=== PATIENT | female | born 1950 | race Caucasian/White ===

== ENCOUNTER 2016-10-04 09:48 | Emergency (ER) | payer MEDICARE, MEDICAID ==
[~2016-10-04] VITALS: Ht 165.1 cm; Wt 86.2 kg
[~2016-10-04 09:48] MED LIST: ALBU18; ASPI-231 PO; CHOL20007 OR; DILT120T3; FLUT250M9; HYDR12.56 PO; LEV500T PO; OLME40TA27; PANT40TA2 PO; SERT-160; SIMV-13
[2016-10-04 10:35] VITALS: BP 121/73
[2016-10-04] MEDS ORDERED: IPRATROPIUM BROM 0.5 MG/2.5ML INH SOL NEB ONE (11:30)
[2016-10-04] MEDS ORDERED: ALBUTEROL SULF 2.5 MG/0.5ML(0.5%) NEB SOLN NEB ONE (11:30)
[2016-10-04 11:51] LABS: Urine RBC None Seen /hpf (0 - 4)
[2016-10-04 11:57] LABS: Urine Bilirubin Negative (Negative); Urine Blood Negative /uL (Negative); Urine Color Yellow (Yellow); Urine Glucose Normal (Normal); Urine Ketone Negative (Negative); Urine Nitrite Negative (Negative); Urine Squamous Epithelial Cell FEW /hpf (<5); Urine Urobilinogen Normal (Negative)
[2016-10-04 12:32] LABS: Basophils # (auto) 0 uL; Basophils % (auto) 0.4 % (0.0-2.0); Eosinophils # (auto) 0.1 uL; Eosinophils % (auto) 0.8 % (0.0-7.0); Hematocrit 43.1 % (36.0-46.0); Hemoglobin 14.1 g/dL (12.2-16.2); Lymphocytes # (auto) 1.4 uL; Lymphocytes % (auto) 19.4 % (10.0-50.0); Mean Corpuscular Hemoglobin 29.5 pg (28.0-32.0); Mean Corpuscular Hgb Conc. 32.8 g/dL (32.0-36.0); Mean Corpuscular Volume 89.9 fL (80.0-100.0); Mean Platelet Volume 8.8 fL (7.4-10.4); Monocytes # (auto) 0.5 uL; Monocytes % (auto) 6.9 % (0.0-12.0); Neutrophils # (auto) 5.4 uL; Neutrophils % (auto) 72.5 % (37.0-80.0); Platelet Count (auto) 260 10^3/uL (140-450); Red Cell Distribution Width 14.9 % (11.6-16.0); White Blood Cell 7.4 10^3/uL (4.4-10.8)
[2016-10-04 13:08] LABS: BUN/Creatinine Ratio 24.5; Magnesium 2.1 mg/dL (1.6-2.6); Potassium 4.1 mmol/L (3.5-5.1)
== END 2016-10-04 14:41 | disposition home or self-care (01) ==
LOC: ER 09:48
DX: J44.1 Chronic obstructive pulmonary disease with (acute) exacerbation (principal); E11.65 Type 2 diabetes mellitus with hyperglycemia; J45.909 Unspecified asthma, uncomplicated; E78.5 Hyperlipidemia, unspecified; I10 Essential (primary) hypertension; K21.9 Gastro-esophageal reflux disease without esophagitis; Z87.891 Personal history of nicotine dependence; Z90.49 Acquired absence of other specified parts of digestive tract; Z90.710 Acquired absence of both cervix and uterus
CPT/HCPCS: 36415; 71020; 80048; 81001; 83735; 85025; 93005; 94640

== ENCOUNTER 2016-12-24 11:23 | Emergency (ER) | payer MEDICARE, MEDICAID ==
[~2016-12-24] VITALS: Ht 162.6 cm; Wt 85.3 kg
[2016-12-24 11:45] VITALS: BP 129/82
== END 2016-12-24 14:30 | disposition left against medical advice (07) ==
LOC: ER 11:27
DX: L02.415 Cutaneous abscess of right lower limb (principal); Z53.21 Procedure and treatment not carried out due to patient leaving prior to being seen by health care provider

== ENCOUNTER 2017-01-15 05:54 | Inpatient (IN) | payer MEDICARE, MEDICAID ==
[~2017-01-15] VITALS: Ht 162.6 cm; Wt 86.9 kg
[~2017-01-15 05:54] MED LIST changes: -SERT-160; +SERT-160 PO; -SIMV-13; +SIMV-13 PO
[2017-01-15 07:35] LABS: Basophils # (auto) 0 uL; Basophils % (auto) 0.4 % (0.0-2.0); Eosinophils # (auto) 0 uL; Eosinophils % (auto) 0.6 % (0.0-7.0); Hematocrit 42.5 % (36.0-46.0); Hemoglobin 13.9 g/dL (12.2-16.2); Lymphocytes % (auto) 12.6 % (10.0-50.0); Mean Corpuscular Hemoglobin 29.4 pg (28.0-32.0); Mean Corpuscular Hgb Conc. 32.8 g/dL (32.0-36.0); Mean Corpuscular Volume 89.4 fL (80.0-100.0); Mean Platelet Volume 9.5 fL (7.4-10.4); Monocytes # (auto) 0.9 uL; Monocytes % (auto) 11.7 % (0.0-12.0); Neutrophils % (auto) 74.7 % (37.0-80.0); Platelet Count (auto) 233 10^3/uL (140-450)
[2017-01-15 07:46] LABS: Alkaline Phosphatase 89 U/L (45-117); Anion Gap 11 (5-15); Aspartate Aminotransferase 28 U/L (15-37); BUN/Creatinine Ratio 18.8; Bilirubin, Total 0.3 mg/dL (0.2-1.0); Blood Urea Nitrogen 19 mg/dL (7-18); Calcium 9.6 mg/dL (8.5-10.1); Carbon Dioxide 27 mmol/L (21-32); Chloride 104 mmol/L (98-107); GFR African American 71 mL/min; GFR Non-African American 59 mL/min; Glucose 143 mg/dL (74-106); Magnesium 2.2 mg/dL (1.6-2.6); Potassium 4.3 mmol/L (3.5-5.1); Sodium 142 mmol/L (136-145)
[2017-01-15 07:48] LABS: INR 0.93 (0.9-1.15); Partial Thromboplastin Time 24.2 sec (22.64-33.71)
[2017-01-15] MEDS ORDERED: ALBUTEROL SULF 2.5 MG/0.5ML(0.5%) NEB SOLN HHN STA (08:03)
[2017-01-15] MEDS ORDERED: SODIUM CHLORIDE 0.9% 500 ML IV ONE (08:15)
[2017-01-15] MEDS ORDERED: methylPREDNISolone SOD SUCC 125 MG/2 ML VL IV ONE (08:15)
[2017-01-15] MEDS ORDERED: IPRATROPIUM BROM 0.5 MG/2.5ML INH SOL NEB ONE (08:15)
[2017-01-15] MEDS ORDERED: cefTRIAXone 1GM/50ML D5W 50 ML IV ONE (12:15)
[2017-01-15] MEDS ORDERED: NITROGLYCERIN 0.4 MG SL TAB SL PRN (12:15)
[2017-01-15] MEDS ORDERED: MORPHINE SULF INJ 2 MG/ML SYRINGE 1ML IV PRN ×2 (12:15)
[2017-01-15] MEDS ORDERED: DOCUSATE SOD 100 MG CAP PO PRN (12:15)
[2017-01-15] MEDS ORDERED: ONDANSETRON HCL 4 MG/2 ML VIAL IV PRN (12:15)
[2017-01-15] MEDS ORDERED: DEXTROSE (50%) 50ML SYRG IV PRN (12:30)
[2017-01-15] MEDS ORDERED: ASPirin-EC 81 mg tab PO SCH (13:00)
[2017-01-15] MEDS ORDERED: ASPirin-EC 81 mg tab PO ONE (13:00)
[2017-01-15] MEDS ORDERED: AZITHROMYCIN 500MG/D5W 250ML 250 ML IV ONE (13:15)
[2017-01-15] MEDS: SODIUM CHLOR 0.9% PF (SALINE LOCK) 10ML VIAL IV SCH ×2 (14:00→21:48)
[2017-01-15] MEDS: GABAPENTIN 100 MG CAP PO SCH ×2 (15:27→21:51)
[2017-01-15] MEDS: ACETAMINOPHEN 325 MG TAB PO PRN ×2 (15:30→20:43)
[2017-01-15 17:00] VITALS: BP 108/75
[2017-01-15] MEDS: ACCU-CHEK COMFORT CURVE STRIP VI SCH ×2 (17:42→21:51)
[2017-01-15] MEDS: InsuLIN REG 1unit/0.01ml Soln (100units/ml) SC SCH ×2 (17:42→21:51)
[2017-01-15] MEDS: BUDESONIDE (INHALATION) 0.5 MG/2 ML NEB NEB SCH ×2 (18:02→21:41)
[2017-01-15] MEDS: IPRATROPIUM BROM 0.5 MG/2.5ML INH SOL NEB SCH ×2 (18:02→21:41)
[2017-01-15] MEDS: ALBUTEROL SULF 2.5 MG/0.5ML(0.5%) NEB SOLN NEB SCH ×2 (18:02→21:41)
[2017-01-15 20:00] VITALS: BP 116/84
[2017-01-15 20:08] VITALS: BP 113/72
[2017-01-15 20:31] LABS: Urine Bilirubin Negative (Negative); Urine Blood Negative /uL (Negative); Urine Color Yellow (Yellow); Urine Glucose Normal (Normal); Urine Ketone Negative (Negative); Urine Nitrite Negative (Negative); Urine RBC <1 /hpf (0 - 4); Urine Squamous Epithelial Cell FEW /hpf (<5); Urine Urobilinogen Normal (Negative); Urine pH 5.5 (5.0-8.0)
[2017-01-15] MEDS: TEMAZEPAM 15 MG CAP PO PRN (21:48)
[2017-01-15] MEDS: FAMOTIDINE 20 MG TAB PO SCH (21:48)
[2017-01-15] MEDS: ATORVASTATIN 20 MG TAB PO SCH (21:49)
[2017-01-15 21:57] VITALS: BP 116/84
[2017-01-15] MEDS ORDERED: PATIENTS OWN MEDICATION IN SCH ×2 (22:00)
[2017-01-16] MEDS: ALBUTEROL SULF 2.5 MG/0.5ML(0.5%) NEB SOLN NEB SCH ×6 (02:00→23:29)
[2017-01-16] MEDS: IPRATROPIUM BROM 0.5 MG/2.5ML INH SOL NEB SCH ×6 (02:00→23:29)
[2017-01-16 05:00] VITALS: BP 145/93
[2017-01-16 05:07] LABS: Basophils # (auto) 0 uL; Basophils % (auto) 0.3 % (0.0-2.0); Eosinophils # (auto) 0 uL; Hematocrit 39.5 % (36.0-46.0); Hemoglobin 13.1 g/dL (12.2-16.2); Lymphocytes # (auto) 0.8 uL; Lymphocytes % (auto) 9.9 % (10.0-50.0); Mean Corpuscular Hemoglobin 29.6 pg (28.0-32.0); Mean Corpuscular Volume 89.6 fL (80.0-100.0); Monocytes # (auto) 0.5 uL; Monocytes % (auto) 5.8 % (0.0-12.0); Neutrophils # (auto) 6.8 uL; Platelet Count (auto) 222 10^3/uL (140-450); Red Cell Distribution Width 15.9 % (11.6-16.0)
[2017-01-16 05:27] LABS: Albumin 3.4 g/dL (3.4-5.0); BUN/Creatinine Ratio 29.6; Calcium 8.8 mg/dL (8.5-10.1); Potassium 4.5 mmol/L (3.5-5.1)
[2017-01-16 05:36] LABS: Bilirubin, Total 0.2 mg/dL (0.2-1.0); Total Protein 6.5 g/dL (6.4-8.2)
[2017-01-16] MEDS: GABAPENTIN 100 MG CAP PO SCH ×3 (05:45→21:09)
[2017-01-16] MEDS: SODIUM CHLOR 0.9% PF (SALINE LOCK) 10ML VIAL IV SCH ×3 (05:45→20:04)
[2017-01-16] MEDS: InsuLIN REG 1unit/0.01ml Soln (100units/ml) SC SCH ×4 (06:07→22:00)
[2017-01-16] MEDS: ACCU-CHEK COMFORT CURVE STRIP VI SCH ×4 (06:07→21:09)
[2017-01-16 08:43] VITALS: BP 130/78
[2017-01-16] MEDS: ACETAMINOPHEN 325 MG TAB PO PRN (09:41)
[2017-01-16] MEDS: cefTRIAXone 1GM/50ML D5W 50 ML IV SCH (09:42)
[2017-01-16] MEDS: DILTIAZEM HCL 120MG ER CAP PO SCH (10:00)
[2017-01-16] MEDS: AZITHROMYCIN 500MG/D5W 250ML 250 ML IV SCH (10:00)
[2017-01-16] MEDS: SERTRALINE HCL 50 MG TAB PO SCH (10:00)
[2017-01-16] MEDS: BUDESONIDE (INHALATION) 0.5 MG/2 ML NEB NEB SCH ×2 (11:19→23:30)
[2017-01-16] MEDS: CHOLECALCIFEROL (VITD3) 1,000 UNIT TAB PO SCH (11:47)
[2017-01-16] MEDS: ASPirin-EC 81 mg tab PO SCH (11:48)
[2017-01-16] MEDS: MULTIPLE VITAMIN TAB PO SCH (11:49)
[2017-01-16] MEDS: HCTZ 25 MG TAB PO SCH (11:49)
[2017-01-16] MEDS: FAMOTIDINE 20 MG TAB PO SCH ×2 (11:49→21:09)
[2017-01-16] MEDS: LOSARTAN POTASSIUM 50 MG TAB PO SCH (11:50)
[2017-01-16 12:49] VITALS: BP 149/95
[2017-01-16 16:56] VITALS: BP 125/81
[2017-01-16] MEDS: ATORVASTATIN 20 MG TAB PO SCH (21:09)
[2017-01-16 22:00] VITALS: BP 115/68
[2017-01-17] MEDS: IPRATROPIUM BROM 0.5 MG/2.5ML INH SOL NEB SCH ×6 (00:30→20:06)
[2017-01-17] MEDS: BUDESONIDE (INHALATION) 0.5 MG/2 ML NEB NEB SCH ×2 (00:30→10:14)
[2017-01-17] MEDS: ALBUTEROL SULF 2.5 MG/0.5ML(0.5%) NEB SOLN NEB SCH ×6 (02:46→22:30)
[2017-01-17 05:00] VITALS: BP 122/74
[2017-01-17 05:44] LABS: Basophils # (auto) 0 uL; Basophils % (auto) 0.3 % (0.0-2.0); Eosinophils # (auto) 0 uL; Eosinophils % (auto) 0.3 % (0.0-7.0); Hematocrit 38.3 % (36.0-46.0); Hemoglobin 12.6 g/dL (12.2-16.2); Lymphocytes # (auto) 1.7 uL; Lymphocytes % (auto) 22.8 % (10.0-50.0); Mean Corpuscular Hemoglobin 29.3 pg (28.0-32.0); Mean Corpuscular Hgb Conc. 32.8 g/dL (32.0-36.0); Mean Corpuscular Volume 89.1 fL (80.0-100.0); Mean Platelet Volume 9.1 fL (7.4-10.4); Monocytes # (auto) 0.5 uL; Neutrophils # (auto) 5.3 uL; Neutrophils % (auto) 69.6 % (37.0-80.0); Platelet Count (auto) 223 10^3/uL (140-450); Red Cell Distribution Width 15.4 % (11.6-16.0); White Blood Cell 7.6 10^3/uL (4.4-10.8)
[2017-01-17] MEDS: ACCU-CHEK COMFORT CURVE STRIP VI SCH ×4 (06:01→22:12)
[2017-01-17] MEDS: GABAPENTIN 100 MG CAP PO SCH ×3 (06:01→22:12)
[2017-01-17] MEDS: InsuLIN REG 1unit/0.01ml Soln (100units/ml) SC SCH ×4 (06:01→22:22)
[2017-01-17] MEDS: SODIUM CHLOR 0.9% PF (SALINE LOCK) 10ML VIAL IV SCH ×3 (06:01→22:12)
[2017-01-17 06:08] LABS: Albumin 3.3 g/dL (3.4-5.0); Potassium 4.3 mmol/L (3.5-5.1)
[2017-01-17 06:10] LABS: BUN/Creatinine Ratio 26.7
[2017-01-17 06:13] LABS: Bilirubin, Total 0.3 mg/dL (0.2-1.0); Total Protein 6.2 g/dL (6.4-8.2)
[2017-01-17 08:53] VITALS: BP 123/89
[2017-01-17] MEDS: cefTRIAXone 1GM/50ML D5W 50 ML IV SCH (09:00)
[2017-01-17] MEDS: HYDROcodone-ACET 5/325MG TAB PO PRN ×2 (09:14→14:05)
[2017-01-17] MEDS: AZITHROMYCIN 500MG/D5W 250ML 250 ML IV SCH (10:38)
[2017-01-17] MEDS: MULTIPLE VITAMIN TAB PO SCH (10:39)
[2017-01-17] MEDS: ASPirin-EC 81 mg tab PO SCH (10:40)
[2017-01-17] MEDS: LOSARTAN POTASSIUM 50 MG TAB PO SCH (10:41)
[2017-01-17] MEDS: CHOLECALCIFEROL (VITD3) 1,000 UNIT TAB PO SCH (10:43)
[2017-01-17] MEDS: HCTZ 25 MG TAB PO SCH (10:43)
[2017-01-17] MEDS: SERTRALINE HCL 50 MG TAB PO SCH (10:44)
[2017-01-17] MEDS: DILTIAZEM HCL 120MG ER CAP PO SCH (10:53)
[2017-01-17] MEDS: FAMOTIDINE 20 MG TAB PO SCH ×2 (10:54→22:12)
[2017-01-17 12:47] VITALS: BP 113/82
[2017-01-17 16:40] VITALS: BP 118/84
[2017-01-17 20:00] VITALS: BP 112/78
[2017-01-17] MEDS: ACETAMINOPHEN 325 MG TAB PO PRN (20:52)
[2017-01-17 22:00] VITALS: BP 112/78
[2017-01-17] MEDS: methylPREDNISolone SOD SUCC 40 MG/ML VL IV SCH (22:11)
[2017-01-17] MEDS: ATORVASTATIN 20 MG TAB PO SCH (22:12)
[2017-01-17] MEDS: TEMAZEPAM 15 MG CAP PO PRN (22:12)
[2017-01-18 04:55] VITALS: BP 112/66
[2017-01-18] MEDS: ALBUTEROL SULF 2.5 MG/0.5ML(0.5%) NEB SOLN NEB SCH ×2 (05:47→09:48)
[2017-01-18] MEDS: IPRATROPIUM BROM 0.5 MG/2.5ML INH SOL NEB SCH ×2 (05:47→09:48)
[2017-01-18] MEDS: BUDESONIDE (INHALATION) 0.5 MG/2 ML NEB NEB SCH (05:47)
[2017-01-18] MEDS: GABAPENTIN 100 MG CAP PO SCH (06:12)
[2017-01-18] MEDS: SODIUM CHLOR 0.9% PF (SALINE LOCK) 10ML VIAL IV SCH (06:12)
[2017-01-18] MEDS: ACCU-CHEK COMFORT CURVE STRIP VI SCH (06:35)
[2017-01-18] MEDS: InsuLIN REG 1unit/0.01ml Soln (100units/ml) SC SCH (06:35)
[2017-01-18 07:06] VITALS: BP 103/81
[2017-01-18] MEDS ORDERED: AZI250T PO (08:57)
[2017-01-18] MEDS ORDERED: guaiFENesin-DEXTROMETHORPHAN 5ML SYR PO PRN (09:00)
[2017-01-18] MEDS ORDERED: guaiFENesin-DEXTROMETHORPHAN 5ML SYR PO ONE (09:00)
[2017-01-18] MEDS: methylPREDNISolone SOD SUCC 40 MG/ML VL IV SCH (09:18)
[2017-01-18] MEDS: CHOLECALCIFEROL (VITD3) 1,000 UNIT TAB PO SCH (09:20)
[2017-01-18] MEDS: ASPirin-EC 81 mg tab PO SCH (09:20)
[2017-01-18] MEDS: LOSARTAN POTASSIUM 50 MG TAB PO SCH (09:22)
[2017-01-18] MEDS: FAMOTIDINE 20 MG TAB PO SCH (09:24)
[2017-01-18] MEDS: DILTIAZEM HCL 120MG ER CAP PO SCH (09:24)
[2017-01-18] MEDS: HCTZ 25 MG TAB PO SCH (09:24)
[2017-01-18] MEDS: SERTRALINE HCL 50 MG TAB PO SCH (09:29)
[2017-01-18] MEDS: MULTIPLE VITAMIN TAB PO SCH (09:33)
[2017-01-18] MEDS ORDERED: AZITHROMYCIN 250 MG TAB PO SCH (10:00)
[2017-01-18 10:18] VITALS: BP 126/84
== END 2017-01-18 12:30 | disposition home or self-care (01) | DRG 191 ==
LOC: ER 06:00 → TELE 06:01 → TELE-E-ADS 14:45 → TELE-CENTR 16:25 → CENTRAL 01-17 14:08
PROVIDERS: ADMIT Internal Medicine; ATTEND Internal Medicine
DX: J44.0 Chronic obstructive pulmonary disease with (acute) lower respiratory infection (principal); J45.901 Unspecified asthma with (acute) exacerbation; E87.1 Hypo-osmolality and hyponatremia; J44.1 Chronic obstructive pulmonary disease with (acute) exacerbation; J20.9 Acute bronchitis, unspecified; I12.9 Hypertensive chronic kidney disease with stage 1 through stage 4 chronic kidney disease, or unspecified chronic kidney disease; N18.3 Chronic kidney disease, stage 3 (moderate); E11.21 Type 2 diabetes mellitus with diabetic nephropathy; E78.5 Hyperlipidemia, unspecified; I25.10 Atherosclerotic heart disease of native coronary artery without angina pectoris; F32.9 Major depressive disorder, single episode, unspecified; Z90.710 Acquired absence of both cervix and uterus; Z90.49 Acquired absence of other specified parts of digestive tract; Z88.8 Allergy status to other drugs, medicaments and biological substances; I25.2 Old myocardial infarction
CPT/HCPCS: 36415; 71010; 80053; 81001; 82962; 83036; 83605; 83735; 84443; 84484; 85025; 85610; 85730; 87040; 87086; 93005; 94640; 94761; 96361; 96374; J0696; J1815

== ENCOUNTER 2017-07-03 09:04 | Emergency (ER) | payer MEDICARE, MEDICAID ==
[~2017-07-03] VITALS: Ht 162.6 cm; Wt 86.2 kg
[~2017-07-03 09:04] MED LIST changes: +AZI250T PO; -LEV500T PO; +LOR05T PO; -PANT40TA2 PO; +RIS1T PO; -SERT-160 PO
[2017-07-03 09:23] VITALS: BP 113/86
[2017-07-03 09:54] LABS: Basophils # (auto) 0.1 uL; Basophils % (auto) 0.8 % (0.0-2.0); Eosinophils # (auto) 0.1 uL; Eosinophils % (auto) 1.8 % (0.0-7.0); Hemoglobin 13.9 g/dL (12.2-16.2); Lymphocytes # (auto) 1.3 uL; Lymphocytes % (auto) 20.4 % (10.0-50.0); Mean Corpuscular Volume 88.3 fL (80.0-100.0); Mean Platelet Volume 8.2 fL (6.9-10.8); Monocytes # (auto) 0.6 uL; Monocytes % (auto) 9.7 % (0.0-12.0); Neutrophils # (auto) 4.3 uL; Neutrophils % (auto) 67.3 % (37.0-80.0); Platelet Count (auto) 232 10^3/uL (140-450); Red Cell Distribution Width 15.3 % (11.8-14.3); White Blood Cell 6.4 10^3/uL (4.4-10.8)
[2017-07-03 10:10] LABS: BUN/Creatinine Ratio 14.3; Calcium 9.6 mg/dL (8.5-10.1); Potassium 4.1 mmol/L (3.5-5.1)
[2017-07-03 10:14] LABS: Bilirubin, Total 0.5 mg/dL (0.2-1.0); Total Protein 6.5 g/dL (6.4-8.2)
[2017-07-03] MEDS ORDERED: MECLIZINE HCL 25 MG TAB PO ONE (10:30)
[2017-07-03] MEDS ORDERED: HYDROcodone-ACET 5/325MG TAB PO ONE (11:15)
== END 2017-07-03 12:28 | disposition home or self-care (01) ==
LOC: ER 09:04
DX: S09.90XA Unspecified injury of head, initial encounter (principal); R42 Dizziness and giddiness; I25.10 Atherosclerotic heart disease of native coronary artery without angina pectoris; J44.9 Chronic obstructive pulmonary disease, unspecified; E11.9 Type 2 diabetes mellitus without complications; E78.5 Hyperlipidemia, unspecified; I10 Essential (primary) hypertension; Z90.710 Acquired absence of both cervix and uterus; Z90.49 Acquired absence of other specified parts of digestive tract; W19.XXXA Unspecified fall, initial encounter; Y93.89 Activity, other specified; Y99.8 Other external cause status; Y92.89 Other specified places as the place of occurrence of the external cause
CPT/HCPCS: 36415; 70450; 73502; 80053; 85025; 93005; 99285; J8597

== ENCOUNTER 2017-12-02 07:51 | Inpatient (IN) | payer MEDICARE, MEDICAID ==
[~2017-12-02] VITALS: Ht 162.6 cm; Wt 81.5 kg
[~2017-12-02 07:51] MED LIST changes: -AZI250T PO; -CHOL20007 OR; -DILT120T3; +DILT180C88 PO; +LAM100T OR; -LOR05T PO; +LURA40TA PO; -OLME40TA27; +OLME40TA27 PO; -RIS1T PO
[2017-12-02 08:46] LABS: Basophils # (auto) 0 uL; Basophils % (auto) 0.7 % (0.0-2.0); Eosinophils # (auto) 0 uL; Eosinophils % (auto) 0.2 % (0.0-7.0); Hematocrit 38.6 % (36.0-46.0); Hemoglobin 12.7 g/dL (12.2-16.2); Lymphocytes % (auto) 13.9 % (10.0-50.0); Mean Corpuscular Hemoglobin 29.8 pg (28.0-32.0); Mean Corpuscular Volume 90.2 fL (80.0-100.0); Monocytes # (auto) 0.5 uL; Monocytes % (auto) 7.6 % (0.0-12.0); Neutrophils # (auto) 5.3 uL; Neutrophils % (auto) 77.6 % (37.0-80.0); Platelet Count (auto) 208 10^3/uL (140-450); Red Blood Cells 4.28 10^6/uL (4.0-5.20); Red Cell Distribution Width 15.8 % (11.8-14.3); White Blood Cell 6.8 10^3/uL (4.4-10.8)
[2017-12-02 09:01] LABS: Albumin 3.6 g/dL (3.4-5.0); BUN/Creatinine Ratio 16.5; Calcium 9.1 mg/dL (8.5-10.1); Potassium 3.9 mmol/L (3.5-5.1)
[2017-12-02 09:04] LABS: Bilirubin, Total 0.3 mg/dL (0.2-1.0); Total Protein 6.5 g/dL (6.4-8.2)
[2017-12-02] MEDS ORDERED: IPRATROPIUM BROM 0.5 MG/2.5ML INH SOL HHN ONE (13:45)
[2017-12-02] MEDS ORDERED: cefTRIAXone 1GM/10ml IVPUSH 10 ML IV ONE (13:45)
[2017-12-02] MEDS ORDERED: ALBUTEROL SULF 2.5 MG/0.5ML(0.5%) NEB SOLN HHN ONE (13:45)
[2017-12-02 14:25] LABS: INR 0.9 (0.9-1.15); Partial Thromboplastin Time 28.2 sec (22.64-33.71); Prothrombin Time 9.8 sec (9.37-12.3)
[2017-12-02] MEDS ORDERED: methylPREDNISolone SOD SUCC 125 MG/2 ML VL ONE (14:33)
[2017-12-02] MEDS ORDERED: ONDANSETRON HCL 4 MG/2 ML VIAL ONE (14:33)
[2017-12-02] MEDS ORDERED: methylPREDNISolone SOD SUCC 125 MG/2 ML VL IV ONE (14:45)
[2017-12-02] MEDS ORDERED: ONDANSETRON HCL 4 MG/2 ML VIAL IV ONE (14:45)
[2017-12-02 14:53] LABS: Urine Bacteria FEW /hpf (None Seen); Urine Blood Negative /uL (Negative); Urine Specific Gravity 1.013 (1.001-1.035); Urine WBC 3 /hpf (0 - 5)
[2017-12-02] MEDS ORDERED: PROMETHAZINE HCL 25 MG/ML 1ML IV PRN (15:30)
[2017-12-02] MEDS ORDERED: DEXTROSE (50%) 50ML SYRG IV PRN (15:30)
[2017-12-02] MEDS ORDERED: TEMAZEPAM 15 MG CAP PO PRN (15:30)
[2017-12-02] MEDS ORDERED: MORPHINE SULFATE 4 MG/ML SYR/VIAL IV PRN ×2 (15:30)
[2017-12-02] MEDS ORDERED: OSELTAMIVIR 30 MG CAP PO ONE (15:30)
[2017-12-02] MEDS ORDERED: LORazepam 0.5 MG TAB PO PRN (15:30)
[2017-12-02] MEDS ORDERED: ACETAMINOPHEN 500 MG TAB PO PRN (15:30)
[2017-12-02] MEDS ORDERED: ALBUTEROL SULF 2.5 MG/0.5ML(0.5%) NEB SOLN NEB PRN (15:30)
[2017-12-02] MEDS ORDERED: OSELTAMIVIR 75 MG CAP PO ONE (15:30)
[2017-12-02] MEDS ORDERED: NITROGLYCERIN 0.4 MG SL TAB SL PRN (15:30)
[2017-12-02 15:44] VITALS: BP 148/98
[2017-12-02] MEDS: SODIUM CHLORIDE 0.9% 1,000 ML IV SCH (15:58)
[2017-12-02] MEDS: DOXYCYCLINE HYC 100MG/250ML 250 ML IV SCH (15:58)
[2017-12-02 16:02] LABS: CRP High Sensitivity 1.53 mg/dL (< 0.3)
[2017-12-02] MEDS: ACCU-CHEK COMFORT CURVE STRIP VI SCH ×2 (17:04→21:53)
[2017-12-02] MEDS: InsuLIN REG 1unit/0.01ml Soln (100units/ml) SC SCH ×2 (17:08→21:52)
[2017-12-02] MEDS: LURASIDONE HYDROCHLORIDE 60 MG PO SCH (17:49)
[2017-12-02 17:52] VITALS: BP 160/98
[2017-12-02] MEDS: methylPREDNISolone SOD SUCC 40 MG/ML VL IV SCH (17:58)
[2017-12-02] MEDS: LACTULOSE 20Gm/30ML SOLN PO PRN (18:05)
[2017-12-02] MEDS ORDERED: ARIP2TAB PO (18:38)
[2017-12-02] MEDS ORDERED: ALPR0.254 PO (18:38)
[2017-12-02] MEDS ORDERED: LAMO25TA2 PO (18:38)
[2017-12-02] MEDS ORDERED: GABA100C9 PO ×2 (18:38)
[2017-12-02] MEDS ORDERED: FLUO-125 PO (18:38)
[2017-12-02] MEDS ORDERED: DILT60TA27 PO (18:38)
[2017-12-02] MEDS: BUDESONIDE (INHALATION) 0.5 MG/2 ML NEB NEB SCH (19:09)
[2017-12-02] MEDS: ALBUTEROL SULF 2.5 MG/0.5ML(0.5%) NEB SOLN NEB SCH (19:09)
[2017-12-02] MEDS: IPRATROPIUM BROM 0.5 MG/2.5ML INH SOL NEB SCH (19:09)
[2017-12-02 20:00] VITALS: BP 132/90
[2017-12-02 21:30] VITALS: BP 132/90
[2017-12-02] MEDS: ATORVASTATIN 20 MG TAB PO SCH (21:53)
[2017-12-02] MEDS ORDERED: OSELTAMIVIR 75 MG CAP PO SCH (22:00)
[2017-12-02] MEDS: OSELTAMIVIR 30 MG CAP PO SCH (22:00)
[2017-12-02] MEDS ORDERED: PATIENTS OWN MEDICATION (Simvastatin 1 TAB) PO SCH (22:00)
[2017-12-03] MEDS: methylPREDNISolone SOD SUCC 40 MG/ML VL IV SCH ×5 (00:07→23:52)
[2017-12-03] MEDS: IPRATROPIUM BROM 0.5 MG/2.5ML INH SOL NEB SCH ×4 (00:58→20:10)
[2017-12-03] MEDS: ALBUTEROL SULF 2.5 MG/0.5ML(0.5%) NEB SOLN NEB SCH ×4 (00:58→20:10)
[2017-12-03] MEDS: DOXYCYCLINE HYC 100MG/250ML 250 ML IV SCH ×2 (04:09→15:28)
[2017-12-03] MEDS: HYDROcodone-ACET 5/325MG TAB PO PRN ×3 (04:20→23:58)
[2017-12-03] MEDS: SODIUM CHLORIDE 0.9% 1,000 ML IV SCH (04:21)
[2017-12-03 04:50] VITALS: BP 171/101
[2017-12-03] MEDS ORDERED: cloNIDine HCL 0.1 MG TAB PO PRN (05:15)
[2017-12-03] MEDS: BUDESONIDE (INHALATION) 0.5 MG/2 ML NEB NEB SCH ×2 (06:10→20:10)
[2017-12-03] MEDS: ACCU-CHEK COMFORT CURVE STRIP VI SCH ×4 (06:34→22:03)
[2017-12-03] MEDS: InsuLIN REG 1unit/0.01ml Soln (100units/ml) SC SCH ×4 (06:34→22:15)
[2017-12-03 09:00] VITALS: BP 163/94
[2017-12-03] MEDS ORDERED: ASPirin 81 mg TAB PO SCH (10:00)
[2017-12-03] MEDS: OSELTAMIVIR 30 MG CAP PO SCH (10:00)
[2017-12-03] MEDS ORDERED: PATIENTS OWN MEDICATION (Olmesartan Medoxomil (Benicar) 1 TAB) PO SCH (10:00)
[2017-12-03] MEDS ORDERED: DILTIAZEM HCL PO SCH (10:00)
[2017-12-03] MEDS ORDERED: PATIENTS OWN MEDICATION IN SCH (10:00)
[2017-12-03] MEDS: lamoTRIgine 25 MG TAB PO SCH (10:00)
[2017-12-03] MEDS: ENOXAPARIN SOD 40 MG/0.4 ML SYRINGE SC SCH (10:36)
[2017-12-03] MEDS: LACTULOSE 20Gm/30ML SOLN PO PRN (10:36)
[2017-12-03] MEDS: ASPirin-EC 81 mg tab PO SCH (10:37)
[2017-12-03] MEDS: LOSARTAN POTASSIUM 50 MG TAB PO SCH (10:37)
[2017-12-03] MEDS: DILTIAZEM HCL 120MG ER CAP PO SCH (10:38)
[2017-12-03 12:34] VITALS: BP 142/99
[2017-12-03] MEDS ORDERED: hydrALAZINE HCL 20 MG/ML VL IV PRN (15:15)
[2017-12-03] MEDS ORDERED: PANTOPRAZOLE 40 MG TAB PO ONE (15:45)
[2017-12-03 16:53] VITALS: BP 143/89
[2017-12-03] MEDS: LURASIDONE HYDROCHLORIDE 60 MG PO SCH (18:00)
[2017-12-03 20:00] VITALS: BP 140/95
[2017-12-03] MEDS: DOXYCYCLINE 100 MG TAB/CAP PO SCH (22:05)
[2017-12-03] MEDS: ATORVASTATIN 20 MG TAB PO SCH (22:05)
[2017-12-03 22:12] VITALS: BP 140/95
[2017-12-04] MEDS: IPRATROPIUM BROM 0.5 MG/2.5ML INH SOL NEB SCH ×4 (01:05→18:42)
[2017-12-04] MEDS: ALBUTEROL SULF 2.5 MG/0.5ML(0.5%) NEB SOLN NEB SCH ×4 (01:05→18:42)
[2017-12-04 05:02] VITALS: BP 143/84
[2017-12-04] MEDS: methylPREDNISolone SOD SUCC 40 MG/ML VL IV SCH ×2 (05:28→11:48)
[2017-12-04] MEDS: ACCU-CHEK COMFORT CURVE STRIP VI SCH ×4 (05:33→21:38)
[2017-12-04] MEDS: InsuLIN REG 1unit/0.01ml Soln (100units/ml) SC SCH ×4 (06:38→21:59)
[2017-12-04] MEDS: BUDESONIDE (INHALATION) 0.5 MG/2 ML NEB NEB SCH ×2 (07:08→18:42)
[2017-12-04 08:57] VITALS: BP 144/85
[2017-12-04] MEDS: LACTULOSE 20Gm/30ML SOLN PO PRN (09:33)
[2017-12-04] MEDS: ENOXAPARIN SOD 40 MG/0.4 ML SYRINGE SC SCH (09:33)
[2017-12-04] MEDS: ASPirin-EC 81 mg tab PO SCH (09:33)
[2017-12-04] MEDS: PANTOPRAZOLE 40 MG TAB PO SCH (09:33)
[2017-12-04] MEDS: DOXYCYCLINE 100 MG TAB/CAP PO SCH ×2 (09:34→21:38)
[2017-12-04] MEDS: DILTIAZEM HCL 120MG ER CAP PO SCH (09:34)
[2017-12-04] MEDS: LOSARTAN POTASSIUM 50 MG TAB PO SCH (09:34)
[2017-12-04] MEDS: lamoTRIgine 25 MG TAB PO SCH (09:39)
[2017-12-04 13:00] VITALS: BP 163/90
[2017-12-04] MEDS ORDERED: predniSONE 20 MG TAB PO ONE (14:30)
[2017-12-04 16:26] VITALS: BP 136/82
[2017-12-04] MEDS: LURASIDONE HYDROCHLORIDE 60 MG PO SCH (18:00)
[2017-12-04 20:00] VITALS: BP 133/85
[2017-12-04] MEDS: ATORVASTATIN 20 MG TAB PO SCH (21:38)
[2017-12-04 22:00] VITALS: BP 133/85
[2017-12-05] MEDS: IPRATROPIUM BROM 0.5 MG/2.5ML INH SOL NEB SCH ×3 (00:31→12:49)
[2017-12-05] MEDS: ALBUTEROL SULF 2.5 MG/0.5ML(0.5%) NEB SOLN NEB SCH ×3 (00:32→12:49)
[2017-12-05 05:05] VITALS: BP 154/90
[2017-12-05] MEDS: ACCU-CHEK COMFORT CURVE STRIP VI SCH ×2 (06:03→11:29)
[2017-12-05] MEDS: InsuLIN REG 1unit/0.01ml Soln (100units/ml) SC SCH ×2 (06:10→11:28)
[2017-12-05] MEDS: BUDESONIDE (INHALATION) 0.5 MG/2 ML NEB NEB SCH (06:27)
[2017-12-05 09:10] VITALS: BP 157/93
[2017-12-05] MEDS ORDERED: predniSONE 20 MG TAB PO SCH (10:00)
[2017-12-05] MEDS: lamoTRIgine 25 MG TAB PO SCH (10:03)
[2017-12-05] MEDS: PANTOPRAZOLE 40 MG TAB PO SCH (10:03)
[2017-12-05] MEDS: LOSARTAN POTASSIUM 50 MG TAB PO SCH (10:04)
[2017-12-05] MEDS: ENOXAPARIN SOD 40 MG/0.4 ML SYRINGE SC SCH (10:04)
[2017-12-05] MEDS: DOXYCYCLINE 100 MG TAB/CAP PO SCH (10:04)
[2017-12-05] MEDS: ASPirin-EC 81 mg tab PO SCH (10:04)
[2017-12-05] MEDS: DILTIAZEM HCL 120MG ER CAP PO SCH (10:04)
[2017-12-05] MEDS ORDERED: DOX100T PO (10:16)
[2017-12-05 10:35] VITALS: BP 157/93
[2017-12-05 10:56] VITALS: BP 157/93
== END 2017-12-05 13:05 | disposition home or self-care (01) | DRG 291 ==
LOC: ER 07:51 → TELE 07:52 → TELE-WESTW 17:30 → WEST WING 12-04 14:31
PROVIDERS: ADMIT Internal Medicine; ATTEND Internal Medicine
DX: I11.0 Hypertensive heart disease with heart failure (principal); J96.00 Acute respiratory failure, unspecified whether with hypoxia or hypercapnia; J44.1 Chronic obstructive pulmonary disease with (acute) exacerbation; I50.41 Acute combined systolic (congestive) and diastolic (congestive) heart failure; E78.5 Hyperlipidemia, unspecified; F41.9 Anxiety disorder, unspecified; I25.10 Atherosclerotic heart disease of native coronary artery without angina pectoris; Z96.643 Presence of artificial hip joint, bilateral; E11.9 Type 2 diabetes mellitus without complications; T38.0X5A Adverse effect of glucocorticoids and synthetic analogues, initial encounter; R07.89 Other chest pain; E66.3 Overweight; I25.2 Old myocardial infarction; Y92.89 Other specified places as the place of occurrence of the external cause; Z82.49 Family history of ischemic heart disease and other diseases of the circulatory system; Z82.5 Family history of asthma and other chronic lower respiratory diseases; Z83.3 Family history of diabetes mellitus; Z90.710 Acquired absence of both cervix and uterus; Z88.8 Allergy status to other drugs, medicaments and biological substances; Z68.30 Body mass index [BMI] 30.0-30.9, adult
CPT/HCPCS: 36415; 71046; 80053; 81001; 82550; 82962; 83036; 83605; 83735; 83880; 84484; 85025; 85379; 85610; 85652; 85730; 86141; 87040; 87804; 93005; 94640; 94761; 96361; 96374; 96375; G9035; J1815; J2405; J3490

== ENCOUNTER → 2018-06-12 | Outpatient (CLI) | payer MEDICARE, MEDICAID ==
[~2018-06-12] MED LIST changes: +ALPR0.254 PO; +ARIP2TAB PO; -DILT180C88 PO; +DILT60TA27 PO; +DOX100T PO; +FLUO-125 PO; +GABA100C9 PO; -LAM100T OR; +LAMO25TA2 PO; -LURA40TA PO; +OLME40TA19 PO; -OLME40TA27 PO
== END | disposition home or self-care (01) ==
LOC: XYW 08:55
PROVIDERS: ATTEND Orthopaedic Surgery Adult Reconstructive Orthopaedic Surgery
DX: Z01.818 Encounter for other preprocedural examination (principal); I10 Essential (primary) hypertension; E11.9 Type 2 diabetes mellitus without complications; J44.9 Chronic obstructive pulmonary disease, unspecified
CPT/HCPCS: 93306

== ENCOUNTER → 2018-06-27 | Outpatient (CLI) | payer MEDICARE, MEDICAID ==
[~2018-06-27] MED LIST changes: +FLUT100I IN
[2018-06-27 08:47] LABS: Basophils # (auto) 0 uL; Basophils % (auto) 0.8 % (0.0-2.0); Eosinophils # (auto) 0.1 uL; Eosinophils % (auto) 1.5 % (0.0-7.0); Hematocrit 42.2 % (36.0-46.0); Hemoglobin 14.2 g/dL (12.2-16.2); Lymphocytes # (auto) 1.1 uL; Lymphocytes % (auto) 21.3 % (10.0-50.0); Mean Corpuscular Hgb Conc. 33.6 g/dL (32.0-36.0); Mean Corpuscular Volume 89.2 fL (80.0-100.0); Monocytes # (auto) 0.5 uL; Monocytes % (auto) 8.9 % (0.0-12.0); Neutrophils # (auto) 3.5 uL; Neutrophils % (auto) 67.5 % (37.0-80.0); Platelet Count (auto) 239 10^3/uL (140-450); Red Blood Cells 4.73 10^6/uL (4.0-5.20); Red Cell Distribution Width 16.3 % (11.8-14.3); White Blood Cell 5.1 10^3/uL (4.4-10.8)
[2018-06-27 09:05] LABS: Urine Bacteria FEW /hpf (None Seen); Urine Blood Negative /uL (Negative); Urine Specific Gravity 1.015 (1.001-1.035); Urine WBC 5 /hpf (0 - 5)
[2018-06-27 09:33] LABS: Free T4 (Free Thyroxine) 0.84 ng/dL (0.89-1.76); T3 Total 0.95 ng/mL (0.60-1.81)
[2018-06-27 09:34] LABS: Free T3 2.65 pg/mL (2.3-4.2)
[2018-06-27 09:43] LABS: Albumin 3.9 g/dL (3.4-5.0); Bilirubin, Total 0.4 mg/dL (0.2-1.0); CRP High Sensitivity 0.11 mg/dL (< 0.3); Calcium 9.6 mg/dL (8.5-10.1); Potassium 4.6 mmol/L (3.5-5.1); Total Protein 7.1 g/dL (6.4-8.2)
== END | disposition home or self-care (01) ==
LOC: LAB 08:08
PROVIDERS: ATTEND Internal Medicine
DX: I10 Essential (primary) hypertension (principal); E11.69 Type 2 diabetes mellitus with other specified complication; E78.2 Mixed hyperlipidemia; J44.1 Chronic obstructive pulmonary disease with (acute) exacerbation; Z79.899 Other long term (current) drug therapy
CPT/HCPCS: 36415; 80053; 80061; 81001; 82306; 82607; 83036; 84439; 84443; 84480; 84481; 85025; 86141

== ENCOUNTER → 2018-07-03 | Outpatient (CLI) | payer MEDICARE, MEDICAID ==
[~2018-07-03] VITALS: Ht 162.6 cm; Wt 83.9 kg
[~2018-07-03] MED LIST changes: +ADENOSINE 70 MG in GIVE UN-DILUTED 0 ML IV STA; -FLUT100I IN
[2018-07-03 09:39] VITALS: BP 128/78
== END | disposition home or self-care (01) ==
LOC: XY 08:38
PROVIDERS: ATTEND Internal Medicine
DX: I10 Essential (primary) hypertension (principal); J44.9 Chronic obstructive pulmonary disease, unspecified; E11.9 Type 2 diabetes mellitus without complications
CPT/HCPCS: 78452; 93017; A9500; J0153

== ENCOUNTER 2018-08-19 11:01 | Inpatient (IN) | payer MEDICARE, MEDICAID ==
[2018-08-16 13:07] LABS: Basophils # (auto) 0 uL; Basophils % (auto) 0.7 % (0.0-2.0); Eosinophils # (auto) 0.1 uL; Eosinophils % (auto) 1.1 % (0.0-7.0); Hematocrit 40.9 % (36.0-46.0); Hemoglobin 14.1 g/dL (12.2-16.2); Lymphocytes # (auto) 1.3 uL; Lymphocytes % (auto) 22.5 % (10.0-50.0); Mean Corpuscular Hgb Conc. 34.6 g/dL (32.0-36.0); Mean Corpuscular Volume 89.5 fL (80.0-100.0); Monocytes # (auto) 0.6 uL; Monocytes % (auto) 10.1 % (0.0-12.0); Neutrophils # (auto) 3.9 uL; Neutrophils % (auto) 65.6 % (37.0-80.0); Nucleated Red Blood Cells % 0.2 %; Platelet Count (auto) 268 10^3/uL (140-450); Red Blood Cells 4.57 10^6/uL (4.0-5.20); Red Cell Distribution Width 15.5 % (11.8-14.3)
[2018-08-16 13:16] LABS: INR 0.93 (0.9-1.15); Partial Thromboplastin Time 29.2 sec (23.78-33.04)
[2018-08-16 13:28] LABS: Albumin 4.2 g/dL (3.4-5.0); Calcium 9.3 mg/dL (8.5-10.1); Potassium 3.8 mmol/L (3.5-5.1)
[2018-08-16 13:33] LABS: Bilirubin, Total 0.6 mg/dL (0.2-1.0); Total Protein 7.1 g/dL (6.4-8.2)
[2018-08-16 13:35] LABS: Urine Bacteria NONE SEEN /hpf (None Seen); Urine Blood Negative /uL (Negative); Urine Specific Gravity 1.005 (1.001-1.035); Urine WBC 3 /hpf (0 - 5)
[2018-08-16 13:54] LABS: BUN/Creatinine Ratio 15.2
[~2018-08-19] VITALS: Ht 162.6 cm; Wt 93.2 kg
[~2018-08-19 11:01] MED LIST changes: -ADENOSINE 70 MG in GIVE UN-DILUTED 0 ML IV STA; -ALPR0.254 PO; -ARIP2TAB PO; -DOX100T PO; -FLUO-125 PO; +FLUT100I IN; -FLUT250M9; -GABA100C9 PO; -LAMO25TA2 PO; -SIMV-13 PO
[2018-08-19] MEDS ORDERED: BUPIVACAINE W/ EPINEPH 0.25% INJ 50ML MDV ONE (11:37)
[2018-08-19] MEDS ORDERED: TRANEXAMIC ACID 10 ML ONE (11:37)
[2018-08-19] MEDS ORDERED: VANCOMYCIN HCL 1000 MG VL ONE (11:39)
[2018-08-19] MEDS ORDERED: KETOROLAC TROMETH 30 MG/ML 1ML VIAL ONE (11:39)
[2018-08-19] MEDS ORDERED: MORPHINE SULF(PF) 0.5MG/ML 10ML VIAL ONE (11:57)
[2018-08-19 12:34] LABS: BUN/Creatinine Ratio 18.1; Calcium 9.4 mg/dL (8.5-10.1); Potassium 4.2 mmol/L (3.5-5.1)
[2018-08-19] MEDS ORDERED: ceFAZolin 1GM/50ML 50 ML IV ONE (12:48)
[2018-08-19] MEDS ORDERED: MIDAZOLAM HCL 1MG/1ML-2 ML VIAL ONE (12:49)
[2018-08-19] MEDS ORDERED: fentaNYL CITRATE 5 ML ONE (12:49)
[2018-08-19] MEDS ORDERED: HYDROmorphone HCL 2 MG/ML VL ONE (12:49)
[2018-08-19] MEDS ORDERED: fentaNYL CITRATE 100 MCG/2 ML VL ONE (12:49)
[2018-08-19] MEDS ORDERED: DEXAMETHASONE SOD PHOS 10MG/1ML VIAL INJ IV ONE (12:55)
[2018-08-19] MEDS ORDERED: SUCCINYLCHOLINE CHLORIDE 20 MG/ML 10ML VIAL IV ONE (12:55)
[2018-08-19] MEDS ORDERED: PROPOFOL 10 MG/ML 20 ML IV ONE (12:55)
[2018-08-19] MEDS ORDERED: ONDANSETRON HCL 4 MG/2 ML VIAL IV ONE (13:30)
[2018-08-19] MEDS ORDERED: ePHEDrine SULFATE 50 MG/ML AMP IV PRN (13:30)
[2018-08-19] MEDS ORDERED: MORPHINE SULFATE 4 MG/ML SYR/VIAL IV PRN ×3 (13:30→16:45)
[2018-08-19] MEDS ORDERED: MIDAZOLAM HCL 1MG/1ML-2 ML VIAL IV PRN (13:30)
[2018-08-19] MEDS ORDERED: LABETALOL HCL 5 MG/ML 4ML SYRINGE IV PRN (13:30)
[2018-08-19] MEDS ORDERED: KETOROLAC TROMETH 30 MG/ML 1ML VIAL IV ONE (13:30)
[2018-08-19] MEDS ORDERED: ACCU-CHEK COMFORT CURVE STRIP VI ONE (13:30)
[2018-08-19] MEDS ORDERED: MORPHINE SULFATE 4 MG/ML SYR/VIAL IV ONE (14:00)
[2018-08-19] MEDS ORDERED: NITROGLYCERIN 0.4 MG SL TAB SL PRN (16:45)
[2018-08-19] MEDS ORDERED: ACETAMINOPHEN 325 MG TAB PO PRN (16:45)
[2018-08-19] MEDS: HYDROmorphone HCL 2 MG/ML VL IV PRN ×2 (17:28→17:46)
[2018-08-19] MEDS ORDERED: DEXTROSE (50%) 50ML SYRG IV PRN (20:00)
[2018-08-19] MEDS: ALBUTEROL SULF 2.5 MG/0.5ML(0.5%) NEB SOLN NEB SCH (20:00)
[2018-08-19] MEDS: HYDROcodone-ACET 5/325MG TAB PO PRN (20:35)
[2018-08-19 21:17] VITALS: BP 135/69
[2018-08-19 21:52] VITALS: BP 113/73
[2018-08-19] MEDS: SODIUM CHLOR 0.9% PF (SALINE LOCK) 10ML VIAL/SYR IV SCH (22:00)
[2018-08-19] MEDS: BUDESONIDE (INHALATION) 0.5 MG/2 ML NEB NEB SCH (22:34)
[2018-08-19] MEDS: ceFAZolin 1GM/50ML 50 ML IV SCH (22:37)
[2018-08-19] MEDS: InsuLIN REG 1unit/0.01ml Soln (100units/ml) SC SCH (22:48)
[2018-08-19] MEDS: ACCU-CHEK COMFORT CURVE STRIP VI SCH (22:48)
[2018-08-20] MEDS: ALBUTEROL SULF 2.5 MG/0.5ML(0.5%) NEB SOLN NEB SCH ×4 (00:39→19:45)
[2018-08-20] MEDS: HYDROcodone-ACET 5/325MG TAB PO PRN ×3 (01:45→15:51)
[2018-08-20 05:00] VITALS: BP 99/71
[2018-08-20 05:30] LABS: Basophils # (auto) 0 uL; Basophils % (auto) 0.1 % (0.0-2.0); Eosinophils # (auto) 0 uL; Hematocrit 35.8 % (36.0-46.0); Hemoglobin 12.1 g/dL (12.2-16.2); Lymphocytes # (auto) 0.5 uL; Lymphocytes % (auto) 4.1 % (10.0-50.0); Mean Corpuscular Hemoglobin 30.8 pg (28.0-32.0); Mean Corpuscular Hgb Conc. 33.9 g/dL (32.0-36.0); Mean Corpuscular Volume 90.7 fL (80.0-100.0); Monocytes # (auto) 0.7 uL; Monocytes % (auto) 5.4 % (0.0-12.0); Neutrophils # (auto) 11.2 uL; Neutrophils % (auto) 90.4 % (37.0-80.0); Platelet Count (auto) 227 10^3/uL (140-450); Red Blood Cells 3.95 10^6/uL (4.0-5.20); Red Cell Distribution Width 15.3 % (11.8-14.3); White Blood Cell 12.4 10^3/uL (4.4-10.8)
[2018-08-20 05:47] LABS: Albumin 3.4 g/dL (3.4-5.0); Calcium 8.7 mg/dL (8.5-10.1); Potassium 4.8 mmol/L (3.5-5.1)
[2018-08-20 05:52] LABS: BUN/Creatinine Ratio 22.9; Bilirubin, Total 0.4 mg/dL (0.2-1.0); Total Protein 5.9 g/dL (6.4-8.2)
[2018-08-20] MEDS: SODIUM CHLOR 0.9% PF (SALINE LOCK) 10ML VIAL/SYR IV SCH ×3 (06:13→21:15)
[2018-08-20] MEDS: InsuLIN REG 1unit/0.01ml Soln (100units/ml) SC SCH ×4 (06:13→21:15)
[2018-08-20] MEDS: ceFAZolin 1GM/50ML 50 ML IV SCH ×2 (06:13→14:30)
[2018-08-20] MEDS: ACCU-CHEK COMFORT CURVE STRIP VI SCH ×4 (06:13→21:16)
[2018-08-20] MEDS: BUDESONIDE (INHALATION) 0.5 MG/2 ML NEB NEB SCH ×2 (06:14→19:45)
[2018-08-20] MEDS ORDERED: ONDANSETRON HCL 4 MG/2 ML VIAL IV PRN (06:15)
[2018-08-20 08:56] VITALS: BP 112/75
[2018-08-20] MEDS: LOSARTAN POTASSIUM 50 MG TAB PO SCH (09:30)
[2018-08-20] MEDS: DILTIAZEM HCL 120MG ER CAP PO SCH (09:31)
[2018-08-20] MEDS: HCTZ 25 MG TAB PO SCH (09:31)
[2018-08-20 12:32] VITALS: BP 109/76
[2018-08-20 16:50] VITALS: BP 116/76
[2018-08-20 22:00] VITALS: BP 85/55
[2018-08-21] MEDS: ALBUTEROL SULF 2.5 MG/0.5ML(0.5%) NEB SOLN NEB SCH ×3 (00:43→12:16)
[2018-08-21] MEDS: HYDROcodone-ACET 5/325MG TAB PO PRN (03:56)
[2018-08-21 05:00] VITALS: BP 127/77
[2018-08-21] MEDS: SODIUM CHLOR 0.9% PF (SALINE LOCK) 10ML VIAL/SYR IV SCH (06:00)
[2018-08-21] MEDS: InsuLIN REG 1unit/0.01ml Soln (100units/ml) SC SCH ×2 (06:36→11:30)
[2018-08-21] MEDS: ACCU-CHEK COMFORT CURVE STRIP VI SCH ×2 (06:36→12:15)
[2018-08-21] MEDS: BUDESONIDE (INHALATION) 0.5 MG/2 ML NEB NEB SCH (07:10)
[2018-08-21] MEDS ORDERED: OXYCODONE W/ ACETAMINOPHEN 5/325MG TABLET PO PRN (07:30)
[2018-08-21] MEDS ORDERED: traMADol HCL 50 MG TAB PO PRN (07:30)
[2018-08-21 09:00] VITALS: BP 115/70
[2018-08-21] MEDS: DILTIAZEM HCL 120MG ER CAP PO SCH (09:34)
[2018-08-21] MEDS: LOSARTAN POTASSIUM 50 MG TAB PO SCH (09:35)
[2018-08-21] MEDS: HCTZ 25 MG TAB PO SCH (09:36)
[2018-08-21 10:42] VITALS: BP 115/70
[2018-08-21 13:00] VITALS: BP 120/70
== END 2018-08-21 14:35 | disposition home health service (06) | DRG 483 ==
LOC: SUR 11:01 → WEST WING 18:14
PROVIDERS: ADMIT Orthopaedic Surgery Adult Reconstructive Orthopaedic Surgery; ATTEND Orthopaedic Surgery Adult Reconstructive Orthopaedic Surgery
PROC: 0RRK00Z Replacement of Left Shoulder Joint with Reverse Ball and Socket Synthetic Substitute, Open Approach (ICD-10-PCS; principal; 2018-08-20)
DX: M12.812 Other specific arthropathies, not elsewhere classified, left shoulder (principal); E87.1 Hypo-osmolality and hyponatremia; N18.2 Chronic kidney disease, stage 2 (mild); J44.9 Chronic obstructive pulmonary disease, unspecified; E11.21 Type 2 diabetes mellitus with diabetic nephropathy; E11.22 Type 2 diabetes mellitus with diabetic chronic kidney disease; I12.9 Hypertensive chronic kidney disease with stage 1 through stage 4 chronic kidney disease, or unspecified chronic kidney disease; Z96.612 Presence of left artificial shoulder joint; Z90.710 Acquired absence of both cervix and uterus
CPT/HCPCS: 36415; 73020; 73030; 80048; 80053; 81001; 82962; 83036; 85025; 85610; 85730; 86850; 86870; 86900; 86901; 94640; A4565; G0378; J0330; J0690; J1100; J1815; J1885; J2250; J2405; J2704

== ENCOUNTER → 2018-10-08 | Outpatient (CLI) | payer MEDICARE, MEDICAID ==
[~2018-10-08] MED LIST changes: -ASPI-231 PO
[2018-10-08 09:13] LABS: Basophils # (auto) 0 uL; Basophils % (auto) 0.8 % (0.0-2.0); Eosinophils # (auto) 0.1 uL; Eosinophils % (auto) 1.9 % (0.0-7.0); Hematocrit 42.1 % (36.0-46.0); Lymphocytes # (auto) 1.2 uL; Lymphocytes % (auto) 22.5 % (10.0-50.0); Mean Corpuscular Hemoglobin 29.6 pg (28.0-32.0); Mean Corpuscular Hgb Conc. 33.3 g/dL (32.0-36.0); Mean Corpuscular Volume 89.1 fL (80.0-100.0); Monocytes # (auto) 0.5 uL; Monocytes % (auto) 9.1 % (0.0-12.0); Neutrophils # (auto) 3.6 uL; Neutrophils % (auto) 65.7 % (37.0-80.0); Platelet Count (auto) 321 10^3/uL (140-450); Red Blood Cells 4.72 10^6/uL (4.0-5.20); Red Cell Distribution Width 15.1 % (11.8-14.3); White Blood Cell 5.5 10^3/uL (4.4-10.8)
[2018-10-08 09:27] LABS: Potassium 4.3 mmol/L (3.5-5.1)
[2018-10-08 09:39] LABS: Albumin 3.8 g/dL (3.4-5.0); BUN/Creatinine Ratio 23.5; Bilirubin, Total 0.3 mg/dL (0.2-1.0); Calcium 9.3 mg/dL (8.5-10.1); Total Protein 6.7 g/dL (6.4-8.2)
[2018-10-08 10:45] LABS: Urine Bacteria FEW /hpf (None Seen); Urine Blood Negative /uL (Negative); Urine Specific Gravity 1.008 (1.001-1.035); Urine WBC 1 /hpf (0 - 5)
== END | disposition home or self-care (01) ==
LOC: LAB 08:44
PROVIDERS: ATTEND Nurse Practitioner
DX: E11.9 Type 2 diabetes mellitus without complications (principal); E78.5 Hyperlipidemia, unspecified
CPT/HCPCS: 36415; 80053; 80061; 81001; 82043; 83036; 84443; 85025

== ENCOUNTER → 2019-01-03 | Outpatient (CLI) | payer MEDICARE, MEDICAID ==
[2019-01-03 09:25] LABS: Basophils # (auto) 0 uL; Basophils % (auto) 0.6 % (0.0-2.0); Eosinophils # (auto) 0 uL; Eosinophils % (auto) 0.8 % (0.0-7.0); Hematocrit 44.8 % (36.0-46.0); Lymphocytes # (auto) 1.2 uL; Lymphocytes % (auto) 20.7 % (10.0-50.0); Mean Corpuscular Hemoglobin 28.9 pg (28.0-32.0); Mean Corpuscular Hgb Conc. 33.5 g/dL (32.0-36.0); Mean Corpuscular Volume 86.2 fL (80.0-100.0); Monocytes # (auto) 0.6 uL; Monocytes % (auto) 9.5 % (0.0-12.0); Neutrophils # (auto) 4.1 uL; Neutrophils % (auto) 68.4 % (37.0-80.0); Nucleated Red Blood Cells % 0.1 %; Platelet Count (auto) 257 10^3/uL (140-450); Red Cell Distribution Width 16.7 % (11.8-14.3)
[2019-01-03 09:36] LABS: Urine Bacteria NONE SEEN /hpf (None Seen); Urine Blood Negative /uL (Negative); Urine Specific Gravity 1.009 (1.001-1.035); Urine WBC <1 /hpf (0 - 5)
[2019-01-03 09:54] LABS: Potassium 4.2 mmol/L (3.5-5.1)
[2019-01-03 10:03] LABS: Albumin 4.3 g/dL (3.4-5.0); BUN/Creatinine Ratio 18.9; Bilirubin, Total 0.4 mg/dL (0.2-1.0); Total Protein 7.3 g/dL (6.4-8.2)
== END | disposition home or self-care (01) ==
LOC: LAB 08:52
PROVIDERS: ATTEND Nurse Practitioner
DX: E11.9 Type 2 diabetes mellitus without complications (principal); E78.5 Hyperlipidemia, unspecified
CPT/HCPCS: 36415; 80053; 80061; 81001; 83036; 84443; 85025

== ENCOUNTER → 2019-02-03 | Day surgery (SDC) | payer MEDICARE, MEDICAID ==
[2019-01-31 11:39] LABS: Basophils # (auto) 0.1 uL; Basophils % (auto) 0.9 % (0.0-2.0); Eosinophils # (auto) 0.1 uL; Eosinophils % (auto) 0.8 % (0.0-7.0); Hemoglobin 13.7 g/dL (12.2-16.2); Lymphocytes # (auto) 1.8 uL; Lymphocytes % (auto) 26.8 % (10.0-50.0); Mean Corpuscular Hgb Conc. 33.3 g/dL (32.0-36.0); Mean Corpuscular Volume 86.9 fL (80.0-100.0); Monocytes # (auto) 0.5 uL; Monocytes % (auto) 8.3 % (0.0-12.0); Neutrophils # (auto) 4.1 uL; Neutrophils % (auto) 63.2 % (37.0-80.0); Platelet Count (auto) 272 10^3/uL (140-450); Red Blood Cells 4.72 10^6/uL (4.0-5.20); Red Cell Distribution Width 17.6 % (11.8-14.3); White Blood Cell 6.6 10^3/uL (4.4-10.8)
[2019-01-31 11:53] LABS: INR 0.9 (0.9-1.15); Partial Thromboplastin Time 28.1 sec (23.78-33.04); Prothrombin Time 9.7 sec (9.27-12.13)
[2019-01-31 12:02] LABS: BUN/Creatinine Ratio 19.8; Calcium 9.6 mg/dL (8.5-10.1); Potassium 4.4 mmol/L (3.5-5.1)
[2019-01-31 12:04] LABS: Bilirubin, Total 0.5 mg/dL (0.2-1.0); Total Protein 6.8 g/dL (6.4-8.2)
[~2019-02-03] VITALS: Ht 162.6 cm; Wt 89.8 kg
[~2019-02-03] MED LIST changes: +ACCU-CHEK COMFORT CURVE STRIP VI ONE; -ALBU18; +ALBUAER3 IN; +BUPIVACAINE 0.25% INJ 50ML VIAL ONE; +BUPIVACAINE W/ EPINEPH 0.25% INJ 50ML MDV ONE; +CHOL20007 OR; -FLUT100I IN; +FLUT1INH6 IN; +METOCLOPRAMIDE HCL 5MG/ml INJ 2ml VIAL IV ONE; +MIDAZOLAM HCL 1MG/1ML-2 ML VIAL ONE; +ONDANSETRON HCL 4 MG/2 ML VIAL ONE; +PROPOFOL 10 MG/ML 20 ML IV ONE; +SIMV-13 PO; +SODIUM CHLORIDE LOCK 10 ML ONE; +SUCCINYLCHOLINE CHLORIDE 20 MG/ML 10ML VIAL IV ONE; +ceFAZolin 1GM/50ML 50 ML IV ONE; +fentaNYL CITRATE 100 MCG/2 ML VL IV ONE; +fentaNYL CITRATE 100 MCG/2 ML VL ONE
[2019-02-03 09:09] VITALS: BP 126/76
== END | disposition home or self-care (01) ==
LOC: SUR 05:41
PROVIDERS: ATTEND Orthopaedic Surgery Adult Reconstructive Orthopaedic Surgery
DX: G56.01 Carpal tunnel syndrome, right upper limb (principal); M17.0 Bilateral primary osteoarthritis of knee; E11.21 Type 2 diabetes mellitus with diabetic nephropathy; E78.00 Pure hypercholesterolemia, unspecified; E78.2 Mixed hyperlipidemia; F32.9 Major depressive disorder, single episode, unspecified; E66.9 Obesity, unspecified; J44.9 Chronic obstructive pulmonary disease, unspecified; I25.10 Atherosclerotic heart disease of native coronary artery without angina pectoris; M79.89 Other specified soft tissue disorders; I25.2 Old myocardial infarction; I12.9 Hypertensive chronic kidney disease with stage 1 through stage 4 chronic kidney disease, or unspecified chronic kidney disease; E11.22 Type 2 diabetes mellitus with diabetic chronic kidney disease; F41.9 Anxiety disorder, unspecified; N18.9 Chronic kidney disease, unspecified; Z68.33 Body mass index [BMI] 33.0-33.9, adult; Z79.82 Long term (current) use of aspirin; Z79.899 Other long term (current) drug therapy; Z96.612 Presence of left artificial shoulder joint; Z87.59 Personal history of other complications of pregnancy, childbirth and the puerperium; Z90.49 Acquired absence of other specified parts of digestive tract; Z96.643 Presence of artificial hip joint, bilateral; Z87.891 Personal history of nicotine dependence; Z68.34 Body mass index [BMI] 34.0-34.9, adult; Z90.710 Acquired absence of both cervix and uterus; Z90.721 Acquired absence of ovaries, unilateral; Z98.890 Other specified postprocedural states; Z90.89 Acquired absence of other organs
CPT/HCPCS: 29848; 36415; 80053; 82962; 85025; 85610; 85730; 86850; 86870; 86900; 86901; J0330; J0690; J2250; J2405; J2704; J3010; J3490

== ENCOUNTER → 2019-07-02 | Outpatient (CLI) | payer MEDICARE, MEDICAID ==
[~2019-07-02] MED LIST changes: -ACCU-CHEK COMFORT CURVE STRIP VI ONE; -BUPIVACAINE 0.25% INJ 50ML VIAL ONE; -BUPIVACAINE W/ EPINEPH 0.25% INJ 50ML MDV ONE; -METOCLOPRAMIDE HCL 5MG/ml INJ 2ml VIAL IV ONE; -MIDAZOLAM HCL 1MG/1ML-2 ML VIAL ONE; -ONDANSETRON HCL 4 MG/2 ML VIAL ONE; -PROPOFOL 10 MG/ML 20 ML IV ONE; -SODIUM CHLORIDE LOCK 10 ML ONE; -SUCCINYLCHOLINE CHLORIDE 20 MG/ML 10ML VIAL IV ONE; -ceFAZolin 1GM/50ML 50 ML IV ONE; -fentaNYL CITRATE 100 MCG/2 ML VL IV ONE; -fentaNYL CITRATE 100 MCG/2 ML VL ONE
[2019-07-02 11:03] LABS: Basophils # (auto) 0.1 uL; Basophils % (auto) 0.8 % (0.0-2.0); Eosinophils # (auto) 0.1 uL; Hematocrit 41.5 % (36.0-46.0); Hemoglobin 14.3 g/dL (12.2-16.2); Lymphocytes # (auto) 1.4 uL; Lymphocytes % (auto) 21.7 % (10.0-50.0); Mean Corpuscular Hemoglobin 30.1 pg (28.0-32.0); Mean Corpuscular Hgb Conc. 34.3 g/dL (32.0-36.0); Mean Corpuscular Volume 87.8 fL (80.0-100.0); Monocytes # (auto) 0.5 uL; Monocytes % (auto) 7.9 % (0.0-12.0); Neutrophils # (auto) 4.3 uL; Neutrophils % (auto) 68.6 % (37.0-80.0); Platelet Count (auto) 289 10^3/uL (140-450); Red Blood Cells 4.73 10^6/uL (4.0-5.20); Red Cell Distribution Width 15.6 % (11.8-14.3); Urine Bacteria NONE SEEN /hpf (None Seen); Urine Blood Negative /uL (Negative); Urine Specific Gravity 1.013 (1.001-1.035); Urine WBC 1 /hpf (0 - 5); White Blood Cell 6.3 10^3/uL (4.4-10.8)
[2019-07-02 11:13] LABS: INR < 0.93 (0.9-1.15); Partial Thromboplastin Time 28.2 sec (23.64-32.05)
[2019-07-02 12:06] LABS: Potassium 4.5 mmol/L (3.5-5.1)
[2019-07-02 12:15] LABS: Albumin 4.1 g/dL (3.4-5.0); BUN/Creatinine Ratio 16.7; Bilirubin, Total 0.6 mg/dL (0.2-1.0); Calcium 9.5 mg/dL (8.5-10.1); Total Protein 7.1 g/dL (6.4-8.2)
== END | disposition home or self-care (01) ==
LOC: LAB 09:53
PROVIDERS: ATTEND Nurse Practitioner
DX: Z01.818 Encounter for other preprocedural examination (principal); E78.5 Hyperlipidemia, unspecified; E11.9 Type 2 diabetes mellitus without complications; J44.9 Chronic obstructive pulmonary disease, unspecified; I10 Essential (primary) hypertension; I25.10 Atherosclerotic heart disease of native coronary artery without angina pectoris
CPT/HCPCS: 36415; 80053; 81001; 85025; 85610; 85730

== ENCOUNTER 2019-07-21 06:19 | Inpatient (IN) | payer MEDICARE, MEDICAID ==
[2019-07-17 11:39] LABS: Basophils # (auto) 0 uL; Basophils % (auto) 0.6 % (0.0-2.0); Eosinophils # (auto) 0.1 uL; Hematocrit 43.2 % (36.0-46.0); Hemoglobin 14.2 g/dL (12.2-16.2); Lymphocytes # (auto) 1.4 uL; Lymphocytes % (auto) 22.3 % (10.0-50.0); Mean Corpuscular Hemoglobin 29.6 pg (28.0-32.0); Mean Corpuscular Volume 89.8 fL (80.0-100.0); Monocytes # (auto) 0.6 uL; Monocytes % (auto) 9.1 % (0.0-12.0); Neutrophils # (auto) 4.3 uL; Nucleated Red Blood Cells % 0.1 %; Platelet Count (auto) 280 10^3/uL (140-450); Red Cell Distribution Width 16.4 % (11.8-14.3); White Blood Cell 6.4 10^3/uL (4.4-10.8)
[2019-07-17 11:44] LABS: Urine Bacteria NONE SEEN /hpf (None Seen); Urine Blood Negative /uL (Negative); Urine Specific Gravity 1.021 (1.001-1.035); Urine WBC 2 /hpf (0 - 5)
[2019-07-17 11:53] LABS: INR 0.93 (0.9-1.15); Partial Thromboplastin Time 27.3 sec (23.64-32.05)
[2019-07-17 12:07] LABS: Potassium 4.1 mmol/L (3.5-5.1)
[2019-07-17 12:26] LABS: Albumin 4.1 g/dL (3.4-5.0); BUN/Creatinine Ratio 21.6; Bilirubin, Total 0.5 mg/dL (0.2-1.0); Calcium 9.9 mg/dL (8.5-10.1); Total Protein 6.9 g/dL (6.4-8.2)
[2019-07-21] VITALS (15 sets, daily range): BP systolic 91–105; BP diastolic 52–69
[~2019-07-21] VITALS: Ht 162.6 cm; Wt 97.8 kg
[~2019-07-21 06:19] MED LIST changes: +ASPI81CH43 PO; +FLUO20CA19 PO
[2019-07-21] MEDS ORDERED: PROPOFOL 10 MG/ML 20 ML IV ONE (07:01)
[2019-07-21] MEDS ORDERED: SODIUM CHLORIDE LOCK 20 ML ONE (07:01)
[2019-07-21] MEDS ORDERED: BUPIVACAINE/DEXTROSE MPF 0.75% 2 ML AMP IT ONE (07:01)
[2019-07-21] MEDS ORDERED: EPINEPHrine HCL 1 MG/1 ML AMP ONE (07:01)
[2019-07-21] MEDS ORDERED: MORPHINE SULF(PF) 0.5MG/ML 10ML VIAL ONE ×2 (07:01→07:36)
[2019-07-21] MEDS ORDERED: fentaNYL CITRATE 100 MCG/2 ML VL ONE (07:01)
[2019-07-21] MEDS ORDERED: ONDANSETRON HCL 4 MG/2 ML VIAL ONE (07:01)
[2019-07-21] MEDS ORDERED: MIDAZOLAM HCL 1MG/1ML-2 ML VIAL ONE (07:01)
[2019-07-21] MEDS ORDERED: ceFAZolin 1GM/50ML 100 ML IV ONE (07:11)
[2019-07-21] MEDS ORDERED: TRANEXAMIC ACID 20 ML ONE (07:31)
[2019-07-21] MEDS ORDERED: BUPIVACAINE W/ EPINEPH 0.25% INJ 50ML MDV ONE (07:31)
[2019-07-21] MEDS ORDERED: KETOROLAC TROMETH 30 MG/ML 1ML VIAL ONE (07:33)
[2019-07-21] MEDS ORDERED: VANCOMYCIN HCL 1000 MG VL ONE (07:34)
[2019-07-21] MEDS ORDERED: HYDROmorphone HCL 2 MG/ML VL IV PRN (08:30)
[2019-07-21] MEDS ORDERED: ACCU-CHEK COMFORT CURVE STRIP VI ONE (08:30)
[2019-07-21] MEDS ORDERED: fentaNYL CITRATE 100 MCG/2 ML VL IV PRN (08:30)
[2019-07-21] MEDS ORDERED: METOCLOPRAMIDE HCL 5MG/ml INJ 2ml VIAL IV PRN (08:30)
[2019-07-21] MEDS ORDERED: MORPHINE SULFATE 4 MG/ML SYR/VIAL IV PRN (08:30)
[2019-07-21] MEDS ORDERED: diphenhdrAMINE HCL 50 MG/1 ML VL IV PRN (08:30)
[2019-07-21] MEDS ORDERED: NALOXONE HCL 0.4 MG/ML VIAL IV PRN (08:30)
[2019-07-21] MEDS ORDERED: MORPHINE SULF INJ 2 MG/ML SYRINGE 1ML IV PRN (10:00)
[2019-07-21] MEDS ORDERED: NITROGLYCERIN 0.4 MG SL TAB SL PRN (10:00)
[2019-07-21] MEDS: ZOCOR PO SCH (10:00)
[2019-07-21] MEDS ORDERED: HCTZ 25 MG TAB PO SCH (10:00)
[2019-07-21] MEDS ORDERED: ceFAZolin 1GM/50ML 50 ML IV SCH (10:00)
[2019-07-21] MEDS ORDERED: ACETAMINOPHEN 325 MG TAB PO PRN (10:00)
[2019-07-21] MEDS ORDERED: ENOXAPARIN SOD 40 MG/0.4 ML SYRINGE SC SCH (10:00)
[2019-07-21] MEDS ORDERED: ALBUTEROL SULFATE 90 MCG IN PRN (10:00)
[2019-07-21] MEDS ORDERED: OLMESARTAN MEDOXOMIL 40 MG PO SCH (10:00)
[2019-07-21] MEDS ORDERED: BISACODYL 5 MG EC TAB PO PRN (10:00)
[2019-07-21] MEDS: DILTIAZEM HCL 60 MG TAB PO SCH (10:00)
[2019-07-21] MEDS ORDERED: KETOROLAC TROMETH 30 MG/ML 1ML VIAL IV PRN (10:30)
[2019-07-21] MEDS: LACTATED RINGER'S 1,000 ML IV SCH ×2 (11:30→19:50)
--- NOTE | 2019-07-21 11:35 | NUR ---
Telemetry admit from PACU [facility] admitted to Telemetry unit after SBAR received from Criselda gonzalez. Patient oriented to Sherri Love, primary RN, unit, room, bed, and unit policies regarding patient care and visiting hours. Patient's current admit order if for MS. Hospitalist Dr. Root at bedside and new orders received for tele. Tele order sent to quality assurance monitor final and awaiting monitor at this time. Patient placed on bedside oxygen at 2l N/C. Patient weighed by bedscale and encouraged to call if they need something. Patient's dressing to left knee s/p Arthoplasty noted c/d/i and CMP on as ordered and patient tolerating well at this time. IS provided and pt instructed on use she verbalized understanding and returned demonstration. Patient's IVF administered as ordered. All questions and concerns addressed, patient verbalized understanding. Call light within reach and fall precs in place per protocol. No distress noted at this time, charger aware of patient's Duramorph and after care in place per protocol. Will cont to monitor.
[2019-07-21] MEDS: DOCUSATE SOD 100 MG CAP PO SCH ×2 (12:17→21:29)
[2019-07-21] MEDS: FLUoxetine HCL 20 MG CAP PO SCH (12:17)
[2019-07-21] MEDS: ACCU-CHEK COMFORT CURVE STRIP VI SCH ×3 (12:18→21:29)
[2019-07-21] MEDS: ceFAZolin 1GM/50ML 50 ML IV SCH ×2 (14:40→20:00)
[2019-07-21] MEDS ORDERED: FLUO20CA19 PO (15:56)
--- NOTE | 2019-07-21 17:30 | NUR ---
Urine output patient noted to have about 100ml output in lynch catheter. Patient IVF intake is 500ml at this time and she states she drank about "2 pitchers of water". Patency of Lynch catheter confirmed by flush with 20 ml saline and 20ml output noted in Lynch. No bladder distention noted. No pain or discomfort noted at this time. Hospitalist Adelina paged to notify.
--- NOTE | 2019-07-21 18:06 | NUR ---
Spoke to Hospitalist Spoke to Atilio Sahu and notified of patient's output s/p Duramorph spinal. New orders for Bolus NS 1000ml. Will start bolus as ordered will cont care.
[2019-07-21] MEDS ORDERED: SODIUM CHLORIDE 0.9% 1,000 ML IV ONE (18:15)
--- NOTE | 2019-07-21 19:11 | NUR ---
Patient care endorsed endorsed care to Kylah gonzalez. Patient sitting up in bed comfortably. Fluid bolus as ordered running at this time, about 300 ml in from NS bag and 75ml output noted draining in lynch catheter, patently, clear yellow. RN informed and will cont to monitor. Bladder soft to touch. Patient denies any pain or numbness. Call light within reach. Patient states she's "burping", no bowel movement noted at this time. Patient's bowel sounds present in all quadrants. No acute distress or sob noted
--- NOTE | 2019-07-21 19:30 | NUR ---
OPENING SHIFT NOTE RECEIVED REPORT FROM DAYSHIFT RN. PATIENT LYING IN BED WITH EYES CLOSED. PATIENT A/O X4, BEDREST, S/P LEFT KNEE ARTHROPLASTY. NO S/S OF DISTRESS OR SOB, NO PAIN NOTED OR REPORTED AT THIS TIME. CPM MACHINE PRESENT ON LEFT KNEE, PATIENT TOLERATING WELL. UPDATED PATIENT ON POC, VERBALIZED UNDERSTANDING. BED LOCKED IN LOW POSITION, CALL LIGHT WITHIN REACH. WILL CONTINUE TO MONITOR PATIENT Q1HR AND PRN.
[2019-07-22] VITALS (14 sets, daily range): BP systolic 94–136; BP diastolic 57–83
[2019-07-22] MEDS: ceFAZolin 1GM/50ML 50 ML IV SCH (02:13)
--- NOTE | 2019-07-22 04:15 | NUR ---
URINE OUTPUT URINE OUTPUT FOR 9 HOURS IS 375. BLADDER SCAN SHOWS NO URINE PRESENT. NO DISTENSION NOTED. PATIENT STATES "I DO NOT FEEL LIKE I NEED TO PEE." WILL CONTINUE TO MONITOR OUTPUT.
[2019-07-22] MEDS: HYDROcodone-ACET 5/325MG TAB PO PRN ×2 (04:37→17:27)
[2019-07-22] MEDS ORDERED: SODIUM CHLORIDE 0.9% 1,000 ML IV ONE (05:45)
--- NOTE | 2019-07-22 05:45 | NUR ---
SPOKE WITH HOSPITALIST UPDATED CLOTH PRINTING BACK TENDER GONZALEZ ON PATIENT STATUS AND URINE OUTPUT, 1L NS BOLUS ORDERED. WILL CARRY OUT ORDER.
[2019-07-22] MEDS: LACTATED RINGER'S 1,000 ML IV SCH (05:50)
[2019-07-22] MEDS: ACCU-CHEK COMFORT CURVE STRIP VI SCH ×4 (06:10→21:44)
[2019-07-22 06:48] LABS: Basophils # (auto) 0 uL; Basophils % (auto) 0.4 % (0.0-2.0); Eosinophils # (auto) 0.1 uL; Hematocrit 34.3 % (36.0-46.0); Hemoglobin 11.6 g/dL (12.2-16.2); Lymphocytes # (auto) 0.5 uL; Lymphocytes % (auto) 7.5 % (10.0-50.0); Mean Corpuscular Hemoglobin 30.5 pg (28.0-32.0); Mean Corpuscular Hgb Conc. 33.9 g/dL (32.0-36.0); Monocytes # (auto) 0.7 uL; Monocytes % (auto) 9.2 % (0.0-12.0); Neutrophils # (auto) 5.9 uL; Neutrophils % (auto) 81.9 % (37.0-80.0); Platelet Count (auto) 197 10^3/uL (140-450); Red Blood Cells 3.81 10^6/uL (4.0-5.20); Red Cell Distribution Width 16.4 % (11.8-14.3); White Blood Cell 7.2 10^3/uL (4.4-10.8)
[2019-07-22 06:58] LABS: Potassium 4.6 mmol/L (3.5-5.1)
[2019-07-22 07:11] LABS: Albumin 3.1 g/dL (3.4-5.0); BUN/Creatinine Ratio 21.6; Bilirubin, Total 0.4 mg/dL (0.2-1.0); Calcium 8.3 mg/dL (8.5-10.1); Total Protein 5.5 g/dL (6.4-8.2)
[2019-07-22] MEDS ORDERED: KETOROLAC TROMETH 30 MG/ML 1ML VIAL IV ONE (07:30)
--- NOTE | 2019-07-22 07:30 | NUR ---
Opening Shift Note Assumed care of patient, awake and alert. No S/S of distress/SOB. Patient complains of pain 8/10 in her left knee, Gave morphine as ordered. Patient instructed on POC and to call for assist PRN, will continue to monitor for changes Q1hr and PRN. Fall precautions in place per protocol.
[2019-07-22] MEDS: ONDANSETRON HCL 4 MG/2 ML VIAL IV PRN ×2 (07:49→15:04)
[2019-07-22] MEDS: MORPHINE SULFATE 4 MG/ML SYR/VIAL IV PRN ×3 (07:49→20:34)
[2019-07-22] MEDS: DOCUSATE SOD 100 MG CAP PO SCH ×2 (09:25→21:44)
[2019-07-22] MEDS: ENOXAPARIN SOD 40 MG/0.4 ML SYRINGE SC SCH (09:25)
[2019-07-22] MEDS: DILTIAZEM HCL 60 MG TAB PO SCH (09:26)
[2019-07-22] MEDS: FLUoxetine HCL 20 MG CAP PO SCH (09:27)
[2019-07-22] MEDS: ZOCOR PO SCH (10:00)
--- NOTE | 2019-07-22 10:44 | NUR ---
Hospitalist at bedside MD Root aware of patient's status including patient received total 2L NS bolus as of now and output noted still decreased in the lynch. New orders received for xray, pern cont to monitor at this time. Bladder soft to touch, no s/s of distention noted. Lynch noted patent. Cont care
--- NOTE | 2019-07-22 11:30 | NUR ---
Tele Patient downgraded from telemetry to Med Surg. Tele box sent back to tele room. Suzy Notified.
[2019-07-22] MEDS: SODIUM CHLORIDE 0.9% 1,000 ML IV SCH (11:49)
--- NOTE | 2019-07-22 12:01 | NUR ---
Patient transferred to room 248B from [facility] via bed with all personal belongings. Per House sup request. Cont care
--- NOTE | 2019-07-22 14:54 | NUR ---
Discharge planning per SS consult. Patient has orders for SNF placement on discharge. Patient was presented with a choice letter; she had no preference. [facility]erral was sent to [facility]. Received a call from admissions [facility] advising that they will accept this patient upon dc. She w ill give bed and accepting doctor on Sun as the patient is not discharging until .
--- NOTE | 2019-07-22 16:31 | NUR ---
assessment Patient is a 68 year old female who is alert and oriented. Patients cognitive abilities are intact. Prior to admission patient lived home with family and functioned independently. Per patient she will return home to her prior living arrangements post discharge and family will transport her home. Patient informed me she has been admitted for left knee replacement. Patients PCP is Jesse. Patient informed me she is on service with [facility]. Patient informed me she prefers to return home on discharge. Patient has a fww for home use. Patient will need a CPM and home health for PT on discharge. I informed patient she has a right to speak to a secondary social studies teacher regarding all care. I informed patient she has a right to participate in any and all discharge planning. Patient does not have a POA and advanced directive. I have offered patient information on POA and advanced directives. I informed the patient the advantages and benefits of having an Advanced Directive. Patient verbalized understanding and agreed to discharge plan. Addendum: 07/23/19 at 1634 by Tiff BOURGEOIS Amended: Links added.
--- NOTE | 2019-07-22 17:20 | NUR ---
Patient assisted back to bed tolerated well but c/o pain at this time and requesting pain meds. Will medicate as ordered. No acute distress or sob noted. Patient placed on CPM at this time by Physical therapist. Cont to monitor
--- NOTE | 2019-07-22 19:00 | NUR ---
Patient care endorsed endorsed care to Kylah gonzalez. Patient laying down comfortably in bed. Call light within reach. No acute distress or sob noted
--- NOTE | 2019-07-22 19:40 | NUR ---
OPENING SHIFT NOTE RECEIVED REPORT FROM DAYSHIFT RN. PATIENT LYING IN BED WATCHING TELEVISION. PATIENT A/O X4, BEDREST, S/P LEFT KNEE ARTHROPLASTY ON 07/21. NO S/S OF DISTRESS OR SOB, NO PAIN NOTED OR REPORTED AT THIS TIME. UPDATED PATIENT ON POC, VERBALIZED UNDERSTANDING. BED LOCKED IN LOW POSITION, CALL LIGHT WITHIN REACH. WILL CONTINUE TO MONITOR PATIENT Q1HR AND PRN.
[2019-07-23] MEDS: MORPHINE SULFATE 4 MG/ML SYR/VIAL IV PRN ×4 (00:51→22:09)
[2019-07-23] MEDS: SODIUM CHLORIDE 0.9% 1,000 ML IV SCH (02:31)
[2019-07-23 05:00] VITALS: BP 137/86
[2019-07-23] MEDS: HYDROcodone-ACET 5/325MG TAB PO PRN (06:20)
[2019-07-23] MEDS: ACCU-CHEK COMFORT CURVE STRIP VI SCH ×4 (06:32→21:23)
[2019-07-23 06:50] LABS: Basophils # (auto) 0 uL; Basophils % (auto) 0.3 % (0.0-2.0); Eosinophils # (auto) 0.1 uL; Eosinophils % (auto) 1.2 % (0.0-7.0); Hematocrit 34.8 % (36.0-46.0); Hemoglobin 11.7 g/dL (12.2-16.2); Lymphocytes # (auto) 0.5 uL; Lymphocytes % (auto) 6.5 % (10.0-50.0); Mean Corpuscular Hemoglobin 30.1 pg (28.0-32.0); Mean Corpuscular Hgb Conc. 33.5 g/dL (32.0-36.0); Mean Corpuscular Volume 89.9 fL (80.0-100.0); Monocytes # (auto) 0.9 uL; Monocytes % (auto) 11.2 % (0.0-12.0); Neutrophils # (auto) 6.2 uL; Neutrophils % (auto) 80.8 % (37.0-80.0); Nucleated Red Blood Cells % 0.1 %; Platelet Count (auto) 183 10^3/uL (140-450); Red Blood Cells 3.87 10^6/uL (4.0-5.20); Red Cell Distribution Width 15.9 % (11.8-14.3); White Blood Cell 7.7 10^3/uL (4.4-10.8)
[2019-07-23 07:07] LABS: BUN/Creatinine Ratio 15.7; Calcium 8.3 mg/dL (8.5-10.1); Potassium 4.5 mmol/L (3.5-5.1)
[2019-07-23] MEDS: ONDANSETRON HCL 4 MG/2 ML VIAL IV PRN ×3 (08:19→22:08)
[2019-07-23 08:48] VITALS: BP 144/83
[2019-07-23] MEDS: ZOCOR PO SCH (10:00)
[2019-07-23] MEDS: ENOXAPARIN SOD 40 MG/0.4 ML SYRINGE SC SCH (10:12)
[2019-07-23] MEDS: FLUoxetine HCL 20 MG CAP PO SCH (10:13)
[2019-07-23] MEDS: DILTIAZEM HCL 60 MG TAB PO SCH (10:14)
[2019-07-23] MEDS: DOCUSATE SOD 100 MG CAP PO SCH ×2 (10:14→22:09)
--- NOTE | 2019-07-23 10:44 | NUR ---
testing and regulating technician at bedside Hudson rn orthopaedic at bedside, per Dr Little Treviño ordered don't change dressing at this time. Cont care
--- NOTE | 2019-07-23 11:30 | NUR ---
Nutrition Assessment Notes please see attached link for complete assessment Estimated need based on ABW (78 kg): [id number] kcal (20-23 kcal/kg BW), 78-85 gms protein (1.0-1.1 g/kg ABW). Will continue to monitor pertinent labs and reassess nutrient need prn Addendum: 07/23/19 at [address] Amended: Links added.
[2019-07-23 13:00] VITALS: BP 145/81
--- NOTE | 2019-07-23 13:50 | NUR ---
Lynch catheter dc'd Order to discontinue lynch catheter. Lynch dc'd with clean technique following deflation of balloon. Patient tolerated well with no complaints of pain. Removed 1000 ml of clear yellow urine. Continue care.
--- NOTE | 2019-07-23 15:30 | NUR ---
Patient refusing SNF Patient states she changed her mind and does not want to go to SNF upon dc she states she wants to go home. Patient requesting to speak to social service manager regarding wishes to go home instead of SNF upon dc. I spoke to Tiff Loya and she states to place consult for HH P.T. and CPM machine to be arranged for Home. Per patient, CPM machine rep contacted her and will deliver CPM at home. Cont care
[2019-07-23 17:00] VITALS: BP 138/72
--- NOTE | 2019-07-23 19:00 | NUR ---
Patient care endorsed endorsed care to Pablito gonzalez. patient laying in bed in no acute distress or sob. CPM on as ordered patient tolerating well. Call light within reach
--- NOTE | 2019-07-23 19:35 | NUR ---
Opening Shift Note Assumed care of patient, awake and alert oriented x4. Bed is in lowest locked position with bed rails up x2 and call light is within reach of the patient. No S/S of distress/SOB or pain noted. Instructed on POC and to call for assist PRN.
[2019-07-23 21:52] VITALS: BP 139/61
[2019-07-23 21:55] VITALS: BP 128/80
[2019-07-24] MEDS: ONDANSETRON HCL 4 MG/2 ML VIAL IV PRN (04:14)
[2019-07-24] MEDS: MORPHINE SULFATE 4 MG/ML SYR/VIAL IV PRN ×2 (04:15→09:14)
[2019-07-24 04:48] VITALS: BP 140/68
[2019-07-24 05:55] LABS: Hematocrit 31.9 % (36.0-46.0)
[2019-07-24] MEDS: ACCU-CHEK COMFORT CURVE STRIP VI SCH ×2 (06:11→11:58)
[2019-07-24 08:00] VITALS: BP 143/97
--- NOTE | 2019-07-24 08:21 | NUR ---
Left a message to Abigail (CHRISTELLE) regarding discharge order. Awaiting to call back.
[2019-07-24] MEDS: DILTIAZEM HCL 60 MG TAB PO SCH (09:13)
[2019-07-24] MEDS: DOCUSATE SOD 100 MG CAP PO SCH (09:13)
[2019-07-24] MEDS: FLUoxetine HCL 20 MG CAP PO SCH (09:13)
[2019-07-24] MEDS: ZOCOR PO SCH (09:19)
[2019-07-24] MEDS: ENOXAPARIN SOD 40 MG/0.4 ML SYRINGE SC SCH (09:20)
--- NOTE | 2019-07-24 11:03 | NUR ---
Discharge planning per consult,patient has orders for home health for PT and nursing. Patient was originally going to SNF for rehab, and the nurse advised she wanted to go home. I advised Tiff Loya so she could reassess. Tiff advised that patient does want to go home because her daughter didn't like the reviews for [facility] and she chose [facility] for her discharge home health. Referral was sent to [facility], placed a follow up call, spoke with Sanjuana and was advised that they will accept this patient onto services. I advised patient was discharging today and she advised they would contact patient to start care. Nurse Phelps was advised. Addendum: 07/24/19 at 1109 by ROSIBEL SCHNEIDER Amended: Links added. Addendum: 07/24/19 at 1205 by ROSIBEL SCHNEIDER SS Receive a call from Sanjuana at [facility] and advised that patient was on with [facility] Justin in November and requesting the same nurses as the last time. She advised she would refer back to [facility]. Referral sent to [facility], received a follow up call from James and was advised that they will accept the patient and start care tomorrow. Referral for the CPM was sent to [facility]. Nurse Phelps was advised.
--- NOTE | 2019-07-24 11:10 | NUR ---
RECEIVED A CALL FROM ROSIBEL (CHRISTELLE) STATED PATIENT WILL GO HOME WITH [facility] AND CAN TAKE CPM AT BEDSIDE WITH HER. PATIENT NOTIFIED.
[2019-07-24] MEDS ORDERED: POLYETHYLENE GLYCOL 17 GM PWDR PO ONE (11:15)
[2019-07-24] MEDS: HYDROcodone-ACET 5/325MG TAB PO PRN (13:25)
[2019-07-24 13:40] VITALS: BP 129/77
[2019-07-24 14:00] VITALS: BP 129/77
--- NOTE | 2019-07-24 14:00 | NUR ---
Abigail called patient will go home with [facility]. Patient notified.
--- NOTE | 2019-07-24 16:13 | NUR ---
Discharge instructions given as ordered. Encourage to follow up with PMD (Please follow up with Dr. Fitch August 07 at 9:15 am #[phone] [id number] [id number]) as instructed. All questions and concerns addressed. Patient verbalized understanding. Medication reconciliation form completed and copy given to patient. IV removed with catheter intact, pressure dressing applied. Patient taken to vehicle via wheelchair with all personal belongings, accompanied by staff and family member. No distress noted at time of departure.
== END 2019-07-24 16:13 | disposition home health service (06) | DRG 470 ==
LOC: SUR 06:19 → TELE-EAST 11:38 → EAST 07-22 10:46
PROVIDERS: ADMIT Internal Medicine; ATTEND Internal Medicine
PROC: 8E0YXBZ Computer Assisted Procedure of Lower Extremity (ICD-10-PCS; 2019-07-21)
PROC: 0SRD0J9 Replacement of Left Knee Joint with Synthetic Substitute, Cemented, Open Approach (ICD-10-PCS; principal; 2019-07-21 07:36)
DX: M17.12 Unilateral primary osteoarthritis, left knee (principal); E87.1 Hypo-osmolality and hyponatremia; J44.9 Chronic obstructive pulmonary disease, unspecified; E78.5 Hyperlipidemia, unspecified; I10 Essential (primary) hypertension; E66.01 Morbid (severe) obesity due to excess calories; F41.9 Anxiety disorder, unspecified; F32.9 Major depressive disorder, single episode, unspecified; E11.9 Type 2 diabetes mellitus without complications; Z68.37 Body mass index [BMI] 37.0-37.9, adult
CPT/HCPCS: 36415; 71045; 73560; 80048; 80053; 81001; 82962; 83036; 85014; 85018; 85025; 85610; 85730; 86850; 86870; 86900; 86901; 97110; 97116; 97530; C1713; G0378; J0171; J0690; J1885; J2250; J2405; J2704

== ENCOUNTER 2019-10-04 11:23 | Emergency (ER) | payer MEDICARE, MEDICAID ==
[~2019-10-04] VITALS: Ht 162.6 cm; Wt 86.2 kg
[~2019-10-04 11:23] MED LIST changes: -ASPI81CH43 PO; -OLME40TA19 PO; +OLME40TA26 PO
[2019-10-04 13:02] LABS: Basophils # (auto) 0 uL; Basophils % (auto) 0.5 % (0.0-2.0); Eosinophils # (auto) 0.1 uL; Eosinophils % (auto) 0.8 % (0.0-7.0); Hematocrit 38.2 % (36.0-46.0); Hemoglobin 12.6 g/dL (12.2-16.2); Lymphocytes # (auto) 1.5 uL; Lymphocytes % (auto) 20.7 % (10.0-50.0); Mean Corpuscular Hemoglobin 28.4 pg (28.0-32.0); Mean Corpuscular Volume 85.9 fL (80.0-100.0); Monocytes # (auto) 0.6 uL; Monocytes % (auto) 8.3 % (0.0-12.0); Neutrophils # (auto) 5.2 uL; Neutrophils % (auto) 69.7 % (37.0-80.0); Platelet Count (auto) 381 10^3/uL (140-450); Red Blood Cells 4.45 10^6/uL (4.0-5.20); White Blood Cell 7.5 10^3/uL (4.4-10.8)
[2019-10-04 13:25] LABS: Partial Thromboplastin Time 27.6 sec (23.64-32.05)
[2019-10-04 14:01] LABS: Albumin 3.5 g/dL (3.4-5.0); Anion Gap 7 (5-15); Blood Urea Nitrogen 16 mg/dL (7-18); Calcium 9.6 mg/dL (8.5-10.1); Carbon Dioxide 24 mmol/L (21-32); Chloride 107 mmol/L (98-107); Glucose 95 mg/dL (74-106); Potassium 3.9 mmol/L (3.5-5.1); Sodium 138 mmol/L (136-145)
[2019-10-04 14:07] LABS: Alanine Aminotransferase 23 U/L (13-56); Alkaline Phosphatase 139 U/L (45-117); Aspartate Aminotransferase 18 U/L (15-37); Bilirubin, Total 0.3 mg/dL (0.2-1.0); GFR African American 92 mL/min; GFR Non-African American 76 mL/min; Total Protein 6.9 g/dL (6.4-8.2)
[2019-10-04] MEDS ORDERED: IPRATROPIUM BROM 0.5 MG/2.5ML INH SOL NEB ONE (17:00)
[2019-10-04] MEDS ORDERED: ALBUTEROL SULF 2.5 MG/0.5ML(0.5%) NEB SOLN NEB ONE (17:00)
[2019-10-04] MEDS ORDERED: predniSONE 20 MG TAB PO ONE (17:00)
[2019-10-04 17:57] VITALS: BP 129/87
== END 2019-10-04 17:55 | disposition home or self-care (01) ==
LOC: ER 11:37
DX: J44.1 Chronic obstructive pulmonary disease with (acute) exacerbation (principal); F41.9 Anxiety disorder, unspecified; I25.10 Atherosclerotic heart disease of native coronary artery without angina pectoris; I10 Essential (primary) hypertension; E78.5 Hyperlipidemia, unspecified; I25.2 Old myocardial infarction
CPT/HCPCS: 36415; 71046; 80053; 83880; 84484; 85025; 85610; 85730; 93005; 94640; 99284; J7512; J7611; J7644

== ENCOUNTER 2020-03-09 11:30 | Inpatient (IN) | payer MEDICARE, MEDICAID ==
[~2020-03-09] VITALS: Ht 160 cm; Wt 97.7 kg
[~2020-03-09 11:30] MED LIST changes: -CHOL20007 OR; +CHOL20007 PO
[2020-03-09] MEDS ORDERED: ACETAMINOPHEN/CODEINE#3 (300/30mg) TAB PO ONE (12:30)
[2020-03-09 13:52] LABS: Basophils # (auto) 0.1 10 ^3/uL (0-0.2); Eosinophils # (auto) 0.2 10 ^3/uL (0-0.8); Eosinophils % (auto) 3.4 % (0.0-7.0); Hematocrit 39.4 % (36.0-46.0); Hemoglobin 13.3 g/dL (12.2-16.2); Lymphocytes # (auto) 1.5 10 ^3/uL (0.4-5.4); Lymphocytes % (auto) 23.8 % (10.0-50.0); Mean Corpuscular Hgb Conc. 33.8 g/dL (32.0-36.0); Mean Corpuscular Volume 88.6 fL (80.0-100.0); Monocytes # (auto) 0.6 10 ^3/uL (0-1.3); Monocytes % (auto) 9.3 % (0.0-12.0); Neutrophils # (auto) 3.9 10 ^3/uL (1.6-8.6); Neutrophils % (auto) 62.5 % (37.0-80.0); Nucleated Red Blood Cells % 0.1 %; Platelet Count (auto) 256 10^3/uL (140-450); Red Blood Cells 4.45 10^6/uL (4.0-5.20); Red Cell Distribution Width 16.2 % (11.8-14.3); White Blood Cell 6.2 10^3/uL (4.4-10.8)
[2020-03-09 14:08] LABS: Partial Thromboplastin Time 27.8 sec (23.64-32.05)
[2020-03-09 14:11] LABS: Albumin 3.8 g/dL (3.4-5.0); Calcium 9.7 mg/dL (8.5-10.1); Potassium 3.9 mmol/L (3.5-5.1)
[2020-03-09 14:15] LABS: BUN/Creatinine Ratio 22.1; Bilirubin, Total 0.5 mg/dL (0.2-1.0); Total Protein 6.7 g/dL (6.4-8.2)
[2020-03-09] MEDS ORDERED: NITROGLYCERIN 0.4 MG SL TAB SL PRN (15:15)
[2020-03-09] MEDS ORDERED: ALBUTEROL SULF HFA 90MCG INH 200DOSE IN PRN (15:15)
[2020-03-09] MEDS ORDERED: ONDANSETRON HCL 4 MG/2 ML VIAL IV PRN (15:15)
[2020-03-09] MEDS ORDERED: ACETAMINOPHEN 500 MG TAB PO PRN (15:15)
[2020-03-09] MEDS ORDERED: DEXTROSE (50%) 50ML SYRG IV PRN (15:15)
[2020-03-09] MEDS ORDERED: MORPHINE SULF INJ 2 MG/ML SYRINGE 1ML IV PRN (15:15)
[2020-03-09 15:30] VITALS: BP 143/93
[2020-03-09] MEDS ORDERED: ALBUTEROL SULF 2.5 MG/0.5ML(0.5%) NEB SOLN NEB PRN (15:30)
[2020-03-09] MEDS: ACCU-CHEK COMFORT CURVE STRIP VI SCH ×2 (17:00→21:57)
[2020-03-09] MEDS: InsuLIN REG 1unit/0.01ml Soln (100units/ml) SC SCH ×2 (17:00→21:57)
[2020-03-09] MEDS: MORPHINE SULF INJ 2 MG/ML SYRINGE 1ML IV PRN ×2 (17:56→21:57)
--- NOTE | 2020-03-09 18:36 | NUR ---
PATIENT BROUGHT TO ROOM 248 BED A. PATIENT VS 98.1, 66HR, 121/75, RR 18, 95% RA. PAIN 10. NORCO GIVEN PER NOV. PATIENT IS ALERT AND ORIENTED- SHE WAS ORIENTED TO ROOM, VISITING POLICY AND CALL LIGHT USE. PATIENT STATES SHE IS FAMILIAR WITH HOSPITAL SETTING, SHE VERBALIZED UNDERSTANDING ABOUT THE EDUCATION GIVEN AND HAS NOT FURTHER QUESTIONS. BED LOW, CALL LIGHT IN REACH.
[2020-03-09] MEDS: HYDROcodone-ACET 5/325MG TAB PO PRN (18:50)
[2020-03-09 19:00] VITALS: BP 121/75
--- NOTE | 2020-03-09 19:16 | NUR ---
Opening Shift Note Assumed care of patient, awake and alert. No S/S of distress/SOB or pain. Instructed on POC and to call for or assist PRN, will continue to monitor for changes Q1hr and PRN. Side rails up x2. Bed locked in lowest position. Call light within reach.
--- NOTE | 2020-03-09 19:26 | NUR ---
ENDORSED REPORT TO DINORA RAMOS RN. PATIENT IN SITTING UP IN BED, HAS JUST FINISHED DINNER AND THERE NO S/S OF DISTRESS.
--- NOTE | 2020-03-09 19:30 | NUR ---
Knee brace placed on patient as prescribed.
[2020-03-09] MEDS: ATORVASTATIN 20 MG TAB PO SCH (21:57)
[2020-03-09 22:00] VITALS: BP 113/76
--- NOTE | 2020-03-09 22:22 | NUR ---
Respiratory note: PT SEEN AND ASSESSED FOR PRN MED NEB TX AT 2222. TX IS NOT INDICATED AT THIS TIME. PT DENIES ANY RESPIRATORY DISTRESS. BREATH SOUNDS WERE CLEAR AND DIMINISHED BILATERALLY. HR 66 RR 16 SP02 96% ROOM AIR. PT AWARE TO CALL FOR RT IF ANY DISTRESS OCCURS.
[2020-03-10] MEDS: HYDROcodone-ACET 5/325MG TAB PO PRN ×2 (00:53→21:11)
[2020-03-10 05:00] VITALS: BP 121/76
[2020-03-10] MEDS: ACCU-CHEK COMFORT CURVE STRIP VI SCH ×3 (06:38→17:27)
[2020-03-10] MEDS: InsuLIN REG 1unit/0.01ml Soln (100units/ml) SC SCH ×4 (06:38→22:00)
--- NOTE | 2020-03-10 07:26 | NUR ---
Endorsed care to day shift RN.
--- NOTE | 2020-03-10 07:53 | NUR ---
pt seen by Dr. Fitch pt made aware of the plan for surgery on Sunday, pt verbalized understanding.
[2020-03-10 08:00] VITALS: BP 114/73
[2020-03-10] MEDS: MORPHINE SULF INJ 2 MG/ML SYRINGE 1ML IV PRN ×2 (08:01→15:30)
--- NOTE | 2020-03-10 08:10 | NUR ---
Respiratory note: PT IS AWAKE, AND ALERT. SPO2 96% ON RA, HR 53, RR 18, BS CLEAR BILATERALLY. PRN MEDNEB TX NOT INDICATED. PT INFORMED TO PUSH CALL BUTTON IF INCREASED WOB, SOB, OR WHEEZING OCCURS.
[2020-03-10] MEDS: FAMOTIDINE 20 MG TAB PO SCH (09:40)
[2020-03-10] MEDS: HCTZ 25 MG TAB PO SCH (09:40)
[2020-03-10 12:00] VITALS: BP 114/69
[2020-03-10] MEDS ORDERED: DILT120T3 PO (13:43)
[2020-03-10] MEDS ORDERED: ASPI-231 PO (13:43)
[2020-03-10] MEDS ORDERED: OLME40TA26 PO (13:43)
[2020-03-10] MEDS ORDERED: ALBU0.084 NEB (13:45)
[2020-03-10 16:35] LABS: Urine Bacteria NONE SEEN /hpf (None Seen); Urine Blood Negative /uL (Negative); Urine Specific Gravity 1.006 (1.001-1.035); Urine WBC 2 /hpf (0 - 5)
[2020-03-10 17:00] VITALS: BP 119/77
--- NOTE | 2020-03-10 18:36 | NUR ---
PT ASSESSED FOR PRN MED NEB TX. SPO2 95% ON RA, HR 72. PT DENIES ANY RESPIRATORY DISTRESS. NO TX INDICATED AT THIS TIME. PT IS AWARE TO HAVE RT PAGED IF TX NEEDED.
--- NOTE | 2020-03-10 19:30 | NUR ---
Opening Shift Note Assumed care of patient, awake and alert x4. Patient denies pain or shortness of breath at this time. No sign/symptoms of distress noted or verbalized at this time. Ice pack provided to patient for left knee as requested by patient. Instructed on plan of care and encouraged patient to call for assistance as needed, patient verbalized understanding. Bed is locked in lowest position, side rails x 2 are up, call light is within reach.
[2020-03-10] MEDS: ATORVASTATIN 20 MG TAB PO SCH (21:11)
[2020-03-10 22:00] VITALS: BP 106/68
[2020-03-11] MEDS: ACCU-CHEK COMFORT CURVE STRIP VI SCH ×4 (00:12→18:06)
[2020-03-11 05:42] VITALS: BP 115/72
[2020-03-11] MEDS: InsuLIN REG 1unit/0.01ml Soln (100units/ml) SC SCH ×4 (06:30→22:00)
[2020-03-11 06:40] LABS: Basophils # (auto) 0 10 ^3/uL (0-0.2); Basophils % (auto) 0.9 % (0.0-2.0); Eosinophils # (auto) 0.2 10 ^3/uL (0-0.8); Hematocrit 38.3 % (36.0-46.0); Hemoglobin 12.8 g/dL (12.2-16.2); Lymphocytes # (auto) 1.3 10 ^3/uL (0.4-5.4); Lymphocytes % (auto) 25.7 % (10.0-50.0); Mean Corpuscular Hemoglobin 29.6 pg (28.0-32.0); Mean Corpuscular Hgb Conc. 33.3 g/dL (32.0-36.0); Mean Corpuscular Volume 88.8 fL (80.0-100.0); Monocytes # (auto) 0.6 10 ^3/uL (0-1.3); Monocytes % (auto) 11.4 % (0.0-12.0); Neutrophils # (auto) 2.9 10 ^3/uL (1.6-8.6); Nucleated Red Blood Cells % 0.1 %; Platelet Count (auto) 240 10^3/uL (140-450); Red Blood Cells 4.31 10^6/uL (4.0-5.20); Red Cell Distribution Width 16.3 % (11.8-14.3)
[2020-03-11 06:59] LABS: BUN/Creatinine Ratio 21.1; Calcium 8.5 mg/dL (8.5-10.1); Potassium 4.1 mmol/L (3.5-5.1)
--- NOTE | 2020-03-11 07:23 | NUR ---
RT NOTE: PRN BREATING TX. NOT INDICATED AT THIS TIME, NO SIGNS OF RESPIRATORY DISTRESS NOTED. PT. HR 58, RR 16, POX 96% R/A. PT. ADVISED TO NOTIFY RN IF BREATHING TX. IS NEEDED.
[2020-03-11 08:00] VITALS: BP 126/64
--- NOTE | 2020-03-11 08:30 | NUR ---
Verified with Mirian in OR that patient is scheduled for surgery on Sunday, 03/12.
[2020-03-11] MEDS: FAMOTIDINE 20 MG TAB PO SCH (10:00)
[2020-03-11] MEDS: dilTIAZem HCL 60 MG TAB PO SCH (10:13)
[2020-03-11] MEDS: HCTZ 25 MG TAB PO SCH (10:14)
[2020-03-11] MEDS: HYDROcodone-ACET 5/325MG TAB PO PRN ×2 (11:15→22:15)
[2020-03-11 12:00] VITALS: BP 132/84
--- NOTE | 2020-03-11 14:41 | NUR ---
assessment Patient is a 69 year old female who is alert and oriented. Patients cognitive abilities are intact. Prior to admission patient lived home with family and functioned independently. Patient informed me she is able to care for her own ADLs. Per patient she will return home to her prior living arrangements post discharge and family will transport her home. Patient was admitted for knee pain. Patient informed me she had a total knee replacement last year and the hardware is bad and she will need a revision. Patient is requesting [facility] on discharge. Patients PCP is Jesse ROONEY. Patient has a fww and a bedside commode at home. I informed patient she has a right to speak to a secondary social studies teacher regarding all care. I informed patient she has a right to participate in any and all discharge planning. Patient does not have a POA and advanced directive. I have offered patient information on POA and advanced directives. I informed the patient the advantages and benefits of having an Advanced Directive. Patient verbalized understanding and agreed to discharge plan. Addendum: 03/11/20 at 1443 by Tiff BOURGEOIS Amended: Links added.
[2020-03-11 17:00] VITALS: BP 109/73
--- NOTE | 2020-03-11 19:30 | NUR ---
Opening Shift Note Assumed care of patient, awake and alert x4. Patient denies pain or shortness of breath at this time. No sign/symptoms of distress noted or verbalized at this time. Instructed on plan of care and encouraged patient to call for assistance as needed, patient verbalized understanding. Bed is locked in lowest position, side rails x 2 are up, call light is within reach.
[2020-03-11 22:00] VITALS: BP 127/83
[2020-03-11] MEDS: ATORVASTATIN 20 MG TAB PO SCH (22:14)
[2020-03-12] VITALS (20 sets, daily range): BP systolic 95–139; BP diastolic 59–92
[2020-03-12] MEDS: ACCU-CHEK COMFORT CURVE STRIP VI SCH ×5 (00:21→22:35)
[2020-03-12] MEDS: MORPHINE SULF INJ 2 MG/ML SYRINGE 1ML IV PRN (01:18)
--- NOTE | 2020-03-12 06:00 | NUR ---
CHG Bath CHG bath completed.
--- NOTE | 2020-03-12 06:55 | NUR ---
Patient taken to Pre-op Patient taken to pre-op via stretcher. No sign/symptoms of distress noted upon departure. Report given to pre-op nurse and patient care endorsed to pre-op nurse.
[2020-03-12] MEDS: InsuLIN REG 1unit/0.01ml Soln (100units/ml) SC SCH ×4 (07:00→22:00)
[2020-03-12] MEDS ORDERED: SUCCINYLCHOLINE CHLORIDE 20 MG/ML 10ML VIAL IV ONE (07:01)
[2020-03-12] MEDS ORDERED: LIDOCAINE 1% HCL (LOCAL ANESTH.) INJ 20ML MDV ONE (07:01)
[2020-03-12] MEDS ORDERED: SODIUM CHLORIDE LOCK 10 ML ONE (07:09)
[2020-03-12] MEDS ORDERED: PROPOFOL 10 MG/ML 20 ML IV ONE (07:09)
[2020-03-12] MEDS ORDERED: fentaNYL CITRATE 100 MCG/2 ML VL ONE (07:09)
[2020-03-12] MEDS ORDERED: BUPIVACAINE/DEXTROSE MPF 0.75% 2 ML AMP IT ONE (07:09)
[2020-03-12] MEDS ORDERED: MIDAZOLAM HCL 1MG/1ML-2 ML VIAL ONE (07:09)
[2020-03-12] MEDS ORDERED: ONDANSETRON HCL 4 MG/2 ML VIAL ONE (07:09)
[2020-03-12] MEDS ORDERED: MORPHINE SULF(PF) 0.5MG/ML 10ML VIAL ONE ×2 (07:09→08:15)
[2020-03-12] MEDS ORDERED: EPINEPHrine HCL 1 MG/1 ML AMP ONE (07:09)
[2020-03-12] MEDS ORDERED: TETRACAINE 1% INJ 2 ML VIAL IJ ONE (07:15)
[2020-03-12] MEDS ORDERED: ceFAZolin 1GM/50ML 50 ML IV ONE (07:25)
--- NOTE | 2020-03-12 07:30 | NUR ---
Opening Shift Note Assumed care of patient, patient currently in pre-op, per NOC report.
--- NOTE | 2020-03-12 07:51 | NUR ---
PT ASSESSED FOR PRN HHN TX. PT IS ON ROOM AIR, SPO2 93%, HR 69, RR 20. NO S.S OF RESPIRATORY DISTRESS. PRN TX NOT INDICATED AT AT THIS TIME. WILL CONTINUE TO MONITOR.
[2020-03-12] MEDS ORDERED: BUPIVACAINE W/ EPINEPH 0.25% INJ 50ML MDV ONE (08:09)
[2020-03-12] MEDS ORDERED: BUPIVACAINE 0.25% INJ 50ML VIAL ONE (08:09)
[2020-03-12] MEDS ORDERED: KETOROLAC TROMETH 30 MG/ML 1ML VIAL ONE (08:10)
[2020-03-12] MEDS ORDERED: VANCOMYCIN HCL 1000 MG VL ONE (08:10)
[2020-03-12] MEDS ORDERED: ONDANSETRON HCL 4 MG/2 ML VIAL IV PRN (08:30)
[2020-03-12] MEDS ORDERED: fentaNYL CITRATE 100 MCG/2 ML VL IV PRN (08:30)
[2020-03-12] MEDS ORDERED: MORPHINE SULF INJ 2 MG/ML SYRINGE 1ML IV PRN (08:30)
[2020-03-12] MEDS ORDERED: ACCU-CHEK COMFORT CURVE STRIP VI ONE (08:30)
[2020-03-12] MEDS ORDERED: diphenhdrAMINE HCL 50 MG/1 ML VL IV PRN (08:30)
[2020-03-12] MEDS ORDERED: KETOROLAC TROMETH 30 MG/ML 1ML VIAL IV PRN (09:15)
[2020-03-12] MEDS ORDERED: ceFAZolin 1GM/50ML 50 ML IV SCH (09:15)
[2020-03-12] MEDS ORDERED: HYDROmorphone HCL 2 MG/ML VL ONE (09:27)
[2020-03-12] MEDS: HYDROmorphone HCL 2 MG/ML VL IV PRN ×2 (09:30→09:40)
--- NOTE | 2020-03-12 10:13 | NUR ---
Patient returned to floor from PACU Breaths are even and unlabored, no signs of distress. Patient is currently on 3L/min NC. Spinal anesthesia precautions in place with continuous pulse ox. Noted left knee incision covered with dressing, C/D/I. Bed is set in lowest locked position with side rails up x 2 for safety and call light is within reach.
[2020-03-12] MEDS: ENOXAPARIN SOD 40 MG/0.4 ML SYRINGE SC SCH (10:15)
[2020-03-12] MEDS: HCTZ 25 MG TAB PO SCH (10:15)
[2020-03-12] MEDS: dilTIAZem HCL 60 MG TAB PO SCH (10:15)
[2020-03-12] MEDS: FAMOTIDINE 20 MG TAB PO SCH (12:27)
[2020-03-12] MEDS: HYDROcodone-ACET 5/325MG TAB PO PRN (15:23)
--- NOTE | 2020-03-12 15:49 | NUR ---
Nutrition Assessment Note please see attached link for complete assessment [employer] needs ABW 71 [id number] kcals (20-23 kcal/kgBW, Est Protein needs: 71-78 gms/day (1.0-1.1 gm/kgBW). Will continue to monitor and reassess prn. Addendum: 03/12/20 at [address] Amended: Links added.
--- NOTE | 2020-03-12 17:48 | NUR ---
Pagejarrell Fitch To make MD aware of minimal blood drainage from incisional site. No distress noted, patient is in bed with even and unlabored respirations and no complaints of pain. Awaiting call back from MD. Partial bedding change completed at this time, patient tolerated well.
--- NOTE | 2020-03-12 17:57 | NUR ---
Spoke to MD Fitch Per MD, he will see patient tomorrow. New orders received to reinforce dressing with Medipore tape, and place immobilizer to site, Will proceed to carry out and continue to monitor patient.
--- NOTE | 2020-03-12 19:05 | NUR ---
Care endorsed to NOC RN.
--- NOTE | 2020-03-12 19:20 | NUR ---
Opening Shift Note Assumed care of patient, awake and alert x4. Patient denies pain or shortness of breath at this time. No sign/symptoms of distress noted or verbalized at this time. Patient noted to have dressing to left knee with immobilizer in place. Old drainage to left knee was noted from previous shift, drainage circled. Encouraged patient to use incentive spirometer at least 10 times every hour while awake, patient verbalized understanding. Instructed on plan of care and encouraged patient to call for assistance as needed, patient verbalized understanding. Bed is locked in lowest position, side rails x 2 are up, call light is within reach.
[2020-03-12] MEDS: ACETAMINOPHEN 325 MG TAB PO PRN ×2 (20:05→22:40)
--- NOTE | 2020-03-12 20:05 | NUR ---
Elevated Temperature Patient's temperature is 101.0. Cooling measures initiated and in place. Patient medicated for elevated temperature (see eMAR).
--- NOTE | 2020-03-12 21:00 | NUR ---
Temperature Reassessment Patient's temperature is 100.3. Cooling measures continue to be in place, patient provided with more ice packs. Patient denies chills at this time.
[2020-03-12] MEDS: ATORVASTATIN 20 MG TAB PO SCH (21:14)
[2020-03-12] MEDS: ceFAZolin 1GM/50ML 50 ML IV SCH (21:16)
--- NOTE | 2020-03-12 22:00 | NUR ---
Temperature Reassessment Patient's temperature is 99.2. Cooling measures continue to be in place. Instructed patient to continue to leave the blankets off and to leave the ice packs, patient verbalized understanding. Patient denies chills at this time.
[2020-03-13] VITALS (16 sets, daily range): BP systolic 93–118; BP diastolic 40–76
[2020-03-13] MEDS: ceFAZolin 1GM/50ML 50 ML IV SCH ×2 (03:28→09:28)
--- NOTE | 2020-03-13 05:39 | NUR ---
Hospitalist Paged Re: No Urine Output Hospitalist paged regarding no urine output throughout the night. Bladder scan was performed which revealed 28ml of urine in the bladder. No bladder distention noted. Patient denies pain or an urgency to urinate. Awaiting call back.
--- NOTE | 2020-03-13 05:48 | NUR ---
Spoke with hospitalist re: no urine output throughout the night Hospitalist returned call. Notified Dr. Bryan that patient did not urinate throughout the night. Dr. Bryan also made aware that this RN performed a bladder scan on patient which revealed 28ml of urine in the bladder. Orders for a lynch catheter received. Order read back and verified. Will carry out order as received.
--- NOTE | 2020-03-13 06:00 | NUR ---
Dressing Reinforced After patient attempted to get out of bed to use bedside commode this RN noticed drainage on the dressing to the left knee. Dressing to left knee reinforced with Medipore.
--- NOTE | 2020-03-13 06:20 | NUR ---
Lynch catheter insertion Patient assessed and determined to be in need of lynch catheter. Order obtained from Dr. Bryan. Patient educated on catheter and reason for insertion. All questions answered. Lynch catheter 16 guage Indonesian inserted with clean sterile technique. Patient tolerated well. 350ml of clear urine drained into the lynch catheter after insertion. Patient is laying in bed with even and unlabored respirations. No sign/symptoms of distress noted at this time.
[2020-03-13] MEDS: HYDROcodone-ACET 5/325MG TAB PO PRN (06:47)
[2020-03-13] MEDS: ACCU-CHEK COMFORT CURVE STRIP VI SCH ×4 (06:47→21:56)
--- NOTE | 2020-03-13 06:47 | NUR ---
Respiratory note: PT ASSESSED FOR PRN HHN TX. PT IS ON 1 LPM NC, SPO2 96%, HR 71, RR 20. NO S.S OF RESPIRATORY DISTRESS. PRN TX NOT INDICATED AT THIS TIME. WILL CONTINUE TO MONITOR
[2020-03-13] MEDS: InsuLIN REG 1unit/0.01ml Soln (100units/ml) SC SCH ×4 (06:48→21:56)
--- NOTE | 2020-03-13 07:22 | NUR ---
Opening Shift Note Assumed care of patient, awake and alert. No S/S of distress/SOB or pain. Instructed on POC and to call for assist PRN, will continue to monitor for changes Q1hr and PRN. Spinal anesthesia precautions in place with continuous pulse ox. Noted left knee incision covered with dressing and immobilizer. Bed is set in lowest locked position with side rails up x 2 for safety and call light is within reach.
[2020-03-13] MEDS: FAMOTIDINE 20 MG TAB PO SCH (09:28)
--- NOTE | 2020-03-13 09:55 | NUR ---
MD Fitch at bedside for rounds MD performed dressing change at this time, MD aware of patient overnight drainage of blood from wound. Per MD, hold off on physical therapy today and resume tomorrow 03/14/20. New orders received and read back for verification, will proceed to carry out.
[2020-03-13] MEDS: HCTZ 25 MG TAB PO SCH (10:00)
[2020-03-13] MEDS: dilTIAZem HCL 60 MG TAB PO SCH (10:00)
[2020-03-13] MEDS ORDERED: traMADol HCL 50 MG TAB PO PRN (10:15)
--- NOTE | 2020-03-13 10:30 | NUR ---
HOLD P.T. TODAY PER MD BECAUSE OF INCREASED BLEEDING
[2020-03-13] MEDS: SODIUM CHLORIDE 0.9% 1,000 ML IV SCH (10:38)
[2020-03-13] MEDS: HYDROcodone-ACET 10/325MG TAB PO PRN ×3 (11:16→21:55)
[2020-03-13] MEDS: ENOXAPARIN SOD 40 MG/0.4 ML SYRINGE SC SCH (11:17)
--- NOTE | 2020-03-13 11:26 | NUR ---
MD Coles at bedside for rounds Updated pt on POC.
--- NOTE | 2020-03-13 13:39 | NUR ---
Hudson from ortho at bedside for fitting of left patella stabilizing brace
--- NOTE | 2020-03-13 18:23 | NUR ---
RT NOTE: PT ON 1LPN MC SPO2 99% HR 74, RR 18, BS CLEAR WITH NO DISTRESS. PT EATING DINNER SITTING UPRIGHT AND DENIES SOB AT THIS TIME. PT NOTIFIED TO HAVE RT PAGED IF SOB OCCURS. NO TX INDICATED AT THIS TIME.
--- NOTE | 2020-03-13 19:19 | NUR ---
Care endorsed to ZARA RODAS.
[2020-03-13] MEDS: ATORVASTATIN 20 MG TAB PO SCH (21:55)
[2020-03-13] MEDS: DOCUSATE SOD 100 MG CAP PO PRN (21:55)
--- NOTE | 2020-03-13 23:55 | NUR ---
Oxygen Pt weaned to 0.5L O2, satting 95%. On RA trial pt desatted to 91%, was awake at the time.
[2020-03-14] MEDS: SODIUM CHLORIDE 0.9% 1,000 ML IV SCH ×2 (00:27→13:21)
[2020-03-14 05:00] VITALS: BP 103/60
[2020-03-14 05:29] LABS: Basophils # (auto) 0 10 ^3/uL (0-0.2); Basophils % (auto) 0.2 % (0.0-2.0); Eosinophils # (auto) 0.4 10 ^3/uL (0-0.8); Eosinophils % (auto) 6.4 % (0.0-7.0); Hematocrit 33.6 % (36.0-46.0); Hemoglobin 11.2 g/dL (12.2-16.2); Lymphocytes # (auto) 0.7 10 ^3/uL (0.4-5.4); Mean Corpuscular Hemoglobin 29.7 pg (28.0-32.0); Mean Corpuscular Hgb Conc. 33.3 g/dL (32.0-36.0); Mean Corpuscular Volume 89.2 fL (80.0-100.0); Monocytes # (auto) 0.7 10 ^3/uL (0-1.3); Monocytes % (auto) 10.7 % (0.0-12.0); Neutrophils # (auto) 4.8 10 ^3/uL (1.6-8.6); Neutrophils % (auto) 71.7 % (37.0-80.0); Platelet Count (auto) 196 10^3/uL (140-450); Red Blood Cells 3.76 10^6/uL (4.0-5.20); Red Cell Distribution Width 15.4 % (11.8-14.3); White Blood Cell 6.7 10^3/uL (4.4-10.8)
[2020-03-14 05:46] LABS: Calcium 8.2 mg/dL (8.5-10.1); Potassium 4.2 mmol/L (3.5-5.1)
[2020-03-14] MEDS: InsuLIN REG 1unit/0.01ml Soln (100units/ml) SC SCH ×4 (07:00→22:00)
[2020-03-14] MEDS: HYDROcodone-ACET 10/325MG TAB PO PRN ×2 (07:02→20:22)
[2020-03-14] MEDS: ACCU-CHEK COMFORT CURVE STRIP VI SCH ×4 (07:05→22:29)
--- NOTE | 2020-03-14 07:15 | NUR ---
Opening Shift Note Assumed care of patient, awake and alert. No S/S of distress/SOB or pain. Instructed on POC and to call for assist PRN, will continue to monitor for changes Q1hr and PRN. Noted left knee incision covered with dressing and patella stabilizer. Bed is set in lowest locked position with side rails up x 2 for safety and call light is within reach.
[2020-03-14 09:00] VITALS: BP 104/56
[2020-03-14] MEDS: PANTOPRAZOLE 40 MG TAB PO SCH (09:42)
[2020-03-14] MEDS: ENOXAPARIN SOD 40 MG/0.4 ML SYRINGE SC SCH (09:43)
[2020-03-14] MEDS: dilTIAZem HCL 60 MG TAB PO SCH (10:00)
--- NOTE | 2020-03-14 10:40 | NUR ---
Patient ambulating with physical therapy With use of FWW and gait belt, patient is taking slow steady steps to doorway and back to bed. Breaths are even and unlabored, no distress noted at this time.
--- NOTE | 2020-03-14 10:55 | NUR ---
Respiratory note: PRN MED NEB ASSESSMENT. SPO2 98 % ON 1 LPM. PT IN NO DISTRESS AT THIS TIME. NO TX INDICATED AT THIS TIME. INFORMED PT TO HAVE RT PAGED IF BECOMES SOB.
--- NOTE | 2020-03-14 12:00 | NUR ---
Dressing change performed Per MD Fitch orders. Patient tolerated well, incision is well approximated with clement intact, no sign of active bleeding noted. Will continue to monitor patient.
[2020-03-14 13:00] VITALS: BP 142/82
[2020-03-14] MEDS: HCTZ 25 MG TAB PO SCH (13:21)
--- NOTE | 2020-03-14 14:04 | NUR ---
MD oCles at bedside for rounds
[2020-03-14 17:00] VITALS: BP 123/68
[2020-03-14] MEDS: ACETAMINOPHEN 325 MG TAB PO PRN (17:00)
--- NOTE | 2020-03-14 17:00 | NUR ---
Elevated Temperature Patient's temperature is 102.4. Cooling measures initiated and in place. Patient medicated for elevated temperature (see eMAR).
--- NOTE | 2020-03-14 18:00 | NUR ---
Temperature Reassessment Patient's temperature is 99.8. Cooling measures continued. Will continue to monitor patient.
--- NOTE | 2020-03-14 18:15 | NUR ---
RT NOTE: PT CURRENTLY ON 1 LPM NC SPO2 99% HR 78, RR 20, BS CLEAR WITH NO DISTRESS. PT EATING DINNER SITTING UPRIGHT AND DENIES SOB AT THIS TIME. PT NOTIFIED TO HAVE RT PAGED IF SOB OCCURS. NO TX INDICATED AT THIS TIME.
--- NOTE | 2020-03-14 19:10 | NUR ---
Care endorsed to NOC RN.
[2020-03-14 22:00] VITALS: BP 124/70
[2020-03-14] MEDS: DOCUSATE SOD 100 MG CAP PO PRN (22:28)
[2020-03-14] MEDS: ATORVASTATIN 20 MG TAB PO SCH (22:28)
[2020-03-15] MEDS: SODIUM CHLORIDE 0.9% 1,000 ML IV SCH ×2 (02:49→15:50)
[2020-03-15] MEDS: HYDROcodone-ACET 10/325MG TAB PO PRN (03:46)
[2020-03-15 05:00] VITALS: BP 113/75
--- NOTE | 2020-03-15 06:00 | NUR ---
RESPIRATORY: HR 64, RR 15, SPO2 98% ON RA, BS CLEAR. PRN MED NEB TX NOT INDICATED AT THIS TIME. PT INFORMED TO HIT CALL LIGHT IF FEELING SOB OR WHEEZING. Respiratory note:
[2020-03-15 06:12] LABS: Basophils # (auto) 0 10 ^3/uL (0-0.2); Basophils % (auto) 0.3 % (0.0-2.0); Eosinophils # (auto) 0.4 10 ^3/uL (0-0.8); Eosinophils % (auto) 6.2 % (0.0-7.0); Hematocrit 31.5 % (36.0-46.0); Hemoglobin 10.5 g/dL (12.2-16.2); Lymphocytes # (auto) 0.5 10 ^3/uL (0.4-5.4); Lymphocytes % (auto) 7.2 % (10.0-50.0); Mean Corpuscular Hemoglobin 29.6 pg (28.0-32.0); Mean Corpuscular Hgb Conc. 33.5 g/dL (32.0-36.0); Mean Corpuscular Volume 88.4 fL (80.0-100.0); Monocytes # (auto) 0.8 10 ^3/uL (0-1.3); Monocytes % (auto) 11.7 % (0.0-12.0); Neutrophils # (auto) 5.1 10 ^3/uL (1.6-8.6); Neutrophils % (auto) 74.6 % (37.0-80.0); Platelet Count (auto) 203 10^3/uL (140-450); Red Blood Cells 3.56 10^6/uL (4.0-5.20); Red Cell Distribution Width 15.2 % (11.8-14.3); White Blood Cell 6.9 10^3/uL (4.4-10.8)
[2020-03-15] MEDS: ACCU-CHEK COMFORT CURVE STRIP VI SCH ×3 (06:20→17:00)
[2020-03-15] MEDS: InsuLIN REG 1unit/0.01ml Soln (100units/ml) SC SCH ×3 (06:21→17:00)
[2020-03-15 06:44] LABS: BUN/Creatinine Ratio 22.8; Calcium 8.3 mg/dL (8.5-10.1)
[2020-03-15] MEDS ORDERED: KETOROLAC TROMETH 30 MG/ML 1ML VIAL IV PRN (08:00)
[2020-03-15 08:50] VITALS: BP 113/75
[2020-03-15 09:00] VITALS: BP 115/77
[2020-03-15] MEDS: HCTZ 25 MG TAB PO SCH (09:07)
[2020-03-15] MEDS: PANTOPRAZOLE 40 MG TAB PO SCH (09:07)
[2020-03-15] MEDS: dilTIAZem HCL 60 MG TAB PO SCH (09:08)
[2020-03-15] MEDS: ENOXAPARIN SOD 40 MG/0.4 ML SYRINGE SC SCH (09:08)
--- NOTE | 2020-03-15 10:30 | NUR ---
DR SILVA BEDSIDE
--- NOTE | 2020-03-15 12:25 | NUR ---
DR SAENZ AT BEDSIDE NEW ORDER FOR PODIATRY CONSULT.
[2020-03-15 13:00] VITALS: BP 99/59
--- NOTE | 2020-03-15 13:46 | NUR ---
Lynch catheter dc'd Order to discontinue lynch catheter. Lynch dc'd with clean technique following deflation of balloon. Patient tolerated well with no complaints of pain. Continue care.
--- NOTE | 2020-03-15 15:09 | NUR ---
re-assessment Per consult may need transportation and resume [facility] for PT. Per patient her sister will transport her home and she wants to resume with [facility] home health. order has been sent to [facility]. Per [facility] service will start for PT on 03/17/2020. Patient has been notified. Addendum: 03/15/20 at 1511 by Tiff BOURGEOIS Amended: Links added.
--- NOTE | 2020-03-15 17:45 | NUR ---
DRESSING CHANGE COMPLETED, PHOTO TAKEN; PATIENT TOLERATED WELL.
--- NOTE | 2020-03-15 18:58 | NUR ---
Discharge instructions given as ordered. Encourage to follow up with PMD as instructed. All questions and concerns addressed. Patient verbalized understanding. IV removed with catheter intact, pressure dressing applied, lynch catheter removed. Dressing changed, patient tolerated well.Patient taken to vehicle via wheelchair with all personal belongings, accompanied by staff and family member. No distress noted at time of departure.
== END 2020-03-15 18:42 | disposition home health service (06) | DRG 463 ==
LOC: ER 11:30 → OVERFLOW 11:31 → EAST 18:36
PROVIDERS: ADMIT Nurse Practitioner Acute Care; ATTEND Internal Medicine
PROC: 0SRD0N9 Replacement of Left Knee Joint with Patellofemoral Synthetic Substitute, Cemented, Open Approach (ICD-10-PCS; 2020-03-12)
PROC: 0SPD0NZ Removal of Patellofemoral Synthetic Substitute from Left Knee Joint, Open Approach (ICD-10-PCS; principal; 2020-03-12 07:26)
DX: T84.013A Broken internal left knee prosthesis, initial encounter (principal); N17.0 Acute kidney failure with tubular necrosis; E87.1 Hypo-osmolality and hyponatremia; Z96.652 Presence of left artificial knee joint; J44.9 Chronic obstructive pulmonary disease, unspecified; M19.90 Unspecified osteoarthritis, unspecified site; E78.5 Hyperlipidemia, unspecified; N18.2 Chronic kidney disease, stage 2 (mild); F41.9 Anxiety disorder, unspecified; E86.0 Dehydration; E11.22 Type 2 diabetes mellitus with diabetic chronic kidney disease; I12.9 Hypertensive chronic kidney disease with stage 1 through stage 4 chronic kidney disease, or unspecified chronic kidney disease; I25.10 Atherosclerotic heart disease of native coronary artery without angina pectoris; Z90.49 Acquired absence of other specified parts of digestive tract; Z90.89 Acquired absence of other organs; Z90.710 Acquired absence of both cervix and uterus; Z82.5 Family history of asthma and other chronic lower respiratory diseases; Y92.89 Other specified places as the place of occurrence of the external cause; Z79.899 Other long term (current) drug therapy; W19.XXXA Unspecified fall, initial encounter
CPT/HCPCS: 36415; 71045; 73562; 73700; 80048; 80053; 81001; 82962; 83036; 84443; 85025; 85610; 85730; 86850; 86870; 86900; 86901; 94640; G0378; J0171; J0330; J0690; J1815; J1885; J2001; J2250; J2405; J2704; J3490

== ENCOUNTER 2020-05-12 10:25 | Emergency (ER) | payer MEDICARE, MEDICAID ==
[~2020-05-12] VITALS: Ht 162.6 cm; Wt 86.2 kg
[~2020-05-12 10:25] MED LIST changes: +ALBU0.084 NEB; +ASPI-231 PO; +DILT120T3 PO; -DILT60TA27 PO; -FLUT1INH6 IN
[2020-05-12 11:25] LABS: Basophils # (auto) 0 10 ^3/uL (0-0.2); Basophils % (auto) 0.8 % (0.0-2.0); Eosinophils # (auto) 0.2 10 ^3/uL (0-0.8); Eosinophils % (auto) 2.8 % (0.0-7.0); Hematocrit 43.6 % (36.0-46.0); Hemoglobin 14.2 g/dL (12.2-16.2); Lymphocytes # (auto) 1.5 10 ^3/uL (0.4-5.4); Lymphocytes % (auto) 25.6 % (10.0-50.0); Mean Corpuscular Hemoglobin 28.8 pg (28.0-32.0); Mean Corpuscular Hgb Conc. 32.7 g/dL (32.0-36.0); Mean Corpuscular Volume 88.2 fL (80.0-100.0); Monocytes # (auto) 0.4 10 ^3/uL (0-1.3); Neutrophils # (auto) 3.7 10 ^3/uL (1.6-8.6); Neutrophils % (auto) 63.8 % (37.0-80.0); Platelet Count (auto) 253 10^3/uL (140-450); Red Blood Cells 4.94 10^6/uL (4.0-5.20); Red Cell Distribution Width 15.9 % (11.8-14.3); White Blood Cell 5.9 10^3/uL (4.4-10.8)
[2020-05-12 11:42] LABS: Calcium 9.7 mg/dL (8.5-10.1); Potassium 3.7 mmol/L (3.5-5.1)
[2020-05-12 11:46] LABS: BUN/Creatinine Ratio 19.1; Bilirubin, Total 0.6 mg/dL (0.2-1.0); Total Protein 6.9 g/dL (6.4-8.2)
[2020-05-12 11:53] VITALS: BP 114/63
== END 2020-05-12 13:23 | disposition home or self-care (01) ==
LOC: ER 10:25
DX: R07.89 Other chest pain (principal); J44.1 Chronic obstructive pulmonary disease with (acute) exacerbation; I10 Essential (primary) hypertension; E11.9 Type 2 diabetes mellitus without complications; E78.5 Hyperlipidemia, unspecified; I25.10 Atherosclerotic heart disease of native coronary artery without angina pectoris; F41.9 Anxiety disorder, unspecified; Z90.49 Acquired absence of other specified parts of digestive tract; Z20.828 Contact with and (suspected) exposure to other viral communicable diseases
CPT/HCPCS: 36415; 71045; 80053; 83605; 84484; 85025; 87426; 93005; 99285; U0003

== ENCOUNTER 2020-06-01 13:12 | Emergency (ER) | payer MEDICARE, MEDICAID ==
[~2020-06-01] VITALS: Ht 162.6 cm; Wt 86.2 kg
[2020-06-01] MEDS ORDERED: methylPREDNISolone SOD SUCC 125 MG/2 ML VL IM ONE (16:45)
[2020-06-01 16:52] VITALS: BP 92/46
== END 2020-06-01 17:08 | disposition home or self-care (01) ==
LOC: ER 13:12
DX: M17.11 Unilateral primary osteoarthritis, right knee (principal); M25.461 Effusion, right knee; E11.9 Type 2 diabetes mellitus without complications; I10 Essential (primary) hypertension; I25.10 Atherosclerotic heart disease of native coronary artery without angina pectoris; J44.9 Chronic obstructive pulmonary disease, unspecified; E78.5 Hyperlipidemia, unspecified; Z90.49 Acquired absence of other specified parts of digestive tract; Z90.710 Acquired absence of both cervix and uterus; Z79.82 Long term (current) use of aspirin; Z79.899 Other long term (current) drug therapy
CPT/HCPCS: 73562; 96372; 99283; J2930

== ENCOUNTER 2020-07-05 07:46 | Inpatient (IN) | payer MEDICARE, MEDICAID ==
[2020-06-30 14:11] LABS: Basophils # (auto) 0.1 10 ^3/uL (0-0.2); Basophils % (auto) 1.1 % (0.0-2.0); Eosinophils # (auto) 0.1 10 ^3/uL (0-0.8); Eosinophils % (auto) 1.8 % (0.0-7.0); Hematocrit 43.4 % (36.0-46.0); Hemoglobin 14.3 g/dL (12.2-16.2); Lymphocytes # (auto) 1.8 10 ^3/uL (0.4-5.4); Lymphocytes % (auto) 26.2 % (10.0-50.0); Mean Corpuscular Hemoglobin 29.2 pg (28.0-32.0); Mean Corpuscular Hgb Conc. 32.9 g/dL (32.0-36.0); Mean Corpuscular Volume 88.7 fL (80.0-100.0); Monocytes # (auto) 0.6 10 ^3/uL (0-1.3); Monocytes % (auto) 8.9 % (0.0-12.0); Neutrophils # (auto) 4.2 10 ^3/uL (1.6-8.6); Nucleated Red Blood Cells % 0.1 %; Platelet Count (auto) 261 10^3/uL (140-450); Red Blood Cells 4.89 10^6/uL (4.0-5.20); Red Cell Distribution Width 16.7 % (11.8-14.3); White Blood Cell 6.8 10^3/uL (4.4-10.8)
[2020-06-30 14:18] LABS: Urine Bacteria NONE SEEN /hpf (None Seen); Urine Blood Negative /uL (Negative); Urine Specific Gravity 1.019 (1.001-1.035); Urine WBC <1 /hpf (0 - 5)
[2020-06-30 14:28] LABS: INR 0.97 (0.9-1.15); Partial Thromboplastin Time 27.6 sec (23.0-31.2)
[2020-06-30 14:33] LABS: Albumin 4.2 g/dL (3.4-5.0); Calcium 9.4 mg/dL (8.5-10.1); Potassium 3.9 mmol/L (3.5-5.1)
[2020-06-30 14:37] LABS: Bilirubin, Total 0.4 mg/dL (0.2-1.0); Total Protein 6.9 g/dL (6.4-8.2)
[~2020-07-05] VITALS: Ht 162.6 cm; Wt 98.3 kg
[~2020-07-05 07:46] MED LIST changes: -ALBUAER3 IN; -CHOL20007 PO
[2020-07-05] MEDS ORDERED: BUPIVACAINE W/ EPINEPH 0.25% INJ 50ML MDV ONE (09:21)
[2020-07-05] MEDS ORDERED: TRANEXAMIC ACID 20 ML ONE (09:21)
[2020-07-05] MEDS ORDERED: KETOROLAC TROMETH 30 MG/ML 1ML VIAL ONE (09:23)
[2020-07-05] MEDS ORDERED: MORPHINE SULF(PF) 0.5MG/ML 10ML VIAL ONE (09:23)
[2020-07-05] MEDS ORDERED: VANCOMYCIN HCL 1000 MG VL ONE (09:24)
[2020-07-05] MEDS ORDERED: ceFAZolin 1GM/50ML 50 ML IV ONE ×2 (09:41→10:15)
[2020-07-05] MEDS ORDERED: PREGABALIN CAPSULE 75 MG CAP ONE (09:41)
[2020-07-05] MEDS ORDERED: CELECOXIB 100 MG CAP ONE (09:41)
[2020-07-05] MEDS ORDERED: ACETAMINOPHEN IV 100 ML IV ONE (09:42)
[2020-07-05] MEDS ORDERED: CELECOXIB 100 MG CAP PO ONE (09:45)
[2020-07-05] MEDS ORDERED: ceFAZolin 1GM 2 GM in D5W 5% 100 ML IV ONE (09:45)
[2020-07-05] MEDS ORDERED: ACETAMINOPHEN IV 1000 MG/100ML (10MG/ML) IV ONE (09:45)
[2020-07-05] MEDS ORDERED: PREGABALIN CAPSULE 75 MG CAP PO ONE (10:00)
[2020-07-05] MEDS ORDERED: TETRACAINE 1% INJ 2 ML VIAL IJ ONE (10:13)
[2020-07-05] MEDS ORDERED: MIDAZOLAM HCL 1MG/1ML-2 ML VIAL ONE ×3 (10:17→10:50)
[2020-07-05] MEDS ORDERED: METOCLOPRAMIDE HCL 5MG/ml INJ 2ml VIAL ONE (10:18)
[2020-07-05] MEDS ORDERED: ePHEDrine SULFATE 50 MG/ML AMP ONE (10:38)
[2020-07-05] MEDS ORDERED: SODIUM CHLORIDE LOCK 10 ML ONE (10:38)
[2020-07-05] MEDS ORDERED: fentaNYL CITRATE 100 MCG/2 ML VL ONE (10:42)
[2020-07-05] MEDS ORDERED: LIDOCAINE 1% (LOCAL ANESTH.) PF 5ml SDV ONE (10:42)
[2020-07-05] MEDS ORDERED: PROPOFOL 10 MG/ML 20 ML IV ONE (10:43)
[2020-07-05] MEDS ORDERED: diphenhdrAMINE HCL 50 MG/1 ML VL ONE (10:46)
[2020-07-05] MEDS ORDERED: ONDANSETRON HCL 4 MG/2 ML VIAL IV PRN (11:00)
[2020-07-05] MEDS ORDERED: NALOXONE HCL 0.4 MG/ML VIAL IV PRN (11:00)
[2020-07-05] MEDS ORDERED: ACCU-CHEK COMFORT CURVE STRIP VI ONE (11:00)
[2020-07-05] MEDS ORDERED: HYDROmorphone HCL 2 MG/ML VL IV PRN (11:00)
[2020-07-05] MEDS ORDERED: NITROGLYCERIN 0.4 MG SL TAB SL PRN (12:30)
[2020-07-05] MEDS ORDERED: traMADol HCL 50 MG TAB PO PRN (12:30)
[2020-07-05] MEDS ORDERED: MORPHINE SULF INJ 2 MG/ML SYRINGE 1ML IV PRN (12:30)
[2020-07-05] MEDS ORDERED: ceFAZolin 1GM/50ML 50 ML IV SCH (12:30)
[2020-07-05] MEDS: SODIUM CHLOR 0.9% PF (SALINE LOCK) 10ML VIAL/SYR IV SCH ×2 (14:00→21:53)
[2020-07-05] MEDS: LACTATED RINGER'S 1,000 ML IV SCH (15:47)
[2020-07-05] MEDS: HYDROmorphone HCL 2 MG/ML VL IV PRN ×2 (15:47→20:35)
[2020-07-05] MEDS: KETOROLAC TROMETH 30 MG/ML 1ML VIAL IV SCH (17:59)
[2020-07-05] MEDS ORDERED: ALBUTEROL SULF 2.5 MG/0.5ML(0.5%) NEB SOLN NEB PRN (18:00)
[2020-07-05] MEDS: ceFAZolin 1GM/50ML 50 ML IV SCH (21:53)
[2020-07-05] MEDS: ATORVASTATIN 20 MG TAB PO SCH (21:54)
[2020-07-05] MEDS: FLUoxetine HCL 20 MG CAP PO SCH (21:54)
[2020-07-05] MEDS: DOCUSATE SOD 100 MG CAP PO SCH (21:54)
[2020-07-05] MEDS: OXYCODONE W/ ACETAMINOPHEN 5/325MG TABLET PO PRN (21:59)
[2020-07-05 22:00] VITALS: BP 91/66
[2020-07-06] VITALS (8 sets, daily range): BP systolic 88–135; BP diastolic 50–77
[2020-07-06] MEDS: KETOROLAC TROMETH 30 MG/ML 1ML VIAL IV SCH ×5 (00:01→23:28)
[2020-07-06] MEDS: LACTATED RINGER'S 1,000 ML IV SCH (00:01)
[2020-07-06] MEDS: ceFAZolin 1GM/50ML 50 ML IV SCH (03:31)
[2020-07-06] MEDS: HYDROmorphone HCL 2 MG/ML VL IV PRN (03:54)
[2020-07-06] MEDS: SODIUM CHLOR 0.9% PF (SALINE LOCK) 10ML VIAL/SYR IV SCH ×3 (05:32→22:00)
[2020-07-06 07:26] LABS: Hematocrit 35.8 % (36.0-46.0)
[2020-07-06 07:49] LABS: Albumin 3.5 g/dL (3.4-5.0); Calcium 8.5 mg/dL (8.5-10.1); Potassium 3.7 mmol/L (3.5-5.1)
[2020-07-06 07:53] LABS: BUN/Creatinine Ratio 14.1; Bilirubin, Total 0.5 mg/dL (0.2-1.0)
[2020-07-06] MEDS: SODIUM CHLORIDE 0.9% 1,000 ML IV SCH ×2 (09:41→22:35)
[2020-07-06] MEDS: DOCUSATE SOD 100 MG CAP PO SCH ×2 (09:42→21:24)
[2020-07-06] MEDS: ENOXAPARIN SOD 40 MG/0.4 ML SYRINGE SC SCH (09:42)
[2020-07-06] MEDS: FLUoxetine HCL 20 MG CAP PO SCH ×2 (09:42→21:25)
[2020-07-06] MEDS ORDERED: SODIUM CHLORIDE 0.9% 500 ML IV ONE (09:45)
[2020-07-06] MEDS ORDERED: HCTZ 25 MG TAB PO SCH (10:00)
[2020-07-06] MEDS: LOSARTAN POTASSIUM 50 MG TAB PO SCH (10:00)
[2020-07-06] MEDS: dilTIAZem 120MG ER CAP PO SCH (10:00)
[2020-07-06] MEDS ORDERED: LOSARTAN POTASSIUM 50 MG TAB PO SCH (10:00)
[2020-07-06] MEDS ORDERED: dilTIAZem 120MG ER CAP PO SCH (10:00)
[2020-07-06] MEDS: OXYCODONE W/ ACETAMINOPHEN 5/325MG TABLET PO PRN ×2 (14:28→19:41)
[2020-07-06] MEDS: ATORVASTATIN 20 MG TAB PO SCH (21:26)
[2020-07-07] MEDS: OXYCODONE W/ ACETAMINOPHEN 5/325MG TABLET PO PRN ×4 (03:39→22:08)
[2020-07-07 04:57] VITALS: BP 118/81
[2020-07-07] MEDS: SODIUM CHLOR 0.9% PF (SALINE LOCK) 10ML VIAL/SYR IV SCH ×3 (05:46→21:52)
[2020-07-07 06:20] LABS: BUN/Creatinine Ratio 22.9
[2020-07-07 06:25] LABS: Hematocrit 31.1 % (36.0-46.0); Hemoglobin 10.5 g/dL (12.2-16.2)
[2020-07-07 08:00] VITALS: BP 115/70
[2020-07-07 09:00] VITALS: BP 115/70
[2020-07-07] MEDS: ENOXAPARIN SOD 40 MG/0.4 ML SYRINGE SC SCH (09:23)
[2020-07-07] MEDS: FLUoxetine HCL 20 MG CAP PO SCH ×2 (09:23→21:51)
[2020-07-07] MEDS: DOCUSATE SOD 100 MG CAP PO SCH ×2 (09:23→21:51)
[2020-07-07] MEDS: dilTIAZem 120MG ER CAP PO SCH (09:27)
[2020-07-07] MEDS: LOSARTAN POTASSIUM 50 MG TAB PO SCH (09:28)
[2020-07-07] MEDS: ONDANSETRON HCL 4 MG/2 ML VIAL IV PRN (09:54)
[2020-07-07] MEDS: SODIUM CHLORIDE 0.9% 1,000 ML IV SCH (11:55)
[2020-07-07 13:00] VITALS: BP 137/88
[2020-07-07 17:00] VITALS: BP 146/78
[2020-07-07] MEDS: ATORVASTATIN 20 MG TAB PO SCH (21:51)
[2020-07-07 22:00] VITALS: BP 146/76
[2020-07-08] MEDS: SODIUM CHLORIDE 0.9% 1,000 ML IV SCH (01:49)
[2020-07-08] MEDS: OXYCODONE W/ ACETAMINOPHEN 5/325MG TABLET PO PRN ×4 (03:29→20:03)
[2020-07-08 05:49] LABS: Hematocrit 31.4 % (36.0-46.0); Hemoglobin 10.5 g/dL (12.2-16.2)
[2020-07-08 06:00] VITALS: BP 137/78
[2020-07-08] MEDS: SODIUM CHLOR 0.9% PF (SALINE LOCK) 10ML VIAL/SYR IV SCH ×3 (06:31→21:16)
[2020-07-08] MEDS: DOCUSATE SOD 100 MG CAP PO SCH ×2 (10:07→21:16)
[2020-07-08] MEDS: dilTIAZem 120MG ER CAP PO SCH (10:09)
[2020-07-08] MEDS: ENOXAPARIN SOD 40 MG/0.4 ML SYRINGE SC SCH (10:10)
[2020-07-08] MEDS: FLUoxetine HCL 20 MG CAP PO SCH ×2 (10:10→21:17)
[2020-07-08] MEDS: LOSARTAN POTASSIUM 50 MG TAB PO SCH (12:14)
[2020-07-08] MEDS ORDERED: DEXTROSE (50%) 50ML SYRG IV PRN (14:00)
[2020-07-08] MEDS: InsuLIN REG 1unit/0.01ml Soln (100units/ml) SC SCH ×2 (17:00→21:17)
[2020-07-08] MEDS: ACCU-CHEK COMFORT CURVE STRIP VI SCH ×2 (17:47→21:17)
[2020-07-08] MEDS: ONDANSETRON HCL 4 MG/2 ML VIAL IV PRN (19:53)
[2020-07-08] MEDS: ATORVASTATIN 20 MG TAB PO SCH (21:16)
[2020-07-08] MEDS ORDERED: HYDROcodone-ACET 10/325MG TAB PO PRN (22:00)
[2020-07-08 22:32] VITALS: BP 108/88
[2020-07-09 05:20] VITALS: BP 117/65
[2020-07-09] MEDS: ACCU-CHEK COMFORT CURVE STRIP VI SCH ×2 (06:14→11:47)
[2020-07-09] MEDS: InsuLIN REG 1unit/0.01ml Soln (100units/ml) SC SCH ×2 (06:14→11:30)
[2020-07-09] MEDS: SODIUM CHLOR 0.9% PF (SALINE LOCK) 10ML VIAL/SYR IV SCH (06:14)
[2020-07-09 09:00] VITALS: BP 132/81
[2020-07-09] MEDS: ENOXAPARIN SOD 40 MG/0.4 ML SYRINGE SC SCH (09:05)
[2020-07-09] MEDS: LOSARTAN POTASSIUM 50 MG TAB PO SCH (09:06)
[2020-07-09] MEDS: DOCUSATE SOD 100 MG CAP PO SCH (09:06)
[2020-07-09] MEDS: FLUoxetine HCL 20 MG CAP PO SCH (09:06)
[2020-07-09] MEDS: dilTIAZem 120MG ER CAP PO SCH (09:07)
[2020-07-09 09:12] VITALS: BP 132/81
[2020-07-09 10:26] VITALS: BP 132/81
== END 2020-07-09 13:40 | disposition home health service (06) | DRG 469 ==
LOC: OVERFLOW 07:46 → EDSTATUS 09:30 → TELE-WESTW 15:08
PROVIDERS: ADMIT Orthopaedic Surgery Adult Reconstructive Orthopaedic Surgery; ATTEND Internal Medicine
PROC: 8E0YXBZ Computer Assisted Procedure of Lower Extremity (ICD-10-PCS; 2020-07-05)
PROC: 0SRC069 Replacement of Right Knee Joint with Oxidized Zirconium on Polyethylene Synthetic Substitute, Cemented, Open Approach (ICD-10-PCS; principal; 2020-07-05 10:14)
DX: M17.11 Unilateral primary osteoarthritis, right knee (principal); N17.0 Acute kidney failure with tubular necrosis; I95.9 Hypotension, unspecified; Z20.828 Contact with and (suspected) exposure to other viral communicable diseases; E66.9 Obesity, unspecified; Z68.37 Body mass index [BMI] 37.0-37.9, adult
CPT/HCPCS: 36415; 73562; 80048; 80053; 81001; 82962; 85014; 85018; 85025; 85610; 85730; 86850; 86870; 86900; 86901; 97110; 97116; 97530; C1713; G0378; J0131; J0690; J1885; J2250; J2405; J2704; J7060

== ENCOUNTER 2020-08-18 10:31 | Inpatient (IN) | payer MEDICARE, MEDICAID ==
[~2020-08-18] VITALS: Ht 162.6 cm; Wt 60.4 kg
[2020-08-18 11:27] LABS: Basophils # (auto) 0.1 10 ^3/uL (0-0.2); Eosinophils # (auto) 0.2 10 ^3/uL (0-0.8); Eosinophils % (auto) 3.3 % (0.0-7.0); Hematocrit 38.4 % (36.0-46.0); Hemoglobin 12.9 g/dL (12.2-16.2); Lymphocytes # (auto) 1.4 10 ^3/uL (0.4-5.4); Mean Corpuscular Hemoglobin 28.9 pg (28.0-32.0); Mean Corpuscular Hgb Conc. 33.6 g/dL (32.0-36.0); Mean Corpuscular Volume 86.1 fL (80.0-100.0); Monocytes # (auto) 0.5 10 ^3/uL (0-1.3); Monocytes % (auto) 7.9 % (0.0-12.0); Neutrophils # (auto) 4.2 10 ^3/uL (1.6-8.6); Neutrophils % (auto) 65.8 % (37.0-80.0); Nucleated Red Blood Cells % 0.1 %; Platelet Count (auto) 331 10^3/uL (140-450); Red Blood Cells 4.46 10^6/uL (4.0-5.20); Red Cell Distribution Width 16.1 % (11.8-14.3); White Blood Cell 6.4 10^3/uL (4.4-10.8)
[2020-08-18 11:49] LABS: Albumin 3.7 g/dL (3.4-5.0); Anion Gap 6 (5-15); Blood Urea Nitrogen 13 mg/dL (7-18); Calcium 9.4 mg/dL (8.5-10.1); Carbon Dioxide 26 mmol/L (21-32); Chloride 104 mmol/L (98-107); Glucose 106 mg/dL (74-106); Potassium 3.8 mmol/L (3.5-5.1); Sodium 136 mmol/L (136-145)
[2020-08-18 11:50] LABS: Partial Thromboplastin Time 28.5 sec (23.0-31.2)
[2020-08-18 11:56] LABS: Alanine Aminotransferase 15 U/L (13-56); Alkaline Phosphatase 97 U/L (45-117); Aspartate Aminotransferase 13 U/L (15-37); BUN/Creatinine Ratio 15.1; Bilirubin, Total 0.6 mg/dL (0.2-1.0); GFR African American 85 mL/min; GFR Non-African American 70 mL/min; Total Protein 7.2 g/dL (6.4-8.2)
[2020-08-18] MEDS ORDERED: methylPREDNISolone SOD SUCC 125 MG/2 ML VL IV ONE (12:00)
[2020-08-18] MEDS ORDERED: SODIUM CHLORIDE 0.9% 1,000 ML IV ONE (13:00)
[2020-08-18] MEDS ORDERED: ONDANSETRON HCL 4 MG/2 ML VIAL IV PRN (13:00)
[2020-08-18] MEDS ORDERED: DEXTROSE (50%) 50ML SYRG IV PRN (13:00)
[2020-08-18] MEDS ORDERED: MORPHINE SULF INJ 2 MG/ML SYRINGE 1ML IV PRN (13:00)
[2020-08-18] MEDS ORDERED: NITROGLYCERIN 0.4 MG SL TAB SL PRN (13:00)
[2020-08-18] MEDS ORDERED: ACETAMINOPHEN 500 MG TAB PO PRN (13:00)
[2020-08-18] MEDS ORDERED: hydrALAZINE HCL 20 MG/ML VL IV PRN (13:00)
[2020-08-18] MEDS ORDERED: IOHEXOL 350 MG/ML 100ML IJ ONE (13:58)
[2020-08-18] MEDS ORDERED: HYDR-531 PO (13:59)
[2020-08-18] MEDS ORDERED: LOS25T PO (13:59)
[2020-08-18] MEDS: ACCU-CHEK COMFORT CURVE STRIP VI SCH ×2 (17:13→22:28)
[2020-08-18] MEDS: InsuLIN REG 1unit/0.01ml Soln (100units/ml) SC SCH ×2 (17:27→22:29)
[2020-08-18] MEDS: HYDROcodone-ACET 10/325MG TAB PO PRN (17:41)
[2020-08-18] MEDS ORDERED: IPRATROPIUM BROM 0.5 MG/2.5ML INH SOL NEB SCH (18:00)
[2020-08-18] MEDS: IPRATROPIUM BROM 0.5 MG/2.5ML INH SOL NEB SCH (18:00)
[2020-08-18 18:01] VITALS: BP 142/87
[2020-08-18] MEDS: ATORVASTATIN 20 MG TAB PO SCH (22:29)
[2020-08-18] MEDS: ZOCOR PO SCH (22:30)
[2020-08-19] MEDS: HYDROcodone-ACET 10/325MG TAB PO PRN ×2 (01:10→09:44)
[2020-08-19] MEDS: IPRATROPIUM BROM 0.5 MG/2.5ML INH SOL NEB SCH ×3 (07:10→19:43)
[2020-08-19] MEDS: ACCU-CHEK COMFORT CURVE STRIP VI SCH ×4 (07:42→20:28)
[2020-08-19] MEDS: InsuLIN REG 1unit/0.01ml Soln (100units/ml) SC SCH ×4 (07:48→20:43)
--- NOTE | 2020-08-19 08:05 | NUR ---
Telemetry admit from ER [facility] admitted to Telemetry unit after SBAR received. Patient oriented to MILA TELLEZ, RN primary RN, unit, room, bed, and unit policies regarding patient care and visiting hours. Patient now on continuous telemetry monitoring, tele box # and telemetry reading on arrival to unit is SINUS RHYTHM. Patient placed on bedside oxygen, weighed by bedscale and encouraged to call if they need something. All questions and concerns addressed, patient verbalized understanding. Note:
--- NOTE | 2020-08-19 08:05 | NUR ---
PATIENT NOTED TO HAVE SCAR TO R KNEE FROM PRIOR SURGERY. Addendum: 08/19/20 at 1950 by MILA TELLEZ RN RN WOUND PHOTO TAKEN.
[2020-08-19 09:00] VITALS: BP 151/97
[2020-08-19 09:07] VITALS: BP 151/97
[2020-08-19] MEDS: ENOXAPARIN SOD 40 MG/0.4 ML SYRINGE SC SCH (09:43)
[2020-08-19] MEDS: ASPirin-EC 81 mg tab PO SCH (09:44)
[2020-08-19 13:00] VITALS: BP 136/83
[2020-08-19 17:00] VITALS: BP 142/78
[2020-08-19] MEDS: MORPHINE SULF INJ 2 MG/ML SYRINGE 1ML IV PRN ×2 (17:40→22:21)
--- NOTE | 2020-08-19 19:38 | NUR ---
REPORT GIVEN TO ZARA KNIGHT. AWARE OF PATIENTS POSSIBLE STRESS TEST TOMORROW.
[2020-08-19 20:00] VITALS: BP 151/97
[2020-08-19] MEDS: ZOCOR PO SCH (20:27)
[2020-08-19] MEDS: ATORVASTATIN 20 MG TAB PO SCH (20:43)
[2020-08-19 22:00] VITALS: BP_SYST 111; BP_SYST 139; BP_DIAS 71; BP_DIAS 77
[2020-08-20 05:00] VITALS: BP 141/89
[2020-08-20] MEDS: InsuLIN REG 1unit/0.01ml Soln (100units/ml) SC SCH ×2 (05:36→11:30)
[2020-08-20] MEDS: ACCU-CHEK COMFORT CURVE STRIP VI SCH ×2 (05:37→11:54)
[2020-08-20] MEDS: IPRATROPIUM BROM 0.5 MG/2.5ML INH SOL NEB SCH ×2 (06:46→12:28)
--- NOTE | 2020-08-20 08:43 | NUR ---
Nurse practitioner Flor Larsen called regarding clarification of stress test order. Flor verbalized that the patient's health and safety representative at this time is Dr. Allen. Will call Dr. Allen to clarify orders for stress test.
[2020-08-20 09:00] VITALS: BP 137/90
[2020-08-20] MEDS: ENOXAPARIN SOD 40 MG/0.4 ML SYRINGE SC SCH (10:00)
[2020-08-20] MEDS: ASPirin-EC 81 mg tab PO SCH (10:49)
[2020-08-20] MEDS: HYDROcodone-ACET 10/325MG TAB PO PRN (10:49)
--- NOTE | 2020-08-20 11:22 | NUR ---
MD ROUNDS DR GAVIN AT BEDSIDE. VERBALIZED THAT HE WOULD PUT IN DISCHARGE ORDERS FOR THIS PATIENT. CONTINUE CARE.
[2020-08-20 13:00] VITALS: BP 147/101
--- NOTE | 2020-08-20 13:05 | NUR ---
Received report from day nurse Will continue to monitor.
--- NOTE | 2020-08-20 13:05 | NUR ---
TRANSFERRED CARE OF PATIENT OVER TO [facility]
[2020-08-20 13:16] VITALS: BP 137/90
--- NOTE | 2020-08-20 15:20 | NUR ---
Discharge instructions given as ordered. Encourage to follow up with PMD as instructed. All questions and concerns addressed. Patient verbalized understanding. Medication reconciliation form completed and copy given to patient. IV removed with catheter intact, pressure dressing applied. Telemetry unit returned to quality assurance monitor chassis station. Patient taken to vehicle via wheelchair with all personal belongings, accompanied by staff and family member. No distress noted at time of departure.
== END 2020-08-20 15:20 | disposition home or self-care (01) | DRG 313 ==
LOC: ER 10:31 → TELE 10:32 → TELE-WESTW 08-19 07:53
PROVIDERS: ADMIT Nurse Practitioner Acute Care; ATTEND Family Medicine
DX: R07.89 Other chest pain (principal); J44.1 Chronic obstructive pulmonary disease with (acute) exacerbation; I10 Essential (primary) hypertension; E11.9 Type 2 diabetes mellitus without complications; E66.9 Obesity, unspecified; M19.90 Unspecified osteoarthritis, unspecified site; E78.5 Hyperlipidemia, unspecified; E78.00 Pure hypercholesterolemia, unspecified; Z96.651 Presence of right artificial knee joint; F32.9 Major depressive disorder, single episode, unspecified; I25.10 Atherosclerotic heart disease of native coronary artery without angina pectoris; F41.9 Anxiety disorder, unspecified; Z20.828 Contact with and (suspected) exposure to other viral communicable diseases; Z79.82 Long term (current) use of aspirin; Z79.84 Long term (current) use of oral hypoglycemic drugs; Z79.899 Other long term (current) drug therapy; Z82.5 Family history of asthma and other chronic lower respiratory diseases; Z83.3 Family history of diabetes mellitus; Z90.710 Acquired absence of both cervix and uterus; Z90.49 Acquired absence of other specified parts of digestive tract; Z68.33 Body mass index [BMI] 33.0-33.9, adult
CPT/HCPCS: 36415; 71045; 71275; 80053; 82962; 83036; 83735; 83880; 84484; 85025; 85610; 85730; 87426; 93005; 93306; 94640; 96361; 96374; G0378; J1815

== ENCOUNTER 2020-09-28 10:48 | Inpatient (IN) | payer MEDICARE, MEDICAID ==
[~2020-09-28] VITALS: Ht 162.6 cm; Wt 86.2 kg
[~2020-09-28 10:48] MED LIST changes: +HYDR-531 PO; +LOS25T PO; -OLME40TA26 PO
[2020-09-28] MEDS ORDERED: methylPREDNISolone SOD SUCC 125 MG/2 ML VL IV ONE (11:15)
[2020-09-28 11:47] LABS: Basophils # (auto) 0 10 ^3/uL (0-0.2); Basophils % (auto) 0.6 % (0.0-2.0); Eosinophils # (auto) 0 10 ^3/uL (0-0.8); Eosinophils % (auto) 0.1 % (0.0-7.0); Hematocrit 40.8 % (36.0-46.0); Hemoglobin 13.5 g/dL (12.2-16.2); Lymphocytes # (auto) 0.9 10 ^3/uL (0.4-5.4); Lymphocytes % (auto) 11.3 % (10.0-50.0); Mean Corpuscular Hemoglobin 28.4 pg (28.0-32.0); Mean Corpuscular Hgb Conc. 33.2 g/dL (32.0-36.0); Mean Corpuscular Volume 85.6 fL (80.0-100.0); Monocytes # (auto) 0.2 10 ^3/uL (0-1.3); Monocytes % (auto) 3.1 % (0.0-12.0); Neutrophils # (auto) 6.6 10 ^3/uL (1.6-8.6); Neutrophils % (auto) 84.9 % (37.0-80.0); Platelet Count (auto) 286 10^3/uL (140-450); Red Blood Cells 4.77 10^6/uL (4.0-5.20); White Blood Cell 7.7 10^3/uL (4.4-10.8)
[2020-09-28 12:25] LABS: Chloride 100 mmol/L (98-107); Potassium 4.5 mmol/L (3.5-5.1); Sodium 134 mmol/L (136-145)
[2020-09-28 12:42] LABS: Alanine Aminotransferase 37 U/L (13-56); Alkaline Phosphatase 114 U/L (45-117); Anion Gap 7 (5-15); Aspartate Aminotransferase 26 U/L (15-37); BUN/Creatinine Ratio 20.4; Bilirubin, Total 0.4 mg/dL (0.2-1.0); Blood Urea Nitrogen 20 mg/dL (7-18); CRP High Sensitivity 0.07 mg/dL (< 0.3); Calcium 9.5 mg/dL (8.5-10.1); Carbon Dioxide 27 mmol/L (21-32); GFR African American 73 mL/min; GFR Non-African American 60 mL/min; Glucose 146 mg/dL (74-106); Total Protein 7.3 g/dL (6.4-8.2)
[2020-09-28] MEDS ORDERED: MORPHINE SULF INJ 2 MG/ML SYRINGE 1ML IV PRN ×3 (14:15→16:15)
[2020-09-28] MEDS ORDERED: NITROGLYCERIN 0.4 MG SL TAB SL PRN ×2 (14:15→16:15)
[2020-09-28] MEDS ORDERED: ACETAMINOPHEN 500 MG TAB PO PRN (16:15)
[2020-09-28] MEDS ORDERED: AZITHROMYCIN 500MG/ 250ML 250 ML IV ONE (16:15)
[2020-09-28] MEDS ORDERED: LORazepam 0.5 MG TAB PO PRN (16:15)
[2020-09-28] MEDS ORDERED: REMDESIVIR PER PHARMACY 0 ML IV SCH (16:15)
[2020-09-28] MEDS ORDERED: MAGNESIUM SULFATE 1GM/100ML 100 ML IV ONE (16:15)
[2020-09-28] MEDS ORDERED: ALBUTEROL SULF HFA 90MCG INH 200DOSE IN PRN (16:15)
[2020-09-28] MEDS ORDERED: CEFTRIAXONE SODIUM 2 GM in D5W 5% 50 ML IV ONE (16:15)
[2020-09-28] MEDS ORDERED: DOCUSATE SOD 100 MG CAP PO PRN (16:15)
[2020-09-28] MEDS ORDERED: ALBUAER3 IN (16:46)
[2020-09-28] MEDS ORDERED: OLME40TA26 PO (16:46)
[2020-09-28] MEDS ORDERED: BENZ100C97 PO (16:46)
[2020-09-28] MEDS ORDERED: ASCO500T11 PO (16:47)
[2020-09-28] MEDS ORDERED: MULT-1018 PO (16:47)
[2020-09-28 17:24] LABS: Basophils # (auto) 0 10 ^3/uL (0-0.2); Basophils % (auto) 0.2 % (0.0-2.0); Eosinophils # (auto) 0 10 ^3/uL (0-0.8); Hematocrit 42.3 % (36.0-46.0); Hemoglobin 14.4 g/dL (12.2-16.2); Lymphocytes # (auto) 0.6 10 ^3/uL (0.4-5.4); Lymphocytes % (auto) 6.1 % (10.0-50.0); Mean Corpuscular Volume 85.1 fL (80.0-100.0); Monocytes # (auto) 0.1 10 ^3/uL (0-1.3); Neutrophils # (auto) 8.4 10 ^3/uL (1.6-8.6); Neutrophils % (auto) 92.7 % (37.0-80.0); Platelet Count (auto) 302 10^3/uL (140-450); Red Blood Cells 4.97 10^6/uL (4.0-5.20); Red Cell Distribution Width 18.1 % (11.8-14.3); White Blood Cell 9.1 10^3/uL (4.4-10.8)
[2020-09-28 17:42] LABS: Calcium 9.5 mg/dL (8.5-10.1); Magnesium 2.2 mg/dL (1.6-2.6); Potassium 4.1 mmol/L (3.5-5.1)
[2020-09-28 17:46] LABS: BUN/Creatinine Ratio 17.4; Bilirubin, Total 0.5 mg/dL (0.2-1.0); CRP High Sensitivity 0.07 mg/dL (< 0.3); Total Protein 7.6 g/dL (6.4-8.2)
[2020-09-28 17:46] LABS: Lactic Acid w/Reflex 2.5 mmol/L (0.4-2.0)
[2020-09-28 17:53] LABS: Cholesterol 223 mg/dL (< 200); HDL Cholesterol 117 mg/dL (40-59); LDL Cholesterol 79 mg/dL (< 100); Triglycerides 68 mg/dL (< 150)
[2020-09-28] MEDS: SODIUM CHLORIDE 0.9% 1,000 ML IV SCH (19:55)
[2020-09-28] MEDS ORDERED: BUDESONIDE (INHALATION) 180 MCG IH IN SCH (22:00)
[2020-09-28] MEDS ORDERED: methylPREDNISolone SOD SUCC 40 MG/ML VL IV SCH (22:00)
[2020-09-28] MEDS: ASCORBIC ACID 1,000 MG TAB PO SCH (22:52)
[2020-09-28] MEDS: DexAMETHasone SOD PHOS 10MG/1ML VIAL INJ IV SCH (22:53)
[2020-09-28] MEDS: CHOLECALCIFEROL (VITD3) 2,000 UNIT CAP PO SCH (22:53)
[2020-09-28] MEDS: ZINC SULFATE 220mg CAP or TAB PO SCH (22:54)
[2020-09-28] MEDS: FUROSEMIDE 20 MG/2 ML VIAL IV SCH (22:55)
[2020-09-28] MEDS: FAMOTIDINE (10MG/ML) 2ML VL IV SCH (22:55)
[2020-09-28] MEDS: ENOXAPARIN SOD 40 MG/0.4 ML SYRINGE SC SCH (22:57)
[2020-09-28] MEDS: HYDROcodone-ACET 5/325MG TAB PO PRN (23:01)
[2020-09-28 23:42] LABS: Urine Bacteria NONE SEEN /hpf (None Seen); Urine Blood Negative /uL (Negative); Urine Specific Gravity 1.049 (1.001-1.035); Urine WBC <1 /hpf (0 - 5)
[2020-09-28 23:58] LABS: Alcohol, Urine < 3.0 mg/dL (0-10); Amphetamine Screen, Urine NEGATIVE (NEGATIVE); Barbiturate Scree,Urine NEGATIVE (NEGATIVE); Benzodiazephine Screen, Urine NEGATIVE (NEGATIVE); Cannabinoid Screen, Urine NEGATIVE (NEGATIVE); Cocaine Screen, Urine NEGATIVE (NEGATIVE); Opiate Scree,Urine NEGATIVE (NEGATIVE); Phencyclidine Screen, Urine NEGATIVE (NEGATIVE)
[2020-09-29] MEDS ORDERED: LOSARTAN POTASSIUM 25 MG TAB PO ONE (04:15)
[2020-09-29] MEDS ORDERED: hydrALAZINE HCL 20 MG/ML VL IV PRN (04:15)
[2020-09-29] MEDS ORDERED: cefTRIAXone 1GM/50ML D5W 50 ML IV ONE (04:50)
[2020-09-29 05:58] LABS: Basophils # (auto) 0 10 ^3/uL (0-0.2); Basophils % (auto) 0.1 % (0.0-2.0); Eosinophils # (auto) 0 10 ^3/uL (0-0.8); Hemoglobin 13.3 g/dL (12.2-16.2); Lymphocytes # (auto) 0.7 10 ^3/uL (0.4-5.4); Lymphocytes % (auto) 5.8 % (10.0-50.0); Mean Corpuscular Hemoglobin 28.1 pg (28.0-32.0); Mean Corpuscular Hgb Conc. 33.3 g/dL (32.0-36.0); Mean Corpuscular Volume 84.4 fL (80.0-100.0); Monocytes # (auto) 0.4 10 ^3/uL (0-1.3); Monocytes % (auto) 2.9 % (0.0-12.0); Neutrophils # (auto) 11.1 10 ^3/uL (1.6-8.6); Neutrophils % (auto) 91.2 % (37.0-80.0); Platelet Count (auto) 292 10^3/uL (140-450); Red Blood Cells 4.74 10^6/uL (4.0-5.20); Red Cell Distribution Width 17.8 % (11.8-14.3); White Blood Cell 12.2 10^3/uL (4.4-10.8)
[2020-09-29 06:57] LABS: Albumin 3.4 g/dL (3.4-5.0); Potassium 3.8 mmol/L (3.5-5.1)
[2020-09-29 06:59] LABS: BUN/Creatinine Ratio 20.7
[2020-09-29 07:12] LABS: Bilirubin, Total 0.3 mg/dL (0.2-1.0); Total Protein 6.4 g/dL (6.4-8.2)
[2020-09-29] MEDS: FUROSEMIDE 20 MG/2 ML VIAL IV SCH ×2 (07:53→18:12)
[2020-09-29] MEDS: SODIUM CHLORIDE 0.9% 1,000 ML IV SCH (09:22)
[2020-09-29] MEDS: ASCORBIC ACID 1,000 MG TAB PO SCH (09:23)
[2020-09-29] MEDS: ZINC SULFATE 220mg CAP or TAB PO SCH (09:23)
[2020-09-29] MEDS: DexAMETHasone SOD PHOS 10MG/1ML VIAL INJ IV SCH (09:23)
[2020-09-29] MEDS: CHOLECALCIFEROL (VITD3) 2,000 UNIT CAP PO SCH (09:23)
[2020-09-29] MEDS: HYDROcodone-ACET 5/325MG TAB PO PRN ×2 (09:24→18:39)
[2020-09-29] MEDS: CEFTRIAXONE SODIUM 2 GM in D5W 5% 50 ML IV SCH (10:00)
[2020-09-29] MEDS: FAMOTIDINE (10MG/ML) 2ML VL IV SCH ×2 (10:00→21:23)
[2020-09-29] MEDS: dilTIAZem 120MG ER CAP PO SCH (10:00)
[2020-09-29] MEDS: ENOXAPARIN SOD 40 MG/0.4 ML SYRINGE SC SCH ×2 (10:13→21:23)
[2020-09-29] MEDS: ASPirin 81 mg TAB PO SCH (10:13)
[2020-09-29] MEDS: AZITHROMYCIN 500MG/ 250ML 250 ML IV SCH (10:13)
[2020-09-29 20:00] VITALS: BP 144/102
[2020-09-29] MEDS ORDERED: ATORVASTATIN 20 MG TAB PO SCH (22:00)
[2020-09-30] VITALS: BP 119/73
[2020-09-30 04:00] VITALS: BP 127/77
[2020-09-30] MEDS: SODIUM CHLORIDE 0.9% 1,000 ML IV SCH (06:04)
[2020-09-30] MEDS: FUROSEMIDE 20 MG/2 ML VIAL IV SCH (06:20)
[2020-09-30 06:23] VITALS: BP 142/89
[2020-09-30] MEDS: HYDROcodone-ACET 5/325MG TAB PO PRN (07:11)
[2020-09-30] MEDS: ASPirin 81 mg TAB PO SCH (10:00)
[2020-09-30] MEDS: ASCORBIC ACID 1,000 MG TAB PO SCH (10:00)
[2020-09-30] MEDS: AZITHROMYCIN 500MG/ 250ML 250 ML IV SCH (10:00)
[2020-09-30] MEDS: ZINC SULFATE 220mg CAP or TAB PO SCH (10:00)
[2020-09-30] MEDS ORDERED: LOSARTAN POTASSIUM 25 MG TAB PO SCH (10:00)
[2020-09-30] MEDS: CHOLECALCIFEROL (VITD3) 2,000 UNIT CAP PO SCH (10:00)
[2020-09-30] MEDS: ENOXAPARIN SOD 40 MG/0.4 ML SYRINGE SC SCH (10:00)
[2020-09-30] MEDS ORDERED: SODIUM CHLORIDE 0.9% 250 ML IV ONE (12:00)
[2020-09-30] MEDS: FAMOTIDINE (10MG/ML) 2ML VL IV SCH (12:11)
[2020-09-30] MEDS: DexAMETHasone SOD PHOS 10MG/1ML VIAL INJ IV SCH (12:11)
[2020-09-30] MEDS: CEFTRIAXONE SODIUM 2 GM in D5W 5% 50 ML IV SCH (12:12)
[2020-09-30] MEDS ORDERED: ONDANSETRON HCL 4 MG/2 ML VIAL ONE (12:40)
[2020-09-30] MEDS ORDERED: ONDANSETRON HCL 4 MG/2 ML VIAL IV ONE (12:45)
[2020-09-30 14:30] VITALS: BP 134/81
== END 2020-09-30 14:57 | disposition home or self-care (01) | DRG 190 ==
LOC: ER 10:48 → OVERFLOW 10:49
PROVIDERS: ADMIT Hospitalist; ATTEND Internal Medicine
DX: J44.1 Chronic obstructive pulmonary disease with (acute) exacerbation (principal); J15.9 Unspecified bacterial pneumonia; N17.9 Acute kidney failure, unspecified; J44.0 Chronic obstructive pulmonary disease with (acute) lower respiratory infection; N18.9 Chronic kidney disease, unspecified; Z20.828 Contact with and (suspected) exposure to other viral communicable diseases; F41.9 Anxiety disorder, unspecified; M19.90 Unspecified osteoarthritis, unspecified site; F32.9 Major depressive disorder, single episode, unspecified; E11.22 Type 2 diabetes mellitus with diabetic chronic kidney disease; E78.5 Hyperlipidemia, unspecified; I12.9 Hypertensive chronic kidney disease with stage 1 through stage 4 chronic kidney disease, or unspecified chronic kidney disease; I25.10 Atherosclerotic heart disease of native coronary artery without angina pectoris; Z82.5 Family history of asthma and other chronic lower respiratory diseases; Z83.3 Family history of diabetes mellitus; Z90.710 Acquired absence of both cervix and uterus; Z90.49 Acquired absence of other specified parts of digestive tract
CPT/HCPCS: 36415; 71045; 71275; 80053; 80061; 80307; 81001; 82728; 83036; 83605; 83615; 83735; 83880; 84443; 84484; 85025; 85379; 86141; 87086; 87426; 93005; G0378; J0696; J1100; J2405; J3490; J7042; J7060

== ENCOUNTER 2021-02-26 09:49 | Emergency (ER) | payer MEDICARE, MEDICAID ==
[~2021-02-26] VITALS: Ht 162.6 cm; Wt 86.2 kg
[~2021-02-26 09:49] MED LIST changes: +ALBUAER3 IN; +ASCO500T11 PO; -ASPI-231 PO; +ASPI1TAB20 PO; +BENZ100C97 PO; -HYDR-531 PO; +MULT-1018 PO; +OLME40TA26 PO
[2021-02-26] MEDS ORDERED: PROMETHAZINE HCL 25 MG/ML 1ML IM ONE (11:00)
[2021-02-26] MEDS ORDERED: MEPERIDINE HCL (50 MG/ML) 1 ML VIAL IM ONE (11:00)
[2021-02-26 12:08] VITALS: BP 122/76
[2021-07-14] MEDS ORDERED: PRED20TA2 PO (10:52)
[2021-07-14] MEDS ORDERED: AZIT500T PO (10:52)
== END 2021-02-26 12:36 | disposition home or self-care (01) ==
LOC: ER 09:49
DX: M51.36 Other intervertebral disc degeneration, lumbar region (principal); M48.061 Spinal stenosis, lumbar region without neurogenic claudication; M54.16 Radiculopathy, lumbar region; F41.9 Anxiety disorder, unspecified; I25.10 Atherosclerotic heart disease of native coronary artery without angina pectoris; J44.9 Chronic obstructive pulmonary disease, unspecified; F32.9 Major depressive disorder, single episode, unspecified; E11.9 Type 2 diabetes mellitus without complications; E78.5 Hyperlipidemia, unspecified; I10 Essential (primary) hypertension; I25.2 Old myocardial infarction; Z79.82 Long term (current) use of aspirin; Z79.899 Other long term (current) drug therapy; Z90.89 Acquired absence of other organs; Z90.49 Acquired absence of other specified parts of digestive tract; Z90.710 Acquired absence of both cervix and uterus; Z98.890 Other specified postprocedural states
CPT/HCPCS: 72131; 96372; 99284; J2175; J2550

== ENCOUNTER 2021-03-17 10:47 | Inpatient (IN) | payer MEDICARE, MEDICAID ==
[~2021-03-17] VITALS: Ht 162.6 cm; Wt 93.6 kg
[~2021-03-17 10:47] MED LIST changes: +ASPI-231 PO; -ASPI1TAB20 PO
[2021-03-17 11:33] LABS: Basophils # (auto) 0.1 10 ^3/uL (0-0.2); Basophils % (auto) 1.1 % (0.0-2.0); Eosinophils # (auto) 0.2 10 ^3/uL (0-0.8); Eosinophils % (auto) 4.1 % (0.0-7.0); Hematocrit 40.1 % (36.0-46.0); Hemoglobin 13.3 g/dL (12.2-16.2); Lymphocytes # (auto) 1.5 10 ^3/uL (0.4-5.4); Lymphocytes % (auto) 25.3 % (10.0-50.0); Mean Corpuscular Hemoglobin 28.4 pg (28.0-32.0); Mean Corpuscular Hgb Conc. 33.2 g/dL (32.0-36.0); Mean Corpuscular Volume 85.5 fL (80.0-100.0); Monocytes # (auto) 0.5 10 ^3/uL (0-1.3); Monocytes % (auto) 8.5 % (0.0-12.0); Neutrophils # (auto) 3.6 10 ^3/uL (1.6-8.6); Nucleated Red Blood Cells % 0.1 %; Platelet Count (auto) 282 10^3/uL (140-450); Red Blood Cells 4.69 10^6/uL (4.0-5.20); Red Cell Distribution Width 17.7 % (11.8-14.3); White Blood Cell 5.9 10^3/uL (4.4-10.8)
[2021-03-17 11:54] LABS: Calcium 9.1 mg/dL (8.5-10.1); Chloride 103 mmol/L (98-107); Sodium 135 mmol/L (136-145)
[2021-03-17 12:03] LABS: Alanine Aminotransferase 26 U/L (13-56); Albumin 3.7 g/dL (3.4-5.0); Alkaline Phosphatase 314 U/L (45-117); Anion Gap 8 (5-15); Aspartate Aminotransferase 23 U/L (15-37); BUN/Creatinine Ratio 24.4; Bilirubin, Total 0.4 mg/dL (0.2-1.0); Blood Urea Nitrogen 19 mg/dL (7-18); Carbon Dioxide 24 mmol/L (21-32); GFR African American 94 mL/min; GFR Non-African American 78 mL/min; Glucose 150 mg/dL (74-106); Total Protein 6.8 g/dL (6.4-8.2)
[2021-03-17 12:11] LABS: Urine Bacteria FEW /hpf (None Seen); Urine Blood Negative /uL (Negative); Urine Specific Gravity 1.018 (1.001-1.035); Urine WBC 2 /hpf (0 - 5)
[2021-03-17] MEDS ORDERED: IOHEXOL 350 MG/ML 100ML IJ ONE (12:31)
[2021-03-17] MEDS ORDERED: HYDROcodone-ACET 5/325MG TAB PO ONE (13:45)
[2021-03-17] MEDS ORDERED: NITROGLYCERIN 0.4 MG SL TAB SL PRN (14:00)
[2021-03-17] MEDS ORDERED: MORPHINE SULF INJ 2 MG/ML SYRINGE 1ML IV PRN (14:00)
[2021-03-17] MEDS ORDERED: PROMETHAZINE HCL 25 MG/ML 1ML IV PRN (14:15)
[2021-03-17] MEDS ORDERED: DEXTROSE (50%) 50ML SYRG IV PRN (14:15)
[2021-03-17] MEDS ORDERED: ALBUTEROL SULF 2.5 MG/0.5ML(0.5%) NEB SOLN NEB PRN (14:15)
[2021-03-17] MEDS ORDERED: LACTULOSE 20Gm/30ML SOLN PO PRN (14:15)
[2021-03-17] MEDS ORDERED: LORazepam 0.5 MG TAB PO PRN (14:15)
[2021-03-17] MEDS ORDERED: ACETAMINOPHEN 500 MG TAB PO PRN (14:15)
[2021-03-17 14:24] VITALS: BP 144/79
[2021-03-17] MEDS: SODIUM CHLORIDE 0.9% 1,000 ML IV SCH (14:50)
[2021-03-17] MEDS: InsuLIN REG 1unit/0.01ml Soln (100units/ml) SC SCH ×2 (17:00→22:13)
[2021-03-17] MEDS: ACCU-CHEK COMFORT CURVE STRIP VI SCH ×2 (17:14→22:12)
[2021-03-17] MEDS: IPRATROPIUM BROM 0.5 MG/2.5ML INH SOL NEB SCH (19:31)
[2021-03-17] MEDS: ALBUTEROL SULF 2.5 MG/0.5ML(0.5%) NEB SOLN NEB SCH (19:31)
[2021-03-17] MEDS: traMADol HCL 50 MG TAB PO PRN (20:31)
[2021-03-17] MEDS ORDERED: MORPHINE SULFATE 4 MG/ML SYR/VIAL ONE (21:56)
[2021-03-17 22:00] VITALS: BP 144/89
[2021-03-17] MEDS: ATORVASTATIN 20 MG TAB PO SCH (22:02)
[2021-03-17 23:32] VITALS: BP 144/89
[2021-03-18] VITALS (7 sets, daily range): BP systolic 152–164; BP diastolic 95–113
[2021-03-18] MEDS: ALBUTEROL SULF 2.5 MG/0.5ML(0.5%) NEB SOLN NEB SCH ×4 (00:49→18:24)
[2021-03-18] MEDS: IPRATROPIUM BROM 0.5 MG/2.5ML INH SOL NEB SCH ×4 (00:50→18:24)
[2021-03-18] MEDS: MORPHINE SULF INJ 2 MG/ML SYRINGE 1ML IV PRN ×4 (02:10→20:44)
[2021-03-18] MEDS: SODIUM CHLORIDE 0.9% 1,000 ML IV SCH (03:35)
[2021-03-18] MEDS: traMADol HCL 50 MG TAB PO PRN (04:54)
[2021-03-18] MEDS: InsuLIN REG 1unit/0.01ml Soln (100units/ml) SC SCH ×5 (05:38→21:28)
[2021-03-18] MEDS: ACCU-CHEK COMFORT CURVE STRIP VI SCH ×4 (07:00→21:24)
[2021-03-18] MEDS: cefTRIAXone 1GM/50ML D5W 50 ML IV SCH (09:39)
[2021-03-18] MEDS: dilTIAZem 120MG ER CAP PO SCH (09:40)
[2021-03-18] MEDS: FLUoxetine HCL 20 MG CAP PO SCH (09:41)
[2021-03-18] MEDS: ASPirin-EC 81 mg tab PO SCH (09:41)
[2021-03-18] MEDS ORDERED: LOSARTAN POTASSIUM 25 MG TAB PO SCH (10:00)
[2021-03-18] MEDS ORDERED: ASCORBIC ACID 500 MG TAB PO SCH (10:00)
[2021-03-18] MEDS ORDERED: OLMESARTAN 40 MG PO SCH (10:00)
[2021-03-18] MEDS ORDERED: ENOXAPARIN SOD 40 MG/0.4 ML SYRINGE SC SCH (10:00)
[2021-03-18] MEDS ORDERED: HCTZ 25 MG TAB PO ONE (14:15)
[2021-03-18] MEDS ORDERED: predniSONE 20 MG TAB PO ONE (14:15)
[2021-03-18] MEDS: HYDROcodone-ACET 5/325MG TAB PO PRN (17:48)
[2021-03-18] MEDS: ATORVASTATIN 20 MG TAB PO SCH (20:44)
[2021-03-19] MEDS: ALBUTEROL SULF 2.5 MG/0.5ML(0.5%) NEB SOLN NEB SCH ×3 (00:28→10:56)
[2021-03-19] MEDS: IPRATROPIUM BROM 0.5 MG/2.5ML INH SOL NEB SCH ×3 (00:28→10:56)
[2021-03-19 04:40] VITALS: BP 117/84
[2021-03-19] MEDS: HYDROcodone-ACET 5/325MG TAB PO PRN (05:51)
[2021-03-19] MEDS: ACCU-CHEK COMFORT CURVE STRIP VI SCH ×2 (07:25→12:23)
[2021-03-19 08:15] VITALS: BP 155/103
[2021-03-19 09:00] VITALS: BP 155/103
[2021-03-19] MEDS: cefTRIAXone 1GM/50ML D5W 50 ML IV SCH (09:12)
[2021-03-19] MEDS: dilTIAZem 120MG ER CAP PO SCH (09:47)
[2021-03-19] MEDS: ASPirin-EC 81 mg tab PO SCH (09:47)
[2021-03-19] MEDS: FLUoxetine HCL 20 MG CAP PO SCH (09:48)
[2021-03-19] MEDS ORDERED: HCTZ 25 MG TAB PO SCH (10:00)
[2021-03-19] MEDS ORDERED: predniSONE 20 MG TAB PO SCH (10:00)
[2021-03-19] MEDS ORDERED: LOSARTAN POTASSIUM 25 MG TAB PO SCH (10:00)
[2021-03-19 11:37] VITALS: BP 155/103
[2021-03-19] MEDS: InsuLIN REG 1unit/0.01ml Soln (100units/ml) SC SCH (12:23)
[2021-03-19] MEDS: MORPHINE SULF INJ 2 MG/ML SYRINGE 1ML IV PRN (12:32)
[2021-03-19 12:55] VITALS: BP 152/91
== END 2021-03-19 13:35 | disposition home or self-care (01) | DRG 192 ==
LOC: ER 10:47 → TELE 13:47 → TELE-CENTR 20:52
PROVIDERS: ADMIT Internal Medicine; ATTEND Internal Medicine
DX: J44.1 Chronic obstructive pulmonary disease with (acute) exacerbation (principal); I10 Essential (primary) hypertension; E78.5 Hyperlipidemia, unspecified; E11.9 Type 2 diabetes mellitus without complications; I25.2 Old myocardial infarction; E66.9 Obesity, unspecified; Z20.822 Contact with and (suspected) exposure to COVID-19; G89.29 Other chronic pain; M47.9 Spondylosis, unspecified; Z82.5 Family history of asthma and other chronic lower respiratory diseases; Z83.3 Family history of diabetes mellitus; Z87.81 Personal history of (healed) traumatic fracture; Z90.710 Acquired absence of both cervix and uterus; Z68.35 Body mass index [BMI] 35.0-35.9, adult; I25.10 Atherosclerotic heart disease of native coronary artery without angina pectoris; R79.89 Other specified abnormal findings of blood chemistry
CPT/HCPCS: 36415; 71045; 71275; 80053; 81001; 82550; 82962; 83036; 83735; 83880; 84484; 85025; 85379; 85652; 87426; 93005; 93971; 94640; 96372; G0378; J0696; J1815

== ENCOUNTER → 2021-04-15 | Outpatient (CLI) | payer MEDICARE ==
[2021-04-15 07:17] LABS: Basophils # (auto) 0 10 ^3/uL (0-0.2); Basophils % (auto) 0.1 % (0.0-2.0); Eosinophils # (auto) 0 10 ^3/uL (0-0.8); Hemoglobin 13.5 g/dL (12.2-16.2); Lymphocytes # (auto) 0.7 10 ^3/uL (0.4-5.4); Lymphocytes % (auto) 11.2 % (10.0-50.0); Mean Corpuscular Hemoglobin 28.5 pg (28.0-32.0); Mean Corpuscular Hgb Conc. 33.6 g/dL (32.0-36.0); Mean Corpuscular Volume 84.7 fL (80.0-100.0); Monocytes # (auto) 0.3 10 ^3/uL (0-1.3); Monocytes % (auto) 4.1 % (0.0-12.0); Neutrophils # (auto) 5.3 10 ^3/uL (1.6-8.6); Neutrophils % (auto) 84.6 % (37.0-80.0); Red Blood Cells 4.73 10^6/uL (4.0-5.20); Red Cell Distribution Width 17.2 % (11.8-14.3); White Blood Cell 6.3 10^3/uL (4.4-10.8)
[2021-04-15 07:19] LABS: Urine Bacteria NONE SEEN /hpf (None Seen); Urine Blood Negative /uL (Negative); Urine Specific Gravity 1.017 (1.001-1.035); Urine WBC <1 /hpf (0 - 5)
[2021-04-15 07:53] LABS: Albumin 3.9 g/dL (3.4-5.0); Calcium 9.6 mg/dL (8.5-10.1)
[2021-04-15 07:58] LABS: BUN/Creatinine Ratio 29.6; Bilirubin, Total 0.5 mg/dL (0.2-1.0); Total Protein 7.2 g/dL (6.4-8.2)
== END | disposition home or self-care (01) ==
LOC: LAB 06:52
PROVIDERS: ATTEND Nurse Practitioner
DX: E78.5 Hyperlipidemia, unspecified (principal); I10 Essential (primary) hypertension
CPT/HCPCS: 36415; 80053; 80061; 81001; 85025

== ENCOUNTER 2021-05-15 10:44 | Emergency (ER) | payer MEDICARE, MEDICAID ==
[~2021-05-15] VITALS: Ht 162.6 cm; Wt 88.5 kg
[2021-05-15 10:45] VITALS: BP 129/76
[2021-05-15 11:06] LABS: Basophils # (auto) 0.1 10 ^3/uL (0-0.2); Basophils % (auto) 1.2 % (0.0-2.0); Eosinophils # (auto) 0.4 10 ^3/uL (0-0.8); Eosinophils % (auto) 5.4 % (0.0-7.0); Hematocrit 38.2 % (36.0-46.0); Lymphocytes # (auto) 1.3 10 ^3/uL (0.4-5.4); Lymphocytes % (auto) 19.8 % (10.0-50.0); Mean Corpuscular Hemoglobin 29.1 pg (28.0-32.0); Mean Corpuscular Volume 85.8 fL (80.0-100.0); Monocytes # (auto) 0.7 10 ^3/uL (0-1.3); Monocytes % (auto) 9.8 % (0.0-12.0); Neutrophils # (auto) 4.3 10 ^3/uL (1.6-8.6); Neutrophils % (auto) 63.8 % (37.0-80.0); Red Blood Cells 4.46 10^6/uL (4.0-5.20); Red Cell Distribution Width 17.5 % (11.8-14.3); White Blood Cell 6.8 10^3/uL (4.4-10.8)
[2021-05-15 11:21] LABS: Albumin 3.7 g/dL (3.4-5.0); Anion Gap 7 (5-15); Blood Urea Nitrogen 16 mg/dL (7-18); Calcium 9.4 mg/dL (8.5-10.1); Carbon Dioxide 25 mmol/L (21-32); Chloride 105 mmol/L (98-107); Glucose 104 mg/dL (74-106); Potassium 3.8 mmol/L (3.5-5.1); Sodium 137 mmol/L (136-145)
[2021-05-15 11:27] LABS: Alanine Aminotransferase 22 U/L (13-56); Alkaline Phosphatase 117 U/L (45-117); Aspartate Aminotransferase 22 U/L (15-37); BUN/Creatinine Ratio 20.3; Bilirubin, Total 0.6 mg/dL (0.2-1.0); GFR African American 93 mL/min; GFR Non-African American 77 mL/min; Total Protein 6.8 g/dL (6.4-8.2)
== END 2021-05-15 16:42 | disposition left against medical advice (07) ==
LOC: ER 10:44
DX: R07.89 Other chest pain (principal); R06.02 Shortness of breath; R10.9 Unspecified abdominal pain; Z20.822 Contact with and (suspected) exposure to COVID-19; Z53.21 Procedure and treatment not carried out due to patient leaving prior to being seen by health care provider
CPT/HCPCS: 36415; 71045; 80053; 84484; 85025; 87426; 93005

== ENCOUNTER 2021-07-09 08:06 | Inpatient (IN) | payer MEDICARE, MEDICAID ==
[~2021-07-09] VITALS: Ht 162.6 cm; Wt 96.0 kg
[~2021-07-09 08:06] MED LIST changes: -ASPI-231 PO; +ASPI1TAB20 PO
[2021-07-09] MEDS ORDERED: IPRATROPIUM BROM 0.5 MG/2.5ML INH SOL NEB ONE (08:45)
[2021-07-09] MEDS ORDERED: methylPREDNISolone SOD SUCC 125 MG/2 ML VL IV ONE (08:45)
[2021-07-09] MEDS ORDERED: SODIUM CHLORIDE 0.9% 1,000 ML IV ONE (08:45)
[2021-07-09] MEDS ORDERED: ALBUTEROL SULF 2.5 MG/0.5ML(0.5%) NEB SOLN NEB ONE (08:45)
[2021-07-09] MEDS ORDERED: SODIUM CHLORIDE 0.9% 1,000 ML IVB ONE (08:45)
[2021-07-09] MEDS ORDERED: ONDANSETRON HCL 4 MG/2 ML VIAL IV ONE (09:30)
[2021-07-09 09:52] LABS: Basophils # (auto) 0 10 ^3/uL (0-0.2); Basophils % (auto) 0.2 % (0.0-2.0); Eosinophils # (auto) 0 10 ^3/uL (0-0.8); Eosinophils % (auto) 0.1 % (0.0-7.0); Hematocrit 40.4 % (36.0-46.0); Hemoglobin 13.4 g/dL (12.2-16.2); Lymphocytes # (auto) 1.5 10 ^3/uL (0.4-5.4); Mean Corpuscular Hemoglobin 29.5 pg (28.0-32.0); Mean Corpuscular Hgb Conc. 33.1 g/dL (32.0-36.0); Mean Corpuscular Volume 89.1 fL (80.0-100.0); Monocytes # (auto) 0.8 10 ^3/uL (0-1.3); Monocytes % (auto) 9.6 % (0.0-12.0); Neutrophils # (auto) 5.7 10 ^3/uL (1.6-8.6); Neutrophils % (auto) 71.1 % (37.0-80.0); Nucleated Red Blood Cells % 0.1 %; Red Blood Cells 4.53 10^6/uL (4.0-5.20); Red Cell Distribution Width 17.7 % (11.8-14.3); White Blood Cell 8.1 10^3/uL (4.4-10.8)
[2021-07-09 09:58] LABS: Albumin 3.8 g/dL (3.4-5.0); Anion Gap 7 (5-15); Blood Urea Nitrogen 16 mg/dL (7-18); Calcium 9.3 mg/dL (8.5-10.1); Carbon Dioxide 24 mmol/L (21-32); Chloride 103 mmol/L (98-107); Glucose 107 mg/dL (74-106); Magnesium 2.2 mg/dL (1.6-2.6); Potassium 3.8 mmol/L (3.5-5.1); Sodium 134 mmol/L (136-145)
[2021-07-09 10:08] LABS: Alanine Aminotransferase 31 U/L (13-56); Alkaline Phosphatase 93 U/L (45-117); Aspartate Aminotransferase 20 U/L (15-37); BUN/Creatinine Ratio 19.8; Bilirubin, Total 0.5 mg/dL (0.2-1.0); GFR African American 90 mL/min; GFR Non-African American 75 mL/min; Total Protein 6.7 g/dL (6.4-8.2)
[2021-07-09] MEDS ORDERED: IOHEXOL 350 MG/ML 100ML IJ ONE (11:26)
[2021-07-09 13:11] LABS: Urine Bacteria NONE SEEN /hpf (None Seen); Urine Blood Negative /uL (Negative); Urine Specific Gravity 1.026 (1.001-1.035); Urine WBC <1 /hpf (0 - 5)
[2021-07-09] MEDS ORDERED: NITROGLYCERIN 0.4 MG SL TAB SL PRN (13:15)
[2021-07-09] MEDS ORDERED: MORPHINE SULFATE INJECTION 2 MG/ML SYRG IV PRN ×2 (13:15→14:00)
[2021-07-09] MEDS ORDERED: ACETAMINOPHEN 500 MG TAB PO PRN (14:00)
[2021-07-09] MEDS ORDERED: BENZONATATE PO PRN (14:00)
[2021-07-09] MEDS ORDERED: ALBUTEROL SULF 2.5 MG/0.5ML(0.5%) NEB SOLN NEB PRN (14:00)
[2021-07-09] MEDS ORDERED: DEXTROSE (50%) 50ML SYRG IV PRN (14:00)
[2021-07-09] MEDS ORDERED: ONDANSETRON HCL 4 MG/2 ML VIAL IV PRN (14:00)
[2021-07-09] MEDS: traMADol HCL 50 MG TAB PO PRN (15:15)
[2021-07-09] MEDS: SODIUM CHLORIDE 0.9% 1,000 ML IV SCH (15:18)
[2021-07-09] MEDS: DOXYCYCLINE 100MG/250ML 250 ML IV SCH (16:21)
[2021-07-09] MEDS: HCTZ 25 MG TAB PO SCH (16:22)
[2021-07-09] MEDS: InsuLIN REG 1unit/0.01ml Soln (100units/ml) SC SCH ×2 (17:00→22:56)
[2021-07-09] MEDS: methylPREDNISolone SOD SUCC 40 MG/ML VL IV SCH (17:15)
[2021-07-09] MEDS: IPRATROPIUM BROM 0.5 MG/2.5ML INH SOL NEB SCH (17:45)
[2021-07-09] MEDS: ALBUTEROL SULF 2.5 MG/0.5ML(0.5%) NEB SOLN NEB SCH (17:46)
[2021-07-09] MEDS: ACCU-CHEK COMFORT CURVE STRIP VI SCH ×2 (17:47→22:49)
[2021-07-09 17:50] LABS: CRP High Sensitivity 0.08 mg/dL (< 0.3)
[2021-07-09 20:42] VITALS: BP 131/83
[2021-07-09 21:15] VITALS: BP 120/75
[2021-07-09 22:00] VITALS: BP 131/83
[2021-07-09] MEDS ORDERED: ATORVASTATIN 20 MG TAB PO SCH (22:00)
[2021-07-09] MEDS: ATORVASTATIN 20 MG TAB PO SCH (22:49)
[2021-07-09] MEDS: LORazepam 2MG/ML-1ML VIAL IV PRN (22:57)
[2021-07-10] MEDS: traMADol HCL 50 MG TAB PO PRN ×3 (00:05→14:06)
[2021-07-10] MEDS: SODIUM CHLORIDE 0.9% 1,000 ML IV SCH ×2 (00:37→16:49)
[2021-07-10] MEDS: IPRATROPIUM BROM 0.5 MG/2.5ML INH SOL NEB SCH ×4 (02:15→18:36)
[2021-07-10] MEDS: ALBUTEROL SULF 2.5 MG/0.5ML(0.5%) NEB SOLN NEB SCH ×4 (02:15→18:35)
[2021-07-10] MEDS: DOXYCYCLINE 100MG/250ML 250 ML IV SCH ×2 (02:19→14:06)
[2021-07-10 05:00] VITALS: BP 162/101
[2021-07-10] MEDS: methylPREDNISolone SOD SUCC 40 MG/ML VL IV SCH ×2 (05:53→18:02)
[2021-07-10] MEDS: ACCU-CHEK COMFORT CURVE STRIP VI SCH ×4 (05:55→21:02)
[2021-07-10] MEDS: InsuLIN REG 1unit/0.01ml Soln (100units/ml) SC SCH ×4 (06:02→21:08)
[2021-07-10 09:00] VITALS: BP 157/97
[2021-07-10] MEDS ORDERED: PATIENTS OWN MEDICATION (Olmesartan Medoxomil (Benicar) 1 TAB) PO SCH (10:00)
[2021-07-10] MEDS ORDERED: ASPirin 81 mg TAB PO SCH (10:00)
[2021-07-10] MEDS: dilTIAZem 120MG ER CAP PO SCH (10:11)
[2021-07-10] MEDS: HCTZ 25 MG TAB PO SCH (10:12)
[2021-07-10] MEDS: FLUoxetine HCL 20 MG CAP PO SCH (10:13)
[2021-07-10 13:00] VITALS: BP 126/77
[2021-07-10] MEDS: ASPirin-EC 81 mg tab PO SCH (16:47)
[2021-07-10] MEDS: ASCORBIC ACID 500 MG TAB PO SCH (16:48)
[2021-07-10] MEDS: ENOXAPARIN SOD 40 MG/0.4 ML SYRINGE SC SCH ×2 (16:48→17:00)
[2021-07-10] MEDS: LOSARTAN POTASSIUM 25 MG TAB PO SCH (16:49)
[2021-07-10 17:00] VITALS: BP 138/82
[2021-07-10] MEDS: ATORVASTATIN 20 MG TAB PO SCH (21:02)
[2021-07-10] MEDS: LORazepam 2MG/ML-1ML VIAL IV PRN (21:09)
[2021-07-10 22:00] VITALS: BP 126/82
[2021-07-11] VITALS (8 sets, daily range): BP systolic 133–176; BP diastolic 85–109
[2021-07-11] MEDS: ALBUTEROL SULF 2.5 MG/0.5ML(0.5%) NEB SOLN NEB SCH ×4 (00:47→19:22)
[2021-07-11] MEDS: IPRATROPIUM BROM 0.5 MG/2.5ML INH SOL NEB SCH ×4 (00:47→20:15)
[2021-07-11] MEDS: DOXYCYCLINE 100MG/250ML 250 ML IV SCH ×2 (01:40→14:08)
[2021-07-11] MEDS: SODIUM CHLORIDE 0.9% 1,000 ML IV SCH (06:00)
[2021-07-11] MEDS: traMADol HCL 50 MG TAB PO PRN ×3 (06:05→20:55)
[2021-07-11] MEDS: methylPREDNISolone SOD SUCC 40 MG/ML VL IV SCH ×3 (06:05→20:56)
[2021-07-11] MEDS: ACCU-CHEK COMFORT CURVE STRIP VI SCH ×4 (06:06→21:43)
[2021-07-11] MEDS: InsuLIN REG 1unit/0.01ml Soln (100units/ml) SC SCH ×4 (06:07→21:48)
[2021-07-11] MEDS: LOSARTAN POTASSIUM 25 MG TAB PO SCH (10:00)
[2021-07-11] MEDS: ASCORBIC ACID 500 MG TAB PO SCH (10:00)
[2021-07-11] MEDS: HCTZ 25 MG TAB PO SCH (10:00)
[2021-07-11] MEDS: dilTIAZem 120MG ER CAP PO SCH (10:00)
[2021-07-11] MEDS: ASPirin-EC 81 mg tab PO SCH (10:00)
[2021-07-11] MEDS: FLUoxetine HCL 20 MG CAP PO SCH (10:00)
[2021-07-11] MEDS ORDERED: ADENOSINE 82 MG in GIVE UN-DILUTED 0 ML IV STA (10:05)
[2021-07-11] MEDS ORDERED: ALBUTEROL SULF 2.5 MG/0.5ML(0.5%) NEB SOLN ONE (11:29)
[2021-07-11] MEDS ORDERED: hydrALAZINE HCL 20 MG/ML VL IV PRN ×2 (14:30→18:30)
[2021-07-11] MEDS: ENOXAPARIN SOD 40 MG/0.4 ML SYRINGE SC SCH (17:40)
[2021-07-11] MEDS ORDERED: MONTELUKAST SODIUM 10 MG TAB PO ONE (18:30)
[2021-07-11] MEDS ORDERED: FUROSEMIDE 40 MG/4 ML VIAL IV ONE (18:30)
[2021-07-11] MEDS ORDERED: AZITHROMYCIN 500MG/ 250ML 250 ML IV ONE (18:30)
[2021-07-11] MEDS: ATORVASTATIN 20 MG TAB PO SCH (20:57)
[2021-07-11] MEDS: ISOSORBIDE MONONITRATE IR 20 MG TAB PO SCH (20:57)
[2021-07-11] MEDS: MONTELUKAST SODIUM 10 MG TAB PO SCH (20:57)
[2021-07-11] MEDS: LORazepam 2MG/ML-1ML VIAL IV PRN (21:48)
[2021-07-11] MEDS ORDERED: IPRATROPIUM BROM 0.5 MG/2.5ML INH SOL NEB SCH (22:00)
[2021-07-12] MEDS: ALBUTEROL SULF 2.5 MG/0.5ML(0.5%) NEB SOLN NEB SCH ×4 (01:08→19:22)
[2021-07-12] MEDS: IPRATROPIUM BROM 0.5 MG/2.5ML INH SOL NEB SCH ×4 (01:08→19:22)
[2021-07-12] MEDS: traMADol HCL 50 MG TAB PO PRN ×4 (01:33→21:00)
[2021-07-12 05:47] LABS: Basophils # (auto) 0 10 ^3/uL (0-0.2); Basophils % (auto) 0.1 % (0.0-2.0); Eosinophils # (auto) 0 10 ^3/uL (0-0.8); Hematocrit 39.6 % (36.0-46.0); Hemoglobin 13.3 g/dL (12.2-16.2); Lymphocytes # (auto) 0.5 10 ^3/uL (0.4-5.4); Lymphocytes % (auto) 6.6 % (10.0-50.0); Mean Corpuscular Hemoglobin 29.5 pg (28.0-32.0); Mean Corpuscular Hgb Conc. 33.6 g/dL (32.0-36.0); Mean Corpuscular Volume 87.9 fL (80.0-100.0); Monocytes # (auto) 0.4 10 ^3/uL (0-1.3); Monocytes % (auto) 4.5 % (0.0-12.0); Neutrophils # (auto) 7.1 10 ^3/uL (1.6-8.6); Neutrophils % (auto) 88.8 % (37.0-80.0); Nucleated Red Blood Cells % 0.1 %; Red Blood Cells 4.51 10^6/uL (4.0-5.20); Red Cell Distribution Width 16.9 % (11.8-14.3)
[2021-07-12 06:00] LABS: INR 1.03 (0.9-1.15); Partial Thromboplastin Time 24.7 sec (23.6-33.0)
[2021-07-12] MEDS: methylPREDNISolone SOD SUCC 40 MG/ML VL IV SCH ×2 (06:09→13:58)
[2021-07-12] MEDS: ACCU-CHEK COMFORT CURVE STRIP VI SCH ×4 (06:09→21:02)
[2021-07-12 06:14] LABS: Chloride 100 mmol/L (98-107); Potassium 3.7 mmol/L (3.5-5.1); Sodium 133 mmol/L (136-145)
[2021-07-12] MEDS: InsuLIN REG 1unit/0.01ml Soln (100units/ml) SC SCH ×4 (06:16→21:12)
[2021-07-12 06:25] VITALS: BP 145/100
[2021-07-12 06:38] LABS: Alanine Aminotransferase 32 U/L (13-56); Albumin 3.4 g/dL (3.4-5.0); Alkaline Phosphatase 74 U/L (45-117); Anion Gap 8 (5-15); Aspartate Aminotransferase 17 U/L (15-37); BUN/Creatinine Ratio 25.3; Bilirubin, Total 0.5 mg/dL (0.2-1.0); Blood Urea Nitrogen 21 mg/dL (7-18); Calcium 8.6 mg/dL (8.5-10.1); Carbon Dioxide 25 mmol/L (21-32); GFR African American 88 mL/min; GFR Non-African American 73 mL/min; Glucose 152 mg/dL (74-106); Magnesium 2.3 mg/dL (1.6-2.6); Phosphorus 2.8 mg/dL (2.5-4.90); Total Protein 5.9 g/dL (6.4-8.2); Uric Acid 4.6 mg/dL (2.6-6.0)
[2021-07-12 09:00] VITALS: BP 151/10
[2021-07-12] MEDS: dilTIAZem 120MG ER CAP PO SCH (11:33)
[2021-07-12] MEDS: ASPirin-EC 81 mg tab PO SCH (11:34)
[2021-07-12] MEDS: LOSARTAN POTASSIUM 25 MG TAB PO SCH (11:34)
[2021-07-12] MEDS: HCTZ 25 MG TAB PO SCH (11:35)
[2021-07-12] MEDS: ISOSORBIDE MONONITRATE IR 20 MG TAB PO SCH ×2 (11:36→22:00)
[2021-07-12] MEDS: FLUoxetine HCL 20 MG CAP PO SCH (11:41)
[2021-07-12] MEDS: ASCORBIC ACID 500 MG TAB PO SCH (11:42)
[2021-07-12] MEDS: AZITHROMYCIN 500MG/ 250ML 250 ML IV SCH (12:13)
[2021-07-12 13:00] VITALS: BP 135/95
[2021-07-12] MEDS: ENOXAPARIN SOD 40 MG/0.4 ML SYRINGE SC SCH (17:04)
[2021-07-12] MEDS: ATORVASTATIN 20 MG TAB PO SCH (21:00)
[2021-07-12] MEDS: MONTELUKAST SODIUM 10 MG TAB PO SCH (21:02)
[2021-07-12 22:00] VITALS: BP 119/88
[2021-07-12] MEDS: LORazepam 2MG/ML-1ML VIAL IV PRN (22:09)
[2021-07-13] MEDS: IPRATROPIUM BROM 0.5 MG/2.5ML INH SOL NEB SCH ×4 (00:32→19:39)
[2021-07-13] MEDS: ALBUTEROL SULF 2.5 MG/0.5ML(0.5%) NEB SOLN NEB SCH ×4 (00:32→19:39)
[2021-07-13 01:37] VITALS: BP 157/91
[2021-07-13] MEDS: methylPREDNISolone SOD SUCC 40 MG/ML VL IV SCH ×2 (03:01→14:12)
[2021-07-13] MEDS: traMADol HCL 50 MG TAB PO PRN ×3 (03:08→19:52)
[2021-07-13 05:30] VITALS: BP 156/98
[2021-07-13] MEDS: ACCU-CHEK COMFORT CURVE STRIP VI SCH ×4 (06:09→21:19)
[2021-07-13] MEDS: InsuLIN REG 1unit/0.01ml Soln (100units/ml) SC SCH ×4 (06:13→21:31)
[2021-07-13 09:00] VITALS: BP 150/90
[2021-07-13] MEDS: AZITHROMYCIN 500MG/ 250ML 250 ML IV SCH (09:36)
[2021-07-13] MEDS: ASPirin-EC 81 mg tab PO SCH (09:37)
[2021-07-13] MEDS: FLUoxetine HCL 20 MG CAP PO SCH (09:37)
[2021-07-13] MEDS: LOSARTAN POTASSIUM 25 MG TAB PO SCH (09:38)
[2021-07-13] MEDS: ISOSORBIDE MONONITRATE IR 20 MG TAB PO SCH ×2 (09:39→21:18)
[2021-07-13] MEDS: ASCORBIC ACID 500 MG TAB PO SCH (09:39)
[2021-07-13] MEDS: dilTIAZem 120MG ER CAP PO SCH (09:40)
[2021-07-13] MEDS: HCTZ 25 MG TAB PO SCH (09:40)
[2021-07-13 13:00] VITALS: BP 144/90
[2021-07-13 16:55] VITALS: BP 124/84
[2021-07-13] MEDS: ENOXAPARIN SOD 40 MG/0.4 ML SYRINGE SC SCH (17:45)
[2021-07-13] MEDS: LACTULOSE 20Gm/30ML SOLN PO PRN (19:51)
[2021-07-13] MEDS: ATORVASTATIN 20 MG TAB PO SCH (21:18)
[2021-07-13] MEDS: MONTELUKAST SODIUM 10 MG TAB PO SCH (21:18)
[2021-07-13] MEDS: LORazepam 2MG/ML-1ML VIAL IV PRN (21:19)
[2021-07-13 22:00] VITALS: BP 133/88
[2021-07-14] MEDS: IPRATROPIUM BROM 0.5 MG/2.5ML INH SOL NEB SCH ×3 (00:34→12:01)
[2021-07-14] MEDS: ALBUTEROL SULF 2.5 MG/0.5ML(0.5%) NEB SOLN NEB SCH ×3 (00:34→12:01)
[2021-07-14] MEDS: methylPREDNISolone SOD SUCC 40 MG/ML VL IV SCH (01:52)
[2021-07-14] MEDS: traMADol HCL 50 MG TAB PO PRN (01:52)
[2021-07-14 05:00] VITALS: BP 147/89
[2021-07-14] MEDS: InsuLIN REG 1unit/0.01ml Soln (100units/ml) SC SCH ×2 (06:23→11:35)
[2021-07-14] MEDS: ACCU-CHEK COMFORT CURVE STRIP VI SCH ×2 (06:23→11:34)
[2021-07-14 09:00] VITALS: BP 164/101
[2021-07-14] MEDS: AZITHROMYCIN 500MG/ 250ML 250 ML IV SCH (10:03)
[2021-07-14] MEDS: HCTZ 25 MG TAB PO SCH (10:06)
[2021-07-14] MEDS: ASCORBIC ACID 500 MG TAB PO SCH (10:06)
[2021-07-14] MEDS: FLUoxetine HCL 20 MG CAP PO SCH (10:06)
[2021-07-14] MEDS: LOSARTAN POTASSIUM 25 MG TAB PO SCH (10:06)
[2021-07-14] MEDS: ASPirin-EC 81 mg tab PO SCH (10:07)
[2021-07-14] MEDS: dilTIAZem 120MG ER CAP PO SCH (10:07)
[2021-07-14] MEDS: ISOSORBIDE MONONITRATE IR 20 MG TAB PO SCH (10:07)
[2021-07-14] MEDS ORDERED: AZIT500T PO (10:52)
[2021-07-14] MEDS ORDERED: PRED20TA2 PO (10:52)
[2021-07-14 11:56] VITALS: BP 124/91
[2021-07-14] MEDS: LACTULOSE 20Gm/30ML SOLN PO PRN (12:46)
[2021-07-14 13:00] VITALS: BP 123/75
== END 2021-07-14 14:10 | disposition home or self-care (01) | DRG 190 ==
LOC: ER 08:06 → TELE 14:10 → TELE-WESTW 20:42
PROVIDERS: ADMIT Internal Medicine; ATTEND Internal Medicine
DX: J44.1 Chronic obstructive pulmonary disease with (acute) exacerbation (principal); J96.01 Acute respiratory failure with hypoxia; I16.9 Hypertensive crisis, unspecified; E87.1 Hypo-osmolality and hyponatremia; J45.901 Unspecified asthma with (acute) exacerbation; J44.0 Chronic obstructive pulmonary disease with (acute) lower respiratory infection; J20.9 Acute bronchitis, unspecified; E66.01 Morbid (severe) obesity due to excess calories; E78.5 Hyperlipidemia, unspecified; Z20.822 Contact with and (suspected) exposure to COVID-19; I10 Essential (primary) hypertension; E11.65 Type 2 diabetes mellitus with hyperglycemia; I25.10 Atherosclerotic heart disease of native coronary artery without angina pectoris; F41.8 Other specified anxiety disorders; I25.2 Old myocardial infarction; Z82.5 Family history of asthma and other chronic lower respiratory diseases; Z83.3 Family history of diabetes mellitus; Z87.891 Personal history of nicotine dependence; Z90.710 Acquired absence of both cervix and uterus; Z90.49 Acquired absence of other specified parts of digestive tract; Z68.35 Body mass index [BMI] 35.0-35.9, adult
CPT/HCPCS: 36415; 36600; 71045; 71275; 78452; 80053; 81001; 82550; 82805; 82962; 83036; 83735; 83880; 84100; 84443; 84484; 84550; 85025; 85379; 85610; 85652; 85730; 86141; 87426; 93005; 93017; 94640; 96361; 96374; 96375; 96376; G0378; J0153; J1815; J2405; J3490

== ENCOUNTER → 2021-07-19 | Outpatient (CLI) | payer MEDICARE, MEDICAID ==
[~2021-07-19] MED LIST changes: +AZIT500T PO; +PRED20TA2 PO
== END | disposition home or self-care (01) ==
LOC: LAB 09:47
PROVIDERS: ATTEND Internal Medicine Pulmonary Disease
DX: Z01.812 Encounter for preprocedural laboratory examination (principal); Z20.822 Contact with and (suspected) exposure to COVID-19
CPT/HCPCS: 36415; 87426

== ENCOUNTER 2021-07-29 08:59 | Inpatient (IN) | payer MEDICARE, MEDICAID ==
[~2021-07-29] VITALS: Ht 162.6 cm; Wt 97.5 kg
[2021-07-29 09:48] LABS: Basophils # (auto) 0 10 ^3/uL (0-0.2); Basophils % (auto) 0.3 % (0.0-2.0); Eosinophils # (auto) 0 10 ^3/uL (0-0.8); Hematocrit 40.8 % (36.0-46.0); Hemoglobin 13.9 g/dL (12.2-16.2); Lymphocytes # (auto) 0.5 10 ^3/uL (0.4-5.4); Lymphocytes % (auto) 6.8 % (10.0-50.0); Mean Corpuscular Hemoglobin 30.6 pg (28.0-32.0); Mean Corpuscular Hgb Conc. 34.1 g/dL (32.0-36.0); Mean Corpuscular Volume 89.8 fL (80.0-100.0); Monocytes # (auto) 0.1 10 ^3/uL (0-1.3); Monocytes % (auto) 2.2 % (0.0-12.0); Neutrophils # (auto) 6.1 10 ^3/uL (1.6-8.6); Neutrophils % (auto) 90.7 % (37.0-80.0); Nucleated Red Blood Cells % 0.1 %; Red Blood Cells 4.54 10^6/uL (4.0-5.20); Red Cell Distribution Width 17.7 % (11.8-14.3); White Blood Cell 6.8 10^3/uL (4.4-10.8)
[2021-07-29 10:05] LABS: Albumin 3.7 g/dL (3.4-5.0); Calcium 9.2 mg/dL (8.5-10.1); Potassium 3.9 mmol/L (3.5-5.1)
[2021-07-29 10:20] LABS: Bilirubin, Total 0.5 mg/dL (0.2-1.0); Total Protein 6.7 g/dL (6.4-8.2)
[2021-07-29 10:44] LABS: Urine WBC None Seen /hpf (0 - 5)
[2021-07-29 11:05] LABS: Urine Bacteria NONE SEEN /hpf (None Seen); Urine Blood Negative /uL (Negative); Urine Specific Gravity 1.007 (1.001-1.035)
[2021-07-29] MEDS ORDERED: methylPREDNISolone SOD SUCC 125 MG/2 ML VL IV ONE (11:30)
[2021-07-29] MEDS ORDERED: ALBUTEROL SULF 2.5 MG/0.5ML(0.5%) NEB SOLN NEB ONE (11:30)
[2021-07-29] MEDS ORDERED: IPRATROPIUM BROM 0.5 MG/2.5ML INH SOL NEB ONE (11:30)
[2021-07-29] MEDS ORDERED: MORPHINE SULFATE INJECTION 2 MG/ML SYRG IV PRN ×3 (11:45→15:15)
[2021-07-29] MEDS ORDERED: NITROGLYCERIN 0.4 MG SL TAB SL PRN ×2 (11:45→15:15)
[2021-07-29] MEDS ORDERED: ONDANSETRON HCL 4 MG/2 ML VIAL IV PRN (15:15)
[2021-07-29] MEDS ORDERED: AZITHROMYCIN 500MG/ 250ML 250 ML IV ONE (15:15)
[2021-07-29] MEDS ORDERED: ATORVASTATIN 20 MG TAB PO ONE (15:15)
[2021-07-29] MEDS ORDERED: DOCUSATE SOD 100 MG CAP PO PRN (15:15)
[2021-07-29] MEDS ORDERED: ALUM & MAG HYDROX-SIMETH LIQ(MAALOX) 30 ML PO PRN (15:15)
[2021-07-29] MEDS ORDERED: ACETAMINOPHEN 325 MG TAB PO PRN (15:15)
[2021-07-29] MEDS: SODIUM CHLORIDE 0.9% 1,000 ML IV SCH (15:45)
[2021-07-29] MEDS ORDERED: IPRATROPIUM BROM 0.5 MG/2.5ML INH SOL NEB SCH (18:00)
[2021-07-29] MEDS: HYDROcodone-ACET 5/325MG TAB PO PRN ×2 (18:29→23:42)
[2021-07-29] MEDS: BUDESONIDE (INHALATION) 0.5 MG/2 ML NEB NEB SCH (19:24)
[2021-07-29] MEDS: IPRATROPIUM BROM 0.5 MG/2.5ML INH SOL NEB PRN ×2 (19:25→22:43)
[2021-07-29] MEDS: ALBUTEROL SULF 2.5 MG/0.5ML(0.5%) NEB SOLN NEB PRN ×2 (19:25→22:43)
[2021-07-29 21:13] VITALS: BP 114/80
[2021-07-29 21:14] VITALS: BP 126/94
[2021-07-29] MEDS: FAMOTIDINE (10MG/ML) 2ML VL IV SCH (21:38)
[2021-07-29] MEDS: methylPREDNISolone SOD SUCC 40 MG/ML VL IV SCH (21:38)
[2021-07-29] MEDS: LORazepam 0.5 MG TAB PO PRN (21:39)
[2021-07-29 22:00] VITALS: BP 126/94
[2021-07-30] MEDS: IPRATROPIUM BROM 0.5 MG/2.5ML INH SOL NEB PRN ×3 (02:19→20:46)
[2021-07-30] MEDS: ALBUTEROL SULF 2.5 MG/0.5ML(0.5%) NEB SOLN NEB PRN ×4 (02:20→20:46)
[2021-07-30 05:00] VITALS: BP 142/95
[2021-07-30] MEDS: methylPREDNISolone SOD SUCC 40 MG/ML VL IV SCH ×3 (05:55→22:22)
[2021-07-30] MEDS: BUDESONIDE (INHALATION) 0.5 MG/2 ML NEB NEB SCH ×2 (06:36→20:46)
[2021-07-30] MEDS: SODIUM CHLORIDE 0.9% 1,000 ML IV SCH ×2 (07:55→23:58)
[2021-07-30] MEDS: AZITHROMYCIN 500MG/ 250ML 250 ML IV SCH (09:12)
[2021-07-30] MEDS: ENOXAPARIN SOD 40 MG/0.4 ML SYRINGE SC SCH (09:12)
[2021-07-30] MEDS: ASPirin-EC 81 mg tab PO SCH (09:13)
[2021-07-30] MEDS: MULTIPLE VITAMIN TAB PO SCH (09:14)
[2021-07-30] MEDS: HYDROcodone-ACET 5/325MG TAB PO PRN ×3 (09:14→23:11)
[2021-07-30] MEDS: LOSARTAN POTASSIUM 25 MG TAB PO SCH (09:14)
[2021-07-30] MEDS: FAMOTIDINE (10MG/ML) 2ML VL IV SCH ×2 (09:15→22:22)
[2021-07-30] MEDS: ASCORBIC ACID 500 MG TAB PO SCH (09:15)
[2021-07-30 09:51] VITALS: BP 154/89
[2021-07-30] MEDS: hydrALAZINE HCL 20 MG/ML VL IV PRN (11:41)
[2021-07-30 13:30] VITALS: BP 131/80
[2021-07-30] MEDS ORDERED: DEXTROSE (50%) 50ML SYRG IV PRN (16:00)
[2021-07-30 16:30] VITALS: BP 144/90
[2021-07-30] MEDS: ACCU-CHEK COMFORT CURVE STRIP VI SCH ×2 (17:37→22:22)
[2021-07-30] MEDS: InsuLIN REG 1unit/0.01ml Soln (100units/ml) SC SCH ×2 (17:40→22:34)
[2021-07-30 22:00] VITALS: BP 144/92
[2021-07-30] MEDS ORDERED: ATORVASTATIN 20 MG TAB PO SCH (22:00)
[2021-07-31 05:00] VITALS: BP 155/97
[2021-07-31] MEDS: ACCU-CHEK COMFORT CURVE STRIP VI SCH ×2 (06:13→11:30)
[2021-07-31] MEDS: methylPREDNISolone SOD SUCC 40 MG/ML VL IV SCH ×2 (06:21→13:38)
[2021-07-31] MEDS: InsuLIN REG 1unit/0.01ml Soln (100units/ml) SC SCH ×2 (06:22→12:33)
[2021-07-31] MEDS: ALBUTEROL SULF 2.5 MG/0.5ML(0.5%) NEB SOLN NEB PRN (06:43)
[2021-07-31] MEDS: BUDESONIDE (INHALATION) 0.5 MG/2 ML NEB NEB SCH (06:43)
[2021-07-31] MEDS: IPRATROPIUM BROM 0.5 MG/2.5ML INH SOL NEB PRN (06:43)
[2021-07-31] MEDS: AZITHROMYCIN 500MG/ 250ML 250 ML IV SCH (08:41)
[2021-07-31] MEDS: HYDROcodone-ACET 5/325MG TAB PO PRN (08:41)
[2021-07-31 08:58] LABS: Albumin 3.6 g/dL (3.4-5.0); Calcium 8.8 mg/dL (8.5-10.1); INR 0.99 (0.9-1.15); Magnesium 2.3 mg/dL (1.6-2.6); Partial Thromboplastin Time 23.9 sec (23.6-33.0)
[2021-07-31 09:00] VITALS: BP_SYST 111; BP_SYST 172; BP_DIAS 62; BP_DIAS 94
[2021-07-31 09:05] LABS: BUN/Creatinine Ratio 21.9; Bilirubin, Total 0.5 mg/dL (0.2-1.0); Phosphorus 2.1 mg/dL (2.5-4.90); Total Protein 6.2 g/dL (6.4-8.2)
[2021-07-31 09:10] LABS: Basophils # (auto) 0 10 ^3/uL (0-0.2); Basophils % (auto) 0.1 % (0.0-2.0); Eosinophils # (auto) 0 10 ^3/uL (0-0.8); Hematocrit 39.6 % (36.0-46.0); Hemoglobin 13.7 g/dL (12.2-16.2); Lymphocytes # (auto) 0.5 10 ^3/uL (0.4-5.4); Mean Corpuscular Hemoglobin 30.8 pg (28.0-32.0); Mean Corpuscular Hgb Conc. 34.7 g/dL (32.0-36.0); Mean Corpuscular Volume 88.9 fL (80.0-100.0); Monocytes # (auto) 0.4 10 ^3/uL (0-1.3); Neutrophils # (auto) 9.4 10 ^3/uL (1.6-8.6); Neutrophils % (auto) 90.9 % (37.0-80.0); Nucleated Red Blood Cells % 0.1 %; Red Blood Cells 4.46 10^6/uL (4.0-5.20); Red Cell Distribution Width 17.4 % (11.8-14.3); White Blood Cell 10.3 10^3/uL (4.4-10.8)
[2021-07-31] MEDS: ASCORBIC ACID 500 MG TAB PO SCH (09:44)
[2021-07-31] MEDS: MULTIPLE VITAMIN TAB PO SCH (09:44)
[2021-07-31] MEDS: ASPirin-EC 81 mg tab PO SCH (09:44)
[2021-07-31] MEDS: ENOXAPARIN SOD 40 MG/0.4 ML SYRINGE SC SCH (09:44)
[2021-07-31] MEDS: FAMOTIDINE (10MG/ML) 2ML VL IV SCH (09:44)
[2021-07-31] MEDS: LOSARTAN POTASSIUM 25 MG TAB PO SCH (09:45)
[2021-07-31 11:30] VITALS: BP 157/99
[2021-07-31] MEDS: LORazepam 0.5 MG TAB PO PRN (12:32)
[2021-07-31] MEDS: hydrALAZINE HCL 20 MG/ML VL IV PRN (12:32)
[2021-07-31 13:45] VITALS: BP 157/99
[2021-07-31 16:05] VITALS: BP 147/91
== END 2021-07-31 16:45 | disposition home or self-care (01) | DRG 189 ==
LOC: ER 08:59 → TELE 11:43 → TELE-WESTW 20:15
PROVIDERS: ADMIT Hospitalist; ATTEND Hospitalist
DX: J96.20 Acute and chronic respiratory failure, unspecified whether with hypoxia or hypercapnia (principal); J44.1 Chronic obstructive pulmonary disease with (acute) exacerbation; J45.41 Moderate persistent asthma with (acute) exacerbation; M35.1 Other overlap syndromes; J44.0 Chronic obstructive pulmonary disease with (acute) lower respiratory infection; J20.9 Acute bronchitis, unspecified; I25.10 Atherosclerotic heart disease of native coronary artery without angina pectoris; I10 Essential (primary) hypertension; F41.9 Anxiety disorder, unspecified; E11.65 Type 2 diabetes mellitus with hyperglycemia; F32.9 Major depressive disorder, single episode, unspecified; E78.5 Hyperlipidemia, unspecified; E66.01 Morbid (severe) obesity due to excess calories; Z20.822 Contact with and (suspected) exposure to COVID-19; Z90.49 Acquired absence of other specified parts of digestive tract; Z90.710 Acquired absence of both cervix and uterus; Z82.5 Family history of asthma and other chronic lower respiratory diseases; Z83.3 Family history of diabetes mellitus; Z79.82 Long term (current) use of aspirin; Z79.899 Other long term (current) drug therapy; Z96.659 Presence of unspecified artificial knee joint; Z87.891 Personal history of nicotine dependence
CPT/HCPCS: 36415; 71045; 80053; 80061; 81001; 82962; 83735; 83880; 84100; 84443; 84484; 85025; 85610; 85730; 87081; 87426; 93005; 94640; 96365; 96366; 96375; G0378; J1815; J3490

== ENCOUNTER 2021-08-17 09:08 | Inpatient (IN) | payer MEDICARE, MEDICAID ==
[~2021-08-17] VITALS: Ht 162.6 cm; Wt 93.9 kg
[2021-08-17 10:22] LABS: Basophils # (auto) 0.1 10 ^3/uL (0-0.2); Basophils % (auto) 1.2 % (0.0-2.0); Eosinophils # (auto) 0.1 10 ^3/uL (0-0.8); Eosinophils % (auto) 1.4 % (0.0-7.0); Hemoglobin 14.2 g/dL (12.2-16.2); Lymphocytes # (auto) 1.2 10 ^3/uL (0.4-5.4); Mean Corpuscular Hemoglobin 29.3 pg (28.0-32.0); Mean Corpuscular Hgb Conc. 32.9 g/dL (32.0-36.0); Monocytes # (auto) 0.6 10 ^3/uL (0-1.3); Monocytes % (auto) 10.4 % (0.0-12.0); Neutrophils # (auto) 3.5 10 ^3/uL (1.6-8.6); Red Blood Cells 4.84 10^6/uL (4.0-5.20); Red Cell Distribution Width 16.7 % (11.8-14.3); White Blood Cell 5.3 10^3/uL (4.4-10.8)
[2021-08-17 10:38] LABS: Albumin 3.6 g/dL (3.4-5.0); Calcium 9.4 mg/dL (8.5-10.1); Potassium 3.8 mmol/L (3.5-5.1)
[2021-08-17 10:45] LABS: BUN/Creatinine Ratio 19.7; Bilirubin, Total 0.6 mg/dL (0.2-1.0); Total Protein 6.7 g/dL (6.4-8.2)
[2021-08-17] MEDS ORDERED: methylPREDNISolone SOD SUCC 125 MG/2 ML VL IV ONE (13:15)
[2021-08-17] MEDS ORDERED: ALBUTEROL SULF 2.5 MG/0.5ML(0.5%) NEB SOLN NEB ONE (13:15)
[2021-08-17] MEDS ORDERED: IPRATROPIUM BROM 0.5 MG/2.5ML INH SOL NEB ONE (13:15)
[2021-08-17] MEDS ORDERED: AZITHROMYCIN 500MG/ 250ML 250 ML IV ONE (13:15)
[2021-08-17] MEDS ORDERED: SODIUM CHLORIDE 0.9% 1,000 ML IV ONE (13:15)
[2021-08-17 13:58] LABS: Urine Bacteria NONE SEEN /hpf (None Seen); Urine Blood Negative /uL (Negative); Urine Specific Gravity 1.007 (1.001-1.035); Urine WBC <1 /hpf (0 - 5)
[2021-08-17] MEDS ORDERED: MORPHINE SULFATE INJECTION 2 MG/ML SYRG IV PRN ×3 (14:45→17:30)
[2021-08-17] MEDS ORDERED: NITROGLYCERIN 0.4 MG SL TAB SL PRN ×2 (14:45→17:30)
[2021-08-17] MEDS ORDERED: ENOXAPARIN SOD 100 MG/1 ML SYRINGE SC ONE (14:45)
[2021-08-17] MEDS ORDERED: HYDROcodone-ACET 5/325MG TAB PO ONE (15:15)
[2021-08-17] MEDS ORDERED: IOHEXOL 350 MG/ML 100ML IJ ONE (15:48)
[2021-08-17] MEDS ORDERED: DILT180C52 PO (16:07)
[2021-08-17] MEDS ORDERED: LOSA-69 PO (16:07)
[2021-08-17] MEDS ORDERED: IPRA0.00 NEB (16:08)
[2021-08-17] MEDS ORDERED: FLUT1AER17 IN (16:10)
[2021-08-17] MEDS ORDERED: B-COTAB59 PO (16:11)
[2021-08-17] MEDS ORDERED: [UNRECOGNIZED DRUG - CODE] PO (16:11)
[2021-08-17] MEDS ORDERED: TURM500C3 PO (16:11)
[2021-08-17] MEDS ORDERED: AMLO-489 PO (16:13)
[2021-08-17] MEDS ORDERED: DICL1GEL50 TOP (16:13)
[2021-08-17] MEDS ORDERED: GABA300C10 PO (16:13)
[2021-08-17 16:45] VITALS: BP 145/96
[2021-08-17] MEDS ORDERED: ONDANSETRON HCL 4 MG/2 ML VIAL IV PRN (17:30)
[2021-08-17] MEDS ORDERED: ALUM & MAG HYDROX-SIMETH LIQ(MAALOX) 30 ML PO PRN (17:30)
[2021-08-17] MEDS ORDERED: FAMOTIDINE (10MG/ML) 2ML VL IV ONE (17:30)
[2021-08-17] MEDS ORDERED: DOCUSATE SOD 100 MG CAP PO PRN (17:30)
[2021-08-17] MEDS ORDERED: GABAPENTIN 300 MG CAP PO PRN (17:30)
[2021-08-17] MEDS ORDERED: BUDESONIDE (INHALATION) 0.5 MG/2 ML NEB NEB ONE (17:30)
[2021-08-17] MEDS ORDERED: ACETAMINOPHEN 325 MG TAB PO PRN (17:30)
[2021-08-17] MEDS ORDERED: ENOXAPARIN SOD 40 MG/0.4 ML SYRINGE SC ONE (17:30)
[2021-08-17] MEDS ORDERED: hydrALAZINE HCL 20 MG/ML VL IV PRN (17:30)
[2021-08-17 17:59] VITALS: BP 124/84
[2021-08-17] MEDS ORDERED: INFLUENZA QUAD 2021-2022 0.5 ML SYRG IM ONE (18:00)
[2021-08-17] MEDS ORDERED: PNEUMOCOCCAL VACC POLYS 25 MCG/0.5 ML VIAL IM ONE (18:00)
[2021-08-17 18:08] LABS: Cholesterol 177 mg/dL (< 200)
[2021-08-17 18:11] LABS: HDL Cholesterol 87 mg/dL (40-59); LDL Cholesterol 71 mg/dL (< 100); Triglycerides 94 mg/dL (< 150)
[2021-08-17] MEDS: FUROSEMIDE 20 MG/2 ML VIAL IV SCH (18:13)
[2021-08-17] MEDS: IPRATROPIUM BROM 0.5 MG/2.5ML INH SOL NEB SCH ×2 (18:17→22:32)
[2021-08-17] MEDS: ALBUTEROL SULF 2.5 MG/0.5ML(0.5%) NEB SOLN NEB PRN ×2 (18:17→22:32)
[2021-08-17 18:44] LABS: Alcohol, Urine < 3.0 mg/dL (0-10); Amphetamine Screen, Urine NEGATIVE (NEGATIVE); Barbiturate Scree,Urine NEGATIVE (NEGATIVE); Benzodiazephine Screen, Urine NEGATIVE (NEGATIVE); Cannabinoid Screen, Urine NEGATIVE (NEGATIVE); Cocaine Screen, Urine NEGATIVE (NEGATIVE); Opiate Scree,Urine NEGATIVE (NEGATIVE); Phencyclidine Screen, Urine NEGATIVE (NEGATIVE)
[2021-08-17 20:20] VITALS: BP 120/79
[2021-08-17] MEDS: POTASSIUM CHL 20 Meq TABLET PO SCH (21:32)
[2021-08-17] MEDS: ATORVASTATIN 20 MG TAB PO SCH (21:32)
[2021-08-17] MEDS: GABAPENTIN 300 MG CAP PO SCH (21:32)
[2021-08-17] MEDS: LORazepam 0.5 MG TAB PO PRN (21:35)
[2021-08-17] MEDS: LOSARTAN POTASSIUM 50 MG TAB PO SCH (21:35)
[2021-08-18] MEDS: ALBUTEROL SULF 2.5 MG/0.5ML(0.5%) NEB SOLN NEB PRN ×6 (01:58→21:57)
[2021-08-18] MEDS: IPRATROPIUM BROM 0.5 MG/2.5ML INH SOL NEB SCH ×6 (01:58→21:57)
[2021-08-18 05:00] VITALS: BP 138/87
[2021-08-18] MEDS: FUROSEMIDE 20 MG/2 ML VIAL IV SCH ×2 (05:57→18:19)
[2021-08-18] MEDS: GABAPENTIN 300 MG CAP PO SCH ×3 (05:57→21:28)
[2021-08-18] MEDS: methylPREDNISolone SOD SUCC 40 MG/ML VL IV SCH ×3 (05:57→21:24)
[2021-08-18 06:33] LABS: Albumin 3.3 g/dL (3.4-5.0); Calcium 9.2 mg/dL (8.5-10.1); Magnesium 1.9 mg/dL (1.6-2.6)
[2021-08-18] MEDS: BUDESONIDE (INHALATION) 0.5 MG/2 ML NEB NEB SCH ×2 (06:33→18:07)
[2021-08-18 06:39] LABS: BUN/Creatinine Ratio 20.2; Bilirubin, Total 0.4 mg/dL (0.2-1.0); Phosphorus 3.2 mg/dL (2.5-4.90); Total Protein 6.6 g/dL (6.4-8.2)
[2021-08-18 06:42] LABS: Basophils # (auto) 0 10 ^3/uL (0-0.2); Basophils % (auto) 0.1 % (0.0-2.0); Eosinophils # (auto) 0 10 ^3/uL (0-0.8); Eosinophils % (auto) 0.1 % (0.0-7.0); Hematocrit 41.2 % (36.0-46.0); Hemoglobin 14.1 g/dL (12.2-16.2); Lymphocytes # (auto) 0.5 10 ^3/uL (0.4-5.4); Lymphocytes % (auto) 8.7 % (10.0-50.0); Mean Corpuscular Hemoglobin 30.6 pg (28.0-32.0); Mean Corpuscular Hgb Conc. 34.3 g/dL (32.0-36.0); Mean Corpuscular Volume 89.3 fL (80.0-100.0); Monocytes # (auto) 0.1 10 ^3/uL (0-1.3); Monocytes % (auto) 1.6 % (0.0-12.0); Neutrophils # (auto) 5.1 10 ^3/uL (1.6-8.6); Neutrophils % (auto) 89.5 % (37.0-80.0); Nucleated Red Blood Cells % 0.1 %; Red Blood Cells 4.62 10^6/uL (4.0-5.20); Red Cell Distribution Width 16.7 % (11.8-14.3); White Blood Cell 5.7 10^3/uL (4.4-10.8)
[2021-08-18 09:00] VITALS: BP 127/89
[2021-08-18] MEDS: dilTIAZem HCL 180MG ER CAP PO SCH (09:25)
[2021-08-18] MEDS: LOSARTAN POTASSIUM 50 MG TAB PO SCH ×2 (09:26→21:28)
[2021-08-18] MEDS: ASPirin-EC 81 mg tab PO SCH (09:26)
[2021-08-18] MEDS: POTASSIUM CHL 20 Meq TABLET PO SCH ×2 (09:27→21:28)
[2021-08-18] MEDS: MULTIPLE VITAMIN TAB PO SCH (09:27)
[2021-08-18] MEDS: amLODIPine BESYLATE 5 MG TAB PO SCH (09:28)
[2021-08-18] MEDS: FLUoxetine HCL 20 MG CAP PO SCH (09:29)
[2021-08-18] MEDS: ASCORBIC ACID 500 MG TAB PO SCH (09:29)
[2021-08-18] MEDS: ENOXAPARIN SOD 40 MG/0.4 ML SYRINGE SC SCH (09:30)
[2021-08-18] MEDS: HYDROcodone-ACET 5/325MG TAB PO PRN (09:31)
[2021-08-18] MEDS ORDERED: AZITHROMYCIN 500MG/ 250ML 250 ML IV SCH (10:00)
[2021-08-18] MEDS ORDERED: FAMOTIDINE (10MG/ML) 2ML VL IV SCH (10:00)
[2021-08-18] MEDS ORDERED: DEXTROSE (50%) 50ML SYRG IV PRN (12:00)
[2021-08-18] MEDS: ACCU-CHEK COMFORT CURVE STRIP VI SCH ×2 (12:04→18:07)
[2021-08-18] MEDS: LORazepam 0.5 MG TAB PO PRN (12:05)
[2021-08-18] MEDS: InsuLIN REG 1unit/0.01ml Soln (100units/ml) SC SCH ×2 (12:25→18:18)
[2021-08-18 13:13] VITALS: BP 104/70
[2021-08-18] MEDS ORDERED: LORazepam 0.5 MG TAB PO PRN (16:45)
[2021-08-18 17:33] VITALS: BP 102/70
[2021-08-18] MEDS: ATORVASTATIN 20 MG TAB PO SCH (21:28)
[2021-08-18 22:00] VITALS: BP 121/78
[2021-08-19] MEDS: InsuLIN REG 1unit/0.01ml Soln (100units/ml) SC SCH ×2 (01:10→05:36)
[2021-08-19] MEDS: IPRATROPIUM BROM 0.5 MG/2.5ML INH SOL NEB SCH ×2 (02:10→06:21)
[2021-08-19] MEDS: ALBUTEROL SULF 2.5 MG/0.5ML(0.5%) NEB SOLN NEB PRN ×2 (02:10→06:21)
[2021-08-19 05:00] VITALS: BP 117/72
[2021-08-19] MEDS: ACCU-CHEK COMFORT CURVE STRIP VI SCH ×2 (05:41)
[2021-08-19] MEDS: GABAPENTIN 300 MG CAP PO SCH (05:47)
[2021-08-19] MEDS: methylPREDNISolone SOD SUCC 40 MG/ML VL IV SCH (05:47)
[2021-08-19] MEDS: FUROSEMIDE 20 MG/2 ML VIAL IV SCH (05:47)
[2021-08-19] MEDS: POTASSIUM CHL 20 Meq TABLET PO SCH (09:15)
[2021-08-19] MEDS: FLUoxetine HCL 20 MG CAP PO SCH (09:15)
[2021-08-19] MEDS: ASCORBIC ACID 500 MG TAB PO SCH (09:15)
[2021-08-19] MEDS: amLODIPine BESYLATE 5 MG TAB PO SCH (09:16)
[2021-08-19] MEDS: MULTIPLE VITAMIN TAB PO SCH (09:16)
[2021-08-19] MEDS: ASPirin-EC 81 mg tab PO SCH (09:17)
[2021-08-19] MEDS: LOSARTAN POTASSIUM 50 MG TAB PO SCH (09:17)
[2021-08-19] MEDS: dilTIAZem HCL 180MG ER CAP PO SCH (09:17)
[2021-08-19] MEDS: ENOXAPARIN SOD 40 MG/0.4 ML SYRINGE SC SCH (09:18)
[2021-08-19 09:29] VITALS: BP 139/87
[2021-08-19] MEDS ORDERED: AZITHROMYCIN 250 MG TAB PO SCH (10:00)
[2021-08-19 11:04] VITALS: BP 139/87
[2021-08-19] MEDS: HYDROcodone-ACET 5/325MG TAB PO PRN (11:20)
== END 2021-08-19 12:00 | disposition home or self-care (01) | DRG 190 ==
LOC: ER 09:08 → TELE 14:43 → TELE-CENTR 16:52
PROVIDERS: ADMIT Hospitalist; ATTEND Family Medicine
DX: J44.1 Chronic obstructive pulmonary disease with (acute) exacerbation (principal); I50.43 Acute on chronic combined systolic (congestive) and diastolic (congestive) heart failure; J45.901 Unspecified asthma with (acute) exacerbation; I11.0 Hypertensive heart disease with heart failure; E11.9 Type 2 diabetes mellitus without complications; F32.9 Major depressive disorder, single episode, unspecified; F41.9 Anxiety disorder, unspecified; E66.01 Morbid (severe) obesity due to excess calories; E78.00 Pure hypercholesterolemia, unspecified; E78.5 Hyperlipidemia, unspecified; I25.10 Atherosclerotic heart disease of native coronary artery without angina pectoris; Z96.659 Presence of unspecified artificial knee joint; Z20.822 Contact with and (suspected) exposure to COVID-19; Z68.34 Body mass index [BMI] 34.0-34.9, adult; Z79.82 Long term (current) use of aspirin; Z79.899 Other long term (current) drug therapy; I25.2 Old myocardial infarction; Z82.5 Family history of asthma and other chronic lower respiratory diseases; Z83.3 Family history of diabetes mellitus; Z87.891 Personal history of nicotine dependence; Z90.710 Acquired absence of both cervix and uterus; Z90.49 Acquired absence of other specified parts of digestive tract
CPT/HCPCS: 36415; 71045; 71275; 80053; 80061; 80307; 81001; 82962; 83036; 83735; 83880; 84100; 84443; 84484; 85025; 85379; 87040; 87081; 87086; 87426; 93005; 93306; 93970; 94640; 96365; 96372; 96375; G0378; J1815; J3490

== ENCOUNTER 2021-09-06 11:45 | Inpatient (IN) | payer MEDICARE, MEDICAID ==
[~2021-09-06] VITALS: Ht 162.6 cm; Wt 105.0 kg
[~2021-09-06 11:45] MED LIST changes: -ALBU0.084 NEB; +AMLO-489 PO; -AZIT500T PO; +B-COTAB59 PO; -BENZ100C97 PO; +DICL1GEL50 TOP; -DILT120T3 PO; +DILT180C52 PO; +FLUT1AER17 IN; +GABA300C10 PO; +IPRA0.00 NEB; -LOS25T PO; +LOSA-69 PO; -OLME40TA26 PO; -PRED20TA2 PO; +TURM500C3 PO; +[UNRECOGNIZED DRUG - CODE] PO
[2021-09-06] MEDS ORDERED: methylPREDNISolone SOD SUCC 125 MG/2 ML VL IV ONE (12:15)
[2021-09-06 13:40] LABS: Basophils # (auto) 0.1 10 ^3/uL (0-0.2); Basophils % (auto) 1.3 % (0.0-2.0); Eosinophils # (auto) 0.1 10 ^3/uL (0-0.8); Eosinophils % (auto) 1.3 % (0.0-7.0); Hemoglobin 12.7 g/dL (12.2-16.2); Lymphocytes # (auto) 1.1 10 ^3/uL (0.4-5.4); Lymphocytes % (auto) 15.1 % (10.0-50.0); Mean Corpuscular Hemoglobin 29.6 pg (28.0-32.0); Mean Corpuscular Hgb Conc. 32.6 g/dL (32.0-36.0); Mean Corpuscular Volume 90.7 fL (80.0-100.0); Monocytes # (auto) 0.9 10 ^3/uL (0-1.3); Monocytes % (auto) 11.6 % (0.0-12.0); Neutrophils # (auto) 5.2 10 ^3/uL (1.6-8.6); Neutrophils % (auto) 70.7 % (37.0-80.0); Nucleated Red Blood Cells % 0.1 %; Red Cell Distribution Width 16.5 % (11.8-14.3); White Blood Cell 7.4 10^3/uL (4.4-10.8)
[2021-09-06 13:50] LABS: Albumin 3.4 g/dL (3.4-5.0); Calcium 8.5 mg/dL (8.5-10.1); Potassium 3.7 mmol/L (3.5-5.1)
[2021-09-06 13:55] LABS: BUN/Creatinine Ratio 22.9; Bilirubin, Total 0.4 mg/dL (0.2-1.0); Total Protein 6.2 g/dL (6.4-8.2)
[2021-09-06] MEDS ORDERED: IOHEXOL 350 MG/ML 100ML IJ ONE (15:30)
[2021-09-06] MEDS ORDERED: MORPHINE SULFATE INJECTION 2 MG/ML SYRG IV PRN ×3 (15:45→19:15)
[2021-09-06] MEDS ORDERED: NITROGLYCERIN 0.4 MG SL TAB SL PRN ×2 (15:45→19:15)
[2021-09-06] MEDS ORDERED: B-COTAB59 PO (15:58)
[2021-09-06] MEDS ORDERED: ASCO500T11 PO (15:58)
[2021-09-06] MEDS ORDERED: [UNRECOGNIZED DRUG - CODE] PO (15:58)
[2021-09-06] MEDS ORDERED: MULT-1018 PO (15:58)
[2021-09-06] MEDS ORDERED: ASPI1TAB20 PO (15:58)
[2021-09-06] MEDS ORDERED: TURM500C3 PO (15:58)
[2021-09-06] MEDS ORDERED: DICL1GEL50 TOP (15:58)
[2021-09-06] MEDS ORDERED: IPRA0.00 NEB (15:58)
[2021-09-06] MEDS ORDERED: GABA300C10 PO (15:58)
[2021-09-06] MEDS ORDERED: hydrALAZINE HCL 20 MG/ML VL IV PRN (19:15)
[2021-09-06] MEDS ORDERED: DOCUSATE SOD 100 MG CAP PO PRN (19:15)
[2021-09-06] MEDS ORDERED: ACETAMINOPHEN 325 MG TAB PO PRN (19:15)
[2021-09-06] MEDS ORDERED: AZITHROMYCIN 500MG/ 250ML 250 ML IV ONE (19:15)
[2021-09-06] MEDS ORDERED: FAMOTIDINE (10MG/ML) 2ML VL IV ONE (19:15)
[2021-09-06] MEDS ORDERED: IPRATROPIUM BROM 0.5 MG/2.5ML INH SOL NEB ONE (19:15)
[2021-09-06] MEDS ORDERED: DEXTROSE (50%) 50ML SYRG IV PRN (19:15)
[2021-09-06] MEDS ORDERED: GABAPENTIN 300 MG CAP PO PRN (19:15)
[2021-09-06] MEDS ORDERED: METOCLOPRAMIDE HCL 5MG/ml INJ 2ml VIAL IV PRN (19:15)
[2021-09-06] MEDS ORDERED: ALBUTEROL SULF 2.5 MG/0.5ML(0.5%) NEB SOLN NEB ONE (19:15)
[2021-09-06] MEDS ORDERED: BUDESONIDE (INHALATION) 0.5 MG/2 ML NEB NEB ONE (19:15)
[2021-09-06] MEDS ORDERED: IPRATROPIUM BROM 0.5 MG/2.5ML INH SOL NEB PRN (20:00)
[2021-09-06] MEDS ORDERED: ALBUTEROL SULF 2.5 MG/0.5ML(0.5%) NEB SOLN NEB PRN (20:00)
[2021-09-06] MEDS ORDERED: BUDESONIDE (INHALATION) 0.5 MG/2 ML NEB NEB SCH (22:00)
[2021-09-06] MEDS ORDERED: IPRATROPIUM BROM 0.5 MG/2.5ML INH SOL NEB SCH (22:00)
[2021-09-06] MEDS: InsuLIN REG 1unit/0.01ml Soln (100units/ml) SC SCH (22:00)
[2021-09-06] MEDS ORDERED: ALBUTEROL SULF 2.5 MG/0.5ML(0.5%) NEB SOLN NEB SCH (22:00)
[2021-09-06] MEDS: HYDROcodone-ACET 5/325MG TAB PO PRN (22:16)
[2021-09-06 23:30] VITALS: BP_SYST 134; BP_DIAS 85; BP_DIAS 95
[2021-09-07] VITALS (7 sets, daily range): BP systolic 126–148; BP diastolic 69–102
[2021-09-07] MEDS: FUROSEMIDE 20 MG/2 ML VIAL IV SCH ×2 (00:36→06:00)
[2021-09-07] MEDS: FAMOTIDINE (10MG/ML) 2ML VL IV SCH ×2 (00:37→09:08)
[2021-09-07] MEDS: ATORVASTATIN 20 MG TAB PO SCH ×2 (00:37→20:27)
[2021-09-07] MEDS: methylPREDNISolone SOD SUCC 40 MG/ML VL IV SCH ×4 (00:37→21:29)
[2021-09-07] MEDS: LOSARTAN POTASSIUM 50 MG TAB PO SCH ×3 (00:38→20:26)
[2021-09-07] MEDS: ENOXAPARIN SOD 40 MG/0.4 ML SYRINGE SC SCH ×3 (00:38→21:29)
[2021-09-07] MEDS: LORazepam 0.5 MG TAB PO PRN ×3 (00:38→20:26)
[2021-09-07] MEDS: ACCU-CHEK COMFORT CURVE STRIP VI SCH ×5 (00:38→21:35)
[2021-09-07] MEDS: GABAPENTIN 300 MG CAP PO SCH ×5 (00:38→23:23)
[2021-09-07] MEDS: InsuLIN REG 1unit/0.01ml Soln (100units/ml) SC SCH ×4 (06:01→21:36)
[2021-09-07 07:02] LABS: Basophils # (auto) 0 10 ^3/uL (0-0.2); Basophils % (auto) 0.4 % (0.0-2.0); Eosinophils # (auto) 0 10 ^3/uL (0-0.8); Eosinophils % (auto) 0.2 % (0.0-7.0); Hematocrit 41.6 % (36.0-46.0); Hemoglobin 13.7 g/dL (12.2-16.2); Lymphocytes # (auto) 0.6 10 ^3/uL (0.4-5.4); Lymphocytes % (auto) 8.2 % (10.0-50.0); Mean Corpuscular Hemoglobin 29.8 pg (28.0-32.0); Mean Corpuscular Hgb Conc. 32.9 g/dL (32.0-36.0); Mean Corpuscular Volume 90.6 fL (80.0-100.0); Monocytes # (auto) 0.1 10 ^3/uL (0-1.3); Monocytes % (auto) 1.4 % (0.0-12.0); Neutrophils # (auto) 6.3 10 ^3/uL (1.6-8.6); Neutrophils % (auto) 89.8 % (37.0-80.0); White Blood Cell 7.1 10^3/uL (4.4-10.8)
[2021-09-07 07:25] LABS: Potassium 4.1 mmol/L (3.5-5.1)
[2021-09-07 07:34] LABS: Albumin 3.5 g/dL (3.4-5.0); BUN/Creatinine Ratio 19.3; Bilirubin, Total 0.4 mg/dL (0.2-1.0); Calcium 8.7 mg/dL (8.5-10.1); Magnesium 2.8 mg/dL (1.6-2.6); Phosphorus 2.6 mg/dL (2.5-4.90); Total Protein 6.5 g/dL (6.4-8.2)
[2021-09-07 07:45] LABS: INR 0.95 (0.9-1.15); Partial Thromboplastin Time 27.7 sec (23.6-33.0)
[2021-09-07] MEDS: AZITHROMYCIN 500MG/ 250ML 250 ML IV SCH (09:09)
[2021-09-07] MEDS: dilTIAZem 120MG ER CAP PO SCH (09:09)
[2021-09-07] MEDS: ASPirin-EC 81 mg tab PO SCH (09:10)
[2021-09-07] MEDS: MULTIPLE VITAMIN TAB PO SCH (09:11)
[2021-09-07] MEDS: FLUoxetine HCL 20 MG CAP PO SCH (09:12)
[2021-09-07] MEDS: HYDROcodone-ACET 5/325MG TAB PO PRN ×3 (09:13→21:30)
[2021-09-07] MEDS ORDERED: ASCORBIC ACID 500 MG TAB PO SCH (10:00)
[2021-09-07] MEDS ORDERED: amLODIPine BESYLATE 5 MG TAB PO SCH (10:00)
[2021-09-07] MEDS ORDERED: cefTRIAXone 1GM/50ML D5W 50 ML IV ONE (14:15)
[2021-09-07] MEDS: ALBUTEROL SULF 2.5 MG/0.5ML(0.5%) NEB SOLN NEB SCH ×2 (14:43→18:57)
[2021-09-07] MEDS: IPRATROPIUM BROM 0.5 MG/2.5ML INH SOL NEB SCH ×2 (14:44→18:57)
[2021-09-07] MEDS: MONTELUKAST SODIUM 10 MG TAB PO SCH (20:26)
[2021-09-07 21:10] LABS: Urine Bacteria NONE SEEN /hpf (None Seen); Urine Blood Negative /uL (Negative); Urine Specific Gravity 1.017 (1.001-1.035); Urine WBC 1 /hpf (0 - 5)
[2021-09-07 21:19] LABS: Alcohol, Urine < 3.0 mg/dL (0-10); Amphetamine Screen, Urine NEGATIVE (NEGATIVE); Barbiturate Scree,Urine NEGATIVE (NEGATIVE); Benzodiazephine Screen, Urine NEGATIVE (NEGATIVE); Cannabinoid Screen, Urine NEGATIVE (NEGATIVE); Cocaine Screen, Urine NEGATIVE (NEGATIVE); Opiate Scree,Urine POSITIVE (NEGATIVE); Phencyclidine Screen, Urine NEGATIVE (NEGATIVE)
[2021-09-08] MEDS: IPRATROPIUM BROM 0.5 MG/2.5ML INH SOL NEB SCH ×4 (00:24→19:35)
[2021-09-08] MEDS: ALBUTEROL SULF 2.5 MG/0.5ML(0.5%) NEB SOLN NEB SCH ×4 (00:24→19:35)
[2021-09-08 04:54] VITALS: BP 132/82
[2021-09-08] MEDS: HYDROcodone-ACET 5/325MG TAB PO PRN ×2 (04:56→20:13)
[2021-09-08] MEDS: ACCU-CHEK COMFORT CURVE STRIP VI SCH ×4 (06:40→21:23)
[2021-09-08] MEDS: methylPREDNISolone SOD SUCC 40 MG/ML VL IV SCH ×3 (06:45→21:21)
[2021-09-08] MEDS: GABAPENTIN 300 MG CAP PO SCH ×3 (06:45→17:34)
[2021-09-08] MEDS: InsuLIN REG 1unit/0.01ml Soln (100units/ml) SC SCH ×4 (06:46→21:23)
[2021-09-08 07:16] LABS: Potassium 4.2 mmol/L (3.5-5.1)
[2021-09-08 07:21] LABS: BUN/Creatinine Ratio 23.7; Calcium 8.8 mg/dL (8.5-10.1)
[2021-09-08 09:08] VITALS: BP 140/90
[2021-09-08] MEDS: AZITHROMYCIN 500MG/ 250ML 250 ML IV SCH (09:31)
[2021-09-08] MEDS: cefTRIAXone 1GM/50ML D5W 50 ML IV SCH (09:31)
[2021-09-08] MEDS: dilTIAZem 120MG ER CAP PO SCH (09:32)
[2021-09-08] MEDS: LOSARTAN POTASSIUM 50 MG TAB PO SCH ×2 (09:32→21:22)
[2021-09-08] MEDS: ASPirin-EC 81 mg tab PO SCH (09:32)
[2021-09-08] MEDS: MULTIPLE VITAMIN TAB PO SCH (09:33)
[2021-09-08] MEDS: ENOXAPARIN SOD 40 MG/0.4 ML SYRINGE SC SCH (09:33)
[2021-09-08] MEDS: FLUoxetine HCL 20 MG CAP PO SCH (09:33)
[2021-09-08] MEDS ORDERED: METOCLOPRAMIDE HCL 5MG/ml INJ 2ml VIAL IV PRN (12:30)
[2021-09-08] MEDS ORDERED: FUROSEMIDE 20 MG/2 ML VIAL IV ONE (12:30)
[2021-09-08] MEDS ORDERED: POTASSIUM CHL 20 Meq TABLET PO ONE (12:30)
[2021-09-08 13:07] VITALS: BP 147/90
[2021-09-08 17:36] VITALS: BP 147/97
[2021-09-08] MEDS: ATORVASTATIN 20 MG TAB PO SCH (21:22)
[2021-09-08] MEDS: MONTELUKAST SODIUM 10 MG TAB PO SCH (21:22)
[2021-09-08] MEDS: LORazepam 0.5 MG TAB PO PRN (21:23)
[2021-09-08 22:00] VITALS: BP 143/93
[2021-09-09] MEDS: GABAPENTIN 300 MG CAP PO SCH ×4 (00:02→16:57)
[2021-09-09] MEDS: HYDROcodone-ACET 5/325MG TAB PO PRN ×2 (03:58→14:56)
[2021-09-09 04:56] VITALS: BP 149/94
[2021-09-09] MEDS: ALBUTEROL SULF 2.5 MG/0.5ML(0.5%) NEB SOLN NEB SCH ×3 (04:58→19:23)
[2021-09-09] MEDS: IPRATROPIUM BROM 0.5 MG/2.5ML INH SOL NEB SCH ×3 (04:58→19:23)
[2021-09-09] MEDS: methylPREDNISolone SOD SUCC 40 MG/ML VL IV SCH ×3 (05:50→22:14)
[2021-09-09] MEDS: InsuLIN REG 1unit/0.01ml Soln (100units/ml) SC SCH ×4 (06:18→22:26)
[2021-09-09] MEDS: ACCU-CHEK COMFORT CURVE STRIP VI SCH ×4 (06:18→22:13)
[2021-09-09 07:36] LABS: Potassium 4.4 mmol/L (3.5-5.1)
[2021-09-09 07:44] LABS: BUN/Creatinine Ratio 29.7; Calcium 8.9 mg/dL (8.5-10.1)
[2021-09-09 09:00] VITALS: BP 152/98
[2021-09-09] MEDS: AZITHROMYCIN 500MG/ 250ML 250 ML IV SCH (10:22)
[2021-09-09] MEDS: cefTRIAXone 1GM/50ML D5W 50 ML IV SCH (10:22)
[2021-09-09] MEDS: LOSARTAN POTASSIUM 50 MG TAB PO SCH ×2 (10:23→22:12)
[2021-09-09] MEDS: FLUoxetine HCL 20 MG CAP PO SCH (10:23)
[2021-09-09] MEDS: ASPirin-EC 81 mg tab PO SCH (10:23)
[2021-09-09] MEDS: MULTIPLE VITAMIN TAB PO SCH (10:23)
[2021-09-09] MEDS: dilTIAZem 120MG ER CAP PO SCH (10:23)
[2021-09-09] MEDS: ENOXAPARIN SOD 40 MG/0.4 ML SYRINGE SC SCH (10:24)
[2021-09-09] MEDS ORDERED: FUROSEMIDE 20 MG/2 ML VIAL IV ONE (12:45)
[2021-09-09] MEDS ORDERED: POTASSIUM CHL 20 Meq TABLET PO ONE (12:45)
[2021-09-09 13:00] VITALS: BP 163/95
[2021-09-09 17:00] VITALS: BP 143/67
[2021-09-09 22:00] VITALS: BP 137/86
[2021-09-09] MEDS: MONTELUKAST SODIUM 10 MG TAB PO SCH (22:13)
[2021-09-09] MEDS: ATORVASTATIN 20 MG TAB PO SCH (22:13)
[2021-09-09] MEDS: LORazepam 0.5 MG TAB PO PRN (22:24)
[2021-09-10] VITALS (7 sets, daily range): BP systolic 119–151; BP diastolic 77–99
[2021-09-10] MEDS: GABAPENTIN 300 MG CAP PO SCH ×5 (00:09→23:12)
[2021-09-10] MEDS: HYDROcodone-ACET 5/325MG TAB PO PRN ×4 (00:10→20:01)
[2021-09-10] MEDS: methylPREDNISolone SOD SUCC 40 MG/ML VL IV SCH ×3 (06:03→22:18)
[2021-09-10] MEDS: ACCU-CHEK COMFORT CURVE STRIP VI SCH ×4 (06:03→22:19)
[2021-09-10] MEDS: InsuLIN REG 1unit/0.01ml Soln (100units/ml) SC SCH ×4 (06:16→22:31)
[2021-09-10] MEDS: ALBUTEROL SULF 2.5 MG/0.5ML(0.5%) NEB SOLN NEB SCH ×3 (07:32→18:39)
[2021-09-10] MEDS: IPRATROPIUM BROM 0.5 MG/2.5ML INH SOL NEB SCH ×3 (07:32→18:39)
[2021-09-10] MEDS: cefTRIAXone 1GM/50ML D5W 50 ML IV SCH (09:38)
[2021-09-10] MEDS: dilTIAZem 120MG ER CAP PO SCH (09:39)
[2021-09-10] MEDS: LOSARTAN POTASSIUM 50 MG TAB PO SCH ×2 (09:40→22:19)
[2021-09-10] MEDS: MULTIPLE VITAMIN TAB PO SCH (09:40)
[2021-09-10] MEDS: ASPirin-EC 81 mg tab PO SCH (09:40)
[2021-09-10] MEDS: ENOXAPARIN SOD 40 MG/0.4 ML SYRINGE SC SCH (09:40)
[2021-09-10] MEDS: FLUoxetine HCL 20 MG CAP PO SCH (11:34)
[2021-09-10] MEDS: AZITHROMYCIN 500MG/ 250ML 250 ML IV SCH (11:56)
[2021-09-10] MEDS: ATORVASTATIN 20 MG TAB PO SCH (22:19)
[2021-09-10] MEDS: MONTELUKAST SODIUM 10 MG TAB PO SCH (22:19)
[2021-09-10] MEDS: LORazepam 0.5 MG TAB PO PRN (23:13)
[2021-09-11 05:00] VITALS: BP 160/105
[2021-09-11] MEDS: methylPREDNISolone SOD SUCC 40 MG/ML VL IV SCH ×3 (05:43→21:30)
[2021-09-11] MEDS: GABAPENTIN 300 MG CAP PO SCH ×3 (05:43→18:10)
[2021-09-11] MEDS: ACCU-CHEK COMFORT CURVE STRIP VI SCH ×4 (05:44→21:31)
[2021-09-11] MEDS: InsuLIN REG 1unit/0.01ml Soln (100units/ml) SC SCH ×4 (06:10→22:02)
[2021-09-11] MEDS: IPRATROPIUM BROM 0.5 MG/2.5ML INH SOL NEB SCH ×3 (06:35→20:31)
[2021-09-11] MEDS: ALBUTEROL SULF 2.5 MG/0.5ML(0.5%) NEB SOLN NEB SCH ×3 (06:35→20:31)
[2021-09-11] MEDS: BUDESONIDE (INHALATION) 0.5 MG/2 ML NEB NEB SCH ×2 (06:37→20:32)
[2021-09-11 08:00] VITALS: BP 144/97
[2021-09-11 09:00] VITALS: BP 144/97
[2021-09-11] MEDS: cefTRIAXone 1GM/50ML D5W 50 ML IV SCH (09:40)
[2021-09-11] MEDS: dilTIAZem 120MG ER CAP PO SCH (09:40)
[2021-09-11] MEDS: LOSARTAN POTASSIUM 50 MG TAB PO SCH ×2 (09:41→21:30)
[2021-09-11] MEDS: ASPirin-EC 81 mg tab PO SCH (09:41)
[2021-09-11] MEDS: MULTIPLE VITAMIN TAB PO SCH (09:41)
[2021-09-11] MEDS: FLUoxetine HCL 20 MG CAP PO SCH (09:41)
[2021-09-11] MEDS: ENOXAPARIN SOD 40 MG/0.4 ML SYRINGE SC SCH (09:42)
[2021-09-11] MEDS: AZITHROMYCIN 500MG/ 250ML 250 ML IV SCH (10:37)
[2021-09-11] MEDS: HYDROcodone-ACET 5/325MG TAB PO PRN ×2 (12:02→23:59)
[2021-09-11 13:00] VITALS: BP 152/98
[2021-09-11 17:00] VITALS: BP 137/89
[2021-09-11 21:24] VITALS: BP 134/84
[2021-09-11] MEDS: ATORVASTATIN 20 MG TAB PO SCH (21:31)
[2021-09-11] MEDS: MONTELUKAST SODIUM 10 MG TAB PO SCH (21:31)
[2021-09-11] MEDS: LORazepam 0.5 MG TAB PO PRN (21:32)
[2021-09-11] MEDS: ALUM & MAG HYDROX-SIMETH LIQ(MAALOX) 30 ML PO PRN (21:33)
[2021-09-12 04:58] VITALS: BP 159/98
[2021-09-12] MEDS: BUDESONIDE (INHALATION) 0.5 MG/2 ML NEB NEB SCH ×2 (06:08→19:43)
[2021-09-12] MEDS: IPRATROPIUM BROM 0.5 MG/2.5ML INH SOL NEB SCH ×3 (06:08→19:43)
[2021-09-12] MEDS: ALBUTEROL SULF 2.5 MG/0.5ML(0.5%) NEB SOLN NEB SCH ×3 (06:08→19:43)
[2021-09-12] MEDS: methylPREDNISolone SOD SUCC 40 MG/ML VL IV SCH ×2 (06:31→14:56)
[2021-09-12] MEDS: ACCU-CHEK COMFORT CURVE STRIP VI SCH ×4 (06:31→20:17)
[2021-09-12] MEDS: GABAPENTIN 300 MG CAP PO SCH ×4 (06:31→18:08)
[2021-09-12] MEDS: InsuLIN REG 1unit/0.01ml Soln (100units/ml) SC SCH ×4 (06:37→20:17)
[2021-09-12 08:00] VITALS: BP 139/95
[2021-09-12 09:00] VITALS: BP 139/95
[2021-09-12] MEDS: AZITHROMYCIN 500MG/ 250ML 250 ML IV SCH (10:00)
[2021-09-12] MEDS: ASPirin-EC 81 mg tab PO SCH (10:19)
[2021-09-12] MEDS: LOSARTAN POTASSIUM 50 MG TAB PO SCH ×2 (10:20→21:05)
[2021-09-12] MEDS: FLUoxetine HCL 20 MG CAP PO SCH (10:20)
[2021-09-12] MEDS: ENOXAPARIN SOD 40 MG/0.4 ML SYRINGE SC SCH (10:21)
[2021-09-12] MEDS: dilTIAZem 120MG ER CAP PO SCH (10:21)
[2021-09-12] MEDS: MULTIPLE VITAMIN TAB PO SCH (10:21)
[2021-09-12] MEDS: cefTRIAXone 1GM/50ML D5W 50 ML IV SCH (10:21)
[2021-09-12] MEDS: HYDROcodone-ACET 5/325MG TAB PO PRN ×2 (10:25→20:06)
[2021-09-12 13:00] VITALS: BP 133/82
[2021-09-12] MEDS: ALUM & MAG HYDROX-SIMETH LIQ(MAALOX) 30 ML PO PRN (14:59)
[2021-09-12 17:00] VITALS: BP 139/87
[2021-09-12] MEDS: ATORVASTATIN 20 MG TAB PO SCH (21:05)
[2021-09-12] MEDS: MONTELUKAST SODIUM 10 MG TAB PO SCH (21:06)
[2021-09-12 22:00] VITALS: BP 141/95
[2021-09-12] MEDS: LORazepam 0.5 MG TAB PO PRN (22:31)
[2021-09-13] MEDS: GABAPENTIN 300 MG CAP PO SCH ×3 (01:48→12:57)
[2021-09-13 05:30] VITALS: BP 166/97
[2021-09-13] MEDS: InsuLIN REG 1unit/0.01ml Soln (100units/ml) SC SCH ×2 (06:32→12:57)
[2021-09-13] MEDS: ACCU-CHEK COMFORT CURVE STRIP VI SCH ×2 (06:36→12:10)
[2021-09-13] MEDS: IPRATROPIUM BROM 0.5 MG/2.5ML INH SOL NEB SCH ×2 (08:25→13:06)
[2021-09-13] MEDS: ALBUTEROL SULF 2.5 MG/0.5ML(0.5%) NEB SOLN NEB SCH ×2 (08:25→13:06)
[2021-09-13 08:30] VITALS: BP 150/98
[2021-09-13] MEDS: cefTRIAXone 1GM/50ML D5W 50 ML IV SCH (08:44)
[2021-09-13] MEDS: HYDROcodone-ACET 5/325MG TAB PO PRN (08:47)
[2021-09-13] MEDS: FLUoxetine HCL 20 MG CAP PO SCH (09:04)
[2021-09-13] MEDS: LOSARTAN POTASSIUM 50 MG TAB PO SCH (09:05)
[2021-09-13] MEDS: MULTIPLE VITAMIN TAB PO SCH (09:05)
[2021-09-13] MEDS: ASPirin-EC 81 mg tab PO SCH (09:06)
[2021-09-13] MEDS: dilTIAZem 120MG ER CAP PO SCH (09:06)
[2021-09-13] MEDS ORDERED: predniSONE 20 MG TAB PO SCH (10:00)
[2021-09-13] MEDS ORDERED: AZITHROMYCIN 250 MG TAB PO SCH (10:00)
[2021-09-13 12:34] VITALS: BP 150/98
[2021-09-13] MEDS: BUDESONIDE (INHALATION) 0.5 MG/2 ML NEB NEB SCH (13:06)
== END 2021-09-13 13:25 | disposition home or self-care (01) | DRG 189 ==
LOC: ER 11:45 → TELE 15:40 → TELE-WESTW 23:15 → WEST WING 09-12 15:57
PROVIDERS: ADMIT Hospitalist; ATTEND Internal Medicine
DX: J96.00 Acute respiratory failure, unspecified whether with hypoxia or hypercapnia (principal); J44.1 Chronic obstructive pulmonary disease with (acute) exacerbation; E87.1 Hypo-osmolality and hyponatremia; J45.901 Unspecified asthma with (acute) exacerbation; I11.9 Hypertensive heart disease without heart failure; E11.9 Type 2 diabetes mellitus without complications; F32.9 Major depressive disorder, single episode, unspecified; F41.9 Anxiety disorder, unspecified; E78.5 Hyperlipidemia, unspecified; E66.01 Morbid (severe) obesity due to excess calories; I25.10 Atherosclerotic heart disease of native coronary artery without angina pectoris; Z96.659 Presence of unspecified artificial knee joint; M54.9 Dorsalgia, unspecified; R79.89 Other specified abnormal findings of blood chemistry; Z20.822 Contact with and (suspected) exposure to COVID-19; G89.29 Other chronic pain; Z79.82 Long term (current) use of aspirin; Z79.899 Other long term (current) drug therapy; Z82.5 Family history of asthma and other chronic lower respiratory diseases; Z83.3 Family history of diabetes mellitus; Z87.891 Personal history of nicotine dependence; Z90.710 Acquired absence of both cervix and uterus; Z90.49 Acquired absence of other specified parts of digestive tract; Z68.38 Body mass index [BMI] 38.0-38.9, adult
CPT/HCPCS: 36415; 36600; 71045; 71275; 80048; 80053; 80307; 81001; 82805; 82962; 83605; 83735; 83880; 84100; 84484; 85025; 85379; 85610; 85730; 87040; 87081; 87086; 87426; 93005; 93971; 94640; G0378; J0696; J1815; J3490

== ENCOUNTER 2021-10-22 10:08 | Emergency (ER) | payer MEDICAID, MEDICARE ==
[~2021-10-22] VITALS: Ht 162.6 cm; Wt 88.0 kg
[2021-10-22 11:29] LABS: Basophils # (auto) 0 10 ^3/uL (0-0.2); Basophils % (auto) 0.3 % (0.0-2.0); Eosinophils # (auto) 0 10 ^3/uL (0-0.8); Hematocrit 38.1 % (36.0-46.0); Hemoglobin 12.6 g/dL (12.2-16.2); Lymphocytes # (auto) 0.4 10 ^3/uL (0.4-5.4); Lymphocytes % (auto) 6.9 % (10.0-50.0); Mean Corpuscular Hemoglobin 29.2 pg (28.0-32.0); Mean Corpuscular Volume 88.6 fL (80.0-100.0); Monocytes # (auto) 0.1 10 ^3/uL (0-1.3); Monocytes % (auto) 1.9 % (0.0-12.0); Neutrophils # (auto) 5.9 10 ^3/uL (1.6-8.6); Neutrophils % (auto) 90.9 % (37.0-80.0); Red Blood Cells 4.31 10^6/uL (4.0-5.20); Red Cell Distribution Width 15.5 % (11.8-14.3); White Blood Cell 6.5 10^3/uL (4.4-10.8)
[2021-10-22] MEDS ORDERED: DexAMETHasone 4 MG TAB PO ONE (11:30)
[2021-10-22] MEDS ORDERED: MAGNESIUM SULFATE 1GM/100ML 100 ML IV ONE (11:30)
[2021-10-22] MEDS ORDERED: ALBUTEROL SULF 2.5 MG/0.5ML(0.5%) NEB SOLN NEB ONE (11:30)
[2021-10-22] MEDS ORDERED: IPRATROPIUM BROM 0.5 MG/2.5ML INH SOL NEB ONE (11:30)
[2021-10-22 11:48] LABS: Potassium 4.1 mmol/L (3.5-5.1)
[2021-10-22 11:50] LABS: Partial Thromboplastin Time 28.6 sec (23.6-33.0)
[2021-10-22 11:59] LABS: Albumin 3.7 g/dL (3.4-5.0); BUN/Creatinine Ratio 21.5; Bilirubin, Total 0.5 mg/dL (0.2-1.0); Calcium 9.1 mg/dL (8.5-10.1); Total Protein 6.8 g/dL (6.4-8.2)
[2021-10-22 14:15] VITALS: BP 134/85
== END 2021-10-22 14:18 | disposition home or self-care (01) ==
LOC: ER 10:08
DX: J44.1 Chronic obstructive pulmonary disease with (acute) exacerbation (principal); E11.9 Type 2 diabetes mellitus without complications; E78.5 Hyperlipidemia, unspecified; I10 Essential (primary) hypertension; Z90.49 Acquired absence of other specified parts of digestive tract; Z90.710 Acquired absence of both cervix and uterus
CPT/HCPCS: 36415; 71045; 80053; 84484; 85025; 85610; 85730; 93005; 99285; J8540

== ENCOUNTER 2021-12-23 09:58 | Inpatient (IN) | payer MEDICARE, MEDICAID ==
[2021-12-23] VITALS (7 sets, daily range): BP systolic 106–115; BP diastolic 64–85
[~2021-12-23] VITALS: Ht 162.6 cm; Wt 95.0 kg
[2021-12-23] MEDS ORDERED: IPRATROPIUM BROM 0.5 MG/2.5ML INH SOL NEB ONE (10:15)
[2021-12-23] MEDS ORDERED: ALBUTEROL SULF 2.5 MG/0.5ML(0.5%) NEB SOLN NEB ONE ×3 (10:15→11:30)
[2021-12-23] MEDS ORDERED: methylPREDNISolone SOD SUCC 125 MG/2 ML VL IV ONE (10:15)
[2021-12-23 10:45] LABS: Basophils # (auto) 0.1 10 ^3/uL (0-0.2); Basophils % (auto) 0.9 % (0.0-2.0); Eosinophils # (auto) 0.1 10 ^3/uL (0-0.8); Eosinophils % (auto) 1.8 % (0.0-7.0); Hematocrit 37.2 % (36.0-46.0); Hemoglobin 12.5 g/dL (12.2-16.2); Lymphocytes # (auto) 1.7 10 ^3/uL (0.4-5.4); Lymphocytes % (auto) 24.2 % (10.0-50.0); Mean Corpuscular Hemoglobin 28.5 pg (28.0-32.0); Mean Corpuscular Hgb Conc. 33.5 g/dL (32.0-36.0); Mean Corpuscular Volume 85.2 fL (80.0-100.0); Monocytes # (auto) 0.5 10 ^3/uL (0-1.3); Monocytes % (auto) 7.3 % (0.0-12.0); Neutrophils # (auto) 4.6 10 ^3/uL (1.6-8.6); Neutrophils % (auto) 65.8 % (37.0-80.0); Nucleated Red Blood Cells % 0.1 %; Red Blood Cells 4.37 10^6/uL (4.0-5.20); Red Cell Distribution Width 16.1 % (11.8-14.3)
[2021-12-23] MEDS ORDERED: ONDANSETRON HCL 4 MG/2 ML VIAL IV ONE (10:45)
[2021-12-23 10:59] LABS: INR 1.01 (0.9-1.15); Partial Thromboplastin Time 27.6 sec (23.6-33.0)
[2021-12-23 11:10] LABS: Albumin 3.6 g/dL (3.4-5.0); Calcium 9.3 mg/dL (8.5-10.1); Potassium 3.9 mmol/L (3.5-5.1)
[2021-12-23 11:11] LABS: BUN/Creatinine Ratio 18.9
[2021-12-23] MEDS ORDERED: FUROSEMIDE 40 MG/4 ML VIAL IV ONE (11:15)
[2021-12-23 11:16] LABS: Bilirubin, Total 0.5 mg/dL (0.2-1.0); Total Protein 6.1 g/dL (6.4-8.2)
[2021-12-23] MEDS ORDERED: IOHEXOL 350 MG/ML 100ML IJ ONE (12:06)
[2021-12-23] MEDS ORDERED: dilTIAZem 25 MG/5 ML VIAL IV ONE ×6 (12:15→17:30)
[2021-12-23 12:43] LABS: Urine Bacteria NONE SEEN /hpf (None Seen); Urine Blood Negative /uL (Negative); Urine Specific Gravity 1.009 (1.001-1.035); Urine WBC <1 /hpf (0 - 5)
[2021-12-23] MEDS ORDERED: dilTIAZem 125mg/125ml BAG KIT 125 ML IV ONE (13:45)
[2021-12-23] MEDS ORDERED: DIGOXIN (250MCG/ML) 2 ML AMPULE IV ONE (16:00)
[2021-12-23] MEDS ORDERED: SODIUM CHLORIDE 0.9% 1,000 ML IV SCH (16:00)
[2021-12-23] MEDS ORDERED: SODIUM CHLORIDE 0.9% 1,000 ML IV ONE (16:00)
[2021-12-23] MEDS ORDERED: HEPARIN SODIUM (PORCINE) 5000 UNITS/ML 1ML VIAL SC ONE (16:00)
[2021-12-23] MEDS ORDERED: IPRATROPIUM BROM 0.5 MG/2.5ML INH SOL NEB PRN (16:45)
[2021-12-23] MEDS ORDERED: cefTRIAXone 1GM/50ML D5W 50 ML IV ONE (16:45)
[2021-12-23] MEDS ORDERED: AZITHROMYCIN 500MG/ 250ML 250 ML IV ONE (16:45)
[2021-12-23] MEDS ORDERED: ALBUTEROL SULF 2.5 MG/0.5ML(0.5%) NEB SOLN NEB PRN (16:45)
[2021-12-23] MEDS ORDERED: DEXTROSE (50%) 50ML SYRG IV PRN (17:15)
[2021-12-23 17:27] LABS: Cholesterol 136 mg/dL (< 200)
[2021-12-23 17:31] LABS: HDL Cholesterol 66 mg/dL (40-59); LDL Cholesterol 59 mg/dL (< 100); Triglycerides 52 mg/dL (< 150)
[2021-12-23] MEDS: HEPARIN SODIUM (PORCINE) 5000 UNITS/ML 1ML VIAL SC SCH (17:33)
[2021-12-23 17:54] LABS: Alcohol, Urine < 3.0 mg/dL (0-10); Amphetamine Screen, Urine NEGATIVE (NEGATIVE); Barbiturate Scree,Urine NEGATIVE (NEGATIVE); Benzodiazephine Screen, Urine NEGATIVE (NEGATIVE); Cannabinoid Screen, Urine NEGATIVE (NEGATIVE); Cocaine Screen, Urine NEGATIVE (NEGATIVE); Opiate Scree,Urine NEGATIVE (NEGATIVE); Phencyclidine Screen, Urine NEGATIVE (NEGATIVE)
[2021-12-23] MEDS: ALBUTEROL SULF 2.5 MG/0.5ML(0.5%) NEB SOLN NEB SCH (19:04)
[2021-12-23] MEDS: IPRATROPIUM BROM 0.5 MG/2.5ML INH SOL NEB SCH (19:04)
[2021-12-23] MEDS: InsuLIN REG 1unit/0.01ml Soln (100units/ml) SC SCH (21:58)
[2021-12-23] MEDS: ACCU-CHEK COMFORT CURVE STRIP VI SCH (22:00)
[2021-12-23] MEDS: MORPHINE SULFATE INJECTION 2 MG/ML SYRG IV PRN (22:01)
[2021-12-24] VITALS (13 sets, daily range): BP systolic 121–150; BP diastolic 70–99
[2021-12-24] MEDS: HEPARIN SODIUM (PORCINE) 5000 UNITS/ML 1ML VIAL SC SCH ×2 (01:33→09:24)
[2021-12-24] MEDS: MORPHINE SULFATE INJECTION 2 MG/ML SYRG IV PRN (02:03)
[2021-12-24 04:25] LABS: Basophils # (auto) 0 10 ^3/uL (0-0.2); Basophils % (auto) 0.1 % (0.0-2.0); Eosinophils # (auto) 0 10 ^3/uL (0-0.8); Hematocrit 32.5 % (36.0-46.0); Hemoglobin 10.9 g/dL (12.2-16.2); Lymphocytes # (auto) 0.6 10 ^3/uL (0.4-5.4); Lymphocytes % (auto) 6.1 % (10.0-50.0); Mean Corpuscular Hemoglobin 28.7 pg (28.0-32.0); Mean Corpuscular Hgb Conc. 33.6 g/dL (32.0-36.0); Mean Corpuscular Volume 85.4 fL (80.0-100.0); Monocytes # (auto) 0.6 10 ^3/uL (0-1.3); Monocytes % (auto) 6.6 % (0.0-12.0); Neutrophils # (auto) 8.2 10 ^3/uL (1.6-8.6); Neutrophils % (auto) 87.2 % (37.0-80.0); Red Blood Cells 3.81 10^6/uL (4.0-5.20); White Blood Cell 9.4 10^3/uL (4.4-10.8)
[2021-12-24 04:45] LABS: Albumin 3.3 g/dL (3.4-5.0); BUN/Creatinine Ratio 20.7; Calcium 8.6 mg/dL (8.5-10.1); Potassium 3.8 mmol/L (3.5-5.1)
[2021-12-24 04:48] LABS: Bilirubin, Total 0.2 mg/dL (0.2-1.0); Total Protein 5.6 g/dL (6.4-8.2)
[2021-12-24] MEDS: IPRATROPIUM BROM 0.5 MG/2.5ML INH SOL NEB SCH ×3 (06:00→19:22)
[2021-12-24] MEDS: ALBUTEROL SULF 2.5 MG/0.5ML(0.5%) NEB SOLN NEB SCH ×3 (06:00→19:22)
[2021-12-24] MEDS: InsuLIN REG 1unit/0.01ml Soln (100units/ml) SC SCH ×4 (08:03→22:49)
[2021-12-24] MEDS: ACCU-CHEK COMFORT CURVE STRIP VI SCH ×4 (08:03→22:00)
[2021-12-24] MEDS: cefTRIAXone 1GM/50ML D5W 50 ML IV SCH (08:38)
[2021-12-24] MEDS: ONDANSETRON HCL 4 MG/2 ML VIAL IV PRN (08:54)
[2021-12-24] MEDS: AZITHROMYCIN 500MG/ 250ML 250 ML IV SCH ×4 (09:51→17:03)
[2021-12-24] MEDS ORDERED: methylPREDNISolone SOD SUCC 125 MG/2 ML VL IV SCH (10:00)
[2021-12-24] MEDS ORDERED: HYDROcodone-ACET 5/325MG TAB PO ONE (10:15)
[2021-12-24] MEDS: SODIUM CHLORIDE 0.9% 1,000 ML IV SCH (12:00)
[2021-12-24] MEDS ORDERED: HYDROcodone-ACET 5/325MG TAB PO PRN (16:30)
[2021-12-24] MEDS: RIVAROXABAN 15 MG TAB PO SCH (16:31)
[2021-12-24] MEDS: HYDROcodone-ACET 5/325MG TAB PO PRN ×2 (16:33→22:42)
[2021-12-24] MEDS: methylPREDNISolone SOD SUCC 40 MG/ML VL IV SCH (22:43)
[2021-12-25 05:32] VITALS: BP 162/77
[2021-12-25] MEDS: InsuLIN REG 1unit/0.01ml Soln (100units/ml) SC SCH ×4 (06:41→22:41)
[2021-12-25] MEDS: IPRATROPIUM BROM 0.5 MG/2.5ML INH SOL NEB SCH ×3 (06:43→19:12)
[2021-12-25] MEDS: ALBUTEROL SULF 2.5 MG/0.5ML(0.5%) NEB SOLN NEB SCH ×3 (06:43→19:12)
[2021-12-25] MEDS: ACCU-CHEK COMFORT CURVE STRIP VI SCH ×4 (07:00→22:00)
[2021-12-25] MEDS: SODIUM CHLORIDE 0.9% 1,000 ML IV SCH ×3 (07:23→14:01)
[2021-12-25 07:58] LABS: Basophils # (auto) 0 10 ^3/uL (0-0.2); Eosinophils # (auto) 0 10 ^3/uL (0-0.8); Hematocrit 36.1 % (36.0-46.0); Hemoglobin 12.4 g/dL (12.2-16.2); Lymphocytes # (auto) 0.9 10 ^3/uL (0.4-5.4); Mean Corpuscular Hemoglobin 29.3 pg (28.0-32.0); Mean Corpuscular Hgb Conc. 34.2 g/dL (32.0-36.0); Mean Corpuscular Volume 85.7 fL (80.0-100.0); Monocytes # (auto) 0.2 10 ^3/uL (0-1.3); Monocytes % (auto) 1.9 % (0.0-12.0); Neutrophils # (auto) 8.2 10 ^3/uL (1.6-8.6); Neutrophils % (auto) 88.1 % (37.0-80.0); Red Blood Cells 4.21 10^6/uL (4.0-5.20); Red Cell Distribution Width 16.3 % (11.8-14.3); White Blood Cell 9.3 10^3/uL (4.4-10.8)
[2021-12-25 08:11] LABS: Calcium 9.1 mg/dL (8.5-10.1); Magnesium 2.6 mg/dL (1.6-2.6); Potassium 4.1 mmol/L (3.5-5.1)
[2021-12-25 08:13] LABS: BUN/Creatinine Ratio 22.7
[2021-12-25] MEDS: HYDROcodone-ACET 5/325MG TAB PO PRN ×3 (08:15→22:32)
[2021-12-25 09:00] VITALS: BP 141/88
[2021-12-25] MEDS: cefTRIAXone 1GM/50ML D5W 50 ML IV SCH (09:00)
[2021-12-25] MEDS: methylPREDNISolone SOD SUCC 40 MG/ML VL IV SCH ×2 (09:31→22:29)
[2021-12-25] MEDS: dilTIAZem 120MG ER CAP PO SCH (09:31)
[2021-12-25] MEDS: ONDANSETRON HCL 4 MG/2 ML VIAL IV PRN (09:38)
[2021-12-25] MEDS ORDERED: ZOLPIDEM TARTRATE 5 MG TAB PO PRN (12:30)
[2021-12-25 13:00] VITALS: BP 144/82
[2021-12-25] MEDS: guaiFENesin-DM 100/10mg/5ml SYR PO PRN ×2 (14:42→22:32)
[2021-12-25 17:00] VITALS: BP 147/89
[2021-12-25] MEDS: RIVAROXABAN 15 MG TAB PO SCH (17:23)
[2021-12-25 22:02] VITALS: BP 146/89
[2021-12-26 04:41] LABS: Basophils # (auto) 0 10 ^3/uL (0-0.2); Basophils % (auto) 0.1 % (0.0-2.0); Eosinophils # (auto) 0 10 ^3/uL (0-0.8); Hematocrit 34.4 % (36.0-46.0); Hemoglobin 11.7 g/dL (12.2-16.2); Lymphocytes # (auto) 0.3 10 ^3/uL (0.4-5.4); Lymphocytes % (auto) 4.5 % (10.0-50.0); Mean Corpuscular Hemoglobin 29.1 pg (28.0-32.0); Mean Corpuscular Volume 85.5 fL (80.0-100.0); Monocytes # (auto) 0.2 10 ^3/uL (0-1.3); Monocytes % (auto) 2.3 % (0.0-12.0); Neutrophils # (auto) 7.1 10 ^3/uL (1.6-8.6); Neutrophils % (auto) 93.1 % (37.0-80.0); Red Blood Cells 4.02 10^6/uL (4.0-5.20); Red Cell Distribution Width 16.3 % (11.8-14.3); White Blood Cell 7.7 10^3/uL (4.4-10.8)
[2021-12-26 04:53] VITALS: BP 158/97
[2021-12-26 05:03] LABS: BUN/Creatinine Ratio 23.1; Calcium 8.9 mg/dL (8.5-10.1); Potassium 4.3 mmol/L (3.5-5.1)
[2021-12-26] MEDS: MORPHINE SULFATE INJECTION 2 MG/ML SYRG IV PRN (05:39)
[2021-12-26] MEDS: hydrALAZINE HCL 20 MG/ML VL IV PRN ×2 (05:40→18:48)
[2021-12-26] MEDS: ACCU-CHEK COMFORT CURVE STRIP VI SCH ×4 (06:28→21:45)
[2021-12-26] MEDS: IPRATROPIUM BROM 0.5 MG/2.5ML INH SOL NEB SCH ×3 (06:39→18:00)
[2021-12-26] MEDS: ALBUTEROL SULF 2.5 MG/0.5ML(0.5%) NEB SOLN NEB SCH ×3 (06:39→18:00)
[2021-12-26] MEDS: InsuLIN REG 1unit/0.01ml Soln (100units/ml) SC SCH ×4 (06:44→21:46)
[2021-12-26 09:00] VITALS: BP 148/81
[2021-12-26] MEDS: cefTRIAXone 1GM/50ML D5W 50 ML IV SCH (09:07)
[2021-12-26] MEDS: guaiFENesin-DM 100/10mg/5ml SYR PO PRN (09:08)
[2021-12-26] MEDS: AZITHROMYCIN 500MG/ 250ML 250 ML IV SCH (09:08)
[2021-12-26] MEDS: dilTIAZem 120MG ER CAP PO SCH (09:10)
[2021-12-26] MEDS: HYDROcodone-ACET 5/325MG TAB PO PRN ×2 (09:12→17:03)
[2021-12-26] MEDS: methylPREDNISolone SOD SUCC 40 MG/ML VL IV SCH ×2 (09:17→21:45)
[2021-12-26 17:00] VITALS: BP 166/82
[2021-12-26] MEDS: RIVAROXABAN 15 MG TAB PO SCH (17:03)
[2021-12-26 19:23] VITALS: BP 166/82
[2021-12-26] MEDS: LORazepam 0.5 MG TAB PO PRN (21:45)
[2021-12-26 22:00] VITALS: BP 125/67
[2021-12-26] MEDS: SODIUM CHLORIDE 0.9% 1,000 ML IV SCH (23:58)
[2021-12-27] MEDS: SODIUM CHLORIDE 0.9% 1,000 ML IV SCH (00:58)
[2021-12-27 05:56] LABS: Basophils # (auto) 0 10 ^3/uL (0-0.2); Basophils % (auto) 0.2 % (0.0-2.0); Eosinophils # (auto) 0 10 ^3/uL (0-0.8); Hematocrit 35.3 % (36.0-46.0); Hemoglobin 11.8 g/dL (12.2-16.2); Lymphocytes # (auto) 0.4 10 ^3/uL (0.4-5.4); Lymphocytes % (auto) 5.2 % (10.0-50.0); Mean Corpuscular Hemoglobin 28.5 pg (28.0-32.0); Mean Corpuscular Hgb Conc. 33.5 g/dL (32.0-36.0); Mean Corpuscular Volume 85.1 fL (80.0-100.0); Monocytes # (auto) 0.3 10 ^3/uL (0-1.3); Monocytes % (auto) 3.7 % (0.0-12.0); Neutrophils # (auto) 6.5 10 ^3/uL (1.6-8.6); Neutrophils % (auto) 90.9 % (37.0-80.0); Nucleated Red Blood Cells % 0.1 %; Red Blood Cells 4.15 10^6/uL (4.0-5.20); Red Cell Distribution Width 16.3 % (11.8-14.3); White Blood Cell 7.2 10^3/uL (4.4-10.8)
[2021-12-27] MEDS: IPRATROPIUM BROM 0.5 MG/2.5ML INH SOL NEB SCH ×4 (05:56→23:18)
[2021-12-27] MEDS: ALBUTEROL SULF 2.5 MG/0.5ML(0.5%) NEB SOLN NEB SCH ×4 (05:56→23:18)
[2021-12-27 06:01] VITALS: BP 163/95
[2021-12-27 06:12] LABS: BUN/Creatinine Ratio 21.2; Calcium 8.8 mg/dL (8.5-10.1)
[2021-12-27] MEDS: InsuLIN REG 1unit/0.01ml Soln (100units/ml) SC SCH ×4 (06:34→21:48)
[2021-12-27] MEDS: ACCU-CHEK COMFORT CURVE STRIP VI SCH ×4 (06:41→21:37)
[2021-12-27] MEDS: cefTRIAXone 1GM/50ML D5W 50 ML IV SCH (08:36)
[2021-12-27] MEDS: HYDROcodone-ACET 5/325MG TAB PO PRN ×2 (08:37→20:04)
[2021-12-27 09:00] VITALS: BP 148/83
[2021-12-27] MEDS: AZITHROMYCIN 500MG/ 250ML 250 ML IV SCH (09:48)
[2021-12-27] MEDS: methylPREDNISolone SOD SUCC 40 MG/ML VL IV SCH ×2 (09:48→21:37)
[2021-12-27] MEDS: dilTIAZem 120MG ER CAP PO SCH (09:49)
[2021-12-27 13:00] VITALS: BP 143/73
[2021-12-27 17:00] VITALS: BP 141/64
[2021-12-27] MEDS: RIVAROXABAN 15 MG TAB PO SCH (17:15)
[2021-12-27] MEDS: LORazepam 0.5 MG TAB PO PRN (21:37)
[2021-12-27 22:00] VITALS: BP 123/75
[2021-12-28 05:00] VITALS: BP 181/102
[2021-12-28] MEDS: hydrALAZINE HCL 20 MG/ML VL IV PRN (05:19)
[2021-12-28 06:10] LABS: Basophils # (auto) 0 10 ^3/uL (0-0.2); Basophils % (auto) 0.1 % (0.0-2.0); Eosinophils # (auto) 0 10 ^3/uL (0-0.8); Hematocrit 37.2 % (36.0-46.0); Hemoglobin 12.8 g/dL (12.2-16.2); Lymphocytes # (auto) 0.4 10 ^3/uL (0.4-5.4); Lymphocytes % (auto) 6.3 % (10.0-50.0); Mean Corpuscular Hemoglobin 29.1 pg (28.0-32.0); Mean Corpuscular Hgb Conc. 34.4 g/dL (32.0-36.0); Mean Corpuscular Volume 84.8 fL (80.0-100.0); Monocytes # (auto) 0.2 10 ^3/uL (0-1.3); Neutrophils # (auto) 6.2 10 ^3/uL (1.6-8.6); Neutrophils % (auto) 90.6 % (37.0-80.0); Nucleated Red Blood Cells % 0.2 %; Red Blood Cells 4.39 10^6/uL (4.0-5.20); Red Cell Distribution Width 16.2 % (11.8-14.3); White Blood Cell 6.9 10^3/uL (4.4-10.8)
[2021-12-28 06:35] LABS: BUN/Creatinine Ratio 22.9; Calcium 9.1 mg/dL (8.5-10.1); Potassium 4.2 mmol/L (3.5-5.1)
[2021-12-28] MEDS: ACCU-CHEK COMFORT CURVE STRIP VI SCH ×4 (06:37→21:23)
[2021-12-28 06:38] VITALS: BP 155/88
[2021-12-28] MEDS: InsuLIN REG 1unit/0.01ml Soln (100units/ml) SC SCH ×4 (06:38→21:41)
[2021-12-28 08:34] VITALS: BP 147/87
[2021-12-28] MEDS: methylPREDNISolone SOD SUCC 40 MG/ML VL IV SCH ×2 (09:19→21:40)
[2021-12-28] MEDS: dilTIAZem 120MG ER CAP PO SCH (09:20)
[2021-12-28] MEDS: HYDROcodone-ACET 5/325MG TAB PO PRN ×2 (09:21→19:57)
[2021-12-28] MEDS: levoFLOXacin 500 MG TAB PO SCH (09:21)
[2021-12-28] MEDS ORDERED: levoFLOXacin 750MG 150 ML IV SCH (10:00)
[2021-12-28] MEDS: ALBUTEROL SULF 2.5 MG/0.5ML(0.5%) NEB SOLN NEB SCH ×2 (12:39→18:33)
[2021-12-28] MEDS: IPRATROPIUM BROM 0.5 MG/2.5ML INH SOL NEB SCH ×2 (12:39→18:33)
[2021-12-28 13:00] VITALS: BP 146/94
[2021-12-28] MEDS: SODIUM CHLORIDE 0.9% 1,000 ML IV SCH (16:00)
[2021-12-28 17:00] VITALS: BP 153/85
[2021-12-28] MEDS: RIVAROXABAN 15 MG TAB PO SCH (18:00)
[2021-12-28] MEDS: LORazepam 0.5 MG TAB PO PRN (21:30)
[2021-12-28 22:00] VITALS: BP 142/78
[2021-12-29 05:00] VITALS: BP 154/103
[2021-12-29] MEDS: IPRATROPIUM BROM 0.5 MG/2.5ML INH SOL NEB SCH ×2 (06:19→11:47)
[2021-12-29] MEDS: ALBUTEROL SULF 2.5 MG/0.5ML(0.5%) NEB SOLN NEB SCH ×2 (06:19→11:47)
[2021-12-29 06:39] LABS: Basophils # (auto) 0 10 ^3/uL (0-0.2); Basophils % (auto) 0.2 % (0.0-2.0); Eosinophils # (auto) 0 10 ^3/uL (0-0.8); Hematocrit 39.3 % (36.0-46.0); Hemoglobin 13.1 g/dL (12.2-16.2); Lymphocytes # (auto) 0.5 10 ^3/uL (0.4-5.4); Lymphocytes % (auto) 6.3 % (10.0-50.0); Mean Corpuscular Hemoglobin 28.4 pg (28.0-32.0); Mean Corpuscular Hgb Conc. 33.3 g/dL (32.0-36.0); Mean Corpuscular Volume 85.4 fL (80.0-100.0); Monocytes # (auto) 0.5 10 ^3/uL (0-1.3); Monocytes % (auto) 5.9 % (0.0-12.0); Neutrophils # (auto) 7.6 10 ^3/uL (1.6-8.6); Neutrophils % (auto) 87.6 % (37.0-80.0); White Blood Cell 8.7 10^3/uL (4.4-10.8)
[2021-12-29] MEDS: ACCU-CHEK COMFORT CURVE STRIP VI SCH ×2 (06:54→12:36)
[2021-12-29] MEDS: InsuLIN REG 1unit/0.01ml Soln (100units/ml) SC SCH ×2 (06:54→12:35)
[2021-12-29 06:57] LABS: Calcium 9.3 mg/dL (8.5-10.1); Potassium 4.4 mmol/L (3.5-5.1)
[2021-12-29 06:59] LABS: BUN/Creatinine Ratio 25.4
[2021-12-29 09:00] VITALS: BP 147/89
[2021-12-29] MEDS: methylPREDNISolone SOD SUCC 40 MG/ML VL IV SCH (09:57)
[2021-12-29] MEDS: levoFLOXacin 500 MG TAB PO SCH (09:59)
[2021-12-29] MEDS: dilTIAZem 120MG ER CAP PO SCH (09:59)
[2021-12-29] MEDS: MORPHINE SULFATE INJECTION 2 MG/ML SYRG IV PRN (10:00)
[2021-12-29] MEDS ORDERED: PRED20TA2 PO (11:09)
[2021-12-29] MEDS ORDERED: DILT180C52 PO (11:09)
[2021-12-29] MEDS ORDERED: FLUT1AER17 IN (11:09)
[2021-12-29] MEDS ORDERED: ALBUAER3 IN (11:09)
[2021-12-29] MEDS: SODIUM CHLORIDE 0.9% 1,000 ML IV SCH (12:34)
[2021-12-29 13:00] VITALS: BP 147/94
[2021-12-29 14:40] VITALS: BP 135/82
[2021-12-30] MEDS ORDERED: RIVA20TA PO (12:39)
== END 2021-12-29 16:38 | disposition home or self-care (01) | DRG 208 ==
LOC: ER 09:58 → ICU WEST 16:41 → TELE-WESTW 12-24 12:01
PROVIDERS: ADMIT Registered Nurse; ATTEND Internal Medicine Pulmonary Disease
PROC: 5A1935Z Respiratory Ventilation, Less than 24 Consecutive Hours (ICD-10-PCS; principal; 2021-12-24)
DX: J96.21 Acute and chronic respiratory failure with hypoxia (principal); J44.1 Chronic obstructive pulmonary disease with (acute) exacerbation; I47.1 Supraventricular tachycardia; I48.91 Unspecified atrial fibrillation; E11.9 Type 2 diabetes mellitus without complications; E66.9 Obesity, unspecified; E78.5 Hyperlipidemia, unspecified; G89.29 Other chronic pain; Z20.822 Contact with and (suspected) exposure to COVID-19; I25.10 Atherosclerotic heart disease of native coronary artery without angina pectoris; Z82.5 Family history of asthma and other chronic lower respiratory diseases; Z68.36 Body mass index [BMI] 36.0-36.9, adult; Z99.81 Dependence on supplemental oxygen; Z90.710 Acquired absence of both cervix and uterus; Z83.3 Family history of diabetes mellitus; Z87.891 Personal history of nicotine dependence; Z90.49 Acquired absence of other specified parts of digestive tract; I25.2 Old myocardial infarction; I10 Essential (primary) hypertension
CPT/HCPCS: 36415; 36600; 71045; 71275; 80048; 80053; 80061; 80162; 80307; 81001; 82805; 82962; 83036; 83735; 83880; 84443; 84484; 85025; 85379; 85610; 85730; 87040; 87081; 93005; 93886; 94640; 94644; 96374; 96375; 97116; 97163; 97530; 99291; G0378; J0696; J1815; J2405

== ENCOUNTER 2022-01-05 10:53 | Emergency (ER) | payer MEDICARE, MEDICAID ==
[~2022-01-05] VITALS: Ht 162.6 cm; Wt 89.8 kg
[~2022-01-05 10:53] MED LIST changes: -AMLO-489 PO; +PRED20TA2 PO; +RIVA20TA PO
[2022-01-05 11:32] LABS: Basophils # (auto) 0.2 10 ^3/uL (0-0.2); Basophils % (auto) 1.5 % (0.0-2.0); Eosinophils # (auto) 0.1 10 ^3/uL (0-0.8); Eosinophils % (auto) 0.6 % (0.0-7.0); Hematocrit 41.6 % (36.0-46.0); Hemoglobin 13.7 g/dL (12.2-16.2); Lymphocytes # (auto) 2.4 10 ^3/uL (0.4-5.4); Lymphocytes % (auto) 21.1 % (10.0-50.0); Mean Corpuscular Hemoglobin 28.2 pg (28.0-32.0); Mean Corpuscular Hgb Conc. 32.9 g/dL (32.0-36.0); Monocytes # (auto) 1.1 10 ^3/uL (0-1.3); Monocytes % (auto) 9.6 % (0.0-12.0); Neutrophils # (auto) 7.7 10 ^3/uL (1.6-8.6); Neutrophils % (auto) 67.2 % (37.0-80.0); Nucleated Red Blood Cells % 0.1 %; Red Blood Cells 4.84 10^6/uL (4.0-5.20); Red Cell Distribution Width 17.3 % (11.8-14.3); White Blood Cell 11.5 10^3/uL (4.4-10.8)
[2022-01-05 11:44] LABS: Albumin 3.3 g/dL (3.4-5.0); Calcium 8.7 mg/dL (8.5-10.1)
[2022-01-05 11:47] LABS: Bilirubin, Total 0.5 mg/dL (0.2-1.0); Total Protein 5.7 g/dL (6.4-8.2)
[2022-01-05 11:51] LABS: INR 1.1 (0.9-1.15); Partial Thromboplastin Time 30.1 sec (23.6-33.0)
[2022-01-05 11:53] LABS: Potassium 4.7 mmol/L (3.5-5.1)
[2022-01-05] MEDS ORDERED: FUROSEMIDE 40 MG/4 ML VIAL IV ONE (12:00)
[2022-01-05] MEDS ORDERED: methylPREDNISolone SOD SUCC 125 MG/2 ML VL IV ONE (12:00)
[2022-01-05 12:26] LABS: BUN/Creatinine Ratio 20.4
[2022-01-05] MEDS ORDERED: cefTRIAXone 1GM/50ML D5W 50 ML IV ONE (14:30)
[2022-01-05 15:15] VITALS: BP 110/69
== END 2022-01-05 15:35 | disposition home or self-care (01) ==
LOC: ER 10:53
DX: J44.1 Chronic obstructive pulmonary disease with (acute) exacerbation (principal); I11.0 Hypertensive heart disease with heart failure; I50.9 Heart failure, unspecified; I48.91 Unspecified atrial fibrillation; E11.9 Type 2 diabetes mellitus without complications; E78.5 Hyperlipidemia, unspecified; Z90.49 Acquired absence of other specified parts of digestive tract; Z90.710 Acquired absence of both cervix and uterus
CPT/HCPCS: 36415; 71045; 80053; 84484; 85025; 85610; 85730; 93005; 96365; 96375; 99285; J0696; J2930

== ENCOUNTER 2022-02-13 10:12 | Inpatient (IN) | payer MEDICARE, MEDICAID ==
[~2022-02-13] VITALS: Ht 162.6 cm; Wt 93.1 kg
[2022-02-13 11:47] LABS: Basophils # (auto) 0.1 10 ^3/uL (0-0.2); Basophils % (auto) 0.8 % (0.0-2.0); Eosinophils # (auto) 0.1 10 ^3/uL (0-0.8); Hematocrit 38.1 % (36.0-46.0); Hemoglobin 12.9 g/dL (12.2-16.2); Lymphocytes # (auto) 1.1 10 ^3/uL (0.4-5.4); Lymphocytes % (auto) 13.9 % (10.0-50.0); Mean Corpuscular Hemoglobin 28.3 pg (28.0-32.0); Mean Corpuscular Hgb Conc. 33.8 g/dL (32.0-36.0); Mean Corpuscular Volume 83.8 fL (80.0-100.0); Monocytes # (auto) 0.6 10 ^3/uL (0-1.3); Neutrophils % (auto) 76.3 % (37.0-80.0); Red Blood Cells 4.55 10^6/uL (4.0-5.20); Red Cell Distribution Width 17.5 % (11.8-14.3); White Blood Cell 7.9 10^3/uL (4.4-10.8)
[2022-02-13 12:42] LABS: Urine WBC None Seen /hpf (0 - 5)
[2022-02-13 12:45] LABS: Albumin 3.6 g/dL (3.4-5.0); BUN/Creatinine Ratio 16.9; Calcium 9.6 mg/dL (8.5-10.1); Potassium 3.7 mmol/L (3.5-5.1)
[2022-02-13 12:49] LABS: Bilirubin, Total 0.4 mg/dL (0.2-1.0); Total Protein 6.2 g/dL (6.4-8.2)
[2022-02-13 13:05] LABS: Urine Bacteria NONE SEEN /hpf (None Seen); Urine Blood Negative /uL (Negative); Urine Specific Gravity 1.006 (1.001-1.035)
[2022-02-13] MEDS ORDERED: NITROGLYCERIN 0.4 MG SL TAB SL PRN (13:15)
[2022-02-13] MEDS ORDERED: MORPHINE SULFATE INJECTION 2 MG/ML SYRG IV PRN ×2 (13:15→14:30)
[2022-02-13] MEDS ORDERED: hydrALAZINE HCL 20 MG/ML VL IV PRN (14:30)
[2022-02-13] MEDS ORDERED: IPRATROPIUM BROM 0.5 MG/2.5ML INH SOL NEB ONE (14:30)
[2022-02-13] MEDS ORDERED: ONDANSETRON HCL 4 MG/2 ML VIAL IV PRN (14:30)
[2022-02-13] MEDS ORDERED: PANTOPRAZOLE 40 MG/10 ML VIAL INJ IV ONE (14:30)
[2022-02-13] MEDS ORDERED: ACETAMINOPHEN 325 MG TAB PO PRN (14:30)
[2022-02-13] MEDS ORDERED: BUDESONIDE (INHALATION) 0.5 MG/2 ML NEB NEB ONE (14:30)
[2022-02-13] MEDS ORDERED: DOCUSATE SOD 100 MG CAP PO PRN (14:30)
[2022-02-13] MEDS: HYDROcodone-ACET 5/325MG TAB PO PRN (16:24)
[2022-02-13 17:07] VITALS: BP 167/82
[2022-02-13] MEDS ORDERED: IPRATROPIUM BROM 0.5 MG/2.5ML INH SOL NEB SCH (18:00)
[2022-02-13] MEDS: ALBUTEROL SULF 2.5 MG/0.5ML(0.5%) NEB SOLN NEB PRN (19:41)
[2022-02-13] MEDS: IPRATROPIUM BROM 0.5 MG/2.5ML INH SOL NEB PRN (19:41)
[2022-02-13 20:00] VITALS: BP 134/93
[2022-02-13 20:46] LABS: Magnesium 1.8 mg/dL (1.6-2.6); Phosphorus 3.3 mg/dL (2.5-4.90)
[2022-02-13] MEDS: ATORVASTATIN 20 MG TAB PO SCH (21:44)
[2022-02-13 22:00] VITALS: BP 134/93
[2022-02-13] MEDS ORDERED: RIVAROXABAN 15 MG TAB PO ONE (22:00)
[2022-02-13] MEDS ORDERED: BUDESONIDE (INHALATION) 0.5 MG/2 ML NEB NEB SCH (22:00)
[2022-02-13] MEDS ORDERED: TEMAZEPAM 15 MG CAP PO ONE (23:15)
[2022-02-13 23:26] LABS: INR 1.07 (0.9-1.15); Partial Thromboplastin Time 31.6 sec (23.6-33.0)
[2022-02-14] MEDS: HYDROcodone-ACET 5/325MG TAB PO PRN ×4 (00:07→23:44)
[2022-02-14] MEDS: IPRATROPIUM BROM 0.5 MG/2.5ML INH SOL NEB PRN ×2 (00:57→19:28)
[2022-02-14] MEDS: ALBUTEROL SULF 2.5 MG/0.5ML(0.5%) NEB SOLN NEB PRN ×2 (00:57→19:29)
[2022-02-14 05:00] VITALS: BP 147/87
[2022-02-14] MEDS: AZITHROMYCIN 500MG/ 250ML 250 ML IV SCH ×2 (05:26→21:27)
[2022-02-14 09:00] VITALS: BP 148/96
[2022-02-14] MEDS: PANTOPRAZOLE 40 MG/10 ML VIAL INJ IV SCH (09:17)
[2022-02-14] MEDS: ASPirin 81 mg TAB PO SCH (09:17)
[2022-02-14] MEDS: methylPREDNISolone SOD SUCC 40 MG/ML VL IV SCH ×2 (09:18→21:21)
[2022-02-14] MEDS: dilTIAZem HCL 180MG ER CAP PO SCH (09:19)
[2022-02-14] MEDS ORDERED: ENOXAPARIN SOD 40 MG/0.4 ML SYRINGE SC SCH (10:00)
[2022-02-14] MEDS: BUDESONIDE (INHALATION) 0.5 MG/2 ML NEB NEB SCH ×2 (10:16→19:28)
[2022-02-14 11:35] LABS: Basophils # (auto) 0 10 ^3/uL (0-0.2); Basophils % (auto) 0.6 % (0.0-2.0); Eosinophils # (auto) 0.1 10 ^3/uL (0-0.8); Hematocrit 38.4 % (36.0-46.0); Hemoglobin 12.5 g/dL (12.2-16.2); Lymphocytes # (auto) 0.9 10 ^3/uL (0.4-5.4); Lymphocytes % (auto) 13.4 % (10.0-50.0); Mean Corpuscular Hemoglobin 27.4 pg (28.0-32.0); Mean Corpuscular Hgb Conc. 32.5 g/dL (32.0-36.0); Mean Corpuscular Volume 84.2 fL (80.0-100.0); Monocytes # (auto) 0.4 10 ^3/uL (0-1.3); Monocytes % (auto) 5.3 % (0.0-12.0); Neutrophils # (auto) 5.5 10 ^3/uL (1.6-8.6); Neutrophils % (auto) 79.7 % (37.0-80.0); Nucleated Red Blood Cells % 0.1 %; Red Blood Cells 4.56 10^6/uL (4.0-5.20); Red Cell Distribution Width 17.2 % (11.8-14.3); White Blood Cell 6.9 10^3/uL (4.4-10.8)
[2022-02-14 12:05] LABS: Albumin 3.4 g/dL (3.4-5.0); Calcium 9.2 mg/dL (8.5-10.1); Magnesium 1.8 mg/dL (1.6-2.6); Potassium 3.9 mmol/L (3.5-5.1); Uric Acid 4.9 mg/dL (2.6-6.0)
[2022-02-14 12:09] LABS: Bilirubin, Total 0.4 mg/dL (0.2-1.0); CRP High Sensitivity 0.43 mg/dL (< 0.3); Phosphorus 3.6 mg/dL (2.5-4.90); Total Protein 6.1 g/dL (6.4-8.2)
[2022-02-14 13:00] VITALS: BP 160/97
[2022-02-14 13:04] LABS: INR 1.11 (0.9-1.15); Partial Thromboplastin Time 33.6 sec (23.6-33.0)
[2022-02-14 17:00] VITALS: BP 155/87
[2022-02-14] MEDS ORDERED: DEXTROSE (50%) 50ML SYRG IV PRN (17:45)
[2022-02-14] MEDS ORDERED: RIVAROXABAN 15 MG TAB PO SCH (18:00)
[2022-02-14] MEDS: ATORVASTATIN 20 MG TAB PO SCH (21:20)
[2022-02-14] MEDS: ACCU-CHEK COMFORT CURVE STRIP VI SCH (21:27)
[2022-02-14] MEDS: InsuLIN REG 1unit/0.01ml Soln (100units/ml) SC SCH (21:40)
[2022-02-14 22:00] VITALS: BP 113/70
[2022-02-15 05:00] VITALS: BP 152/87
[2022-02-15] MEDS: HYDROcodone-ACET 5/325MG TAB PO PRN (05:40)
[2022-02-15] MEDS: ACCU-CHEK COMFORT CURVE STRIP VI SCH ×2 (05:57→12:10)
[2022-02-15 05:58] LABS: BUN/Creatinine Ratio 20.8; Magnesium 1.8 mg/dL (1.6-2.6)
[2022-02-15] MEDS: InsuLIN REG 1unit/0.01ml Soln (100units/ml) SC SCH ×2 (05:58→12:26)
[2022-02-15 09:00] VITALS: BP 136/93
[2022-02-15] MEDS: BUDESONIDE (INHALATION) 0.5 MG/2 ML NEB NEB SCH (09:30)
[2022-02-15] MEDS: dilTIAZem HCL 180MG ER CAP PO SCH (09:36)
[2022-02-15] MEDS: methylPREDNISolone SOD SUCC 40 MG/ML VL IV SCH (09:37)
[2022-02-15] MEDS: ASPirin 81 mg TAB PO SCH (09:37)
[2022-02-15] MEDS: PANTOPRAZOLE 40 MG/10 ML VIAL INJ IV SCH (09:37)
[2022-02-15 13:00] VITALS: BP 153/95
[2022-02-15] MEDS ORDERED: ALBUAER3 IN (15:44)
[2022-02-15 16:08] VITALS: BP 145/90
[2022-02-15 16:30] VITALS: BP 145/90
== END 2022-02-15 17:00 | disposition home or self-care (01) | DRG 190 ==
LOC: ER 10:12 → OVERFLOW 13:15 → TELE 15:10 → TELE-WESTW 16:47
PROVIDERS: ADMIT Hospitalist; ATTEND Internal Medicine
DX: J44.1 Chronic obstructive pulmonary disease with (acute) exacerbation (principal); J18.0 Bronchopneumonia, unspecified organism; F11.20 Opioid dependence, uncomplicated; J45.51 Severe persistent asthma with (acute) exacerbation; J44.0 Chronic obstructive pulmonary disease with (acute) lower respiratory infection; E88.81 Metabolic syndrome and other insulin resistance; I48.91 Unspecified atrial fibrillation; I11.0 Hypertensive heart disease with heart failure; G89.4 Chronic pain syndrome; F41.9 Anxiety disorder, unspecified; E11.9 Type 2 diabetes mellitus without complications; Z68.35 Body mass index [BMI] 35.0-35.9, adult; E66.01 Morbid (severe) obesity due to excess calories; E78.5 Hyperlipidemia, unspecified; Z96.659 Presence of unspecified artificial knee joint; Z20.822 Contact with and (suspected) exposure to COVID-19; F32.9 Major depressive disorder, single episode, unspecified; I25.10 Atherosclerotic heart disease of native coronary artery without angina pectoris; I50.9 Heart failure, unspecified; T38.0X5A Adverse effect of glucocorticoids and synthetic analogues, initial encounter; Z79.01 Long term (current) use of anticoagulants; Z79.82 Long term (current) use of aspirin; Z79.899 Other long term (current) drug therapy; Z82.5 Family history of asthma and other chronic lower respiratory diseases; Z83.3 Family history of diabetes mellitus; Z86.73 Personal history of transient ischemic attack (TIA), and cerebral infarction without residual deficits; Z87.891 Personal history of nicotine dependence; Z90.710 Acquired absence of both cervix and uterus
CPT/HCPCS: 36415; 36600; 71045; 73030; 80048; 80053; 80061; 81001; 82306; 82550; 82607; 82728; 82805; 82962; 83036; 83615; 83690; 83735; 83880; 84100; 84443; 84484; 84550; 85025; 85379; 85610; 85652; 85730; 86141; 87040; 87086; 93005; 94640; 96374; 99291; C9113; G0378; J1815

== ENCOUNTER 2022-03-12 08:07 | Emergency (ER) | payer MEDICARE, MEDICAID ==
[~2022-03-12] VITALS: Ht 162.6 cm; Wt 88.5 kg
[~2022-03-12 08:07] MED LIST changes: -ASCO500T11 PO; -DICL1GEL50 TOP; -FLUT1AER17 IN; -MULT-1018 PO; -PRED20TA2 PO; -TURM500C3 PO; -[UNRECOGNIZED DRUG - CODE] PO
[2022-03-12] MEDS ORDERED: EMPA1TAB PO (08:20)
[2022-03-12 11:08] LABS: Basophils # (auto) 0.2 10 ^3/uL (0-0.2); Basophils % (auto) 4.1 % (0.0-2.0); Eosinophils # (auto) 0.1 10 ^3/uL (0-0.8); Eosinophils % (auto) 2.3 % (0.0-7.0); Hemoglobin 12.8 g/dL (12.2-16.2); Lymphocytes # (auto) 0.9 10 ^3/uL (0.4-5.4); Mean Corpuscular Hemoglobin 28.5 pg (28.0-32.0); Mean Corpuscular Hgb Conc. 33.7 g/dL (32.0-36.0); Mean Corpuscular Volume 84.6 fL (80.0-100.0); Monocytes # (auto) 0.4 10 ^3/uL (0-1.3); Neutrophils # (auto) 3.3 10 ^3/uL (1.6-8.6); Neutrophils % (auto) 67.6 % (37.0-80.0); Nucleated Red Blood Cells % 0.1 %; Red Blood Cells 4.49 10^6/uL (4.0-5.20); Red Cell Distribution Width 17.7 % (11.8-14.3); White Blood Cell 4.8 10^3/uL (4.4-10.8)
[2022-03-12 11:22] LABS: Albumin 3.5 g/dL (3.4-5.0); BUN/Creatinine Ratio 15.8; Calcium 9.9 mg/dL (8.5-10.1); Potassium 3.8 mmol/L (3.5-5.1)
[2022-03-12 11:25] LABS: Bilirubin, Total 0.4 mg/dL (0.2-1.0); Total Protein 6.4 g/dL (6.4-8.2)
[2022-03-12] MEDS ORDERED: ALBUTEROL SULF 2.5 MG/0.5ML(0.5%) NEB SOLN NEB ONE (12:30)
[2022-03-12] MEDS ORDERED: IOHEXOL 350 MG/ML 100ML IJ ONE (12:43)
[2022-03-12 13:00] VITALS: BP 155/86
== END 2022-03-12 15:29 | disposition home or self-care (01) ==
LOC: ER 08:07
DX: R07.89 Other chest pain (principal); I11.0 Hypertensive heart disease with heart failure; I50.9 Heart failure, unspecified; E11.9 Type 2 diabetes mellitus without complications; E78.5 Hyperlipidemia, unspecified; J44.9 Chronic obstructive pulmonary disease, unspecified; Z90.49 Acquired absence of other specified parts of digestive tract; Z90.710 Acquired absence of both cervix and uterus
CPT/HCPCS: 36415; 71045; 71275; 80053; 83735; 83880; 84484; 85025; 93005; 93970; 94640; 99285; Q9967

== ENCOUNTER 2022-04-21 10:17 | Inpatient (IN) | payer OTHER, MEDICAID ==
[~2022-04-21] VITALS: Ht 162.6 cm; Wt 83.0 kg
[~2022-04-21 10:17] MED LIST changes: -ASPI1TAB20 PO; -B-COTAB59 PO; +EMPA1TAB PO
[2022-04-21] MEDS ORDERED: methylPREDNISolone SOD SUCC 125 MG/2 ML VL IV ONE (10:45)
[2022-04-21] MEDS ORDERED: ALBUTEROL SULF 2.5 MG/0.5ML(0.5%) NEB SOLN HHN ONE (10:45)
[2022-04-21] MEDS ORDERED: IPRATROPIUM BROM 0.5 MG/2.5ML INH SOL HHN ONE (10:45)
[2022-04-21 11:52] LABS: Basophils # (auto) 0.1 10 ^3/uL (0-0.2); Basophils % (auto) 1.1 % (0.0-2.0); Eosinophils # (auto) 0.1 10 ^3/uL (0-0.8); Eosinophils % (auto) 1.7 % (0.0-7.0); Hematocrit 40.9 % (36.0-46.0); Hemoglobin 13.2 g/dL (12.2-16.2); Lymphocytes # (auto) 1.1 10 ^3/uL (0.4-5.4); Lymphocytes % (auto) 17.8 % (10.0-50.0); Mean Corpuscular Hemoglobin 27.5 pg (28.0-32.0); Mean Corpuscular Hgb Conc. 32.2 g/dL (32.0-36.0); Mean Corpuscular Volume 85.4 fL (80.0-100.0); Monocytes # (auto) 0.5 10 ^3/uL (0-1.3); Monocytes % (auto) 7.8 % (0.0-12.0); Neutrophils # (auto) 4.4 10 ^3/uL (1.6-8.6); Neutrophils % (auto) 71.6 % (37.0-80.0); Red Blood Cells 4.79 10^6/uL (4.0-5.20); Red Cell Distribution Width 16.9 % (11.8-14.3); White Blood Cell 6.1 10^3/uL (4.4-10.8)
[2022-04-21 12:06] LABS: Albumin 3.9 g/dL (3.4-5.0); Calcium 9.9 mg/dL (8.5-10.1); Potassium 4.1 mmol/L (3.5-5.1)
[2022-04-21 12:09] LABS: BUN/Creatinine Ratio 26.3; Bilirubin, Total 0.5 mg/dL (0.2-1.0); Total Protein 6.3 g/dL (6.4-8.2)
[2022-04-21 13:18] LABS: Urine Bacteria FEW /hpf (None Seen); Urine Blood Negative /uL (Negative); Urine Specific Gravity 1.011 (1.001-1.035); Urine WBC <1 /hpf (0 - 5)
[2022-04-21] MEDS ORDERED: IOHEXOL 350 MG/ML 100ML IJ ONE (13:23)
[2022-04-21] MEDS ORDERED: ASCORBIC ACID 500 MG TAB PO ONE (17:00)
[2022-04-21] MEDS ORDERED: HYDROcodone-ACET 5/325MG TAB PO ONE (17:00)
[2022-04-21] MEDS ORDERED: ACETAMINOPHEN 325 MG TAB PO ONE (17:00)
[2022-04-21] MEDS ORDERED: AZITHROMYCIN 500MG/ 250ML 250 ML IV ONE (17:00)
[2022-04-21 20:55] VITALS: BP 101/67
[2022-04-21] MEDS ORDERED: ACETAMINOPHEN 325 MG TAB PO PRN (23:15)
[2022-04-21] MEDS ORDERED: DOCUSATE SOD 100 MG CAP PO PRN (23:15)
[2022-04-21] MEDS ORDERED: SODIUM CHLORIDE 0.9% 1,000 ML IV SCH (23:15)
[2022-04-21] MEDS ORDERED: IPRATROPIUM BROM 0.5 MG/2.5ML INH SOL NEB PRN (23:15)
[2022-04-21] MEDS ORDERED: ALBUTEROL SULF 2.5 MG/0.5ML(0.5%) NEB SOLN NEB PRN (23:15)
[2022-04-21] MEDS ORDERED: ONDANSETRON HCL 4 MG/2 ML VIAL IV PRN (23:15)
[2022-04-22] MEDS ORDERED: MORPHINE SULFATE INJ 2 MG/ml SYRG IV PRN
[2022-04-22] MEDS ORDERED: NITROGLYCERIN 0.4 MG SL TAB SL PRN
[2022-04-22] MEDS: HYDROcodone-ACET 5/325MG TAB PO PRN ×3 (00:13→14:33)
[2022-04-22] MEDS: FAMOTIDINE (10MG/ML) 2ML VL IV SCH ×2 (00:13→09:50)
[2022-04-22] MEDS ORDERED: DEXTROSE (50%) 50ML SYRG IV PRN (01:15)
[2022-04-22] MEDS: ACCU-CHEK COMFORT CURVE STRIP VI SCH ×2 (07:00→11:34)
[2022-04-22] MEDS: methylPREDNISolone SOD SUCC 40 MG/ML VL IV SCH ×2 (07:00→14:32)
[2022-04-22 07:36] LABS: Basophils # (auto) 0 10 ^3/uL (0-0.2); Basophils % (auto) 0.1 % (0.0-2.0); Eosinophils # (auto) 0 10 ^3/uL (0-0.8); Hematocrit 37.7 % (36.0-46.0); Hemoglobin 12.7 g/dL (12.2-16.2); Lymphocytes # (auto) 0.4 10 ^3/uL (0.4-5.4); Lymphocytes % (auto) 9.9 % (10.0-50.0); Mean Corpuscular Hemoglobin 28.7 pg (28.0-32.0); Mean Corpuscular Hgb Conc. 33.8 g/dL (32.0-36.0); Monocytes # (auto) 0 10 ^3/uL (0-1.3); Monocytes % (auto) 0.9 % (0.0-12.0); Neutrophils # (auto) 3.5 10 ^3/uL (1.6-8.6); Neutrophils % (auto) 89.1 % (37.0-80.0); Red Blood Cells 4.44 10^6/uL (4.0-5.20); Red Cell Distribution Width 16.8 % (11.8-14.3)
[2022-04-22] MEDS: InsuLIN REG 1unit/0.01ml Soln (100units/ml) SC SCH ×2 (07:49→11:36)
[2022-04-22 07:55] LABS: Albumin 3.8 g/dL (3.4-5.0); Bilirubin, Total 0.4 mg/dL (0.2-1.0); Calcium 9.3 mg/dL (8.5-10.1); Total Protein 6.4 g/dL (6.4-8.2)
[2022-04-22] MEDS ORDERED: ASPirin 81 mg TAB PO SCH (10:00)
[2022-04-22] MEDS ORDERED: AZITHROMYCIN 500MG/ 250ML 250 ML IV SCH (10:00)
[2022-04-22] MEDS ORDERED: PRED20TA2 PO (13:55)
[2022-04-22] MEDS ORDERED: ALBUAER3 IN (13:55)
[2022-04-22] MEDS ORDERED: AZIT250T8 PO (13:55)
[2022-04-22] MEDS ORDERED: IPRA0.00 NEB (13:55)
[2022-04-22 14:00] VITALS: BP 130/80
[2022-04-22 14:57] VITALS: BP 130/80
[2022-04-22] MEDS ORDERED: InsuLIN REG 1unit/0.01ml Soln (100units/ml) SC SCH (22:00)
== END 2022-04-22 15:17 | disposition home or self-care (01) | DRG 190 ==
LOC: ER 10:17 → TELE 23:54 → TELE-CENTR 04-22 13:31
PROVIDERS: ADMIT Nurse Practitioner Family; ATTEND Internal Medicine
DX: J44.0 Chronic obstructive pulmonary disease with (acute) lower respiratory infection (principal); J18.9 Pneumonia, unspecified organism; J44.1 Chronic obstructive pulmonary disease with (acute) exacerbation; E78.5 Hyperlipidemia, unspecified; J20.9 Acute bronchitis, unspecified; I11.0 Hypertensive heart disease with heart failure; I25.10 Atherosclerotic heart disease of native coronary artery without angina pectoris; I48.91 Unspecified atrial fibrillation; I50.9 Heart failure, unspecified; F32.A Depression, unspecified; F41.9 Anxiety disorder, unspecified; Z20.822 Contact with and (suspected) exposure to COVID-19; Z96.612 Presence of left artificial shoulder joint; M25.512 Pain in left shoulder; R07.81 Pleurodynia; E11.9 Type 2 diabetes mellitus without complications; R09.02 Hypoxemia; Z83.3 Family history of diabetes mellitus; I25.2 Old myocardial infarction; Z82.5 Family history of asthma and other chronic lower respiratory diseases; Z90.49 Acquired absence of other specified parts of digestive tract; Z90.710 Acquired absence of both cervix and uterus
CPT/HCPCS: 36415; 71045; 71275; 80053; 81001; 82728; 82962; 83036; 83605; 83880; 84484; 85025; 85379; 86141; 87040; 93005; 93306; 94640; 94644; 96365; 96375; 99291; G0378; J1815; J3490

== ENCOUNTER 2022-05-15 12:38 | Inpatient (IN) | payer OTHER, MEDICAID ==
[~2022-05-15] VITALS: Ht 162.6 cm; Wt 82.0 kg
[~2022-05-15 12:38] MED LIST changes: +AZIT250T8 PO; +PRED20TA2 PO
[2022-05-15 13:47] LABS: Basophils # (auto) 0.1 10 ^3/uL (0-0.2); Basophils % (auto) 2.2 % (0.0-2.0); Eosinophils # (auto) 0 10 ^3/uL (0-0.8); Eosinophils % (auto) 0.6 % (0.0-7.0); Hematocrit 40.5 % (36.0-46.0); Lymphocytes # (auto) 0.7 10 ^3/uL (0.4-5.4); Lymphocytes % (auto) 11.3 % (10.0-50.0); Mean Corpuscular Hemoglobin 27.7 pg (28.0-32.0); Mean Corpuscular Hgb Conc. 32.2 g/dL (32.0-36.0); Mean Corpuscular Volume 85.9 fL (80.0-100.0); Monocytes # (auto) 0.5 10 ^3/uL (0-1.3); Monocytes % (auto) 7.3 % (0.0-12.0); Neutrophils # (auto) 5.2 10 ^3/uL (1.6-8.6); Neutrophils % (auto) 78.6 % (37.0-80.0); Nucleated Red Blood Cells % 0.1 %; Red Blood Cells 4.71 10^6/uL (4.0-5.20); Red Cell Distribution Width 16.9 % (11.8-14.3); White Blood Cell 6.6 10^3/uL (4.4-10.8)
[2022-05-15 13:57] LABS: Urine Bacteria NONE SEEN /hpf (None Seen); Urine Blood Negative /uL (Negative); Urine Specific Gravity 1.024 (1.001-1.035); Urine WBC <1 /hpf (0 - 5)
[2022-05-15 14:04] LABS: Calcium 9.6 mg/dL (8.5-10.1); Potassium 3.9 mmol/L (3.5-5.1)
[2022-05-15 14:10] LABS: Albumin 3.8 g/dL (3.4-5.0); BUN/Creatinine Ratio 22.1; Bilirubin, Total 0.4 mg/dL (0.2-1.0); Total Protein 6.6 g/dL (6.4-8.2)
[2022-05-15] MEDS ORDERED: IOHEXOL 350 MG/ML 100ML IJ ONE ×2 (15:50→20:11)
[2022-05-15] MEDS ORDERED: IPRATROPIUM BROM 0.5 MG/2.5ML INH SOL NEB PRN (16:00)
[2022-05-15] MEDS ORDERED: ALBUTEROL SULF 2.5 MG/0.5ML(0.5%) NEB SOLN NEB PRN (16:00)
[2022-05-15] MEDS ORDERED: AZITHROMYCIN 500MG/ 250ML 250 ML IV ONE (16:00)
[2022-05-15] MEDS ORDERED: MORPHINE SULFATE INJ 2 MG/ml SYRG IV PRN ×2 (16:00)
[2022-05-15] MEDS ORDERED: NITROGLYCERIN 0.4 MG SL TAB SL PRN (16:00)
[2022-05-15] MEDS ORDERED: IPRATROPIUM BROM 0.5 MG/2.5ML INH SOL NEB SCH (18:00)
[2022-05-15] MEDS ORDERED: ALBUTEROL SULF 2.5 MG/0.5ML(0.5%) NEB SOLN NEB SCH (18:00)
[2022-05-15 20:10] VITALS: BP 137/82
[2022-05-15] MEDS ORDERED: methylPREDNISolone SOD SUCC 40 MG/ML VL IV SCH (22:00)
[2022-05-16] MEDS ORDERED: ENOXAPARIN SOD 40 MG/0.4 ML SYRINGE SC SCH (10:00)
[2022-05-16] MEDS ORDERED: AZITHROMYCIN 500MG/ 250ML 250 ML IV SCH (10:00)
[2022-05-16] MEDS ORDERED: LEVO-28 PO (15:53)
== END 2022-05-15 23:00 | disposition left against medical advice (07) | DRG 309 ==
LOC: ER 12:38 → TELE 16:05
PROVIDERS: ADMIT Registered Nurse; ATTEND Internal Medicine
DX: I48.91 Unspecified atrial fibrillation (principal); I13.0 Hypertensive heart and chronic kidney disease with heart failure and stage 1 through stage 4 chronic kidney disease, or unspecified chronic kidney disease; J44.1 Chronic obstructive pulmonary disease with (acute) exacerbation; E11.22 Type 2 diabetes mellitus with diabetic chronic kidney disease; E11.65 Type 2 diabetes mellitus with hyperglycemia; E66.01 Morbid (severe) obesity due to excess calories; R07.9 Chest pain, unspecified; E78.5 Hyperlipidemia, unspecified; I25.10 Atherosclerotic heart disease of native coronary artery without angina pectoris; F32.A Depression, unspecified; F41.9 Anxiety disorder, unspecified; R79.89 Other specified abnormal findings of blood chemistry; Z53.21 Procedure and treatment not carried out due to patient leaving prior to being seen by health care provider; I50.9 Heart failure, unspecified; N18.2 Chronic kidney disease, stage 2 (mild); Z79.01 Long term (current) use of anticoagulants; Z82.5 Family history of asthma and other chronic lower respiratory diseases; Z83.3 Family history of diabetes mellitus; Z90.710 Acquired absence of both cervix and uterus; Z90.49 Acquired absence of other specified parts of digestive tract; Z68.31 Body mass index [BMI] 31.0-31.9, adult
CPT/HCPCS: 36415; 71045; 80053; 81001; 83880; 84443; 84484; 85025; 85379; 93005; 94640; G0378

== ENCOUNTER 2022-05-16 10:34 | Emergency (ER) | payer OTHER, MEDICAID ==
[~2022-05-16] VITALS: Ht 162.6 cm; Wt 80.0 kg
[2022-05-16 11:58] LABS: Albumin 3.7 g/dL (3.4-5.0); Calcium 9.9 mg/dL (8.5-10.1)
[2022-05-16 12:02] LABS: BUN/Creatinine Ratio 23.8; Bilirubin, Total 0.5 mg/dL (0.2-1.0); Total Protein 6.5 g/dL (6.4-8.2)
[2022-05-16 12:10] LABS: Basophils # (auto) 0 10 ^3/uL (0-0.2); Basophils % (auto) 0.6 % (0.0-2.0); Eosinophils # (auto) 0.1 10 ^3/uL (0-0.8); Eosinophils % (auto) 1.5 % (0.0-7.0); Hematocrit 40.8 % (36.0-46.0); Lymphocytes % (auto) 15.4 % (10.0-50.0); Mean Corpuscular Hemoglobin 27.5 pg (28.0-32.0); Mean Corpuscular Volume 85.9 fL (80.0-100.0); Monocytes # (auto) 0.5 10 ^3/uL (0-1.3); Monocytes % (auto) 8.6 % (0.0-12.0); Neutrophils # (auto) 4.6 10 ^3/uL (1.6-8.6); Neutrophils % (auto) 73.9 % (37.0-80.0); Red Blood Cells 4.74 10^6/uL (4.0-5.20); Red Cell Distribution Width 17.1 % (11.8-14.3); White Blood Cell 6.2 10^3/uL (4.4-10.8)
[2022-05-16] MEDS ORDERED: IOHEXOL 350 MG/ML 100ML IJ ONE (12:55)
[2022-05-16] MEDS ORDERED: methylPREDNISolone SOD SUCC 125 MG/2 ML VL IM ONE (15:00)
[2022-05-16] MEDS ORDERED: LEVO-28 PO (15:53)
[2022-05-16] MEDS ORDERED: methylPREDNISolone SOD SUCC 125 MG/2 ML VL IV ONE (17:00)
[2022-05-16 17:04] VITALS: BP 129/88
[2022-05-16] MEDS ORDERED: levoFLOXacin 500 MG TAB PO ONE (17:15)
== END 2022-05-16 17:12 | disposition home or self-care (01) ==
LOC: ER 10:34
DX: I11.0 Hypertensive heart disease with heart failure (principal); I50.9 Heart failure, unspecified; J18.9 Pneumonia, unspecified organism; I25.2 Old myocardial infarction; E11.9 Type 2 diabetes mellitus without complications; E78.5 Hyperlipidemia, unspecified; Z90.49 Acquired absence of other specified parts of digestive tract; Z90.89 Acquired absence of other organs; Z90.710 Acquired absence of both cervix and uterus
CPT/HCPCS: 36415; 71045; 71275; 80053; 84484; 85025; 93005; 96374; 99285; J2930; Q9967

== ENCOUNTER 2022-06-17 07:52 | Emergency (ER) | payer OTHER, MEDICAID ==
[~2022-06-17] VITALS: Ht 162.6 cm; Wt 83.9 kg
[~2022-06-17 07:52] MED LIST changes: +LEVO-28 PO
[2022-06-17 08:45] LABS: Basophils # (auto) 0 10 ^3/uL (0-0.2); Basophils % (auto) 0.6 % (0.0-2.0); Eosinophils # (auto) 0.1 10 ^3/uL (0-0.8); Eosinophils % (auto) 1.5 % (0.0-7.0); Hematocrit 38.7 % (36.0-46.0); Hemoglobin 12.7 g/dL (12.2-16.2); Lymphocytes # (auto) 1.4 10 ^3/uL (0.4-5.4); Lymphocytes % (auto) 20.2 % (10.0-50.0); Mean Corpuscular Hemoglobin 27.4 pg (28.0-32.0); Mean Corpuscular Hgb Conc. 32.9 g/dL (32.0-36.0); Mean Corpuscular Volume 83.2 fL (80.0-100.0); Monocytes # (auto) 0.7 10 ^3/uL (0-1.3); Monocytes % (auto) 9.7 % (0.0-12.0); Neutrophils # (auto) 4.7 10 ^3/uL (1.6-8.6); Red Blood Cells 4.65 10^6/uL (4.0-5.20); Red Cell Distribution Width 16.5 % (11.8-14.3); White Blood Cell 6.9 10^3/uL (4.4-10.8)
[2022-06-17 08:56] LABS: Albumin 3.6 g/dL (3.4-5.0); Calcium 9.4 mg/dL (8.5-10.1); Potassium 4.4 mmol/L (3.5-5.1)
[2022-06-17 09:00] LABS: BUN/Creatinine Ratio 22.6; Bilirubin, Total 0.3 mg/dL (0.2-1.0); Total Protein 6.2 g/dL (6.4-8.2)
[2022-06-17] MEDS ORDERED: ALBUTEROL SULF 2.5 MG/0.5ML(0.5%) NEB SOLN NEB ONE (11:00)
[2022-06-17] MEDS ORDERED: IPRATROPIUM BROM 0.5 MG/2.5ML INH SOL NEB ONE (11:00)
[2022-06-17 11:54] LABS: Urine Bacteria FEW /hpf (None Seen); Urine Blood Negative /uL (Negative); Urine Specific Gravity 1.007 (1.001-1.035); Urine WBC 6 /hpf (0 - 5)
[2022-06-17 12:15] LABS: Amphetamine Screen, Urine NEGATIVE (NEGATIVE); Barbiturate Scree,Urine NEGATIVE (NEGATIVE); Benzodiazephine Screen, Urine NEGATIVE (NEGATIVE); Cannabinoid Screen, Urine NEGATIVE (NEGATIVE)
[2022-06-17 12:19] LABS: Alcohol, Urine < 3.0 mg/dL (0-10); Cocaine Screen, Urine NEGATIVE (NEGATIVE); Opiate Scree,Urine NEGATIVE (NEGATIVE); Phencyclidine Screen, Urine NEGATIVE (NEGATIVE)
[2022-06-17] MEDS ORDERED: PRED20TA2 PO (13:11)
[2022-06-17] MEDS ORDERED: CIPR-173 PO (13:11)
[2022-06-17] MEDS ORDERED: TRAM50TA2 PO (13:11)
[2022-06-17 13:22] VITALS: BP 126/95
== END 2022-06-17 13:35 | disposition home or self-care (01) ==
LOC: ER 07:52
DX: J44.1 Chronic obstructive pulmonary disease with (acute) exacerbation (principal); R07.89 Other chest pain; N39.0 Urinary tract infection, site not specified; I11.0 Hypertensive heart disease with heart failure; I50.9 Heart failure, unspecified; I25.10 Atherosclerotic heart disease of native coronary artery without angina pectoris; I25.2 Old myocardial infarction; E78.5 Hyperlipidemia, unspecified; I48.91 Unspecified atrial fibrillation; Z90.49 Acquired absence of other specified parts of digestive tract; Z90.710 Acquired absence of both cervix and uterus; Z90.89 Acquired absence of other organs
CPT/HCPCS: 36415; 71045; 80053; 80307; 81001; 83735; 84484; 85025; 93005; 94640; 99285; J7644

== ENCOUNTER 2022-06-29 12:43 | Emergency (ER) | payer OTHER, MEDICAID ==
[~2022-06-29] VITALS: Ht 162.6 cm; Wt 86.0 kg
[~2022-06-29 12:43] MED LIST changes: +CIPR-173 PO; +TRAM50TA2 PO
[2022-06-29 12:56] VITALS: BP 105/65
[2022-06-29] MEDS ORDERED: oxyCODONE ER 10 MG TAB PO ONE (13:15)
== END 2022-06-29 16:34 | disposition home or self-care (01) ==
LOC: ER 12:43
DX: S76.012A Strain of muscle, fascia and tendon of left hip, initial encounter (principal); J44.9 Chronic obstructive pulmonary disease, unspecified; I11.0 Hypertensive heart disease with heart failure; I50.9 Heart failure, unspecified; E78.5 Hyperlipidemia, unspecified; I25.2 Old myocardial infarction; Z86.73 Personal history of transient ischemic attack (TIA), and cerebral infarction without residual deficits; Z90.49 Acquired absence of other specified parts of digestive tract; Z90.89 Acquired absence of other organs; Z90.710 Acquired absence of both cervix and uterus; Z79.899 Other long term (current) drug therapy; X58.XXXA Exposure to other specified factors, initial encounter; Y93.89 Activity, other specified; Y92.89 Other specified places as the place of occurrence of the external cause; Y99.8 Other external cause status

== ENCOUNTER 2022-08-25 09:07 | Emergency (ER) | payer OTHER, MEDICAID ==
[~2022-08-25] VITALS: Ht 162.6 cm; Wt 84.0 kg
[2022-08-25 09:26] VITALS: BP 142/89
[2022-08-25] MEDS ORDERED: HYDROcodone-ACET 5/325MG TAB PO ONE (10:00)
[2022-08-25] MEDS ORDERED: TRAM-297 PO (12:18)
== END 2022-08-25 12:21 | disposition home or self-care (01) ==
LOC: ER 09:07
DX: M23.92 Unspecified internal derangement of left knee (principal); M25.462 Effusion, left knee; I11.0 Hypertensive heart disease with heart failure; I50.9 Heart failure, unspecified; I25.2 Old myocardial infarction; I25.10 Atherosclerotic heart disease of native coronary artery without angina pectoris; I48.91 Unspecified atrial fibrillation; J44.9 Chronic obstructive pulmonary disease, unspecified; E11.9 Type 2 diabetes mellitus without complications; E78.5 Hyperlipidemia, unspecified; Z90.49 Acquired absence of other specified parts of digestive tract; Z90.710 Acquired absence of both cervix and uterus; Z90.89 Acquired absence of other organs; Z79.2 Long term (current) use of antibiotics; Z79.899 Other long term (current) drug therapy
CPT/HCPCS: 73562; 73700; 93971

== ENCOUNTER 2022-08-28 09:59 | Emergency (ER) | payer OTHER, MEDICAID ==
[~2022-08-28 09:59] MED LIST changes: +TRAM-297 PO
== END 2022-08-28 15:05 | disposition left against medical advice (07) ==
LOC: ER 09:59
DX: M25.562 Pain in left knee (principal); Z53.21 Procedure and treatment not carried out due to patient leaving prior to being seen by health care provider

== ENCOUNTER 2022-09-13 10:23 | Emergency (ER) | payer OTHER, MEDICAID ==
[~2022-09-13] VITALS: Ht 162.6 cm; Wt 84.0 kg
[2022-09-13 11:38] LABS: Basophils # (auto) 0.1 10 ^3/uL (0-0.2); Eosinophils # (auto) 0.2 10 ^3/uL (0-0.8); Lymphocytes # (auto) 0.9 10 ^3/uL (0.4-5.4); Monocytes # (auto) 0.6 10 ^3/uL (0-1.3); Monocytes % (auto) 7.9 % (0.0-12.0); Neutrophils # (auto) 5.4 10 ^3/uL (1.6-8.6); Neutrophils % (auto) 75.2 % (37.0-80.0); Nucleated Red Blood Cells % 0.1 %
[2022-09-13 11:40] LABS: Hematocrit 36.4 % (36.0-46.0); Hemoglobin 11.9 g/dL (12.2-16.2); Lymphocytes % (auto) 12.9 % (10.0-50.0); Mean Corpuscular Hemoglobin 25.9 pg (28.0-32.0); Mean Corpuscular Hgb Conc. 32.8 g/dL (32.0-36.0); Red Blood Cells 4.61 10^6/uL (4.0-5.20); Red Cell Distribution Width 17.5 % (11.8-14.3); White Blood Cell 7.1 10^3/uL (4.4-10.8)
[2022-09-13 11:52] LABS: Calcium 9.4 mg/dL (8.5-10.1)
[2022-09-13 11:54] LABS: Albumin 3.3 g/dL (3.4-5.0); BUN/Creatinine Ratio 19.7
[2022-09-13 11:58] LABS: Bilirubin, Total 0.6 mg/dL (0.2-1.0); Total Protein 5.7 g/dL (6.4-8.2)
[2022-09-13] MEDS ORDERED: cefTRIAXone 1GM/50ML D5W 50 ML IV ONE (15:15)
[2022-09-13] MEDS ORDERED: IOHEXOL 350 MG/ML 100ML IJ ONE ×2 (17:04→20:01)
[2022-09-13] MEDS ORDERED: PRED20TA2 PO (18:27)
[2022-09-13] MEDS ORDERED: DOXY-286 PO (18:27)
[2022-09-13] MEDS ORDERED: HYDROcodone-ACET 5/325MG TAB PO ONE (18:30)
[2022-09-14 00:09] VITALS: BP 167/102
== END 2022-09-14 02:44 | disposition home or self-care (01) ==
LOC: ER 10:23
DX: I11.0 Hypertensive heart disease with heart failure (principal); I50.9 Heart failure, unspecified; I25.2 Old myocardial infarction; E11.9 Type 2 diabetes mellitus without complications; E78.5 Hyperlipidemia, unspecified; J44.9 Chronic obstructive pulmonary disease, unspecified; I25.10 Atherosclerotic heart disease of native coronary artery without angina pectoris; I48.91 Unspecified atrial fibrillation; Z90.49 Acquired absence of other specified parts of digestive tract; Z90.710 Acquired absence of both cervix and uterus; Z90.89 Acquired absence of other organs
CPT/HCPCS: 36415; 71045; 71275; 80053; 83880; 84484; 85025; 85379; 96365; 99285; J0696; Q9967

== ENCOUNTER → 2022-09-20 | Outpatient (CLI) | payer OTHER ==
[~2022-09-20] MED LIST changes: +DOXY-286 PO
== END | disposition home or self-care (01) ==
LOC: LAB 13:45
PROVIDERS: ATTEND Orthopaedic Surgery Adult Reconstructive Orthopaedic Surgery
DX: T84.093A Other mechanical complication of internal left knee prosthesis, initial encounter (principal)
CPT/HCPCS: 36415; 85652; 86141

== ENCOUNTER → 2022-10-16 | Outpatient (CLI) | payer OTHER | END | disposition home or self-care (01) | LOC: LAB 14:22 | PROVIDERS: ATTEND Orthopaedic Surgery Adult Reconstructive Orthopaedic Surgery | DX: M25.462 Effusion, left knee (principal) | CPT/HCPCS: 87205; 89051 ==

== ENCOUNTER → 2022-11-03 | Outpatient (CLI) | payer OTHER, MEDICARE, MEDICAID ==
[2022-11-03 14:48] LABS: Cholesterol 128 mg/dL (< 200)
[2022-11-03 14:50] LABS: HDL Cholesterol 82 mg/dL (40-59); LDL Cholesterol 48 mg/dL (< 100); Triglycerides 42 mg/dL (< 150)
== END | disposition home or self-care (01) ==
LOC: LAB 13:27
PROVIDERS: ATTEND Internal Medicine
DX: E11.22 Type 2 diabetes mellitus with diabetic chronic kidney disease (principal); N18.9 Chronic kidney disease, unspecified
CPT/HCPCS: 36415; 80061; 82306; 83036

== ENCOUNTER 2022-11-27 06:05 | Inpatient (IN) | payer OTHER, MEDICAID ==
[2022-11-24 11:19] LABS: Basophils # (auto) 0 10 ^3/uL (0-0.2); Eosinophils # (auto) 0.1 10 ^3/uL (0-0.8); Hemoglobin 12.7 g/dL (12.2-16.2); Lymphocytes # (auto) 1.2 10 ^3/uL (0.4-5.4); Monocytes # (auto) 0.8 10 ^3/uL (0-1.3); White Blood Cell 8.5 10^3/uL (4.4-10.8)
[2022-11-24 11:22] LABS: Basophils % (auto) 0.5 % (0.0-2.0); Eosinophils % (auto) 1.5 % (0.0-7.0); Hematocrit 38.2 % (36.0-46.0); Lymphocytes % (auto) 14.5 % (10.0-50.0); Mean Corpuscular Hemoglobin 26.3 pg (28.0-32.0); Mean Corpuscular Hgb Conc. 33.2 g/dL (32.0-36.0); Mean Corpuscular Volume 79.1 fL (80.0-100.0); Monocytes % (auto) 9.2 % (0.0-12.0); Neutrophils # (auto) 6.4 10 ^3/uL (1.6-8.6); Neutrophils % (auto) 74.3 % (37.0-80.0); Nucleated Red Blood Cells % 0.2 %; Red Blood Cells 4.83 10^6/uL (4.0-5.20); Red Cell Distribution Width 18.6 % (11.8-14.3)
[2022-11-24 11:39] LABS: Urine Bacteria NONE SEEN /hpf (None Seen); Urine Blood Negative /uL (Negative); Urine Specific Gravity 1.007 (1.001-1.035); Urine WBC 3 /hpf (0 - 5)
[2022-11-24 11:57] LABS: INR 0.97 (0.9-1.15); Partial Thromboplastin Time 30.3 sec (24.6-33.4)
[2022-11-24 12:23] LABS: Albumin 3.8 g/dL (3.4-5.0); Calcium 9.8 mg/dL (8.5-10.1)
[2022-11-24 12:33] LABS: BUN/Creatinine Ratio 21.9; Bilirubin, Total 0.5 mg/dL (0.2-1.0); Total Protein 6.9 g/dL (6.4-8.2)
[~2022-11-27] VITALS: Ht 162.6 cm; Wt 90.6 kg
[~2022-11-27 06:05] MED LIST changes: -AZIT250T8 PO; +BUDE1AER6 IN; +BUDE2SUS3 IN; -CIPR-173 PO; -DOXY-286 PO; +FLEC100T PO; -GABA300C10 PO; -LEVO-28 PO; -PRED20TA2 PO; -TRAM-297 PO; -TRAM50TA2 PO
[2022-11-27] MEDS ORDERED: TRANEXAMIC ACID 20 ML ONE (06:43)
[2022-11-27] MEDS ORDERED: BUPIVACAINE HCL 0.25% P/F 10 ML VIAL ONE (06:44)
[2022-11-27] MEDS ORDERED: VANCOMYCIN HCL 1000 MG VL ONE (06:45)
[2022-11-27] MEDS ORDERED: PROPOFOL 10 MG/ML 20 ML IV ONE ×4 (06:52→10:01)
[2022-11-27] MEDS ORDERED: KETOROLAC TROMETH 30 MG/ML 1ML VIAL ONE ×2 (06:52→06:53)
[2022-11-27] MEDS ORDERED: MORPHINE SULF PF 5 MG/10 ML VIAL ONE (06:52)
[2022-11-27] MEDS ORDERED: DexAMETHasone SOD PHOS 10MG/1ML VIAL INJ ONE (06:53)
[2022-11-27] MEDS ORDERED: ONDANSETRON HCL 4 MG/2 ML VIAL ONE (06:53)
[2022-11-27] MEDS ORDERED: GLYCOPYRROLATE 0.2 MG/ML 1ML VIAL ONE (06:53)
[2022-11-27] MEDS ORDERED: BUPIVACAINE 0.5% P/F INJ 10 ML VIAL ONE (06:57)
[2022-11-27] MEDS ORDERED: DexAMETHasone SOD PHOS 4 MG/1ML SDV INJ ONE (06:57)
[2022-11-27] MEDS ORDERED: EPINEPHrine HCL 1 MG/1 ML AMP ONE (06:57)
[2022-11-27] MEDS ORDERED: ceFAZolin 1GM/50ML 100 ML IV ONE (06:59)
[2022-11-27] MEDS ORDERED: SODIUM CHLORIDE LOCK 10 ML ONE ×3 (07:36→10:10)
[2022-11-27] MEDS ORDERED: GENTAMICIN SULF 80 MG/2 ML VIAL ONE (08:42)
[2022-11-27] MEDS ORDERED: ePHEDrine SULFATE 50 MG/ML AMP ONE (08:50)
[2022-11-27] MEDS ORDERED: LIDOCAINE 1% (LOCAL ANESTH.) PF 5ml SDV ONE (10:00)
[2022-11-27] MEDS ORDERED: ceFAZolin 1GM VL ONE (10:10)
[2022-11-27] MEDS ORDERED: MORPHINE SULFATE INJ 2 MG/ml SYRG IV PRN (10:15)
[2022-11-27] MEDS ORDERED: NITROGLYCERIN 0.4 MG SL TAB SL PRN (10:15)
[2022-11-27] MEDS ORDERED: HYDROmorphone HCL 2 MG/ML VL/or syr ONE (11:59)
[2022-11-27] MEDS ORDERED: HYDROmorphone HCL 2 MG/ML VL/or syr IV PRN ×2 (12:00→12:45)
[2022-11-27] MEDS ORDERED: ALBUTEROL SULF HFA 90MCG INH 200DOSE IN SCH (12:00)
[2022-11-27] MEDS ORDERED: HYDROmorphone HCL 2 MG/ML VL/or syr IV ONE ×4 (12:09→14:00)
[2022-11-27] MEDS ORDERED: hydrALAZINE HCL 20 MG/ML VL IV PRN (12:45)
[2022-11-27] MEDS ORDERED: ONDANSETRON HCL 4 MG/2 ML VIAL IV PRN (12:45)
[2022-11-27] MEDS ORDERED: NALOXONE HCL 0.4 MG/ML VIAL IV PRN (12:45)
[2022-11-27] MEDS ORDERED: ePHEDrine SULFATE 50 MG/ML AMP IV PRN (12:45)
[2022-11-27] MEDS ORDERED: LABETALOL HCL 5 MG/ML 4ML SYRINGE IV PRN (12:45)
[2022-11-27] MEDS ORDERED: FLUMAZENIL 0.1 MG/ML INJ 10ML MDV IV PRN (12:45)
[2022-11-27] MEDS ORDERED: fentaNYL CITRATE 100 MCG/2 ML VL IV PRN (12:45)
[2022-11-27] MEDS: OXYCODONE W/ ACETAMINOPHEN 5/325MG TABLET PO PRN ×2 (14:48→21:21)
[2022-11-27 16:30] VITALS: BP 114/83
[2022-11-27 16:37] VITALS: BP 114/83
[2022-11-27] MEDS: RIVAROXABAN 20 MG TAB PO SCH (18:08)
[2022-11-27] MEDS: ceFAZolin 1GM/50ML 50 ML IV SCH ×3 (18:36→21:24)
[2022-11-27] MEDS: SODIUM CHLOR 0.9% PF (SALINE LOCK) 10ML VIAL/SYR IV SCH ×2 (18:36→22:00)
[2022-11-27 20:00] VITALS: BP 138/113
[2022-11-27] MEDS: DOCUSATE SOD 100 MG CAP PO SCH (21:21)
[2022-11-27] MEDS: ATORVASTATIN 20 MG TAB PO SCH (21:21)
[2022-11-27] MEDS: FLUoxetine HCL 20 MG CAP PO SCH (21:23)
[2022-11-27] MEDS: LOSARTAN POTASSIUM 50 MG TAB PO SCH (21:23)
[2022-11-27 22:00] VITALS: BP 138/113
[2022-11-27] MEDS: [UNRECOGNIZED DRUG - OTHER] IN SCH (22:00)
[2022-11-27] MEDS: BREZTRI AEROSPHERE IN SCH (22:00)
[2022-11-27] MEDS: FLECAINIDE ACETATE 50 MG TAB PO SCH (23:43)
[2022-11-28 05:00] VITALS: BP 115/72
[2022-11-28] MEDS: ceFAZolin 1GM/50ML 50 ML IV SCH ×3 (05:09→15:57)
[2022-11-28 05:57] LABS: Basophils # (auto) 0 10 ^3/uL (0-0.2); Eosinophils # (auto) 0 10 ^3/uL (0-0.8); Lymphocytes # (auto) 0.6 10 ^3/uL (0.4-5.4)
[2022-11-28 05:59] LABS: Lymphocytes % (auto) 4.6 % (10.0-50.0); Mean Corpuscular Hemoglobin 25.9 pg (28.0-32.0); Mean Corpuscular Hgb Conc. 33.2 g/dL (32.0-36.0); Mean Corpuscular Volume 78.1 fL (80.0-100.0); Monocytes % (auto) 7.7 % (0.0-12.0); Neutrophils # (auto) 11.2 10 ^3/uL (1.6-8.6); Neutrophils % (auto) 87.7 % (37.0-80.0); Red Blood Cells 4.23 10^6/uL (4.0-5.20); Red Cell Distribution Width 18.1 % (11.8-14.3); White Blood Cell 12.8 10^3/uL (4.4-10.8)
[2022-11-28] MEDS: OXYCODONE W/ ACETAMINOPHEN 5/325MG TABLET PO PRN ×3 (06:15→16:05)
[2022-11-28] MEDS: SODIUM CHLOR 0.9% PF (SALINE LOCK) 10ML VIAL/SYR IV SCH ×3 (06:16→21:55)
[2022-11-28 06:20] LABS: Albumin 3.1 g/dL (3.4-5.0); Calcium 9.7 mg/dL (8.5-10.1); Potassium 4.1 mmol/L (3.5-5.1)
[2022-11-28 06:26] LABS: BUN/Creatinine Ratio 31.5; Bilirubin, Total 0.4 mg/dL (0.2-1.0); Total Protein 5.7 g/dL (6.4-8.2)
[2022-11-28 09:00] VITALS: BP 151/96
[2022-11-28] MEDS: IPRATROPIUM ALBUTEROL NEB SCH (10:00)
[2022-11-28] MEDS: [UNRECOGNIZED DRUG - OTHER] IN SCH (10:00)
[2022-11-28] MEDS ORDERED: HYDROmorphone HCL 2 MG/ML VL/or syr IV ONE (10:00)
[2022-11-28] MEDS: BREZTRI AEROSPHERE IN SCH (10:00)
[2022-11-28] MEDS: FLUoxetine HCL 20 MG CAP PO SCH ×2 (10:07→21:51)
[2022-11-28] MEDS: LOSARTAN POTASSIUM 50 MG TAB PO SCH ×2 (10:07→21:51)
[2022-11-28] MEDS: HCTZ 25 MG TAB PO SCH (10:08)
[2022-11-28] MEDS: EMPAGLIFLOZIN 10 MG TAB PO SCH (10:09)
[2022-11-28] MEDS: DOCUSATE SOD 100 MG CAP PO SCH ×2 (10:09→21:51)
[2022-11-28] MEDS: dilTIAZem HCL 180MG ER CAP PO SCH (10:09)
[2022-11-28] MEDS: FLECAINIDE ACETATE 50 MG TAB PO SCH ×2 (10:23→21:52)
[2022-11-28 13:00] VITALS: BP 107/68
[2022-11-28] MEDS: ONDANSETRON HCL 4 MG/2 ML VIAL IV PRN (15:56)
[2022-11-28 16:59] VITALS: BP 129/71
[2022-11-28] MEDS: RIVAROXABAN 20 MG TAB PO SCH (19:06)
[2022-11-28 20:00] VITALS: BP 111/69
[2022-11-28] MEDS: HYDROmorphone HCL 2 MG/ML VL/or syr IV PRN (20:27)
[2022-11-28] MEDS: ATORVASTATIN 20 MG TAB PO SCH (21:50)
[2022-11-28 22:00] VITALS: BP 111/69
[2022-11-29] MEDS: HYDROmorphone HCL 2 MG/ML VL/or syr IV PRN (04:14)
[2022-11-29 05:00] VITALS: BP 111/71
[2022-11-29 06:34] LABS: Hematocrit 31.8 % (36.0-46.0); Hemoglobin 10.6 g/dL (12.2-16.2)
[2022-11-29] MEDS: SODIUM CHLOR 0.9% PF (SALINE LOCK) 10ML VIAL/SYR IV SCH ×3 (06:50→21:47)
[2022-11-29] MEDS ORDERED: traMADol HCL 50 MG TAB PO PRN (07:15)
[2022-11-29 09:00] VITALS: BP 101/52
[2022-11-29] MEDS: DOCUSATE SOD 100 MG CAP PO SCH ×2 (09:54→21:34)
[2022-11-29] MEDS: CELECOXIB 100 MG CAP PO SCH ×2 (09:54→21:34)
[2022-11-29] MEDS: EMPAGLIFLOZIN 10 MG TAB PO SCH (09:55)
[2022-11-29] MEDS: FLUoxetine HCL 20 MG CAP PO SCH ×2 (09:55→21:34)
[2022-11-29] MEDS: CEPHALEXIN 250 MG CAP PO SCH ×2 (09:55→21:34)
[2022-11-29] MEDS: FLECAINIDE ACETATE 50 MG TAB PO SCH ×2 (09:56→21:36)
[2022-11-29] MEDS: HCTZ 25 MG TAB PO SCH (09:56)
[2022-11-29] MEDS: LOSARTAN POTASSIUM 50 MG TAB PO SCH ×2 (09:57→21:35)
[2022-11-29] MEDS: dilTIAZem HCL 180MG ER CAP PO SCH (09:58)
[2022-11-29] MEDS ORDERED: RIVAROXABAN 10 MG TAB PO SCH (10:00)
[2022-11-29] MEDS: BREZTRI AEROSPHERE IN SCH ×2 (10:00→21:46)
[2022-11-29] MEDS: [UNRECOGNIZED DRUG - OTHER] IN SCH ×2 (10:00→21:46)
[2022-11-29] MEDS: IPRATROPIUM ALBUTEROL NEB SCH (10:00)
[2022-11-29 13:00] VITALS: BP 137/65
[2022-11-29] MEDS: OXYCODONE W/ ACETAMINOPHEN 5/325MG TABLET PO PRN ×2 (14:27→20:35)
[2022-11-29] MEDS: ONDANSETRON HCL 4 MG/2 ML VIAL IV PRN (14:32)
[2022-11-29 16:44] VITALS: BP 110/61
[2022-11-29] MEDS: RIVAROXABAN 20 MG TAB PO SCH (17:57)
[2022-11-29] MEDS: ATORVASTATIN 20 MG TAB PO SCH (21:34)
[2022-11-29 22:00] VITALS: BP 111/7
[2022-11-30] MEDS: OXYCODONE W/ ACETAMINOPHEN 5/325MG TABLET PO PRN ×2 (04:18→11:40)
[2022-11-30 05:00] VITALS: BP 115/74
[2022-11-30] MEDS: SODIUM CHLOR 0.9% PF (SALINE LOCK) 10ML VIAL/SYR IV SCH (05:17)
[2022-11-30 06:33] LABS: Basophils # (auto) 0.1 10 ^3/uL (0-0.2); Monocytes # (auto) 0.9 10 ^3/uL (0-1.3); Neutrophils # (auto) 4.2 10 ^3/uL (1.6-8.6)
[2022-11-30 06:36] LABS: Eosinophils # (auto) 0.5 10 ^3/uL (0-0.8); Eosinophils % (auto) 7.1 % (0.0-7.0); Hematocrit 31.8 % (36.0-46.0); Hemoglobin 10.9 g/dL (12.2-16.2); Lymphocytes # (auto) 0.9 10 ^3/uL (0.4-5.4); Lymphocytes % (auto) 13.9 % (10.0-50.0); Mean Corpuscular Hgb Conc. 34.1 g/dL (32.0-36.0); Mean Corpuscular Volume 79.1 fL (80.0-100.0); Monocytes % (auto) 13.3 % (0.0-12.0); Neutrophils % (auto) 64.7 % (37.0-80.0); Nucleated Red Blood Cells % 0.2 %; Red Blood Cells 4.03 10^6/uL (4.0-5.20); White Blood Cell 6.5 10^3/uL (4.4-10.8)
[2022-11-30 06:55] LABS: BUN/Creatinine Ratio 33.3; Calcium 9.8 mg/dL (8.5-10.1); Potassium 4.1 mmol/L (3.5-5.1)
[2022-11-30 08:00] VITALS: BP 143/65
[2022-11-30] MEDS: FLUoxetine HCL 20 MG CAP PO SCH (08:44)
[2022-11-30] MEDS: HCTZ 25 MG TAB PO SCH (08:45)
[2022-11-30] MEDS: LOSARTAN POTASSIUM 50 MG TAB PO SCH (08:45)
[2022-11-30] MEDS: dilTIAZem HCL 180MG ER CAP PO SCH (08:46)
[2022-11-30] MEDS: CELECOXIB 100 MG CAP PO SCH (08:46)
[2022-11-30] MEDS: FLECAINIDE ACETATE 50 MG TAB PO SCH (08:47)
[2022-11-30] MEDS: DOCUSATE SOD 100 MG CAP PO SCH (08:47)
[2022-11-30] MEDS: CEPHALEXIN 250 MG CAP PO SCH (08:47)
[2022-11-30] MEDS: EMPAGLIFLOZIN 10 MG TAB PO SCH (08:51)
[2022-11-30] MEDS: IPRATROPIUM ALBUTEROL NEB SCH (08:52)
[2022-11-30] MEDS: BREZTRI AEROSPHERE IN SCH (08:53)
[2022-11-30] MEDS: [UNRECOGNIZED DRUG - OTHER] IN SCH (08:53)
[2022-11-30 12:00] VITALS: BP 98/62
[2022-11-30] MEDS ORDERED: CEL100T PO (15:24)
[2022-11-30] MEDS ORDERED: CEPH-510 PO (15:24)
[2022-11-30 15:51] VITALS: BP 143/65
[2022-11-30 16:00] VITALS: BP 116/67
[2022-12-09] MEDS ORDERED: HYDR-4611 PO (22:38)
== END 2022-11-30 17:12 | disposition home health service (06) | DRG 468 ==
LOC: SUR 06:05 → TELE 10:17 → TELE-WESTW 15:54 → WEST WING 11-28 17:49
PROVIDERS: ADMIT Internal Medicine; ATTEND Internal Medicine
PROC: 0SRD0J9 Replacement of Left Knee Joint with Synthetic Substitute, Cemented, Open Approach (ICD-10-PCS; 2022-11-27)
PROC: 0SCD0ZZ Extirpation of Matter from Left Knee Joint, Open Approach (ICD-10-PCS; 2022-11-27)
PROC: 0L8 Tendons, Division (ICD-10-PCS; 2022-11-27)
PROC: 0MNP0ZZ Release Left Knee Bursa and Ligament, Open Approach (ICD-10-PCS; 2022-11-27)
PROC: 2W1MX6Z Compression of Left Lower Extremity using Pressure Dressing (ICD-10-PCS; 2022-11-27)
PROC: 0SPD0JZ Removal of Synthetic Substitute from Left Knee Joint, Open Approach (ICD-10-PCS; principal; 2022-11-27 07:46)
DX: M23.42 Loose body in knee, left knee (principal); M89.562 Osteolysis, left lower leg; I10 Essential (primary) hypertension; I48.91 Unspecified atrial fibrillation; E11.9 Type 2 diabetes mellitus without complications
CPT/HCPCS: 36415; 73562; 80048; 80053; 81001; 82962; 85014; 85018; 85025; 85610; 85730; 86850; 86870; 86900; 86901; 87070; 87075; 87205; 97110; 97116; 97163; 97530; C1713; C1781; G0378; J0171; J0690; J1100; J1885; J2405; J2704; J3490

== ENCOUNTER 2022-12-24 17:58 | Emergency (ER) | payer OTHER, MEDICAID ==
[~2022-12-24] VITALS: Ht 162.6 cm; Wt 84.0 kg
[~2022-12-24 17:58] MED LIST changes: +CEL100T PO; +CEPH-510 PO; +HYDR-4611 PO
[2022-12-24] MEDS ORDERED: HYDROmorphone HCL 2 MG/ML VL/or syr IM ONE (18:45)
[2022-12-24] MEDS ORDERED: ONDANSETRON HCL 4 MG/2 ML VIAL IM ONE (18:45)
[2022-12-24 21:51] VITALS: BP 131/85
== END 2022-12-24 21:50 | disposition home or self-care (01) ==
LOC: ER 17:58
DX: S82.892A Other fracture of left lower leg, initial encounter for closed fracture (principal); I48.91 Unspecified atrial fibrillation; I11.0 Hypertensive heart disease with heart failure; I50.9 Heart failure, unspecified; E11.9 Type 2 diabetes mellitus without complications; J44.9 Chronic obstructive pulmonary disease, unspecified; F41.9 Anxiety disorder, unspecified; F32.9 Major depressive disorder, single episode, unspecified; E78.5 Hyperlipidemia, unspecified; I25.2 Old myocardial infarction; I25.10 Atherosclerotic heart disease of native coronary artery without angina pectoris; Z90.49 Acquired absence of other specified parts of digestive tract; Z90.89 Acquired absence of other organs; Z98.890 Other specified postprocedural states; Z90.710 Acquired absence of both cervix and uterus; X58.XXXA Exposure to other specified factors, initial encounter; Y93.89 Activity, other specified; Y92.89 Other specified places as the place of occurrence of the external cause; Y99.8 Other external cause status
CPT/HCPCS: 29515; 73610; 93971; 96372; 99284; J1170; J2405

== ENCOUNTER 2023-01-08 10:11 | Inpatient (IN) | payer OTHER, MEDICAID ==
[2023-01-04 10:09] LABS: Basophils # (auto) 0.1 10 ^3/uL (0-0.2); Eosinophils # (auto) 0.1 10 ^3/uL (0-0.8); Hemoglobin 12.9 g/dL (12.2-16.2); Lymphocytes # (auto) 1.5 10 ^3/uL (0.4-5.4); Red Cell Distribution Width 18.6 % (11.8-14.3)
[2023-01-04 10:10] LABS: Basophils % (auto) 1.3 % (0.0-2.0); Eosinophils % (auto) 1.9 % (0.0-7.0); Lymphocytes % (auto) 23.1 % (10.0-50.0); Mean Corpuscular Hemoglobin 24.9 pg (28.0-32.0); Mean Corpuscular Hgb Conc. 32.2 g/dL (32.0-36.0); Mean Corpuscular Volume 77.4 fL (80.0-100.0); Monocytes # (auto) 0.7 10 ^3/uL (0-1.3); Neutrophils % (auto) 62.7 % (37.0-80.0); Nucleated Red Blood Cells % 0.1 %; Red Blood Cells 5.17 10^6/uL (4.0-5.20); White Blood Cell 6.5 10^3/uL (4.4-10.8)
[2023-01-04 10:23] LABS: Partial Thromboplastin Time 28.9 sec (24.6-33.4)
[2023-01-04 10:42] LABS: Urine Bacteria NONE SEEN /hpf (None Seen); Urine Blood Negative /uL (Negative); Urine Specific Gravity 1.011 (1.001-1.035); Urine WBC <1 /hpf (0 - 5)
[2023-01-04 11:02] LABS: Albumin 3.4 g/dL (3.4-5.0); Potassium 4.3 mmol/L (3.5-5.1)
[2023-01-04 11:05] LABS: BUN/Creatinine Ratio 25.4 (10.0-20.0); Bilirubin, Total 0.4 mg/dL (0.2-1.0); Total Protein 6.9 g/dL (6.4-8.2)
[~2023-01-08] VITALS: Ht 162.6 cm; Wt 78.7 kg
[2023-01-08] MEDS ORDERED: ceFAZolin 1GM/50ML 100 ML IV ONE (10:50)
[2023-01-08] MEDS ORDERED: FAMOTIDINE (10MG/ML) 2ML VL IV ONE (11:53)
[2023-01-08] MEDS ORDERED: KETOROLAC TROMETH 30 MG/ML 1ML VIAL ONE (11:54)
[2023-01-08] MEDS ORDERED: ONDANSETRON HCL 4 MG/2 ML VIAL ONE (13:12)
[2023-01-08] MEDS ORDERED: PROPOFOL 10 MG/ML 20 ML IV ONE (13:12)
[2023-01-08] MEDS ORDERED: GLYCOPYRROLATE 0.2 MG/ML 1ML VIAL ONE (13:12)
[2023-01-08] MEDS ORDERED: MIDAZOLAM HCL 2MG/2ML 2ml VIAL (1mg/ml) ONE (13:12)
[2023-01-08] MEDS ORDERED: KETAMINE HCL 10 ML ONE (13:12)
[2023-01-08] MEDS ORDERED: HYDROmorphone HCL 2 MG/ML VL/or syr ONE (13:38)
[2023-01-08] MEDS ORDERED: NITROGLYCERIN 0.4 MG SL TAB SL PRN (15:00)
[2023-01-08] MEDS ORDERED: MORPHINE SULFATE INJ 2 MG/ml SYRG IV PRN (15:00)
[2023-01-08] MEDS: LACTATED RINGER'S 1,000 ML IV SCH (15:00)
[2023-01-08] MEDS ORDERED: HYDROmorphone HCL 2 MG/ML VL/or syr IV PRN ×2 (15:00→15:15)
[2023-01-08] MEDS ORDERED: ONDANSETRON HCL 4 MG/2 ML VIAL IV PRN (15:15)
[2023-01-08] MEDS ORDERED: ACCU-CHEK COMFORT CURVE STRIP VI ONE (15:15)
[2023-01-08 17:35] VITALS: BP 120/78
[2023-01-08 18:25] VITALS: BP 123/82
[2023-01-08] MEDS: HYDROcodone-ACET 5/325MG TAB PO PRN (20:56)
[2023-01-08 22:00] VITALS: BP 104/67
[2023-01-08] MEDS: SODIUM CHLOR 0.9% PF (SALINE LOCK) 10ML VIAL/SYR IV SCH (22:33)
[2023-01-09] VITALS (7 sets, daily range): BP systolic 126–165; BP diastolic 68–94
[2023-01-09] MEDS: LACTATED RINGER'S 1,000 ML IV SCH (01:00)
[2023-01-09] MEDS: HYDROcodone-ACET 5/325MG TAB PO PRN (04:37)
[2023-01-09] MEDS: SODIUM CHLOR 0.9% PF (SALINE LOCK) 10ML VIAL/SYR IV SCH ×3 (05:01→23:11)
[2023-01-09] MEDS ORDERED: DEXTROSE (50%) 50ML SYRG IV PRN (10:00)
[2023-01-09] MEDS ORDERED: ALBUTEROL SULF 2.5 MG/0.5ML(0.5%) NEB SOLN NEB PRN (10:00)
[2023-01-09] MEDS ORDERED: ENOXAPARIN SOD 40 MG/0.4 ML SYRINGE SC SCH (10:00)
[2023-01-09] MEDS ORDERED: MORPHINE SULFATE INJ 2 MG/ml SYRG IV PRN (10:00)
[2023-01-09] MEDS: FLUoxetine HCL 20 MG CAP PO SCH (10:55)
[2023-01-09] MEDS: EMPAGLIFLOZIN 10 MG TAB PO SCH (10:55)
[2023-01-09] MEDS: HYDROcodone-ACET 10/325MG TAB PO PRN ×2 (10:56→18:40)
[2023-01-09] MEDS: HCTZ 25 MG TAB PO SCH (10:57)
[2023-01-09] MEDS: LOSARTAN POTASSIUM 50 MG TAB PO SCH (10:58)
[2023-01-09] MEDS: InsuLIN REG 1unit/0.01ml Soln (100units/ml) SC SCH ×3 (11:30→23:18)
[2023-01-09] MEDS: ACCU-CHEK COMFORT CURVE STRIP VI SCH ×3 (11:44→23:12)
[2023-01-09] MEDS: FLECAINIDE ACETATE 50 MG TAB PO SCH ×2 (13:00→23:11)
[2023-01-09] MEDS ORDERED: RIVAROXABAN 20 MG TAB PO SCH (18:00)
[2023-01-09] MEDS ORDERED: RIVAROXABAN 15 MG TAB PO SCH (18:00)
[2023-01-09] MEDS ORDERED: ATORVASTATIN 20 MG TAB PO SCH (22:00)
[2023-01-10] MEDS: ONDANSETRON HCL 4 MG/2 ML VIAL IV PRN ×2 (00:54→10:31)
[2023-01-10] MEDS: SODIUM CHLOR 0.9% PF (SALINE LOCK) 10ML VIAL/SYR IV SCH (05:17)
[2023-01-10 05:34] VITALS: BP 135/78
[2023-01-10] MEDS: HYDROcodone-ACET 10/325MG TAB PO PRN ×2 (05:38→10:29)
[2023-01-10] MEDS: InsuLIN REG 1unit/0.01ml Soln (100units/ml) SC SCH ×2 (06:22→11:30)
[2023-01-10] MEDS: ACCU-CHEK COMFORT CURVE STRIP VI SCH ×2 (06:22→13:30)
[2023-01-10] MEDS: EMPAGLIFLOZIN 10 MG TAB PO SCH (06:27)
[2023-01-10 06:49] LABS: Basophils # (auto) 0 10 ^3/uL (0-0.2); Eosinophils # (auto) 0.1 10 ^3/uL (0-0.8); Lymphocytes # (auto) 0.9 10 ^3/uL (0.4-5.4); Monocytes # (auto) 0.7 10 ^3/uL (0-1.3); Neutrophils # (auto) 4.8 10 ^3/uL (1.6-8.6); White Blood Cell 6.6 10^3/uL (4.4-10.8)
[2023-01-10 06:50] LABS: Basophils % (auto) 0.7 % (0.0-2.0); Eosinophils % (auto) 1.9 % (0.0-7.0); Hematocrit 37.1 % (36.0-46.0); Hemoglobin 12.1 g/dL (12.2-16.2); Lymphocytes % (auto) 13.8 % (10.0-50.0); Mean Corpuscular Hemoglobin 25.2 pg (28.0-32.0); Mean Corpuscular Hgb Conc. 32.6 g/dL (32.0-36.0); Mean Corpuscular Volume 77.3 fL (80.0-100.0); Monocytes % (auto) 10.7 % (0.0-12.0); Neutrophils % (auto) 72.9 % (37.0-80.0); Red Blood Cells 4.79 10^6/uL (4.0-5.20); Red Cell Distribution Width 18.6 % (11.8-14.3)
[2023-01-10 07:04] LABS: Calcium 9.5 mg/dL (8.5-10.1)
[2023-01-10 09:00] VITALS: BP 133/86
[2023-01-10] MEDS: FLUoxetine HCL 20 MG CAP PO SCH (09:33)
[2023-01-10] MEDS ORDERED: PERCOT PO (09:33)
[2023-01-10] MEDS ORDERED: LACT10SO70 PO (09:33)
[2023-01-10] MEDS: LOSARTAN POTASSIUM 50 MG TAB PO SCH (09:33)
[2023-01-10] MEDS: HCTZ 25 MG TAB PO SCH (09:34)
[2023-01-10] MEDS: FLECAINIDE ACETATE 50 MG TAB PO SCH (09:34)
[2023-01-10 13:00] VITALS: BP 130/86
== END 2023-01-10 15:15 | disposition home or self-care (01) | DRG 563 ==
LOC: SUR 10:11 → OVERFLOW 15:08 → CENTRAL 17:23
PROVIDERS: ADMIT Orthopaedic Surgery Adult Reconstructive Orthopaedic Surgery; ATTEND Internal Medicine
PROC: 2W3MX2Z Immobilization of Left Lower Extremity using Cast (ICD-10-PCS; principal; 2023-01-10)
DX: S82.202A Unspecified fracture of shaft of left tibia, initial encounter for closed fracture (principal); D68.69 Other thrombophilia; I50.42 Chronic combined systolic (congestive) and diastolic (congestive) heart failure; Z20.822 Contact with and (suspected) exposure to COVID-19; E11.9 Type 2 diabetes mellitus without complications; I11.0 Hypertensive heart disease with heart failure; I48.91 Unspecified atrial fibrillation; E78.5 Hyperlipidemia, unspecified; J44.9 Chronic obstructive pulmonary disease, unspecified
CPT/HCPCS: 36415; 73590; 76000; 80048; 80053; 81001; 82962; 85025; 85610; 85730; 97110; 97116; 97163; 97530; G0378; J0690; J1815; J1885; J2250; J2405; J2704; J3490

== ENCOUNTER 2023-02-20 09:20 | Emergency (ER) | payer OTHER, MEDICAID ==
[~2023-02-20] VITALS: Ht 162.6 cm; Wt 84.0 kg
[2023-02-20 09:20] VITALS: BP 140/88
[~2023-02-20 09:20] MED LIST changes: +LACT10SO70 PO; +PERCOT PO
[2023-02-20 09:53] LABS: Basophils # (auto) 0.1 10 ^3/uL (0-0.2); Basophils % (auto) 0.9 % (0.0-2.0); Eosinophils # (auto) 0.1 10 ^3/uL (0-0.8); Hematocrit 38.5 % (36.0-46.0); Hemoglobin 12.5 g/dL (12.2-16.2); Lymphocytes # (auto) 1.3 10 ^3/uL (0.4-5.4); Mean Corpuscular Volume 78.2 fL (80.0-100.0); Monocytes # (auto) 0.6 10 ^3/uL (0-1.3); Red Blood Cells 4.92 10^6/uL (4.0-5.20); White Blood Cell 6.3 10^3/uL (4.4-10.8)
[2023-02-20 09:56] LABS: Eosinophils % (auto) 1.7 % (0.0-7.0); Lymphocytes % (auto) 20.4 % (10.0-50.0); Mean Corpuscular Hemoglobin 25.4 pg (28.0-32.0); Mean Corpuscular Hgb Conc. 32.5 g/dL (32.0-36.0); Monocytes % (auto) 10.2 % (0.0-12.0); Neutrophils # (auto) 4.2 10 ^3/uL (1.6-8.6); Neutrophils % (auto) 66.8 % (37.0-80.0); Nucleated Red Blood Cells % 0.2 %
[2023-02-20 09:59] LABS: Red Cell Distribution Width 20.5 % (11.8-14.3)
[2023-02-20 10:08] LABS: Albumin 3.6 g/dL (3.4-5.0); Calcium 9.1 mg/dL (8.5-10.1); Potassium 4.2 mmol/L (3.5-5.1)
[2023-02-20 10:12] LABS: BUN/Creatinine Ratio 23.9 (10.0-20.0); Bilirubin, Total 0.4 mg/dL (0.2-1.0); Total Protein 6.3 g/dL (6.4-8.2)
[2023-02-20] MEDS ORDERED: HYDROcodone-ACET 10/325MG TAB PO ONE (12:00)
[2023-02-20] MEDS ORDERED: SODIUM CHLORIDE 0.9% 1,000 ML IV ONE (12:00)
[2023-02-20] MEDS ORDERED: IOHEXOL 350 MG/ML 100ML IJ ONE (12:21)
== END 2023-02-20 15:21 | disposition left against medical advice (07) ==
LOC: ER 09:20
DX: R07.2 Precordial pain (principal); R06.02 Shortness of breath; R42 Dizziness and giddiness; I48.91 Unspecified atrial fibrillation; F41.9 Anxiety disorder, unspecified; J44.9 Chronic obstructive pulmonary disease, unspecified; I11.0 Hypertensive heart disease with heart failure; I50.9 Heart failure, unspecified; I25.10 Atherosclerotic heart disease of native coronary artery without angina pectoris; F32.9 Major depressive disorder, single episode, unspecified; E11.9 Type 2 diabetes mellitus without complications; E78.5 Hyperlipidemia, unspecified; I25.2 Old myocardial infarction; Z90.89 Acquired absence of other organs; Z90.49 Acquired absence of other specified parts of digestive tract; Z98.890 Other specified postprocedural states; Z90.710 Acquired absence of both cervix and uterus
CPT/HCPCS: 36415; 71045; 80053; 83880; 84484; 85025; 85379; 99284; Q9967

== ENCOUNTER → 2023-06-13 | Outpatient (CLI) | payer OTHER, MEDICAID ==
[~2023-06-13] MED LIST changes: -HYDR12.56 PO; +HYDR12.59 PO; -LOSA-69 PO; +LOSA50TA46 PO; -SIMV-13 PO; +SIMV40TA18 PO
[2023-06-13 13:40] LABS: Urine WBC None Seen /hpf (0 - 5)
[2023-06-13 13:58] LABS: Urine Bacteria NONE SEEN /hpf (None Seen); Urine Blood Negative /uL (Negative); Urine Clarity Clear (Clear); Urine Protein, UAD Negative (Negative); Urine Specific Gravity 1.011 (1.001-1.035); Urine Urobilinogen Normal (Negative); Urine pH 5.5 (5.0-8.0)
[2023-06-13 14:01] LABS: Urine Color Straw (Yellow)
[2023-06-13 14:31] LABS: Alanine Aminotransferase 15 U/L (7-40); Albumin 4.3 g/dL (3.2-4.8); Alkaline Phosphatase 151 U/L (46-116); Anion Gap 5 (5-15); Aspartate Aminotransferase 14 U/L (13-40); BUN/Creatinine Ratio 25.3 (10.0-20.0); Bilirubin, Total 0.4 mg/dL (0.2-1.0); Blood Urea Nitrogen 20 mg/dL (9-23); Calcium 9.7 mg/dL (8.7-10.4); Carbon Dioxide 28 mmol/L (20-30); Chloride 103 mmol/L (98-107); Glucose 92 mg/dL (74-106); Potassium 4.6 mmol/L (3.5-5.1); Sodium 136 mmol/L (136-145); Total Protein 6.5 g/dL (5.7-8.2)
== END | disposition home or self-care (01) ==
LOC: LAB 13:30
PROVIDERS: ATTEND Internal Medicine
DX: E11.22 Type 2 diabetes mellitus with diabetic chronic kidney disease (principal); N18.9 Chronic kidney disease, unspecified
CPT/HCPCS: 36415; 80053; 81001; 82043; 83036

== ENCOUNTER 2023-07-30 08:05 | Inpatient (IN) | payer OTHER, MEDICAID ==
[~2023-07-30] VITALS: Ht 162.6 cm; Wt 80.5 kg
[2023-07-30] MEDS ORDERED: IPRATROPIUM BROM 0.5 MG/2.5ML INH SOL NEB ONE ×2 (08:15→09:15)
[2023-07-30] MEDS ORDERED: ALBUTEROL SULF 2.5 MG/0.5ML(0.5%) NEB SOLN NEB ONE ×2 (08:15→09:15)
[2023-07-30] MEDS ORDERED: ALBUTEROL MEDNEB 2.5 mg/3ml NEB ONE ×5 (08:19→22:28)
[2023-07-30 08:40] LABS: Basophils # (auto) 0.1 10 ^3/uL (0-0.2); Basophils % (auto) 0.9 % (0.0-2.0); Eosinophils # (auto) 0.1 10 ^3/uL (0-0.8); Eosinophils % (auto) 1.4 % (0.0-7.0); Hematocrit 42.4 % (36.0-46.0); Hemoglobin 13.9 g/dL (12.2-16.2); Lymphocytes # (auto) 1.6 10 ^3/uL (0.4-5.4); Lymphocytes % (auto) 20.6 % (10.0-50.0); Mean Corpuscular Hemoglobin 27.5 pg (28.0-32.0); Mean Corpuscular Hgb Conc. 32.8 g/dL (32.0-36.0); Mean Corpuscular Volume 83.7 fL (80.0-100.0); Monocytes # (auto) 0.7 10 ^3/uL (0-1.3); Monocytes % (auto) 9.4 % (0.0-12.0); Neutrophils # (auto) 5.2 10 ^3/uL (1.6-8.6); Neutrophils % (auto) 67.7 % (37.0-80.0); Red Blood Cells 5.06 10^6/uL (4.0-5.20); Red Cell Distribution Width 19.2 % (11.8-14.3); White Blood Cell 7.7 10^3/uL (4.4-10.8)
[2023-07-30 08:53] LABS: Chloride 103 mmol/L (98-107); Potassium 4.1 mmol/L (3.5-5.1); Sodium 137 mmol/L (136-145)
[2023-07-30 08:55] LABS: Anion Gap 10 (5-15); Carbon Dioxide 24 mmol/L (20-30)
[2023-07-30 08:56] LABS: Calcium 10.1 mg/dL (8.7-10.4)
[2023-07-30 09:00] LABS: Glucose 130 mg/dL (74-106)
[2023-07-30 09:01] LABS: Alkaline Phosphatase 153 U/L (46-116); BUN/Creatinine Ratio 21.8 (10.0-20.0); Blood Urea Nitrogen 19 mg/dL (9-23)
[2023-07-30 09:02] LABS: Alanine Aminotransferase 25 U/L (7-40); Albumin 4.7 g/dL (3.2-4.8); Aspartate Aminotransferase 23 U/L (13-40); INR 0.98 (0.9-1.15); Partial Thromboplastin Time 28.8 SEC (24.5-34.5); Prothrombin Time 10.3 sec (9.3-11.8)
[2023-07-30 09:03] LABS: Bilirubin, Total 0.6 mg/dL (0.2-1.0); Total Protein 6.7 g/dL (5.7-8.2)
[2023-07-30] MEDS ORDERED: FUROSEMIDE 40 MG/4 ML VIAL IV ONE (09:15)
[2023-07-30] MEDS ORDERED: methylPREDNISolone SOD SUCC 125 MG/2 ML VL IV ONE (09:15)
[2023-07-30 10:16] LABS: Urine WBC None Seen /hpf (0 - 5)
[2023-07-30 10:30] LABS: Urine Bacteria FEW /hpf (None Seen); Urine Blood Negative /uL (Negative); Urine Clarity Clear (Clear); Urine Color Colorless (Yellow); Urine Protein, UAD Negative (Negative); Urine Specific Gravity 1.007 (1.001-1.035); Urine Urobilinogen Normal (Negative); Urine pH 7.5 (5.0-8.0)
[2023-07-30] MEDS ORDERED: ENOXAPARIN SOD 40 MG/0.4 ML SYRINGE SC SCH (11:06)
[2023-07-30] MEDS ORDERED: DEXTROSE (50%) 50ML SYRG IV PRN (11:15)
[2023-07-30] MEDS ORDERED: ALBUTEROL SULF 2.5 MG/0.5ML(0.5%) NEB SOLN NEB PRN (11:15)
[2023-07-30] MEDS ORDERED: guaiFENesin-CODEINE Liq 5 ML UD PO ONE (11:15)
[2023-07-30] MEDS: InsuLIN REG 1unit/0.01ml Soln (100units/ml) SC SCH ×3 (11:30→22:00)
[2023-07-30] MEDS: ACCU-CHEK COMFORT CURVE STRIP VI SCH ×3 (11:30→22:00)
[2023-07-30 12:48] LABS: LDL Cholesterol 48 mg/dL (< 100); Triglycerides 56 mg/dL (< 150)
[2023-07-30 12:50] LABS: Cholesterol 143 mg/dL (< 200); HDL Cholesterol 78 mg/dL (40-59)
[2023-07-30] MEDS: ALBUTEROL SULF 2.5 MG/0.5ML(0.5%) NEB SOLN NEB SCH ×3 (14:32→23:12)
[2023-07-30] MEDS: IPRATROPIUM BROM 0.5 MG/2.5ML INH SOL NEB SCH ×3 (14:32→23:12)
[2023-07-30 16:04] VITALS: PULSE 78; RESP 17; O2SAT 100
[2023-07-30 18:25] VITALS: RESP 18; O2SAT 99
[2023-07-30] MEDS ORDERED: FUROSEMIDE 20 MG/2 ML VIAL IV ONE (18:30)
[2023-07-30 20:00] VITALS: BP 128/87; PULSE 71; RESP 18; TEMP 36.7
[2023-07-30] MEDS: guaiFENesin-CODEINE Liq 5 ML UD PO PRN (21:26)
[2023-07-30] MEDS: methylPREDNISolone SOD SUCC 40 MG/ML VL IV SCH (21:27)
[2023-07-30] MEDS: LOSARTAN POTASSIUM 50 MG TAB PO SCH (21:28)
[2023-07-30] MEDS: CELECOXIB 100 MG CAP PO SCH (21:33)
[2023-07-30 22:00] VITALS: BP 130/94; PULSE 83; RESP 16; TEMP 97.8; O2SAT 94
[2023-07-30] MEDS ORDERED: ATORVASTATIN 20 MG TAB PO SCH (22:00)
[2023-07-30] MEDS: FLECAINIDE ACETATE 50 MG TAB PO SCH (22:00)
[2023-07-30] MEDS: FLUoxetine HCL 20 MG CAP PO SCH (22:00)
[2023-07-31] VITALS (15 sets, daily range): BP systolic 130–160; BP diastolic 80–108; PULSE 68–97; RESP 16–18; TEMP 97.2–98.7; O2SAT 94–100
[2023-07-31] MEDS: InsuLIN REG 1unit/0.01ml Soln (100units/ml) SC SCH ×2 (06:00→11:50)
[2023-07-31] MEDS: ACCU-CHEK COMFORT CURVE STRIP VI SCH ×2 (06:05→11:47)
[2023-07-31] MEDS: guaiFENesin-CODEINE Liq 5 ML UD PO PRN (06:06)
[2023-07-31 06:12] LABS: Basophils # (auto) 0 10 ^3/uL (0-0.2); Eosinophils # (auto) 0 10 ^3/uL (0-0.8); Hematocrit 39.5 % (36.0-46.0); Hemoglobin 13.1 g/dL (12.2-16.2); Lymphocytes # (auto) 0.6 10 ^3/uL (0.4-5.4); Lymphocytes % (auto) 10.4 % (10.0-50.0); Mean Corpuscular Hemoglobin 27.5 pg (28.0-32.0); Mean Corpuscular Hgb Conc. 33.3 g/dL (32.0-36.0); Mean Corpuscular Volume 82.5 fL (80.0-100.0); Monocytes # (auto) 0.5 10 ^3/uL (0-1.3); Monocytes % (auto) 7.9 % (0.0-12.0); Neutrophils # (auto) 5.1 10 ^3/uL (1.6-8.6); Neutrophils % (auto) 81.7 % (37.0-80.0); Nucleated Red Blood Cells % 0.1 %; Red Blood Cells 4.79 10^6/uL (4.0-5.20); Red Cell Distribution Width 19.2 % (11.8-14.3); White Blood Cell 6.2 10^3/uL (4.4-10.8)
[2023-07-31] MEDS ORDERED: ALBUTEROL MEDNEB 2.5 mg/3ml NEB ONE ×4 (06:16→14:04)
[2023-07-31 06:17] LABS: Anion Gap 7 (5-15); Carbon Dioxide 28 mmol/L (20-30); Chloride 98 mmol/L (98-107); Sodium 133 mmol/L (136-145)
[2023-07-31 06:18] LABS: Calcium 10.1 mg/dL (8.7-10.4)
[2023-07-31 06:23] LABS: BUN/Creatinine Ratio 21.5 (10.0-20.0); Blood Urea Nitrogen 20 mg/dL (9-23); Glucose 159 mg/dL (74-106); Magnesium 1.9 mg/dL (1.6-2.6)
[2023-07-31] MEDS: IPRATROPIUM BROM 0.5 MG/2.5ML INH SOL NEB SCH ×3 (06:38→14:35)
[2023-07-31] MEDS: ALBUTEROL SULF 2.5 MG/0.5ML(0.5%) NEB SOLN NEB SCH ×3 (06:38→14:35)
[2023-07-31] MEDS: methylPREDNISolone SOD SUCC 40 MG/ML VL IV SCH (09:23)
[2023-07-31] MEDS: FLUoxetine HCL 20 MG CAP PO SCH (09:24)
[2023-07-31] MEDS: CELECOXIB 100 MG CAP PO SCH (09:25)
[2023-07-31] MEDS ORDERED: IOHEXOL 350 MG/ML 100ML IJ ONE (09:25)
[2023-07-31] MEDS: LOSARTAN POTASSIUM 50 MG TAB PO SCH (09:26)
[2023-07-31] MEDS: FLECAINIDE ACETATE 50 MG TAB PO SCH (09:28)
[2023-07-31] MEDS ORDERED: dilTIAZem HCL 180MG ER CAP PO SCH (10:00)
[2023-07-31] MEDS ORDERED: HCTZ 25 MG TAB PO SCH (10:00)
[2023-07-31] MEDS ORDERED: RIVAROXABAN 20 MG TAB PO SCH (10:00)
== END 2023-07-31 16:40 | disposition home or self-care (01) | DRG 190 ==
LOC: ER 08:05 → OVERFLOW 11:03 → TELE-CENTR 17:52
PROVIDERS: ADMIT Internal Medicine
DX: J44.1 Chronic obstructive pulmonary disease with (acute) exacerbation (principal); I50.43 Acute on chronic combined systolic (congestive) and diastolic (congestive) heart failure; I11.0 Hypertensive heart disease with heart failure; E66.01 Morbid (severe) obesity due to excess calories; I48.91 Unspecified atrial fibrillation; I25.10 Atherosclerotic heart disease of native coronary artery without angina pectoris; E78.5 Hyperlipidemia, unspecified; F41.9 Anxiety disorder, unspecified; F32.A Depression, unspecified; E11.9 Type 2 diabetes mellitus without complications; Z79.01 Long term (current) use of anticoagulants; Z90.49 Acquired absence of other specified parts of digestive tract; Z83.3 Family history of diabetes mellitus; Z90.710 Acquired absence of both cervix and uterus; I25.2 Old myocardial infarction; Z68.30 Body mass index [BMI] 30.0-30.9, adult
CPT/HCPCS: 36415; 71045; 71275; 73221; 80048; 80053; 80061; 81001; 82962; 83735; 83880; 84443; 84484; 85025; 85379; 85610; 85730; 93005; 93306; 93970; 94640; 96372; 96374; 96375; G0378; J1815

== ENCOUNTER 2023-08-14 07:48 | Emergency (ER) | payer OTHER, MEDICAID ==
[~2023-08-14] VITALS: Ht 162.6 cm; Wt 82.4 kg
[2023-08-14 07:58] VITALS: BP 156/80; RESP 20; O2SAT 98
[2023-08-14 08:04] VITALS: PULSE 65
[2023-08-14 08:58] LABS: Basophils # (auto) 0 10 ^3/uL (0-0.2); Basophils % (auto) 0.5 % (0.0-2.0); Eosinophils # (auto) 0.2 10 ^3/uL (0-0.8); Eosinophils % (auto) 2.6 % (0.0-7.0); Hematocrit 36.9 % (36.0-46.0); Lymphocytes # (auto) 0.7 10 ^3/uL (0.4-5.4); Lymphocytes % (auto) 8.2 % (10.0-50.0); Mean Corpuscular Hemoglobin 27.4 pg (28.0-32.0); Mean Corpuscular Hgb Conc. 32.6 g/dL (32.0-36.0); Mean Corpuscular Volume 84.1 fL (80.0-100.0); Monocytes # (auto) 0.9 10 ^3/uL (0-1.3); Neutrophils # (auto) 6.9 10 ^3/uL (1.6-8.6); Neutrophils % (auto) 78.7 % (37.0-80.0); Red Blood Cells 4.39 10^6/uL (4.0-5.20); Red Cell Distribution Width 18.1 % (11.8-14.3); White Blood Cell 8.8 10^3/uL (4.4-10.8)
[2023-08-14 09:12] LABS: Alanine Aminotransferase 24 U/L (7-40); Alkaline Phosphatase 116 U/L (46-116); Anion Gap 6 (5-15); Aspartate Aminotransferase 20 U/L (13-40); BUN/Creatinine Ratio 18.8 (10.0-20.0); Blood Urea Nitrogen 15 mg/dL (9-23); Calcium 9.2 mg/dL (8.5-10.1); Carbon Dioxide 28 mmol/L (20-30); Chloride 102 mmol/L (98-107); Glucose 110 mg/dL (74-106); Potassium 4.1 mmol/L (3.5-5.1); Sodium 136 mmol/L (136-145)
[2023-08-14 09:13] LABS: Bilirubin, Total 0.4 mg/dL (0.2-1.0); Total Protein 5.7 g/dL (5.7-8.2)
[2023-08-14] MEDS ORDERED: ALBUTEROL MEDNEB 2.5 mg/3ml NEB NEB ONE (09:30)
[2023-08-14] MEDS ORDERED: methylPREDNISolone SOD SUCC 125 MG/2 ML VL IM ONE (09:30)
[2023-08-14] MEDS ORDERED: IPRATROPIUM BROM 0.5 MG/2.5ML INH SOL NEB ONE (09:30)
[2023-08-14] MEDS ORDERED: PRED20TA2 PO (09:34)
[2023-08-14] MEDS ORDERED: DEXT1LIQ PO (09:37)
== END 2023-08-14 10:16 | disposition home or self-care (01) ==
LOC: ER 07:48
DX: J44.9 Chronic obstructive pulmonary disease, unspecified (principal); I11.0 Hypertensive heart disease with heart failure; I50.9 Heart failure, unspecified; E11.9 Type 2 diabetes mellitus without complications; E78.5 Hyperlipidemia, unspecified; Z90.49 Acquired absence of other specified parts of digestive tract; Z90.89 Acquired absence of other organs
CPT/HCPCS: 36415; 71045; 80053; 83880; 84484; 85025; 93005

== ENCOUNTER 2023-09-10 11:28 | Emergency (ER) | payer OTHER, MEDICAID ==
[~2023-09-10] VITALS: Ht 162.6 cm; Wt 83.4 kg
[~2023-09-10 11:28] MED LIST changes: +DEXT1LIQ PO; +PRED20TA2 PO
[2023-09-10 12:29] VITALS: BP 155/102; RESP 16; O2SAT 98
[2023-09-10 12:40] LABS: Basophils # (auto) 0 10 ^3/uL (0-0.2); Basophils % (auto) 0.7 % (0.0-2.0); Eosinophils # (auto) 0.1 10 ^3/uL (0-0.8); Eosinophils % (auto) 2.1 % (0.0-7.0); Hematocrit 41.3 % (36.0-46.0); Hemoglobin 13.4 g/dL (12.2-16.2); Lymphocytes # (auto) 1.3 10 ^3/uL (0.4-5.4); Lymphocytes % (auto) 21.1 % (10.0-50.0); Mean Corpuscular Hemoglobin 27.8 pg (28.0-32.0); Mean Corpuscular Hgb Conc. 32.5 g/dL (32.0-36.0); Mean Corpuscular Volume 85.5 fL (80.0-100.0); Monocytes # (auto) 0.7 10 ^3/uL (0-1.3); Monocytes % (auto) 10.4 % (0.0-12.0); Neutrophils # (auto) 4.1 10 ^3/uL (1.6-8.6); Neutrophils % (auto) 65.7 % (37.0-80.0); Red Blood Cells 4.83 10^6/uL (4.0-5.20); Red Cell Distribution Width 17.9 % (11.8-14.3); White Blood Cell 6.3 10^3/uL (4.4-10.8)
[2023-09-10] MEDS ORDERED: IPRATROPIUM BROM 0.5 MG/2.5ML INH SOL ONE (12:44)
[2023-09-10] MEDS ORDERED: ALBUTEROL SULF 2.5 MG/0.5ML(0.5%) NEB SOLN ONE (12:44)
[2023-09-10] MEDS ORDERED: ALBUTEROL SULF 2.5 MG/0.5ML(0.5%) NEB SOLN NEB ONE (12:45)
[2023-09-10] MEDS ORDERED: IPRATROPIUM BROM 0.5 MG/2.5ML INH SOL NEB ONE (12:45)
[2023-09-10 12:54] LABS: INR 0.98 (0.9-1.15); Partial Thromboplastin Time 29.1 SEC (24.5-34.5); Prothrombin Time 10.3 sec (9.3-11.8)
[2023-09-10 13:05] LABS: Alanine Aminotransferase 25 U/L (7-40); Albumin 4.4 g/dL (3.2-4.8); Alkaline Phosphatase 128 U/L (46-116); Anion Gap 7 (5-15); Aspartate Aminotransferase 21 U/L (13-40); BUN/Creatinine Ratio 17.8 (10.0-20.0); Bilirubin, Total 0.5 mg/dL (0.2-1.0); Blood Urea Nitrogen 13 mg/dL (9-23); Calcium 10.2 mg/dL (8.5-10.1); Carbon Dioxide 28 mmol/L (20-30); Chloride 101 mmol/L (98-107); Glucose 103 mg/dL (74-106); Potassium 4.1 mmol/L (3.5-5.1); Sodium 136 mmol/L (136-145); Total Protein 6.3 g/dL (5.7-8.2)
[2023-09-10] MEDS ORDERED: cloNIDine HCL 0.1 MG TAB PO ONE (13:45)
[2023-09-10 13:50] VITALS: PULSE 82
[2023-09-10] MEDS ORDERED: AZIT1POW PO (14:02)
== END 2023-09-10 18:23 | disposition home or self-care (01) ==
LOC: ER 11:28
DX: J45.909 Unspecified asthma, uncomplicated (principal); I16.0 Hypertensive urgency; I50.9 Heart failure, unspecified; F41.9 Anxiety disorder, unspecified; I48.91 Unspecified atrial fibrillation; I25.10 Atherosclerotic heart disease of native coronary artery without angina pectoris; F32.9 Major depressive disorder, single episode, unspecified; E11.9 Type 2 diabetes mellitus without complications; Z98.890 Other specified postprocedural states; Z79.899 Other long term (current) drug therapy
CPT/HCPCS: 36415; 71045; 80053; 83605; 83880; 84484; 85025; 85610; 85730; 87040; 93005; 94640; 99285; J7644

== ENCOUNTER → 2024-02-08 | Outpatient (CLI) | payer OTHER ==
[~2024-02-08] MED LIST changes: +AZIT-185 PO; -CEPH-510 PO; +CEPH250C PO; +DEXT1SYP9 PO; +LOSA-534 PO; -LOSA50TA46 PO
== END | disposition home or self-care (01) ==
LOC: LAB 14:30
PROVIDERS: ATTEND Family Medicine
DX: L81.4 Other melanin hyperpigmentation (principal); D48.5 Neoplasm of uncertain behavior of skin

== ENCOUNTER 2024-02-17 13:49 | Emergency (ER) | payer OTHER ==
[~2024-02-17] VITALS: Ht 162.6 cm; Wt 80.0 kg
[2024-02-17 13:55] VITALS: BP 134/85; PULSE 70; RESP 24; TEMP 98.7; O2SAT 99
[2024-02-17] MEDS: HYDROcodone-ACET 5/325MG TAB PO ONE (15:41)
== END 2024-02-17 15:37 | disposition home or self-care (01) ==
LOC: ER 13:49
DX: M25.572 Pain in left ankle and joints of left foot (principal); I25.2 Old myocardial infarction; I25.10 Atherosclerotic heart disease of native coronary artery without angina pectoris; I11.0 Hypertensive heart disease with heart failure; I50.9 Heart failure, unspecified; I48.91 Unspecified atrial fibrillation; E11.9 Type 2 diabetes mellitus without complications; E78.5 Hyperlipidemia, unspecified; J44.9 Chronic obstructive pulmonary disease, unspecified; Z90.49 Acquired absence of other specified parts of digestive tract; Z90.710 Acquired absence of both cervix and uterus; Z90.89 Acquired absence of other organs; Z79.2 Long term (current) use of antibiotics; Z79.899 Other long term (current) drug therapy
CPT/HCPCS: 73610

== ENCOUNTER 2024-03-20 11:38 | Emergency (ER) | payer OTHER ==
[~2024-03-20] VITALS: Ht 162.6 cm; Wt 81.8 kg
[2024-03-20] MEDS: ALBUTEROL SULF 2.5 MG/0.5ML(0.5%) NEB SOLN NEB ONE (14:09)
[2024-03-20] MEDS: IPRATROPIUM BROM 0.5 MG/2.5ML INH SOL NEB ONE (14:09)
[2024-03-20] MEDS: methylPREDNISolone SOD SUCC 125 MG/2 ML VL IM ONE (14:30)
[2024-03-20] MEDS ORDERED: METH4PAK PO (14:31)
[2024-03-20] MEDS ORDERED: LEVO500T91 PO (14:31)
[2024-03-20] MEDS: HYDROcodone-ACET 5/325MG TAB PO ONE (14:38)
[2024-03-20 14:39] VITALS: BP 136/75; PULSE 70; RESP 16; TEMP 97.7; O2SAT 97
== END 2024-03-20 14:43 | disposition home or self-care (01) ==
LOC: ER 11:43
DX: S76.011A Strain of muscle, fascia and tendon of right hip, initial encounter (principal); J44.9 Chronic obstructive pulmonary disease, unspecified; I11.0 Hypertensive heart disease with heart failure; I50.9 Heart failure, unspecified; I25.10 Atherosclerotic heart disease of native coronary artery without angina pectoris; F41.9 Anxiety disorder, unspecified; F32.9 Major depressive disorder, single episode, unspecified; I48.91 Unspecified atrial fibrillation; E11.9 Type 2 diabetes mellitus without complications; E78.5 Hyperlipidemia, unspecified; I25.2 Old myocardial infarction; Z98.890 Other specified postprocedural states; Z79.899 Other long term (current) drug therapy; W18.39XA Other fall on same level, initial encounter; Y93.89 Activity, other specified; Y92.89 Other specified places as the place of occurrence of the external cause; Y99.8 Other external cause status
CPT/HCPCS: 71046; 73502; 94640; 96372; 99284; J2919; J7644

== ENCOUNTER 2024-06-13 08:25 | Inpatient (IN) | payer MEDICAID, MEDICARE, OTHER ==
[2024-06-13] VITALS (10 sets, daily range): BP systolic 110–128; BP diastolic 74–83; PULSE 69–90; RESP 16–20; TEMP 97.7–98.2; O2SAT 92–100
[~2024-06-13] VITALS: Ht 162.6 cm; Wt 88.5 kg
[~2024-06-13 08:25] MED LIST changes: +ALBU108A5 INH; +DILT120C20 PO; +FLUO-125 PO; +HYDR25TA4 PO; +LEVO500T91 PO; +METH4PAK PO
[2024-06-13] MEDS: IPRATROPIUM BROM 0.5 MG/2.5ML INH SOL HHN ONE (10:13)
[2024-06-13] MEDS: ALBUTEROL SULF 2.5 MG/0.5ML(0.5%) NEB SOLN HHN ONE (10:13)
[2024-06-13 10:19] LABS: Alanine Aminotransferase 18 U/L (7-40); Albumin 4.5 g/dL (3.2-4.8); Alkaline Phosphatase 120 U/L (46-116); Anion Gap 9 (5-15); Aspartate Aminotransferase 14 U/L (13-40); BUN/Creatinine Ratio 13.2 (10.0-20.0); Blood Urea Nitrogen 10 mg/dL (9-23); Calcium 10.5 mg/dL (8.7-10.4); Carbon Dioxide 24 mmol/L (20-30); Chloride 104 mmol/L (98-107); Glucose 98 mg/dL (74-106); Potassium 3.8 mmol/L (3.5-5.1); Sodium 137 mmol/L (136-145)
[2024-06-13 10:20] LABS: Bilirubin, Total 0.7 mg/dL (0.2-1.0); Total Protein 6.5 g/dL (5.7-8.2)
[2024-06-13] MEDS: DexAMETHasone INJECTION 10 MG in D5W 5% 50 ML IV ONE (10:20)
[2024-06-13 10:30] LABS: Basophils # (auto) 0 10 ^3/uL (0-0.2); Basophils % (auto) 0.6 % (0.0-2.0); Eosinophils # (auto) 0.1 10 ^3/uL (0-0.8); Eosinophils % (auto) 1.6 % (0.0-7.0); Hemoglobin 14.1 g/dL (12.2-16.2); Lymphocytes # (auto) 1.1 10 ^3/uL (0.4-5.4); Lymphocytes % (auto) 18.2 % (10.0-50.0); Mean Corpuscular Hemoglobin 29.7 pg (28.0-32.0); Mean Corpuscular Hgb Conc. 33.5 g/dL (32.0-36.0); Mean Corpuscular Volume 88.5 fL (80.0-100.0); Monocytes # (auto) 0.5 10 ^3/uL (0-1.3); Monocytes % (auto) 7.8 % (0.0-12.0); Neutrophils # (auto) 4.4 10 ^3/uL (1.6-8.6); Neutrophils % (auto) 71.8 % (37.0-80.0); Nucleated Red Blood Cells % 0.1 %; Platelet Count (auto) 289 10^3/uL (140-450); Red Blood Cells 4.75 10^6/uL (4.0-5.20); Red Cell Distribution Width 17.4 % (11.8-14.3); White Blood Cell 6.2 10^3/uL (4.4-10.8)
[2024-06-13] MEDS: ALBUTEROL SULF 2.5 MG/0.5ML(0.5%) NEB SOLN NEB ONE (11:20)
[2024-06-13 13:21] LABS: Urine Bacteria None Seen /hpf (None Seen)
[2024-06-13] MEDS: HYDROcodone-ACET 5/325MG TAB PO ONE (13:22)
[2024-06-13 13:37] LABS: Urine Blood Negative /uL (Negative); Urine Clarity Clear (Clear); Urine Color Light-Yellow (Yellow); Urine Protein, UAD Negative (Negative); Urine Urobilinogen Normal (Negative); Urine WBC 1 /hpf (0 - 5)
[2024-06-13] MEDS ORDERED: DOCUSATE SOD 100 MG CAP PO PRN (14:15)
[2024-06-13] MEDS ORDERED: NITROGLYCERIN 0.4 MG SL TAB SL PRN (14:15)
[2024-06-13] MEDS: ASPirin 81 mg TAB PO ONE (14:29)
[2024-06-13] MEDS: PANTOPRAZOLE 40 MG/10 ML VIAL INJ IV ONE (14:29)
[2024-06-13] MEDS: ONDANSETRON HCL 4 MG/2 ML VIAL IV PRN (14:30)
[2024-06-13] MEDS: SODIUM CHLORIDE 0.9% 1,000 ML IV SCH (14:30)
[2024-06-13] MEDS: MORPHINE SULFATE INJ 2 MG/ml SYRG IV PRN (14:31)
[2024-06-13 15:46] LABS: INR 1.01 (0.9-1.15); Prothrombin Time 10.7 sec (9.3-11.8)
[2024-06-13] MEDS: RIVAROXABAN 20 MG TAB PO SCH (17:30)
[2024-06-13] MEDS: ALBUTEROL SULF 2.5 MG/0.5ML(0.5%) NEB SOLN NEB SCH (18:47)
[2024-06-13] MEDS: IPRATROPIUM BROM 0.5 MG/2.5ML INH SOL NEB SCH (18:47)
[2024-06-13] MEDS: ATORVASTATIN 20 MG TAB PO SCH (21:59)
[2024-06-13] MEDS: FLUoxetine HCL 20 MG CAP PO SCH (21:59)
[2024-06-13] MEDS: methylPREDNISolone SOD SUCC 125 MG/2 ML VL IV SCH (21:59)
[2024-06-13] MEDS ORDERED: LOSARTAN POTASSIUM 50 MG TAB PO SCH (22:00)
[2024-06-13] MEDS ORDERED: PATIENTS OWN MEDICATION (Simvastatin 40 MG) PO SCH (22:00)
[2024-06-13] MEDS ORDERED: methylPREDNISolone SOD SUCC 125 MG/2 ML VL IV SCH (22:00)
[2024-06-13] MEDS: FLECAINIDE ACETATE 50 MG TAB PO SCH (23:30)
[2024-06-14] VITALS (21 sets, daily range): BP systolic 133–152; BP diastolic 66–84; PULSE 59–83; RESP 16–20; TEMP 97.8–98.5; O2SAT 92–100
[2024-06-14] MEDS: HYDROcodone-ACET 5/325MG TAB PO PRN (00:09)
[2024-06-14 06:41] LABS: Basophils # (auto) 0 10 ^3/uL (0-0.2); Basophils % (auto) 0.1 % (0.0-2.0); Eosinophils # (auto) 0 10 ^3/uL (0-0.8); Hematocrit 36.5 % (36.0-46.0); Hemoglobin 12.5 g/dL (12.2-16.2); Lymphocytes # (auto) 0.4 10 ^3/uL (0.4-5.4); Lymphocytes % (auto) 5.9 % (10.0-50.0); Mean Corpuscular Hemoglobin 29.9 pg (28.0-32.0); Mean Corpuscular Hgb Conc. 34.2 g/dL (32.0-36.0); Mean Corpuscular Volume 87.4 fL (80.0-100.0); Monocytes # (auto) 0.2 10 ^3/uL (0-1.3); Monocytes % (auto) 2.4 % (0.0-12.0); Neutrophils # (auto) 6.6 10 ^3/uL (1.6-8.6); Neutrophils % (auto) 91.6 % (37.0-80.0); Platelet Count (auto) 271 10^3/uL (140-450); Red Blood Cells 4.18 10^6/uL (4.0-5.20); Red Cell Distribution Width 16.8 % (11.8-14.3); White Blood Cell 7.2 10^3/uL (4.4-10.8)
[2024-06-14 06:58] LABS: Alanine Aminotransferase 15 U/L (7-40); Albumin 4.5 g/dL (3.2-4.8); Alkaline Phosphatase 110 U/L (46-116); Anion Gap 13 (5-15); Aspartate Aminotransferase 15 U/L (13-40); BUN/Creatinine Ratio 15.8 (10.0-20.0); Blood Urea Nitrogen 15 mg/dL (9-23); Carbon Dioxide 20 mmol/L (20-30); Chloride 97 mmol/L (98-107); Glucose 192 mg/dL (74-106); Potassium 3.9 mmol/L (3.5-5.1)
[2024-06-14 06:59] LABS: Bilirubin, Total 0.4 mg/dL (0.2-1.0); Sodium 130 mmol/L (136-145); Total Protein 6.5 g/dL (5.7-8.2)
[2024-06-14] MEDS: PANTOPRAZOLE 40 MG/10 ML VIAL INJ IV SCH (09:46)
[2024-06-14] MEDS: LOSARTAN POTASSIUM 50 MG TAB PO SCH (09:48)
[2024-06-14] MEDS: ASPirin 81 mg TAB PO SCH (09:48)
[2024-06-14] MEDS: EMPAGLIFLOZIN 10 MG TAB PO SCH (09:48)
[2024-06-14] MEDS: dilTIAZem 120MG ER CAP PO SCH (09:49)
[2024-06-14] MEDS: AZITHROMYCIN 500MG/ 250ML 250 ML IV SCH (09:49)
[2024-06-14] MEDS ORDERED: hydroCHLOROthiazide 25 MG TAB PO SCH (10:00)
[2024-06-14] MEDS: BUDESONIDE (INHALATION) 0.5 MG/2 ML NEB NEB SCH (18:22)
[2024-06-15] VITALS (20 sets, daily range): BP systolic 105–172; BP diastolic 71–89; PULSE 60–98; RESP 16–20; TEMP 97.6–98.5; O2SAT 94–100
[2024-06-15] MEDS ORDERED: MELATONIN 5 MG TAB ONE (21:39)
[2024-06-15] MEDS: MELATONIN 5 MG TAB PO ONE (22:07)
[2024-06-16] VITALS (16 sets, daily range): BP systolic 133–158; BP diastolic 76–96; PULSE 57–76; RESP 16–20; TEMP 97.9–98.9; O2SAT 91–100
[2024-06-16] MEDS: FUROSEMIDE 20 MG/2 ML VIAL IV ONE (17:15)
[2024-06-17] VITALS (15 sets, daily range): BP systolic 137–166; BP diastolic 82–91; PULSE 53–70; RESP 16–20; TEMP 97.4–98.7; O2SAT 93–100
[2024-06-17] MEDS: PANTOPRAZOLE 40 MG TAB PO SCH (05:38)
[2024-06-17] MEDS: AZITHROMYCIN 250 MG TAB PO SCH (10:37)
[2024-06-17] MEDS ORDERED: PRED20TA2 PO (14:08)
[2024-06-17] MEDS ORDERED: AZIT-43 PO (14:08)
[2024-06-17 15:20] LABS: Base Excess -0.4 mmol/L (-2.0-3.0)
[2024-06-17] MEDS: FUROSEMIDE 20 MG/2 ML VIAL IV ONE (15:27)
[2024-06-18] VITALS (14 sets, daily range): BP systolic 128–173; BP diastolic 71–88; PULSE 56–70; RESP 18–20; TEMP 36.5; O2SAT 95–100
[2024-06-18 07:21] LABS: Anion Gap 7 (5-15); Calcium 10.1 mg/dL (8.7-10.4); Carbon Dioxide 28 mmol/L (20-30); Chloride 101 mmol/L (98-107)
[2024-06-18 07:27] LABS: BUN/Creatinine Ratio 26.1 (10.0-20.0); Blood Urea Nitrogen 24 mg/dL (9-23); Glucose 183 mg/dL (74-106)
[2024-06-18 07:29] LABS: Sodium 136 mmol/L (136-145)
[2024-06-18] MEDS: FUROSEMIDE 20 MG/2 ML VIAL IV ONE (11:27)
== END 2024-06-18 17:15 | disposition home or self-care (01) | DRG 189 ==
LOC: ER 08:25 → TELE 14:15 → TELE-EAST 22:30 → EAST 06-18 05:14
PROVIDERS: ADMIT Nurse Practitioner Family; ATTEND Internal Medicine
DX: J96.01 Acute respiratory failure with hypoxia (principal); I50.33 Acute on chronic diastolic (congestive) heart failure; J44.1 Chronic obstructive pulmonary disease with (acute) exacerbation; M84.462A Pathological fracture, left tibia, initial encounter for fracture; J98.4 Other disorders of lung; F41.9 Anxiety disorder, unspecified; F32.A Depression, unspecified; I11.0 Hypertensive heart disease with heart failure; E11.9 Type 2 diabetes mellitus without complications; E78.5 Hyperlipidemia, unspecified; I48.0 Paroxysmal atrial fibrillation; I25.10 Atherosclerotic heart disease of native coronary artery without angina pectoris; Z90.49 Acquired absence of other specified parts of digestive tract; Z90.710 Acquired absence of both cervix and uterus; Z80.0 Family history of malignant neoplasm of digestive organs; Z83.3 Family history of diabetes mellitus; Z82.5 Family history of asthma and other chronic lower respiratory diseases
CPT/HCPCS: 36415; 36600; 71046; 80048; 80053; 81001; 82805; 82962; 83880; 84484; 85025; 85610; 93005; 93306; 94640; G0378; J1100; J2405; J2470; J7060

== ENCOUNTER 2024-06-24 08:18 | Inpatient (IN) | payer OTHER ==
[~2024-06-24] VITALS: Ht 162.6 cm; Wt 82.0 kg
[~2024-06-24 08:18] MED LIST changes: -ALBUAER3 IN; -AZIT-185 PO; +AZIT-43 PO; -BUDE1AER6 IN; -BUDE2SUS3 IN; -CEL100T PO; -CEPH250C PO; -DEXT1LIQ PO; -DEXT1SYP9 PO; -DILT180C52 PO; -FLUO20CA19 PO; -HYDR12.59 PO; -LACT10SO70 PO; -LEVO500T91 PO; -METH4PAK PO; -PERCOT PO
[2024-06-24] MEDS: ALBUTEROL SULF 2.5 MG/0.5ML(0.5%) NEB SOLN NEB ONE (08:56)
[2024-06-24] MEDS: IPRATROPIUM BROM 0.5 MG/2.5ML INH SOL NEB ONE (08:56)
[2024-06-24 09:14] LABS: Basophils # (auto) 0 10 ^3/uL (0-0.2); Basophils % (auto) 0.2 % (0.0-2.0); Eosinophils # (auto) 0.1 10 ^3/uL (0-0.8); Eosinophils % (auto) 1.2 % (0.0-7.0); Hematocrit 41.6 % (36.0-46.0); Hemoglobin 14.4 g/dL (12.2-16.2); Lymphocytes # (auto) 1.7 10 ^3/uL (0.4-5.4); Lymphocytes % (auto) 16.7 % (10.0-50.0); Mean Corpuscular Hemoglobin 30.6 pg (28.0-32.0); Mean Corpuscular Hgb Conc. 34.6 g/dL (32.0-36.0); Mean Corpuscular Volume 88.4 fL (80.0-100.0); Monocytes # (auto) 0.9 10 ^3/uL (0-1.3); Monocytes % (auto) 8.4 % (0.0-12.0); Neutrophils # (auto) 7.7 10 ^3/uL (1.6-8.6); Neutrophils % (auto) 73.5 % (37.0-80.0); Platelet Count (auto) 250 10^3/uL (140-450); Red Cell Distribution Width 16.8 % (11.8-14.3); White Blood Cell 10.4 10^3/uL (4.4-10.8)
[2024-06-24 09:18] VITALS: RESP 26; O2SAT 95
[2024-06-24 09:24] LABS: Chloride 101 mmol/L (98-107); Potassium 4.2 mmol/L (3.5-5.1); Sodium 136 mmol/L (136-145)
[2024-06-24 09:25] LABS: Anion Gap 7 (5-15); Carbon Dioxide 28 mmol/L (20-30)
[2024-06-24 09:30] LABS: BUN/Creatinine Ratio 22.2 (10.0-20.0); Blood Urea Nitrogen 18 mg/dL (9-23); Glucose 104 mg/dL (74-106)
[2024-06-24 10:45] LABS: Urine Bacteria None Seen /hpf (None Seen)
[2024-06-24 11:15] LABS: Urine Blood Negative /uL (Negative); Urine Clarity Clear (Clear); Urine Color Light-Yellow (Yellow); Urine Protein, UAD Negative (Negative); Urine Specific Gravity 1.009 (1.001-1.035); Urine Urobilinogen Normal (Negative); Urine WBC <1 /hpf (0 - 5)
[2024-06-24] MEDS: MORPHINE SULFATE 4 MG/ML SYR/VIAL IV ONE (11:36)
[2024-06-24] MEDS: ONDANSETRON HCL 4 MG/2 ML VIAL IV ONE (11:36)
[2024-06-24 11:46] LABS: Rapid Influenza A Negative (Negative); Rapid Influenza B Negative (Negative)
[2024-06-24 11:47] LABS: COVID19 ANTIGEN SOFIA FIA NEGATIVE (NEGATIVE)
[2024-06-24] MEDS ORDERED: ONDANSETRON HCL 4 MG/2 ML VIAL IV PRN (12:30)
[2024-06-24] MEDS ORDERED: NITROGLYCERIN 0.4 MG SL TAB SL PRN (12:30)
[2024-06-24] MEDS ORDERED: MORPHINE SULFATE INJ 2 MG/ml SYRG IV PRN (12:30)
[2024-06-24] MEDS ORDERED: HYDROcodone-ACET 5/325MG TAB PO PRN (12:30)
[2024-06-24] MEDS ORDERED: DEXTROSE (50%) 50ML SYRG IV PRN (12:30)
[2024-06-24 12:57] VITALS: BP 114/82; PULSE 83; RESP 18; TEMP 98; O2SAT 99
[2024-06-24] MEDS: methylPREDNISolone SOD SUCC 125 MG/2 ML VL IV ONE (13:14)
[2024-06-24] MEDS: AZITHROMYCIN 250 MG TAB PO ONE (13:14)
[2024-06-24 13:57] VITALS: PULSE 78; RESP 20; O2SAT 98
[2024-06-24] MEDS: ALBUTEROL SULF 2.5 MG/0.5ML(0.5%) NEB SOLN NEB SCH (13:57)
[2024-06-24] MEDS: IPRATROPIUM BROM 0.5 MG/2.5ML INH SOL NEB SCH (13:57)
[2024-06-24 14:03] VITALS: PULSE 80; RESP 20; O2SAT 99
[2024-06-24] MEDS: MORPHINE SULFATE INJ 2 MG/ml SYRG IV PRN (15:30)
[2024-06-24] MEDS: InsuLIN REG 1unit/0.01ml Soln (100units/ml) SC SCH ×2 (19:01→23:30)
[2024-06-24] MEDS: ACCU-CHEK COMFORT CURVE STRIP VI SCH (19:02)
[2024-06-24] MEDS: BUDESONIDE (INHALATION) 0.5 MG/2 ML NEB NEB SCH (22:42)
[2024-06-24] MEDS: ATORVASTATIN 20 MG TAB PO SCH (22:57)
[2024-06-24] MEDS: FLUoxetine HCL 20 MG CAP PO SCH (22:57)
[2024-06-24] MEDS: methylPREDNISolone SOD SUCC 40 MG/ML VL IV SCH (22:57)
[2024-06-24] MEDS: LOSARTAN POTASSIUM 50 MG TAB PO SCH (22:58)
[2024-06-25] VITALS (8 sets, daily range): BP systolic 134; BP diastolic 80; PULSE 77–91; RESP 16–20; O2SAT 96–99
[2024-06-25] MEDS: FLECAINIDE ACETATE 50 MG TAB PO SCH (01:43)
[2024-06-25 05:29] LABS: Hematocrit 39.5 % (36.0-46.0); Hemoglobin 13.2 g/dL (12.2-16.2); Mean Corpuscular Hemoglobin 29.7 pg (28.0-32.0); Mean Corpuscular Hgb Conc. 33.5 g/dL (32.0-36.0); Mean Corpuscular Volume 88.7 fL (80.0-100.0); Platelet Count (auto) 232 10^3/uL (140-450); Red Blood Cells 4.45 10^6/uL (4.0-5.20); Red Cell Distribution Width 17.4 % (11.8-14.3); White Blood Cell 13.8 10^3/uL (4.4-10.8)
[2024-06-25 05:33] LABS: Anion Gap 8 (5-15); Carbon Dioxide 24 mmol/L (20-30); Chloride 101 mmol/L (98-107); Potassium 4.1 mmol/L (3.5-5.1); Sodium 133 mmol/L (136-145)
[2024-06-25 05:34] LABS: Calcium 9.6 mg/dL (8.7-10.4)
[2024-06-25 05:39] LABS: BUN/Creatinine Ratio 26.4 (10.0-20.0); Blood Urea Nitrogen 24 mg/dL (9-23); Glucose 229 mg/dL (74-106)
[2024-06-25 05:47] LABS: Basophils % (manual) 0 (0.0-2.0); Blast Cells 0; Eosinophils % (manual) 0 (0-7); Metamyelocytes % 0; Myelocytes % 0; Promyelocytes % 0; Reactive Lymphocytes 0
[2024-06-25 08:11] LABS: Band Neutrophils % (manual) 7; Lymphocytes % (manual) 2 (10.0-50.0); Monocytes % (manual) 1 (0-12); Platelet Estimate Adequate
[2024-06-25 09:18] LABS: Base Excess 0.1 mmol/L (-2.0-3.0)
[2024-06-25] MEDS: FUROSEMIDE 20 MG/2 ML VIAL IV ONE (09:27)
[2024-06-25] MEDS ORDERED: dilTIAZem 120MG ER CAP PO SCH (10:00)
[2024-06-25] MEDS ORDERED: RIVAROXABAN 20 MG TAB PO SCH (10:00)
[2024-06-25] MEDS: hydroCHLOROthiazide 25 MG TAB PO SCH (10:04)
[2024-06-25] MEDS: AZITHROMYCIN 250 MG TAB PO SCH (10:04)
[2024-06-25] MEDS: ASPirin 81 mg TAB PO SCH (10:04)
[2024-06-25] MEDS ORDERED: RIV20T PO (15:07)
== END 2024-06-25 16:45 | disposition home or self-care (01) | DRG 189 ==
LOC: ER 08:18 → TELE 12:32 → OVERFLOW 16:45 → TELE-WESTW 23:58 → OVERFLOW 06-25 00:04
PROVIDERS: ADMIT Internal Medicine; ATTEND Internal Medicine
DX: J96.21 Acute and chronic respiratory failure with hypoxia (principal); J44.1 Chronic obstructive pulmonary disease with (acute) exacerbation; E87.3 Alkalosis; I50.32 Chronic diastolic (congestive) heart failure; I11.0 Hypertensive heart disease with heart failure; E11.9 Type 2 diabetes mellitus without complications; E78.5 Hyperlipidemia, unspecified; Z20.822 Contact with and (suspected) exposure to COVID-19; I48.91 Unspecified atrial fibrillation; F41.9 Anxiety disorder, unspecified; I25.10 Atherosclerotic heart disease of native coronary artery without angina pectoris; F32.A Depression, unspecified; G89.29 Other chronic pain; I25.2 Old myocardial infarction; Z90.49 Acquired absence of other specified parts of digestive tract; Z90.710 Acquired absence of both cervix and uterus
CPT/HCPCS: 36415; 36600; 71045; 71047; 80048; 81001; 82805; 82962; 83880; 84484; 85007; 85025; 85027; 87426; 87804; 93005; 94640; G0378; J1815; J2405

== ENCOUNTER 2024-08-21 10:39 | Emergency (ER) | payer MEDICAID, MEDICARE, OTHER ==
[~2024-08-21] VITALS: Ht 162.6 cm; Wt 84.0 kg
[~2024-08-21 10:39] MED LIST changes: -HYDR-4611 PO; -IPRA0.00 NEB; +RIV20T PO; -RIVA20TA PO
--- NOTE | 2024-08-21 12:06 | DVH ---
CLINICAL INDICATION: PAIN, NO INJURY TECHNIQUE: 3 radiographic views of the right shoulder were obtained. Comparison: None FINDINGS/IMPRESSION: There is no evidence of acute fracture or dislocation. Severe osteoarthrosis of the right glenohumeral joint.
[2024-08-21 12:10] VITALS: BP 147/97; PULSE 97; RESP 17; TEMP 98.7; O2SAT 97
--- NOTE | 2024-08-21 12:16 | ED.PDOC ---
Musculoskeletal HPI Comments A 73 YEAR OLD FEMALE PRESENTS TO THE ED WITH COMPLAINT OF RIGHT SHOULDER PAIN. PATIENT REPORTS THAT SHE HAS BEEN EXPERIENCING RIGHT SHOULDER PAIN FOR THE PAST 3 WEEKS. PATIENT RELAYS THAT SHE HAS A PREVIOUS ROTATOR CUFF INJURY THAT HAS NOT BEEN FIXED YET. PATIENT STATES SHE NOW NOTES A BUMP TO HER RIGHT SHOULDER THAT W NOT THERE BEFORE WITH PAIN WHEN TOUCHED. PATIENT DENIES NUMBNESS, WEAKNESS, FALL, INJURY, OR OTHER COMPLAINTS. NO OTHER SYMPTOMS OR MODIFYING FACTORS AT THIS TIME. Chief Complaint: Upper Extremity Time Seen by MD: 12:05 Primary Care Provider: SAMARIA Reviewed Notes: Nurses Notes, Medications, Allergies Allergies: Coded Allergies: No Known Drug Allergy (Verified Allergy, Unknown, 10/04/19) Home Meds Active Scripts Prednisone (Prednisone) 20 Mg Tab, 40 MG PO QAM for 5 Days, #5 MG Prov:LIVIER MERA MD 06/17/24 Azithromycin (Azithromycin) 250 Mg Tab, 250 MG PO DAILY for 2 Days, #2 TAB Prov:LIVIER MERA MD 06/17/24 Reported Medications Rivaroxaban (Xarelto Tablet) 20 Mg Tb, 20 MG PO QPM DOSING PER PATIENT 06/25/24 Fluoxetine Hcl (Fluoxetine Hcl) 20 Mg Cap, 1 CAP PO BID for 30 Days, #60 06/17/24 Albuterol Sulfate (Albuterol Sulfate Hfa) 108 Mcg/Act Aer, 2 PUFF INH Q4-6HR PRN for 16 Days, #8.5 06/17/24 Diltiazem Hcl (Diltiazem Hcl Er) 120 Mg Cap, 1 CAP PO DAILY for 90 Days, #90 06/17/24 Hydrochlorothiazide (Hydrochlorothiazide) 25 Mg Tab, 1 TAB PO DAILY for 90 Days, #90 06/17/24 Flecainide Acetate (Flecainide Acetate) 100 Mg Tab, 1 TAB PO BID for 90 Days, #180 11/24/22 Empagliflozin (Jardiance) 10 Mg Tab, 1 TAB PO DAILY for 30 Days, #30 03/12/22 Losartan Potassium (Losartan Potassium) 50 Mg Tab, 1 TAB PO BID for 90 Days, #180 08/17/21 Simvastatin (Simvastatin) 40 Mg Tab, 1 TAB PO QPM for 100 Days, #100 01/31/19 Information Source: Patient Mode of Arrival: Wheelchair Location: Right Extremity Location: Shoulder Timing: Weeks Prehospital treatment: None Severity: Moderate Able to Move Extremity: Yes Bear Weight: Fully Pain: Moderate Mechanism: None Circumstances: Spontaneous Onset of Symptoms: Spontaneous Symptoms: Pain DVT Risk Factors: NONE Last Tetanus: Unknown Associated signs and symptoms: Shoulder pain Past Medical History PAST MEDICAL HISTORY: AFIB, Anxiety, Asthma, CAD, CHF, COPD, Depression, DM, High Lipids, HTN, SC Surgical History: Appendectomy, Cholecystectomy, , Hysterectomy, Tonsillectomy FEATHER RENOVATOR History: No Pertinent FEATHER RENOVATOR History Family History Family History: Reviewed,noncontributory to illness, No family hx of Cancer, No family hx of Heart christian, No family hx of HTN, No family hx ofKidney christian, No family hx of Liver christian, No family hx of Lung christian, No family hx of Stroke, Family hx of DM Social History Smoker: Non-Smoker Alcohol: Denies ETOH Use Drugs: Denies Drug Use Lives In: Home Constitutional: denies: chills, diaphoresis, fatigue, fever, malaise, sweats, weakness, others EENTM: denies: blurred vision, double vision, ear bleeding, ear discharge, ear drainage, ear pain, ear ringing, eye pain, eye redness, hearing loss, mouth pain, mouth swelling, nasal discharge, nose bleeding, nose congestion, nose pain, photophobia, tearing, throat pain, throat swelling, voice changes, others Respiratory: denies: cough, hemoptysis, orthopnea, SOB at rest, shortness of breath, SOB with excertion, stridor, wheezing, others Cardiovascular: denies: chest pain, dizzy spells, diaphoresis, Dyspnea on exertion, edema, irregular heart beat, left arm pain, lightheadedness, palpitations, PND, syncope, others Gastrointestinal: denies: abdomen distended, abdominal pain, blood streaked bowels, constipated, diarrhea, dysphagia, difficulty swallowing, hematemesis, melena, nausea, poor appetite, poor fluid intake, rectal bleeding, rectal pain, vomiting, others Genitourinary: denies: abnormal vagina bleeding, burning, dyspareunia, dysuria, flank pain, frequency, hematuria, incontinence, pain, , vagina discharge, urgency, others Neurological: denies: dizziness, fainting, headache, left sided numbness, left sided weakness, numbness, paresthesia, pre-existing deficit, right sided numbness, right sided weakness, seizure, speech problems, tingling, tremors, weakness, others Musculoskeletal: reports: joint pain, muscle pain; denies: back pain, gout, joint swelling, muscle stiffness, neck pain, others Integumetry: denies: bruises, change in color, change in hair/nails, dryness, laceration, lesions, lumps, rash, wounds, others Allergic/Immunocompromised: denies: Difficulty Healing, Frequent Infections, Hives, Itching, others Hematologic/Lymphatic: denies: anemia, blood clots, easy bleeding, easy bruising, swollen glands, others Endocrine: denies: excessive hunger, excessive sweating, excessive thirst, excessive urination, flushing, intolerance to cold, intolerance to heat, unexplained weight gain, unexplained weight loss, others Psychiatric: denies: anxiety, bipolar disorder, depression, hopeless, panic disorder, schizophrenia, sleepless, suicidal, others All Other Systems: Reviewed and Negative Physical Exam General Appearance: No Apparent Distress, Obese HEENT: Normal ENT Inspection, PERRL/EOMI, Pharynx Normal Neck: Full Range of Motion, Non-Tender, Normal, Normal Inspection Respiratory: Chest Non-Tender, Lungs Clear, No Accessory Muscle Use, No Respiratory Distress, Normal Breath Sounds Cardiovascular: No Edema, No JVD, No Murmur, No Gallop, Normal Peripheral Pulses, Regular Rate/Rhythm Breast Exam: Deferred Gastrointestinal: No Organomegaly, Non Tender, No Pulsatile Mass, Normal Bowel Sounds, Soft Genitalia: Deferred Pelvic: Deferred Rectal: Deferred Extremities: Decreased range of motion (SLIGHTLY ), No calf tenderness, Normal capillary refill, No pedal edema, Tender (AND MILD DEFORMITY ON RIGHT TOP IF SHOULDER, NO BONY TENDERNESS, SWELLING AND DEFORMITY. ) Musculoskeletal : Apperance: Normal Neurologic: Alert, nurse practitioner adult II-XII nml as Tested, No Motor Deficits, Normal Affect, Normal Mood, No Sensory Deficits Cerebellar Function: Normal Reflexes: Normal Skin: Dry, Normal Color, Warm Peripheral Pulses: 2+ carotid (R), 2+ carotid (L), 2+ Radial (R), 2+ Radial (L) Lymphatic: No Adenopathy Was a procedure done? Was a procedure done?: No Differential Diagnosis EXT Differential Diagnosis: Fracture, Sprain, DJD, Contusion, Strain, Arthritis X-Ray, Labs, Meds, VS Vital Signs Date Time Temp Pulse Resp B/P (MAP) Pulse Ox O2 Delivery O2 Flow Rate FiO2 08/21/24 12:10 98.7 97 17 147/97 (114) 97 98.7 08/21/24 12:10 97 17 97 Room Air 08/21/24 11:14 98.0 87 18 140/93 (109) 98 Current Medications Medications (Trade) Dose Ordered Sig/Latasha Route Start Time Stop Time Status Last Admin Acetaminophen/ Hydrocodone Bitart (Beulah 5/325MG Tab) 1 tab ONCE ONCE PO 08/21/24 12:15 08/21/24 12:16 DC 08/21/24 12:30 RT SHOULDER XR: FINDINGS/IMPRESSION: There is no evidence of acute fracture or dislocation. Severe osteoarthrosis of the right glenohumeral joint. X-Ray, Labs, Meds, VS Comment NORCO 5/325 PO Images Reviewed?: Images reviewed and evaluated by me Time of 1ST Reevaluation: 12:12 Reevaluation 1ST: Improved Patient Education/Counseling: Diagnosis, Treatment, Need For Follow Up Family Education/Counseling: Diagnosis, Treatment, Need For Follow Up, No Family Present Medical Screening: No EMC Exist At This Time Departure 1 Departure Time of Disposition: 13:20 Impression: Primary Impression: Degenerative joint disease of right shoulder Qualified Codes: M19.011 - Primary osteoarthritis, right shoulder Disposition: 01 HOME / SELF CARE / HOMELESS Condition: Stable Additional Instructions: FOLLOW-UP WITH PCP IN 1 TO 2 DAYS. TAKE MEDICATIONS PRESCRIBED. RETURN TO ED FOR ANY NEW OR WORSENING SYMPTOMS. e-Prescriptions Tramadol HCl (Tramadol HCl) 50 Mg Tab 50 MG PO BID, #20 TAB Prov: ROSALIND KANG 08/21/24 Discharged With: Self Critical Care Note Critical Care Time?: No Stability Stability form required: No Heart Score Heart Score: Heart Score Response (Comments) Value History N/A 0 EKG N/A 0 Age N/A 0 Risk Factors N/A 0 Troponin N/A 0 Total 0 I personally scribed for ROSALIND KANG ([email or web address]) on 08/21/24 at 12:16. Electronically submitted by Jomar Dockery ([email or web address]). I personally scribed for ROSALIND KANG ([email or web address]) on 08/21/24 at 12:28. Electronically submitted by Jomar Dockery ([email or web address]). ROSALIND KANG Aug 21, 2024 12:16
[2024-08-21] MEDS: HYDROcodone-ACET 5/325MG TAB PO ONE (12:30)
[2024-08-21] MEDS ORDERED: TRAM-626 PO (13:10)
== END 2024-08-21 13:05 | disposition home or self-care (01) ==
LOC: ER 10:39
DX: M19.011 Primary osteoarthritis, right shoulder (principal); I11.0 Hypertensive heart disease with heart failure; I50.9 Heart failure, unspecified; I25.10 Atherosclerotic heart disease of native coronary artery without angina pectoris; J44.9 Chronic obstructive pulmonary disease, unspecified; I48.91 Unspecified atrial fibrillation; F41.9 Anxiety disorder, unspecified; F32.A Depression, unspecified; E11.9 Type 2 diabetes mellitus without complications; I25.2 Old myocardial infarction; E78.5 Hyperlipidemia, unspecified; Z90.49 Acquired absence of other specified parts of digestive tract; Z90.710 Acquired absence of both cervix and uterus; Z98.890 Other specified postprocedural states; Z79.01 Long term (current) use of anticoagulants; Z79.52 Long term (current) use of systemic steroids; Z79.84 Long term (current) use of oral hypoglycemic drugs; Z79.899 Other long term (current) drug therapy
CPT/HCPCS: 73030

== ENCOUNTER 2025-01-10 06:50 | Emergency (ER) | payer MEDICAID, MEDICARE, OTHER ==
[~2025-01-10] VITALS: Ht 162.6 cm; Wt 84.9 kg
[~2025-01-10 06:50] MED LIST changes: +TRAM-626 PO
--- NOTE | 2025-01-10 07:14 | ED.PDOC ---
HPI Comments 74 year old female presents to the ED with a chief complaint of chest pain onset 3 days. Patient states she fell 3 days ago, landed on LT arm noticed LT arm swelling as well as chest pain, described as a sharp pain, shortness of breath. Patient noticed symptoms worsened this morning, came to ED. O2 sat was 98 on RA, BP was 186/95. PMHx HTN, DM, HLD, LA, COPD, CAD, CHF, a-fib, asthma. Denies headache, dizziness, blurry vision, nausea, vomiting, diarrhea, abdominal pain, fever, chills, cough, congestion. No other symptoms or modifying factors present at this time. Chief Complaint: Chest Pain Time Seen by MD: 06:55 Primary Care Provider: SAMARIA Reviewed Notes: Medications, Allergies Allergies: Coded Allergies: No Known Drug Allergy (Verified Allergy, Unknown, 10/04/19) Home Meds Active Scripts Methylprednisolone (Medrol Dosepak) 4 Mg Clayton, 4 MG PO UD for 7 Days, #21 TAB UAD Prov:DALILA NORTON MD 01/10/25 Doxycycline Monohydrate (Doxycycline Monohydrate) 100 Mg Cap, 1 CAP PO BID for 10 Days, #20 CAP Prov:DALILA NORTON MD 01/10/25 Tramadol HCl (Tramadol HCl) 50 Mg Tab, 50 MG PO BID, #20 TAB Prov:ROSALIND KANG 08/21/24 Prednisone (Prednisone) 20 Mg Tab, 40 MG PO QAM for 5 Days, #5 MG Prov:LIVIER MERA MD 06/17/24 Azithromycin (Azithromycin) 250 Mg Tab, 250 MG PO DAILY for 2 Days, #2 TAB Prov:LIVIER MERA MD 06/17/24 Reported Medications Rivaroxaban (Xarelto Tablet) 20 Mg Tb, 20 MG PO QPM DOSING PER PATIENT 06/25/24 Fluoxetine Hcl (Fluoxetine Hcl) 20 Mg Cap, 1 CAP PO BID for 30 Days, #60 06/17/24 Albuterol Sulfate (Albuterol Sulfate Hfa) 108 Mcg/Act Aer, 2 PUFF INH Q4-6HR PRN for 16 Days, #8.5 06/17/24 Diltiazem Hcl (Diltiazem Hcl Er) 120 Mg Cap, 1 CAP PO DAILY for 90 Days, #90 06/17/24 Hydrochlorothiazide (Hydrochlorothiazide) 25 Mg Tab, 1 TAB PO DAILY for 90 Days, #90 06/17/24 Flecainide Acetate (Flecainide Acetate) 100 Mg Tab, 1 TAB PO BID for 90 Days, #180 11/24/22 Empagliflozin (Jardiance) 10 Mg Tab, 1 TAB PO DAILY for 30 Days, #30 03/12/22 Losartan Potassium (Losartan Potassium) 50 Mg Tab, 1 TAB PO BID for 90 Days, #180 08/17/21 Simvastatin (Simvastatin) 40 Mg Tab, 1 TAB PO QPM for 100 Days, #100 01/31/19 Information Source: Patient Mode of Arrival: Ambulatory Severity: Moderate Timing: Days Duration: Since onset Prehospital treatment: None Location: Chest (L) Radiation: Back, Neck, Arm (L) Quality: Sharp Onset: At Rest Cardiac Risk Factors: Hyperlipidemia, HTN, Diabetes PE Risk Factors: None History of: LA Modifying Factors: Nothing Associated Signs and Symptoms: SOB, Back Pain Past Medical History PAST MEDICAL HISTORY: AFIB, Anxiety, Asthma, CAD, CHF, COPD, Depression, DM, High Lipids, HTN, LA Surgical History: Appendectomy, Cholecystectomy, , Hysterectomy, Tonsillectomy 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 History Family History Family History: Reviewed,noncontributory to illness, No family hx of Cancer, No family hx of Heart christian, No family hx of HTN, No family hx ofKidney christian, No fa eileen hx of Liver christian, No family hx of Lung christian, No family hx of Stroke, Family hx of DM Social History Smoker: Non-Smoker Alcohol: Denies ETOH Use Drugs: Denies Drug Use Lives In: Home Constitutional: denies: chills, diaphoresis, fatigue, fever, malaise, sweats, weakness, others EENTM: denies: blurred vision, double vision, ear bleeding, ear discharge, ear drainage, ear pain, ear ringing, eye pain, eye redness, hearing loss, mouth pain, mouth swelling, nasal discharge, nose bleeding, nose congestion, nose pain, photophobia, tearing, throat pain, throat swelling, voice changes, others Respiratory: reports: shortness of breath; denies: cough, hemoptysis, orthopnea, SOB at rest, SOB with excertion, stridor, wheezing, others Cardiovascular: reports: chest pain; denies: dizzy spells, diaphoresis, Dyspnea on exertion, edema, irregular heart beat, left arm pain, lightheadedness, palpitations, PND, syncope, others Gastrointestinal: denies: abdomen distended, abdominal pain, blood streaked bowels, constipated, diarrhea, dysphagia, difficulty swallowing, hematemesis, melena, nausea, poor appetite, poor fluid intake, rectal bleeding, rectal pain, vomiting, others Genitourinary: denies: abnormal vagina bleeding, burning, dyspareunia, dysuria, flank pain, frequency, hematuria, incontinence, pain, , vagina discharge, urgency, others Neurological: denies: dizziness, fainting, headache, left sided numbness, left sided weakness, numbness, paresthesia, pre-existing deficit, right sided numbness, right sided weakness, seizure, speech problems, tingling, tremors, weakness, others Musculoskeletal: reports: back pain, neck pain, others (LT arm swelling); denies: gout, joint pain, joint swelling, muscle pain, muscle stiffness Integumetry: denies: bruises, change in color, change in hair/nails, dryness, laceration, lesions, lumps, rash, wounds, others Allergic/Immunocompromised: denies: Difficulty Healing, Frequent Infections, Hives, Itching, others Hematologic/Lymphatic: denies: anemia, blood clots, easy bleeding, easy bruising, swollen glands, others Endocrine: denies: excessive hunger, excessive sweating, excessive thirst, excessive urination, flushing, intolerance to cold, intolerance to heat, unexplained weight gain, unexplained weight loss, others Psychiatric: denies: anxiety, bipolar disorder, depression, hopeless, panic disorder, schizophrenia, sleepless, suicidal, others All Other Systems: Reviewed and Negative Physical Exam General Appearance: Moderate Distress, Normal HEENT: Normal ENT Inspection, Pharynx Normal, TMs Normal Neck: Full Range of Motion, Non-Tender, Normal, Normal Inspection Respiratory: Chest Non-Tender, Lungs Clear, No Accessory Muscle Use, Normal Breath Sounds Cardiovascular: No Edema, No JVD, No Murmur, No Gallop, Normal Peripheral Pulses, Regular Rate/Rhythm Breast Exam: Deferred Gastrointestinal: No Organomegaly, Non Tender, No Pulsatile Mass, Normal Bowel Sounds, Soft Genitalia: Deferred Pelvic: Deferred Rectal: Deferred Extremities: No calf tenderness, Normal capillary refill, Normal range of motion, Non-tender, No pedal edema, Swelling (Left hand) Musculoskeletal : Apperance: Normal Neurologic: Alert, customer success intern II-XII nml as Tested, No Motor Deficits, Normal Affect, Normal Mood, No Sensory Deficits Cerebellar Function: NOT DONE Reflexes: NOT DONE Skin: Dry, Normal Color, Warm Peripheral Pulses: 3+ Radial (R), 3+ Radial (L) Lymphatic: No Adenopathy EKG EKG : Pulse Rate (adult): 75 Cardiac Rhythm: NSR (75 bpm) Was a procedure done? Was a procedure done?: No CP Differential Dx Differential Diagnosis: A-fib, A-Flutter, Angina, Anxiety / Panic Attack, Atrial Dysrhythmia, Electrolyte Disorder X-Ray, Labs, Meds, VS Vital Signs Date Time Temp Pulse Resp B/P (MAP) Pulse Ox O2 Delivery O2 Flow Rate FiO2 01/10/25 11:03 101/65 (77) 99/67 (78) 01/10/25 10:03 99/64 01/10/25 09:00 97.9 64 18 99/64 (76) 99 97.9 01/10/25 08:37 182/90 01/10/25 08:02 98.7 70 18 182/90 (120) 99 98.7 01/10/25 08:02 70 18 99 Nasal Cannula* 2 28 01/10/25 07:28 75 01/10/25 07:09 71 01/10/25 07:01 98.6 74 20 186/95 (125) 98 98.6 Lab Test 01/10/25 08:30 01/10/25 08:00 01/10/25 07:31 Range/Units White Blood Count 11.9 H 4.4-10.8 10^3/uL Red Blood Count 4.92 4.0-5.20 10^6/uL Hemoglobin 13.5 12.2-16.2 g/dL Hematocrit 41.6 36.0-46.0 % Mean Corpuscular Volume 84.6 80.0-100.0 fL Mean Corpuscular Hemoglobin 27.4 L 28.0-32.0 pg Mean Corpuscular Hemoglobin Concent 32.3 32.0-36.0 g/dL Red Cell Distribution Width 17.5 H 11.8-14.3 % Platelet Count 248 140-450 10^3/uL Mean Platelet Volume 8.3 6.9-10.8 fL Neutrophils (%) (Auto) 82.8 H 37.0-80.0 % Lymphocytes (%) (Auto) 6.9 L 10.0-50.0 % Monocytes (%) (Auto) 10.0 0.0-12.0 % Eosinophils (%) (Auto) 0.1 0.0-7.0 % Basophils (%) (Auto) 0.2 0.0-2.0 % Neutrophils # (Auto) 9.9 H 1.6-8.6 10 ^3/uL Lymphocytes # (Auto) 0.8 0.4-5.4 10 ^3/uL Monocytes # (Auto) 1.2 0-1.3 10 ^3/uL Eosinophils # (Auto) 0 0-0.8 10 ^3/uL Basophils # (Auto) 0 0-0.2 10 ^3/uL Nucleated Red Blood Cells 0.1 % Sodium Level 133 L 136-145 mmol/L Potassium Level 3.9 3.5-5.1 mmol/L Chloride Level 101 98-107 mmol/L Carbon Dioxide Level 23 20-31 mmol/L Anion Gap 9 5-15 Blood Urea Nitrogen 19 9-23 mg/dL Creatinine 0.77 0.550-1.02 mg/dL Glomerular Filtration Rate Calc 82 >90 mL/min BUN/Creatinine Ratio 24.7 H 10.0-20.0 Serum Glucose 144 H 74-106 mg/dL Calcium Level 9.9 8.7-10.4 mg/dL Troponin I High Sensitivity 5 5 </=34 ng/L B-Type Natriuretic Peptide 101.07 0-100 pg/mL Urine Color Light-yellow Yellow Urine Clarity Clear Clear Urine pH 7.5 5.0-9.0 Urine Specific [place] 1.017 1.001-1.035 Urine Protein Negative Negative Urine Ketones 1+ H Negative Urine Blood Negative Negative /uL Urine Nitrite Negative Negative Urine Bilirubin Negative Negative Urine Urobilinogen Normal Negative mg/dL Urine Leukocyte Esterase Negative Negative /uL Urine RBC 1 0 - 4 /hpf Urine Microscopic WBC 1 0-5 /HPF Urine Squamous Epithelial Cells Few <5 /hpf Urine Bacteria None seen None Seen /hpf Urine Glucose Normal Normal mg/dL Current Medications Medications (Trade) Dose Ordered Sig/Latasha Route Start Time Stop Time Status Last Admin Clonidine HCl (Catapres Tablet) 0.2 mg ONCE ONCE PO 01/10/25 08:15 01/10/25 08:16 DC 01/10/25 08:37 Acetaminophen/ Hydrocodone Bitart ([place] 10/325MG Tab) 1 tab ONCE ONCE PO 01/10/25 11:15 01/10/25 11:16 DC 01/10/25 11:50 Patient alert. Finding of shortness a breath. Saturation pristine on room air. Heart rate within normal limits. She does have swelling of the left hand. Fell few days ago. She does have a boot on the left foot. Blood pressure elevated. Was given clonidine. EKG reviewed does not show any acute changes. Continues to smoke cigarettes. Counseled patient on effects of smoking cigarettes for 15 minutes. Reviewed history. Continue monitoring. X-ray shows severe arthritis. Chest x-ray does not reveal any acute process. Was given prescription of prednisolone doxycycline antibiotic. No leg swelling. Heart rate within normal limits. She is feeling much better after coming to the ER. No sign of distress. WBC slightly elevated possibly from COPD. Explained to the patient. Was told to follow up with her primary care physician. Was told to come back if there is any problem. [place] [id number] Ph: [phone] DIAGNOSTIC IMAGING Diagnostic Imaging Report : [id number] Signed PATIENT: PASTOR LANDCCT: [id number] UNIT: [id number] : 1950 LOC: ER ROOM / BED: / AGE / SEX: 74 / F ADM STATUS: REG ER SERVICE 0800 ORDERING PHYSICIAN: DALILA NORTON MD PROCEDURE(s): CXRP - CHEST PORTABLE REASON: sob ORDER NUMBER(s): [id number], ACCESSION NUMBER(s): [id number] CHEST RADIOGRAPH Indication: sob Technique: Single frontal view of the chest was obtained Comparison: XY CHEST PORTABLE on DOS: 06/24/24 FINDINGS: Lines and Tubes: None Lungs: No focal consolidation. Pleura: No effusion. No pneumothorax. Cardiomediastinal contours: Unremarkable Bones: No acute osseous abnormality. Left shoulder prosthesis. IMPRESSION: 1. No acute cardiopulmonary disease. ATED BY: FABIANA HOWELL MD DICTATED DATE/TIME: 01/10/25848 SIGNED BY: FABIANA HOWELL MD SIGNED DATE/TIME: 01/10/25848 CC: [place] [id number] Ph: [phone] DIAGNOSTIC IMAGING Diagnostic Imaging Report : [id number] Signed PATIENT: PASTOR LAND ACCT: [id number] UNIT: [id number] : 1950 LOC: ER ROOM / BED: / AGE / SEX: 74 / F ADM STATUS: REG ER SERVICE 9 ORDERING PHYSICIAN: DALILA NORTON MD PROCEDURE(s): LHAN - L HAND 3V XRAY REASON: fall ORDER NUMBER(s): [id number], ACCESSION NUMBER(s): [id number] XY L HAND 3V XRAY, INDICATION: fall TECHNICAL DATA: Frontal, oblique and lateral views were obtained of the left hand. COMPARISON: None FINDINGS: FINDINGS: No evidence of acute fracture or dislocation. There are large subchondral cysts in the distal ulna, the distal radius and all of the carpal bones. There severe radiocarpal joint space narrowing. Abnormal, significant widening of the scapholunate interval with proximal migration of the capitate which contacts the articular surface of the distal radius. Soft tissue swelling about the wrist. Metacarpophalangeal and interphalangeal osteoarthritis. IMPRESSION: 1. No acute fracture or dislocation of the left wrist. 2. Severe osteoarthritis. Scapholunate advanced collapse. Soft tissue swelling. ATED BY: FABIANA HOWELL MD DICTATED DATE/TIME: 01/10/25846 SIGNED BY: FABIANA HOWELL MD SIGNED DATE/TIME: 01/10/25846 CC: [address] [address] Ph: [phone] DIAGNOSTIC IMAGING Diagnostic Imaging Report : [id number] Signed PATIENT: PASTOR LAND ACCT: [id number] UNIT: [id number] : 1950 LOC: ER ROOM / BED: / AGE / SEX: 74 / F ADM STATUS: REG ER SERVICE 9 ORDERING PHYSICIAN: DALILA NORTON MD PROCEDURE(s): LWRI2 - L WRIST 2 VIEW XRAY REASON: fall ORDER NUMBER(s): [id number], ACCESSION NUMBER(s): [id number] XY L WRIST 2 VIEW XRAY, INDICATION: fall TECHNICAL DATA: Frontal , bilateral oblique, ulnar deviation and lateral views were obtained of the left wrist. COMPARISON: None FINDINGS: No evidence of acute fracture or dislocation. There are large subchondral cysts in the distal ulna, the distal radius and all of the carpal bones. There severe radiocarpal joint space narrowing. Abnormal, significant widening of the scapholunate interval with proximal migration of the capitate which contacts the articular surface of the distal radius. Soft tissue swelling about the wrist. Likely metacarpophalangeal osteoarthritis. Additional carpometacarpal osteoarthritis involving the distal carpal row. IMPRESSION: 1. No acute fracture or dislocation of the left wrist. 2. Severe osteoarthritis. Scapholunate advanced collapse. Soft tissue swelling. ATED BY: FABIANA HOWELL MD DICTATED DATE/TIME: 01/10/25843 SIGNED BY: FABIANA HOWELL MD SIGNED DATE/TIME: 01/10/25843 CC: Time of 1ST Reevaluation: 07:25 Reevaluation 1ST: Unchanged Patient Education/Counseling: Diagnosis, Treatment, Prognosis Family Education/Counseling: No Family Present Additional Information The following tests were ordered, and results were reviewed by me: TROP-x3, EKG- x3, CBC, BNP, XY CHEST, L WRIST 2 VIEW XR, L HAND 3V XR, UA, BMP I reviewed and agreed with the following test results read by other providers: XY CHEST, L WRIST 2 VIEW XR, L HAND 3V XR I discussed treatment and results with medical personnel and: Patient Comprehensive systems review obtained and negative except for what is stated in the HPI. Departure 1 Departure Time of Disposition: 08:06 Impression: Primary Impression: Hypertensive urgency Additional Impression: COPD (chronic obstructive pulmonary disease) Qualified Codes: J42 - Unspecified chronic bronchitis Disposition: 01 HOME / SELF CARE / HOMELESS Condition: Good e-Prescriptions Methylprednisolone (Medrol Dosepak) 4 Mg Clayton 4 MG PO UD for 7 Days, #21 TAB UAD Prov: DALILA NORTON MD 01/10/25 Doxycycline Monohydrate (Doxycycline Monohydrate) 100 Mg Cap 1 CAP PO BID for 10 Days, #20 CAP Prov: DALILA NORTON MD 01/10/25 Discharged With: Self Critical Care Note Critical Care Time?: No Stability Stability form required: No Heart Score Heart Score: Heart Score Response (Comments) Value History Slightly Suspicious 0 EKG Normal 0 Age >65 2 Risk Factors >3 or Hx ASHD 2 Troponin Normal limit 0 Total 4 I personally scribed for DALILA NORTON MD ([email or web address]) on 01/10/25 at 07:14. Electronically submitted by Siobhan Mendoza ([email or web address]). I personally scribed for DALILA NORTON MD ([email or web address]) on 01/10/25 at 07:28. Electronically submitted by Siobhan Mendoza ([email or web address]). I personally scribed for DALILA NORTON MD ([email or web address]) on 01/10/25 at 09:39. Electronically submitted by Siobhan Mendoza ([email or web address]). DALILA NORTON MD Jan 10, 2025 07:14
[2025-01-10 08:02] VITALS: PULSE 70; RESP 18; O2SAT 99
[2025-01-10] MEDS: cloNIDine HCL 0.1 MG TAB PO ONE (08:37)
--- NOTE | 2025-01-10 08:46 | DVH ---
XY L WRIST 2 VIEW XRAY, INDICATION: fall TECHNICAL DATA: Frontal , bilateral oblique, ulnar deviation and lateral views were obtained of the l eft wrist. COMPARISON: None FINDINGS: No evidence of acute fracture or dislocation. There are large subchondral cysts in the distal ulna, the distal radius and all of the carpal bones. There severe radiocarpal joint space narrowing. Abno rmal, significant widening of the scapholunate interval with proximal migration of the capitate which contacts the articular surface of the distal radius. Soft tissue swelling about the wrist. Likely m etacarpophalangeal osteoarthritis. Additional carpometacarpal osteoarthritis involving the distal car pal row. IMPRESSION: 1. No acute fracture or dislocation of the left wrist. 2. Severe osteoarthritis. Scapholunate advanced collapse. Soft tissue swelling.
--- NOTE | 2025-01-10 08:50 | DVH ---
XY L HAND 3V XRAY, INDICATION: fall TECHNICAL DATA: Frontal, oblique and lateral views were obtained of the left hand. COMPARISON: None FINDINGS: FINDINGS: No evidence of acute fracture or dislocation. There are large subchondral cysts in the distal ulna, t he distal radius and all of the carpal bones. There severe radiocarpal joint space narrowing. Abnorma l, significant widening of the scapholunate interval with proximal migration of the capitate which co ntacts the articular surface of the distal radius. Soft tissue swelling about the wrist. Metacarpopha langeal and interphalangeal osteoarthritis. IMPRESSION: 1. No acute fracture or dislocation of the left wrist. 2. Severe osteoarthritis. Scapholunate advanced collapse. Soft tissue swelling.
--- NOTE | 2025-01-10 08:52 | DVH ---
CHEST RADIOGRAPH Indication: sob Technique: Single frontal view of the chest was obtained Comparison: XY CHEST PORTABLE on DOS: 06/24/24 FINDINGS: Lines and Tubes: None Lungs: No focal consolidation. Pleura: No effusion. No pneumothorax. Cardiomediastinal contours: Unremarkable Bones: No acute osseous abnormality. Left shoulder prosthesis. IMPRESSION: 1. No acute cardiopulmonary disease.
[2025-01-10 09:00] VITALS: PULSE 64; RESP 18; TEMP 97.9; O2SAT 99
[2025-01-10 09:12] LABS: Basophils # (auto) 0 10 ^3/uL (0-0.2); Basophils % (auto) 0.2 % (0.0-2.0); Eosinophils # (auto) 0 10 ^3/uL (0-0.8); Eosinophils % (auto) 0.1 % (0.0-7.0); Hematocrit 41.6 % (36.0-46.0); Hemoglobin 13.5 g/dL (12.2-16.2); Lymphocytes # (auto) 0.8 10 ^3/uL (0.4-5.4); Lymphocytes % (auto) 6.9 % (10.0-50.0); Mean Corpuscular Hemoglobin 27.4 pg (28.0-32.0); Mean Corpuscular Hgb Conc. 32.3 g/dL (32.0-36.0); Mean Corpuscular Volume 84.6 fL (80.0-100.0); Monocytes # (auto) 1.2 10 ^3/uL (0-1.3); Neutrophils # (auto) 9.9 10 ^3/uL (1.6-8.6); Neutrophils % (auto) 82.8 % (37.0-80.0); Nucleated Red Blood Cells % 0.1 %; Platelet Count (auto) 248 10^3/uL (140-450); Red Blood Cells 4.92 10^6/uL (4.0-5.20); Red Cell Distribution Width 17.5 % (11.8-14.3); White Blood Cell 11.9 10^3/uL (4.4-10.8)
[2025-01-10 09:25] LABS: Chloride 101 mmol/L (98-107); Potassium 3.9 mmol/L (3.5-5.1)
[2025-01-10 09:26] LABS: Anion Gap 9 (5-15); Carbon Dioxide 23 mmol/L (20-31)
[2025-01-10 09:27] LABS: Calcium 9.9 mg/dL (8.7-10.4)
[2025-01-10 09:27] LABS: Urine Bacteria None Seen /hpf (None Seen)
[2025-01-10 09:32] LABS: BUN/Creatinine Ratio 24.7 (10.0-20.0); Blood Urea Nitrogen 19 mg/dL (9-23); Glucose 144 mg/dL (74-106); Sodium 133 mmol/L (136-145)
[2025-01-10 09:33] LABS: Urine Blood Negative /uL (Negative); Urine Clarity Clear (Clear); Urine Color Light-Yellow (Yellow); Urine Protein, UAD Negative (Negative); Urine Specific Gravity 1.017 (1.001-1.035); Urine Squamous Epithelial Cell FEW /hpf (<5); Urine Urobilinogen Normal (Negative); Urine pH 7.5 (5.0-9.0)
[2025-01-10 09:35] LABS: Urine WBC 1 /HPF (0-5)
[2025-01-10 11:03] VITALS: BP 99/67
[2025-01-10] MEDS ORDERED: DOXY1CAP57 PO (11:13)
[2025-01-10] MEDS ORDERED: METH4PAK PO (11:13)
[2025-01-10] MEDS: HYDROcodone-ACET 10/325MG TAB PO ONE (11:50)
== END 2025-01-10 12:13 | disposition home or self-care (01) ==
LOC: ER 06:50
DX: I16.0 Hypertensive urgency (principal); I11.0 Hypertensive heart disease with heart failure; I50.9 Heart failure, unspecified; E11.9 Type 2 diabetes mellitus without complications; E78.5 Hyperlipidemia, unspecified; F32.A Depression, unspecified; F41.9 Anxiety disorder, unspecified; I25.2 Old myocardial infarction; I48.91 Unspecified atrial fibrillation; J44.89 Other specified chronic obstructive pulmonary disease; M19.042 Primary osteoarthritis, left hand; Z79.84 Long term (current) use of oral hypoglycemic drugs; Z79.899 Other long term (current) drug therapy; Z90.49 Acquired absence of other specified parts of digestive tract; Z90.710 Acquired absence of both cervix and uterus
CPT/HCPCS: 36415; 71045; 73100; 73130; 80048; 81001; 83880; 84484; 85025

== ENCOUNTER → 2025-01-19 | Outpatient (CLI) | payer OTHER ==
[~2025-01-19] MED LIST changes: +DOXY1CAP57 PO; +METH4PAK PO
[2025-01-19 11:20] LABS: Alanine Aminotransferase 25 U/L (7-40); Albumin 4.1 g/dL (3.2-4.8); Anion Gap 6 (5-15); BUN/Creatinine Ratio 26.9 (10.0-20.0); Blood Urea Nitrogen 21 mg/dL (9-23); Calcium 10.1 mg/dL (8.7-10.4); Carbon Dioxide 30 mmol/L (20-31); Chloride 101 mmol/L (98-107); Potassium 4.5 mmol/L (3.5-5.1); Sodium 137 mmol/L (136-145); Total Protein 6.1 g/dL (5.7-8.2)
[2025-01-19 11:21] LABS: Bilirubin, Total 0.7 mg/dL (0.2-1.0)
[2025-01-19 11:24] LABS: Alkaline Phosphatase 131 U/L (46-116); Aspartate Aminotransferase 11 U/L (13-40); Glucose 116 mg/dL (74-106)
== END | disposition home or self-care (01) ==
LOC: LAB 09:15
PROVIDERS: ATTEND Internal Medicine
DX: I11.0 Hypertensive heart disease with heart failure (principal); I50.9 Heart failure, unspecified; E11.9 Type 2 diabetes mellitus without complications
CPT/HCPCS: 36415; 80053; 82043; 83036

== ENCOUNTER 2025-02-16 06:03 | Inpatient (IN) | payer OTHER ==
[2025-02-12 10:42] LABS: Urine Bacteria None Seen /hpf (None Seen)
[2025-02-12 10:53] LABS: Basophils # (auto) 0.1 10 ^3/uL (0-0.2); Basophils % (auto) 0.7 % (0.0-2.0); Eosinophils # (auto) 0.2 10 ^3/uL (0-0.8); Eosinophils % (auto) 3.3 % (0.0-7.0); Hematocrit 39.3 % (36.0-46.0); Hemoglobin 13.1 g/dL (12.2-16.2); Lymphocytes # (auto) 1.3 10 ^3/uL (0.4-5.4); Lymphocytes % (auto) 17.5 % (10.0-50.0); Mean Corpuscular Hemoglobin 28.1 pg (28.0-32.0); Mean Corpuscular Hgb Conc. 33.2 g/dL (32.0-36.0); Mean Corpuscular Volume 84.6 fL (80.0-100.0); Monocytes # (auto) 0.8 10 ^3/uL (0-1.3); Monocytes % (auto) 10.6 % (0.0-12.0); Neutrophils % (auto) 67.9 % (37.0-80.0); Platelet Count (auto) 298 10^3/uL (140-450); Red Blood Cells 4.65 10^6/uL (4.0-5.20); Red Cell Distribution Width 17.5 % (11.8-14.3); White Blood Cell 7.4 10^3/uL (4.4-10.8)
[2025-02-12 11:11] LABS: INR 0.97 (0.9-1.15); Partial Thromboplastin Time 28.8 SEC (24.5-34.5); Prothrombin Time 10.3 sec (9.3-11.8)
[2025-02-12 11:12] LABS: Alanine Aminotransferase 14 U/L (7-40); Albumin 4.3 g/dL (3.2-4.8); Anion Gap 9 (5-15); Aspartate Aminotransferase 14 U/L (13-40); BUN/Creatinine Ratio 23.8 (10.0-20.0); Bilirubin, Total 0.4 mg/dL (0.2-1.0); Blood Urea Nitrogen 19 mg/dL (9-23); Calcium 10.2 mg/dL (8.7-10.4); Carbon Dioxide 29 mmol/L (20-31); Chloride 99 mmol/L (98-107); Glucose 98 mg/dL (74-106); Potassium 4.2 mmol/L (3.5-5.1); Sodium 137 mmol/L (136-145); Total Protein 6.3 g/dL (5.7-8.2); Urine Blood Negative /uL (Negative); Urine Clarity Clear (Clear); Urine Color Colorless (Yellow); Urine Protein, UAD Negative (Negative); Urine Specific Gravity 1.006 (1.001-1.035); Urine Squamous Epithelial Cell FEW /hpf (<5); Urine Urobilinogen Normal (Negative); Urine WBC < 1 /HPF (0-5); Urine pH 6.5 (5.0-9.0)
[2025-02-12 11:14] LABS: Alkaline Phosphatase 123 U/L (46-116)
[2025-02-16] VITALS (7 sets, daily range): BP systolic 101–128; BP diastolic 52–77; PULSE 57–78; RESP 8–20; TEMP 98.4–98.5; O2SAT 2–100
[~2025-02-16] VITALS: Ht 162.6 cm; Wt 85.1 kg
[~2025-02-16 06:03] MED LIST changes: -AZIT-43 PO; -DOXY1CAP57 PO; -EMPA1TAB PO; +HYDR-4798 PO; -METH4PAK PO; -PRED20TA2 PO; -RIV20T PO; -TRAM-626 PO
[2025-02-16] MEDS: TRANEXAMIC ACID 20 ML ONE (06:44)
[2025-02-16] MEDS ORDERED: MORPHINE SULF PF 5 MG/10 ML VIAL ONE (06:46)
[2025-02-16] MEDS ORDERED: KETOROLAC TROMETH 30 MG/ML 1ML VIAL ONE (06:46)
[2025-02-16] MEDS: SUCCINYLCHOLINE CHLORIDE 20 MG/ML 10ML VIAL IV ONE (06:57)
[2025-02-16] MEDS ORDERED: PHENYLEPHRINE HCL 10 MG/ML VL ONE (06:59)
[2025-02-16] MEDS ORDERED: fentaNYL CITRATE 5 ML ONE (06:59)
[2025-02-16] MEDS ORDERED: PROPOFOL 10 MG/ML 20 ML IV ONE (07:03)
[2025-02-16] MEDS: CEFEPIME 1GM/ 50ML 50 ML IV ONE (07:08)
[2025-02-16] MEDS: ceFAZolin 1GM/50ML 100 ML IV ONE (07:09)
[2025-02-16] MEDS ORDERED: NITROGLYCERIN 0.4 MG SL TAB SL PRN (07:30)
[2025-02-16] MEDS ORDERED: ceFAZolin 1GM/50ML 50 ML IV SCH (07:30)
[2025-02-16] MEDS ORDERED: MORPHINE SULFATE INJ 2 MG/ml SYRG IV PRN (07:30)
[2025-02-16] MEDS ORDERED: ePHEDrine SULFATE 50 MG/ML AMP ONE (07:46)
[2025-02-16] MEDS ORDERED: HYDROmorphone HCL 2 MG/ML VL/or syr ONE (07:55)
[2025-02-16] MEDS: BUPIVACAINE 0.25% INJ 50ML VIAL ONE (08:03)
[2025-02-16] MEDS: VANCOMYCIN HCL 1000 MG VL ONE (08:04)
[2025-02-16] MEDS: HYDROmorphone HCL 2 MG/ML VL/or syr IV PRN ×2 (09:58→16:32)
[2025-02-16] MEDS ORDERED: ALBUTEROL SULF HFA 90MCG INH 200DOSE IN SCH (10:00)
[2025-02-16] MEDS ORDERED: PATIENTS OWN MEDICATION (Diltiazem Hcl (Diltiazem Hcl Er) 1 CAP) PO SCH (10:00)
[2025-02-16] MEDS ORDERED: dilTIAZem 120MG ER CAP PO SCH (10:00)
[2025-02-16] MEDS: CEFEPIME 1GM/ 50ML 50 ML IV SCH (10:00)
[2025-02-16] MEDS ORDERED: PATIENTS OWN MEDICATION (Flecainide Acetate 1 TAB) PO SCH (10:00)
[2025-02-16] MEDS ORDERED: FLUoxetine HCL 20 MG CAP PO SCH (10:00)
[2025-02-16] MEDS ORDERED: FLECAINIDE ACETATE 50 MG TAB PO SCH (10:00)
[2025-02-16] MEDS ORDERED: LOSARTAN POTASSIUM 50 MG TAB PO SCH ×2 (10:00→22:00)
[2025-02-16] MEDS ORDERED: hydroCHLOROthiazide 25 MG TAB PO SCH (10:00)
[2025-02-16] MEDS: ACETAMINOPHEN IV 1000 MG/100ML (10MG/ML) IV PRN (10:06)
[2025-02-16] MEDS: ONDANSETRON HCL 4 MG/2 ML VIAL IV ONE (10:16)
[2025-02-16] MEDS: hydrALAZINE HCL 20 MG/ML VL IV PRN (10:58)
--- NOTE | 2025-02-16 11:38 | DVH ---
EXAM: XY R SHOULDER 1V XRAY CLINICAL INDICATION: sp right reverse TSA TECHNIQUE: XY R SHOULDER 1V XRAY Comparison: XY R SHOULDER 2+ VIEW XRAY on DOS: 08/21/24 FINDINGS/IMPRESSION: Right total shoulder arthroplasty. No acute fracture.
[2025-02-16] MEDS: SODIUM CHLOR 0.9% PF (SALINE LOCK) 10ML VIAL/SYR IV SCH (14:00)
--- NOTE | 2025-02-16 14:40 | DVHHP2 ---
Review of Systems Allergies: Coded Allergies: No Known Drug Allergy (Verified Allergy, Unknown, 10/04/19) Medications Current Medications Medications Dose Ordered Sig/Latasha Route Start Time Stop Time Status Last Admin Dose Admin Patient Own Medication 1 cap DAILY PO 02/16/25 10:00 UNV Patient Own Medication 1 tab BID PO 02/16/25 10:00 UNV Patient Own Medication 1 tab QPM PO 02/16/25 18:00 UNV Albuterol 108 mcg Q4HPRN IN 02/16/25 10:00 Sodium Chloride 10 ml Q8HR IV 02/16/25 14:00 Nitroglycerin 0.4 mg Q5MINP PRN SL 02/16/25 07:30 Morphine Sulfate 2 mg Q30M PRN IV 02/16/25 07:30 Cefepime HCl 50 ml @ 12.5 mls/hr DAILY IV 02/16/25 10:00 Acetaminophen/ Hydrocodone Bitart 1 tab Q4HP PRN PO 02/16/25 07:30 Hydromorphone HCl 1 mg Q3HPRN PRN IV 02/16/25 07:30 Atorvastatin Calcium 20 mg HS PO 02/16/25 22:00 Oxycodone HCl 10 mg Q12HR PO 02/16/25 22:00 UNV Cefazolin Sodium 50 ml @ 50 mls/hr Q8H IV 02/16/25 15:30 02/17/25 08:29 UNV Diltiazem HCl 120 mg DAILY PO 02/17/25 10:00 Hydrochlorothiazide 25 mg QAM PO 02/17/25 07:00 Fluoxetine HCl 20 mg BID PO 02/16/25 22:00 Flecainide Acetate 100 mg BID PO 02/16/25 22:00 Losartan Potassium 50 mg BID PO 02/16/25 22:00 Exam Vital Signs Vital Signs Date Time Temp Pulse Resp B/P (MAP) Pulse Ox O2 Delivery O2 Flow Rate FiO2 02/16/25 11:30 Nasal Cannula 2.0 98 02/16/25 09:31 97.9 57 8 114/51 (72) 98 97.9 Labs/Xrays Labs Test 02/16/25 07:08 02/12/25 10:38 Range/Units POC Glucose 123 H 70-106 mg/dl White Blood Count 7.4 4.4-10.8 10^3/uL Red Blood Count 4.65 4.0-5.20 10^6/uL Hemoglobin 13.1 12.2-16.2 g/dL Hematocrit 39.3 36.0-46.0 % Mean Corpuscular Volume 84.6 80.0-100.0 fL Mean Corpuscular Hemoglobin 28.1 28.0-32.0 pg Mean Corpuscular Hemoglobin Concent 33.2 32.0-36.0 g/dL Red Cell Distribution Width 17.5 H 11.8-14.3 % Platelet Count 298 140-450 10^3/uL Mean Platelet Volume 7.7 6.9-10.8 fL Neutrophils (%) (Auto) 67.9 37.0-80.0 % Lymphocytes (%) (Auto) 17.5 10.0-50.0 % Monocytes (%) (Auto) 10.6 0.0-12.0 % Eosinophils (%) (Auto) 3.3 0.0-7.0 % Basophils (%) (Auto) 0.7 0.0-2.0 % Neutrophils # (Auto) 5.0 1.6-8.6 10 ^3/uL Lymphocytes # (Auto) 1.3 0.4-5.4 10 ^3/uL Monocytes # (Auto) 0.8 0-1.3 10 ^3/uL Eosinophils # (Auto) 0.2 0-0.8 10 ^3/uL Basophils # (Auto) 0.1 0-0.2 10 ^3/uL Nucleated Red Blood Cells 0.0 % Prothrombin Time 10.3 9.3-11.8 sec Prothrombin Time INR 0.97 0.9-1.15 Activated Partial Thromboplast Time 28.8 24.5-34.5 SEC Urine Color Colorless Yellow Urine Clarity Clear Clear Urine pH 6.5 5.0-9.0 Urine Specific [place] 1.006 1.001-1.035 Urine Protein Negative Negative Urine Ketones Negative Negative Urine Blood Negative Negative /uL Urine Nitrite Negative Negative Urine Bilirubin Negative Negative Urine Urobilinogen Normal Negative mg/dL Urine Leukocyte Esterase Negative Negative /uL Urine RBC <1 0 - 4 /hpf Urine Microscopic WBC < 1 0-5 /HPF Urine Squamous Epithelial Cells Few <5 /hpf Urine Bacteria None seen None Seen /hpf Urine Glucose Normal Normal mg/dL Sodium Level 137 136-145 mmol/L Potassium Level 4.2 3.5-5.1 mmol/L Chloride Level 99 98-107 mmol/L Carbon Dioxide Level 29 20-31 mmol/L Anion Gap 9 5-15 Blood Urea Nitrogen 19 9-23 mg/dL Creatinine 0.80 0.550-1.02 mg/dL Glomerular Filtration Rate Calc 78 >90 mL/min BUN/Creatinine Ratio 23.8 H 10.0-20.0 Serum Glucose 98 74-106 mg/dL Calcium Level 10.2 8.7-10.4 mg/dL Total Bilirubin 0.4 0.2-1.0 mg/dL Aspartate Amino Transferase (AST) 14 13-40 U/L Alanine Aminotransferase (ALT) 14 7-40 U/L Alkaline Phosphatase 123 H 46-116 U/L Total Protein 6.3 5.7-8.2 g/dL Albumin 4.3 3.2-4.8 g/dL Assessment/Plan Assessment/Plan see dictated note Plan discussed with: Patient Date of Service: February 16, 2025 Billing Provider: MILA DAVALOS MD Common Visit Codes: [id number] INP/OBS CARE (HIGH) Secondary Visit Codes: 66072-[id number] CARE PLAN 30 MINUTES MILA DAVALOS MD February 16, 2025 14:40
[2025-02-16] MEDS ORDERED: DEXTROSE (50%) 50ML SYRG IV PRN (14:45)
--- NOTE | 2025-02-16 15:30 | DVHHP ---
ADMIT DATE: 02/16/2025 HISTORY OF PRESENT ILLNESS: The patient is a 74-year-old lady who is admitted after she underwent surgery on the right shoulder for rotator cuff injury of the right shoulder. The patient at this time denies any significant pain in the shoulder. No chest pain, no shortness of breath, no nausea or vomiting. REVIEW OF SYSTEMS: Otherwise currently negative. PAST MEDICAL HISTORY: Significant for atrial fibrillation, congestive heart failure, COPD, chronic respiratory failure, diabetes mellitus, hypertension, hyperlipidemia, and coronary artery disease. MEDICATIONS: Several and listed in the records. SOCIAL HISTORY: Denies smoking. Lives at home with her family. FAMILY HISTORY: Negative. PHYSICAL EXAMINATION: GENERAL: The patient is awake and alert. VITAL SIGNS: Temperature of 97.9, pulse 57 per minute, blood pressure 114/51. SHEENT: Unremarkable. NECK: There is No JVD. No pedal edema. LUNGS: Equal bilaterally. CARDIOVASCULAR: S1 and S2 is regular without murmurs. ABDOMEN: Soft. There is no organomegaly. NEUROLOGIC: Nonfocal. MUSCULOSKELETAL: The right arm is currently in the sling. ASSESSMENT AND PLAN: * Hypertension, for which the patient's blood pressure will be monitored. * COPD with chronic respiratory failure. The patient will be placed on bronchodilator. * Atrial fibrillation, for which she will continue to flecainide and diltiazem. * Obesity. * Depression. * Chronic pain. * Hyperlipidemia. * History of coronary artery disease. * Status post right shoulder surgery, for which she will be placed on pain medication. * Advanced care planning. The patient is a FULL CODE- Time spent was 19 minutes. MD LUIS Neumann/KIKE TID: [id number] RECEIPT: [id number] MTDD
[2025-02-16] MEDS: ceFAZolin 1GM/50ML 50 ML IV SCH (16:58)
[2025-02-16] MEDS: InsuLIN REG 1unit/0.01ml Soln (100units/ml) SC SCH (17:31)
[2025-02-16] MEDS: ACCU-CHEK COMFORT CURVE STRIP VI SCH (17:32)
[2025-02-16] MEDS ORDERED: PATIENTS OWN MEDICATION (Simvastatin 1 TAB) PO SCH (18:00)
--- NOTE | 2025-02-16 18:14 | DVHINCON2 ---
Date of service: February 16, [address] Potts Reason for Consultation Chronic pain syndrome Right Shoulder pain status post Rotator cuff repair History of Present Illness Ms. Dewey who is a nice white lady with the chief complaint of chronic pain and right shoulder pain status post Rotator cuff repair after injury this morning. She rates her pain as 8/10 on a numerical pain scale of 0-10/10. She has history of bilateral ankle surgery as well as TKA on the left which made her left leg longer resulted in slight limping. Her ankles are deformed and has difficulty walking without bout. Past Medical History HTN, A-Fib, CHF, COPD, CAD, DM, Osteoarthritis, Hyperlipidemia Past Surgical History Ankle surgery, TKA, and Rotator cuff repair today Family History: Cancer G8 FATHER (ABDOMEN) FH: cirrhosis G8 MOTHER Family history: Asthma G8 MOTHER Family history: Diabetes mellitus G8 MOTHER Allergies: Coded Allergies: No Known Drug Allergy (Verified Allergy, Unknown, 10/04/19) Home Meds Reported Medications Hydrocodone-Acetaminophen (Hydrocodone Bitartrate/AC 10-325 mg) 1 Tab Tab, 1 TAB PO PRN, TAB 02/12/25 Fluoxetine Hcl (Fluoxetine Hcl) 20 Mg Cap, 1 CAP PO BID for 30 Days, #60 06/17/24 Albuterol Sulfate (Albuterol Sulfate Hfa) 108 Mcg/Act Aer, 2 PUFF INH Q4-6HR PRN for 16 Days, #8.5 06/17/24 Diltiazem Hcl (Diltiazem Hcl Er) 120 Mg Cap, 1 CAP PO DAILY for 90 Days, #90 06/17/24 Hydrochlorothiazide (Hydrochlorothiazide) 25 Mg Tab, 1 TAB PO DAILY for 90 Days, #90 06/17/24 Flecainide Acetate (Flecainide Acetate) 100 Mg Tab, 1 TAB PO BID for 90 Days, #180 11/24/22 Losartan Potassium (Losartan Potassium) 50 Mg Tab, 1 TAB PO BID for 90 Days, #180 08/17/21 Simvastatin (Simvastatin) 40 Mg Tab, 1 TAB PO QPM for 100 Days, #100 01/31/19 Current Medications Current Medications Medications (Trade) Dose Ordered Sig/Latasha Route PRN Reason Start Time Stop Time Status Last Admin Hydrochlorothiazide (hydroCHLOROthiazide TABLET) 25 mg DAILY PO 02/16/25 10:00 02/16/25 12:02 DC Losartan Potassium (Cozaar Tablet) 50 mg BID PO 02/16/25 10:00 02/16/25 12:04 DC Patient Own Medication 1 cap DAILY PO 02/16/25 10:00 UNV Patient Own Medication 1 tab BID PO 02/16/25 10:00 UNV Patient Own Medication 1 tab QPM PO 02/16/25 18:00 UNV Fluoxetine HCl (PROzac CAPSULE) 20 mg BID PO 02/16/25 10:00 02/16/25 12:03 DC Albuterol (Ventolin Hfa) 108 mcg Q4HPRN IN 02/16/25 10:00 02/16/25 14:45 DC Sodium Chloride (Saline Lock Ns) 10 ml Q8HR IV 02/16/25 14:00 02/16/25 14:00 Cefazolin Sodium 50 ml @ 50 mls/hr Q8H IV 02/16/25 07:30 02/16/25 11:47 DC Nitroglycerin (Ntrostat Sublingual) 0.4 mg Q5MINP PRN SL FOR CHEST PAIN 02/16/25 07:30 Morphine Sulfate 2 mg Q30M PRN IV FOR CHEST PAIN 02/16/25 07:30 Cefepime HCl 50 ml @ 12.5 mls/hr DAILY IV 02/16/25 10:00 Acetaminophen/ Hydrocodone Bitart ([place] 10/325MG Tab) 1 tab Q4HP PRN PO MILD PAIN (1-3 PAIN SCALE) 02/16/25 07:30 Hydromorphone HCl (Dilaudid Injection) 1 mg Q3HPRN PRN IV SEVERE PAIN (7-10 PAIN SCALE) 02/16/25 07:30 02/16/25 16:32 Diltiazem HCl (Cardizem ER Capsule) 120 mg DAILY PO 02/16/25 10:00 02/16/25 12:01 DC Flecainide Acetate (Tambocor Tablet) 100 mg BID PO 02/16/25 10:00 02/16/25 12:04 DC Atorvastatin Calcium (Lipitor) 20 mg HS PO 02/16/25 22:00 Acetaminophen (Ofirmev) 1,000 mg [id number] PRN IV PAIN SCALE 1-3 OR TEMP>100.4 02/16/25 09:45 02/16/25 09:58 DC 02/16/25 10:06 Hydromorphone HCl (Dilaudid Injection) 0.5 mg Q10M PRN IV SEVERE PAIN (7-10 PAIN SCALE) 02/16/25 09:45 02/16/25 10:28 DC 02/16/25 10:35 Hydralazine HCl (Apresoline Injection) 5 mg Q10M PRN IV SBP>160 02/16/25 10:45 02/16/25 11:38 DC 02/16/25 10:58 Oxycodone HCl (OxyCONTIN ER Tablet) 10 mg Q12HR PO 02/16/25 22:00 Cefazolin Sodium 50 ml @ 50 mls/hr Q8H IV 02/16/25 15:30 02/17/25 08:29 02/16/25 16:58 Diltiazem HCl (Cardizem ER Capsule) 120 mg DAILY PO 02/17/25 10:00 Hydrochlorothiazide (hydroCHLOROthiazide TABLET) 25 mg QAM PO 02/17/25 07:00 02/16/25 14:40 DC Fluoxetine HCl (PROzac CAPSULE) 20 mg BID PO 02/16/25 22:00 Flecainide Acetate (Tambocor Tablet) 100 mg BID PO 02/16/25 22:00 Losartan Potassium (Cozaar Tablet) 50 mg BID PO 02/16/25 22:00 02/16/25 14:40 DC Albuterol (Ventolin Medneb) 2.5 mg Q6HWA [facility] 02/16/25 18:00 Ipratropium [place] (Atrovent Medneb) 0.5 mg Q6HWA [facility] 02/16/25 18:00 Diagnostic Test (Pha) (Accu-Chek Comfort Curve T) 1 strip Q6HR 02/16/25 18:00 02/16/25 17:32 Insulin Human Regular (InsuLIN R) Q6HR SC 02/16/25 18:00 Dextrose 50 ml UD PRN IV Blood Sugar LESS THAN 60 02/16/25 14:45 Review of Systems All ten review systems are within normal limit except mentioned above. Vital Signs Vital Signs Date Time Temp Pulse Resp B/P (MAP) Pulse Ox O2 Delivery O2 Flow Rate FiO2 02/16/25 17:02 68 18 118/68 02/16/25 16:40 98.4 95 98.4 02/16/25 15:09 Nasal Cannula* 2 28 Physical Exam General: AAO X 3 HEENT: PERRLA Neck: Soft Heart: S1, S2 Lung: Wheezing Abdomen: soft Upper extremities: within normal limit but her right shoulder is under surgical dressing Lower extremities: fine but with deformation of her both ankles. Cranial nerves 2-12: Intact Labs/Diagnostic Data Labs Test 02/16/25 17:01 02/12/25 10:38 Range/Units POC Glucose 129 H 70-106 mg/dl White Blood Count 7.4 4.4-10.8 10^3/uL Red Blood Count 4.65 4.0-5.20 10^6/uL Hemoglobin 13.1 12.2-16.2 g/dL Hematocrit 39.3 36.0-46.0 % Mean Corpuscular Volume 84.6 80.0-100.0 fL Mean Corpuscular Hemoglobin 28.1 28.0-32.0 pg Mean Corpuscular Hemoglobin Concent 33.2 32.0-36.0 g/dL Red Cell Distribution Width 17.5 H 11.8-14.3 % Platelet Count 298 140-450 10^3/uL Mean Platelet Volume 7.7 6.9-10.8 fL Neutrophils (%) (Auto) 67.9 37.0-80.0 % Lymphocytes (%) (Auto) 17.5 10.0-50.0 % Monocytes (%) (Auto) 10.6 0.0-12.0 % Eosinophils (%) (Auto) 3.3 0.0-7.0 % Basophils (%) (Auto) 0.7 0.0-2.0 % Neutrophils # (Auto) 5.0 1.6-8.6 10 ^3/uL Lymphocytes # (Auto) 1.3 0.4-5.4 10 ^3/uL Monocytes # (Auto) 0.8 0-1.3 10 ^3/uL Eosinophils # (Auto) 0.2 0-0.8 10 ^3/uL Basophils # (Auto) 0.1 0-0.2 10 ^3/uL Nucleated Red Blood Cells 0.0 % Prothrombin Time 10.3 9.3-11.8 sec Prothrombin Time INR 0.97 0.9-1.15 Activated Partial Thromboplast Time 28.8 24.5-34.5 SEC Urine Color Colorless Yellow Urine Clarity Clear Clear Urine pH 6.5 5.0-9.0 Urine Specific [place] 1.006 1.001-1.035 Urine Protein Negative Negative Urine Ketones Negative Negative Urine Blood Negative Negative /uL Urine Nitrite Negative Negative Urine Bilirubin Negative Negative Urine Urobilinogen Normal Negative mg/dL Urine Leukocyte Esterase Negative Negative /uL Urine RBC <1 0 - 4 /hpf Urine Microscopic WBC < 1 0-5 /HPF Urine Squamous Epithelial Cells Few <5 /hpf Urine Bacteria None seen None Seen /hpf Urine Glucose Normal Normal mg/dL Sodium Level 137 136-145 mmol/L Potassium Level 4.2 3.5-5.1 mmol/L Chloride Level 99 98-107 mmol/L Carbon Dioxide Level 29 20-31 mmol/L Anion Gap 9 5-15 Blood Urea Nitrogen 19 9-23 mg/dL Creatinine 0.80 0.550-1.02 mg/dL Glomerular Filtration Rate Calc 78 >90 mL/min BUN/Creatinine Ratio 23.8 H 10.0-20.0 Serum Glucose 98 74-106 mg/dL Calcium Level 10.2 8.7-10.4 mg/dL Total Bilirubin 0.4 0.2-1.0 mg/dL Aspartate Amino Transferase (AST) 14 13-40 U/L Alanine Aminotransferase (ALT) 14 7-40 U/L Alkaline Phosphatase 123 H 46-116 U/L Total Protein 6.3 5.7-8.2 g/dL Albumin 4.3 3.2-4.8 g/dL Assessment She is suffering from pain in her shoulder on the right as well as chronic pain syndrome. She is taking Dilaudid 1 mg every three hours. She was taking [place] 10/325 mg one to two a day prescribed by her pain management clinic.My recommendation is the continuation of his home medication and temporary Dilaudid. After the pain becomes under control then Dilaudid should be switched to PO medicine and gradually tapered. I would like to take this opportunity to thank Dr. Potts for allowing me to participate in the treatment of this patient. Plan discussed with: Patient GRAEME MITCHELL MD February 16, 2025 18:14
[2025-02-16] MEDS: IPRATROPIUM BROM 0.5 MG/2.5ML INH SOL NEB SCH (19:58)
[2025-02-16] MEDS: ALBUTEROL SULF 2.5 MG/0.5ML(0.5%) NEB SOLN NEB SCH (19:58)
--- NOTE | 2025-02-16 20:08 | DVHOP2 ---
Operative Report - 2 Report Details Date: 02/16/25 Preop Diagnosis: Right rotator cuff arthropathy Postop Diagnosis: as above Surgeon: Portillo Crespo MD Assistant Teacher Primary: Thuan ROONEY Anesthesiologist: Andrew BUCHANAN Anesthesia: General Implant: Shikha see implant log Consent: The patient was informed of the risks and benefits of the procedure. These include but are not limited to complications of anesthesia, postoperative infection, incomplete relief of symptoms, recurrence of symptoms, damage to blood vessels, nerves and tendons, deep venous thrombosis, pulmonary embolism and possible need for repeat surgery in the future. Estimated Blood Loss: 150 cc Name of Procedure Performed Right reverse total shoulder replacement Procedure Details Procedure Details: The patient was taken to the operative suite, placed on the operative field. Department of Anesthesia administered general anesthetic. Once adequately sedated, the patient was placed in the beach chair position. Care was ensured that he was well positioned, adequately secured and padded. At this point, the right upper extremity was then prepped and draped in the usual sterile fashion. A deltopectoral approach was used and taken down to the skin with a #15 blade scalpel. Cephalic vein was transported medially. At this point, blunt dissection with Biggs scissors was used to come to the overlying subscapular tendon and bursal tissue. Any perforating bleeders were cauterized with Bovie to obtain hemostasis. Once the bursa was seen, it was removed with a Rongeur and subscapular tendon could be easily visualized. At this point, the rotator cuff in the subacromial region was evaluated. There was noted to be a large rotator cuff, which was irreparable. There was eburnated bone on the greater tuberosity noted. The articular surface could be visualized. The biceps tendon was intact. Biceps tenodesis was done to the pec minor. At this point, the subscapular tendon was then taken off using Bovie cautery and Metzenbaum scissors. Protection of axillary nerve was done while subscap and capsule fully released. It was from the capsule to have a two layered repair at closure. The capsule was also reflected posterior. At this point, the glenoid surface could be easily visualized. It was evaluated and had end stage arthritis. The humeral head was evaluated. There was noted to be guillen of the cartilage and eburnated bone particularly in the central portion of the humeral head. At this point, decision was made to proceed with the arthroplasty, since the rotator cuff tear was irreparable and there was significant guillen of the humoral head. The arm was adequately positioned. An oscillating saw was used to make the head articular cut using guide. This was done at the margin of the articular surface with the anatomic neck. This was taken down to appropriate level until this articular surface was adequately removed. At this point, the intramedullary canal and cancellous bone could be easily visualized. The opening hand reamers were then used and this was advanced to a size that had a good fit. Under direct visualization, this was performed easily. This was then removed. A trial component was then impacted into place, which did fit well and appeared adequately secured. We then turned our attention to glenoid. Batman retractor placed posteroinferiorly on glenoid. Subscap was mobilized wtih protection the axillary nerve with palpation. Endy was place between subscap and gelnoid. A bent paul was placed just above the the biceps tendon on the glenoid. Labrum was removed and capsule was released. We then placed glenoid drill guide and steinmann pin according to CT for correct version. We reamed glenoid down to bleeding cancellous bone on inferior surface - noted to have significant bone loss superior so we used a superior augment. Glenoid irrigated and glenoid component placed. Center peg was filled with bone and had a very tight fit. 4 locking screws placed. Correct glenosphere offset determined and glenosphere impacted. humeral tray and liner trialed with good IR/ER/FF and stability with only 1 mm shuck. Trial liner removed. Humerus trial removed. Correct humeral implant impacted along with tray and liner using cement. Her bone quality was poor. Stability was appropriate. Subscap was repaired but the quality of tissue was poor. Wound was irrigated. Deltopectoral interval closed with 0-vicryl followed by 2-0 and clement for skin. Aquacel dressing placed and patient placed in a shoulder immobilzer. Condition Good Disposition Still a Patient PORTILLO CRESPO MD February 16, 2025 20:08
[2025-02-16] MEDS: FLUoxetine HCL 20 MG CAP PO SCH (21:38)
[2025-02-16] MEDS: FLECAINIDE ACETATE 50 MG TAB PO SCH (21:39)
[2025-02-16] MEDS: ATORVASTATIN 20 MG TAB PO SCH (21:39)
[2025-02-16] MEDS: oxyCODONE ER 10 MG TAB PO SCH (21:40)
[2025-02-17] VITALS (10 sets, daily range): BP systolic 94–146; BP diastolic 51–84; PULSE 61–79; RESP 16–24; TEMP 98.1–99.2; O2SAT 93–98
[2025-02-17] MEDS: HYDROcodone-ACET 10/325MG TAB PO PRN ×2 (01:38→04:55)
[2025-02-17 06:53] LABS: Basophils # (auto) 0 10 ^3/uL (0-0.2); Basophils % (auto) 0.5 % (0.0-2.0); Eosinophils # (auto) 0.1 10 ^3/uL (0-0.8); Eosinophils % (auto) 0.9 % (0.0-7.0); Hematocrit 33.8 % (36.0-46.0); Hemoglobin 11.3 g/dL (12.2-16.2); Lymphocytes # (auto) 0.9 10 ^3/uL (0.4-5.4); Lymphocytes % (auto) 9.8 % (10.0-50.0); Mean Corpuscular Hemoglobin 27.9 pg (28.0-32.0); Mean Corpuscular Hgb Conc. 33.4 g/dL (32.0-36.0); Mean Corpuscular Volume 83.7 fL (80.0-100.0); Monocytes # (auto) 1.1 10 ^3/uL (0-1.3); Monocytes % (auto) 11.4 % (0.0-12.0); Neutrophils # (auto) 7.3 10 ^3/uL (1.6-8.6); Neutrophils % (auto) 77.4 % (37.0-80.0); Nucleated Red Blood Cells % 0.2 %; Platelet Count (auto) 205 10^3/uL (140-450); Red Blood Cells 4.04 10^6/uL (4.0-5.20); Red Cell Distribution Width 17.3 % (11.8-14.3); White Blood Cell 9.5 10^3/uL (4.4-10.8)
[2025-02-17] MEDS ORDERED: hydroCHLOROthiazide 25 MG TAB PO SCH (07:00)
[2025-02-17 07:05] LABS: Alanine Aminotransferase 13 U/L (7-40); Albumin 3.7 g/dL (3.2-4.8); Alkaline Phosphatase 87 U/L (46-116); Anion Gap 10 (5-15); Aspartate Aminotransferase 27 U/L (13-40); BUN/Creatinine Ratio 13.2 (10.0-20.0); Blood Urea Nitrogen 9 mg/dL (9-23); Calcium 8.8 mg/dL (8.7-10.4); Carbon Dioxide 25 mmol/L (20-31); Chloride 99 mmol/L (98-107)
[2025-02-17 07:06] LABS: Bilirubin, Total 0.7 mg/dL (0.2-1.0)
[2025-02-17 07:08] LABS: Glucose 115 mg/dL (74-106); Sodium 134 mmol/L (136-145); Total Protein 5.4 g/dL (5.7-8.2)
--- NOTE | 2025-02-17 07:22 | DVH ---
CHEST RADIOGRAPH Indication: copd Technique: Single frontal view of the chest was obtained Comparison: XY CHEST PORTABLE on DOS: 01/10/25 FINDINGS: Lines and Tubes: None Lungs: No focal consolidation. Pleura: No effusion. No pneumothorax. Cardiomediastinal contours: Uncoiling of the thoracic aorta. Bones: No acute osseous abnormality. Bilateral shoulder replacements. IMPRESSION: 1. No acute cardiopulmonary disease.
--- NOTE | 2025-02-17 08:20 | DVHPN2 ---
Progress Note Date Seen: February 17, 2025 Medical Necessity Reason Pt with a Central, PICC or Fol: No Objective vital signs Vital Sign Date Time Temp Pulse Resp B/P (MAP) Pulse Ox O2 Delivery O2 Flow Rate FiO2 02/17/25 04:58 99.1 75 24 142/81 (101) 95 99.1 02/16/25 20:00 Nasal Cannula* 2 28 Total Intake and Output 02/16/25 02/16/25 02/17/25 15:00 23:00 07:00 Intake Total 1370 ml 590 ml Balance 1370 ml 590 ml medications Current Medications Medications Dose Ordered Sig/Latasha Route Start Time Stop Time Status Last Admin Dose Admin Patient Own Medication 1 cap DAILY PO 02/16/25 10:00 UNV Patient Own Medication 1 tab BID PO 02/16/25 10:00 UNV Patient Own Medication 1 tab QPM PO 02/16/25 18:00 UNV Sodium Chloride 10 ml Q8HR IV 02/16/25 14:00 02/17/25 04:44 10 ML Nitroglycerin 0.4 mg Q5MINP PRN SL 02/16/25 07:30 Morphine Sulfate 2 mg Q30M PRN IV 02/16/25 07:30 Cefepime HCl 50 ml @ 12.5 mls/hr DAILY IV 02/16/25 10:00 Acetaminophen/ Hydrocodone Bitart 1 tab Q4HP PRN PO 02/16/25 07:30 02/17/25 01:38 1 TAB Hydromorphone HCl 1 mg Q3HPRN PRN IV 02/16/25 07:30 Hold 02/16/25 16:32 1 MG Atorvastatin Calcium 20 mg HS PO 02/16/25 22:00 02/16/25 21:39 20 MG Oxycodone HCl 10 mg Q12HR PO 02/16/25 22:00 02/16/25 21:40 10 MG Cefazolin Sodium 50 ml @ 50 mls/hr Q8H IV 02/16/25 15:30 02/17/25 08:29 02/17/25 06:31 50 MLS/HR Diltiazem HCl 120 mg DAILY PO 02/17/25 10:00 Fluoxetine HCl 20 mg BID PO 02/16/25 22:00 02/16/25 21:38 20 MG Flecainide Acetate 100 mg BID PO 02/16/25 22:00 02/16/25 21:39 100 MG Albuterol 2.5 mg Q6HWA NEB 02/16/25 18:00 02/17/25 06:14 2.5 MG Ipratropium [place] 0.5 mg Q6HWA NEB 02/16/25 18:00 02/17/25 06:15 0.5 MG Diagnostic Test (Pha) 1 strip Q6HR 02/16/25 18:00 02/17/25 04:47 1 STRIP Insulin Human Regular Q6HR SC 02/16/25 18:00 02/16/25 23:25 2 UNITS Dextrose 50 ml UD PRN IV 02/16/25 14:45 Acetaminophen/ Hydrocodone Bitart 1 tab Q6HP PRN PO 02/16/25 18:15 02/17/25 04:55 1 TAB Examination: GENERAL:Normal, MSK:Abnormal laboratory and microbiology Laboratory Tests 02/17/25 06:12 Test 02/17/25 06:12 Range/Units Serum Glucose 115 H 74-106 mg/dL Problem List/Assessment/Plan Problem List/Assessment/Plan PAtient is a 74 year old female who is s/p Right RV TSA POD 1 1. pain control 2. NWB RUE 3. continue with immobilizer 4. RICE as needed 5. Recommending SNF for patient as she lives with her daughter however does not have any help during the day 6. physical therapy Plan discussed with: Patient My Orders My Orders Orders - KYLER BARON NP Procedure Category Date Status Time * Pain Managment CONS 02/16/25 Transmitted Consult 15:49 Date of Service: February 17, 2025 Billing Provider: BILLIE CRESPO MD Common Visit Codes: NOT BILLABLE KYLER BARON NP February 17, 2025 08:20
[2025-02-17] MEDS: dilTIAZem 120MG ER CAP PO SCH (08:56)
--- NOTE | 2025-02-17 09:55 | DVHPN2 ---
Progress Note Date Seen: February 17, 2025 Medical Necessity Reason Pt with a Central, PICC or Fol: No Subjective Patient reports: No new complaints Review of Systems: HEENT:Normal, CVS:Normal, RESPIRATORY:Normal, GI:Normal, :Normal, MSK:Normal, NEURO:Normal Objective vital signs Vital Sign Date Time Temp Pulse Resp B/P (MAP) Pulse Ox O2 Delivery O2 Flow Rate FiO2 02/17/25 08:56 72 121/68 02/17/25 08:00 18 96 Nasal Cannula* 2 28 02/17/25 04:58 99.1 99.1 Total Intake and Output 02/16/25 02/16/25 02/17/25 15:00 23:00 07:00 Intake Total 1370 ml 590 ml Balance 1370 ml 590 ml medications Current Medications Medications Dose Ordered Sig/Latasha Route Start Time Stop Time Status Last Admin Dose Admin Patient Own Medication 1 cap DAILY PO 02/16/25 10:00 UNV Patient Own Medication 1 tab BID PO 02/16/25 10:00 UNV Patient Own Medication 1 tab QPM PO 02/16/25 18:00 UNV Sodium Chloride 10 ml Q8HR IV 02/16/25 14:00 02/17/25 04:44 10 ML Nitroglycerin 0.4 mg Q5MINP PRN SL 02/16/25 07:30 Morphine Sulfate 2 mg Q30M PRN IV 02/16/25 07:30 Cefepime HCl 50 ml @ 12.5 mls/hr DAILY IV 02/16/25 10:00 02/17/25 08:55 12.5 MLS/HR Acetaminophen/ Hydrocodone Bitart 1 tab Q4HP PRN PO 02/16/25 07:30 02/17/25 01:38 1 TAB Hydromorphone HCl 1 mg Q3HPRN PRN IV 02/16/25 07:30 Hold 02/16/25 16:32 1 MG Atorvastatin Calcium 20 mg HS PO 02/16/25 22:00 02/16/25 21:39 20 MG Oxycodone HCl 10 mg Q12HR PO 02/16/25 22:00 02/17/25 08:58 10 MG Diltiazem HCl 120 mg DAILY PO 02/17/25 10:00 02/17/25 08:56 120 MG Fluoxetine HCl 20 mg BID PO 02/16/25 22:00 02/17/25 08:57 20 MG Flecainide Acetate 100 mg BID PO 02/16/25 22:00 02/17/25 08:57 100 MG Albuterol 2.5 mg Q6HWA NEB 02/16/25 18:00 02/17/25 06:14 2.5 MG Ipratropium [place] 0.5 mg Q6HWA NEB 02/16/25 18:00 02/17/25 06:15 0.5 MG Diagnostic Test (Pha) 1 strip Q6HR 02/16/25 18:00 02/17/25 04:47 1 STRIP Insulin Human Regular Q6HR SC 02/16/25 18:00 02/16/25 23:25 2 UNITS Dextrose 50 ml UD PRN IV 02/16/25 14:45 Acetaminophen/ Hydrocodone Bitart 1 tab Q6HP PRN PO 02/16/25 18:15 02/17/25 04:55 1 TAB Examination: GENERAL:Normal, HEENT:Normal, NECK:Normal, LUNGS:Normal, CVS:Normal, ABDOMEN:Normal, MSK:Normal, MSK:Abnormal (right shoulder sling), SKIN:Normal, NEURO:Normal, :Normal laboratory and microbiology Laboratory Tests 02/17/25 06:12 Test 02/17/25 06:12 Range/Units Serum Glucose 115 H 74-106 mg/dL Problem List/Assessment/Plan Problem List/Assessment/Plan * Hypertension, for which the patient's blood pressure will be monitored. * COPD with chronic respiratory failure. The patient will be placed on bronchodilator. * Atrial fibrillation, for which she will continue to flecainide and diltiazem. * Obesity. * Depression. * Chronic pain. * Hyperlipidemia. * History of coronary artery disease. * Status post right shoulder surgery, for which she will be placed on pain medication. * Advanced care planning. The patient is a FULL CODE: Time spent was 19 minutes. Plan discussed with: Patient My Orders My Orders Orders - MILA DAVALOS MD Procedure Category Date Status Time Albuterol Medneb PHA 02/16/25 In Process (Ventolin Medneb) 18:00 Ipratropium Medneb PHA 02/16/25 In Process (Atrovent Medneb) 18:00 Chest Portable XY 5/20/25 Resulted 06:00 * [employer] Pay [employer]ician CONS 02/16/25 Transmitted Consult Glucose Blood PHA 02/16/25 In Process (Accu-Chek Comfort 18:00 Insulin R (Human) PHA 02/16/25 In Process (Insulin R) 18:00 Dextrose 50% Syringe PHA 02/16/25 In Process 14:45 * [employer] Pay [employer]ician CONS 02/17/25 Verified Consult Date of Service: February 17, 2025 Billing Provider: MILA DAVALOS MD Common Visit Codes: [id number] INP/OBS CARE(HIGH) Secondary Visit Codes: [id number] CARE PLAN 30 MINUTES MILA DAVALOS MD February 17, 2025 09:55
[2025-02-17] MEDS: ONDANSETRON HCL 4 MG/2 ML VIAL IV ONE (11:58)
[2025-02-18] VITALS (12 sets, daily range): BP systolic 118–148; BP diastolic 62–82; PULSE 56–89; RESP 16–20; TEMP 36.7; O2SAT 90–98
--- NOTE | 2025-02-18 07:38 | DVHPN2 ---
Progress Note Date Seen: February 18, 2025 Medical Necessity Reason Pt with a Central, PICC or Fol: No Subjective Patient reports: Feels worse (Patient sobbing in pain stating she cannnot go home like this and she either wants to stay for 3-4 more days or she needs to go to a rehab cetner for assistance) Objective vital signs Vital Sign Date Time Temp Pulse Resp B/P (MAP) Pulse Ox O2 Delivery O2 Flow Rate FiO2 02/18/25 05:53 75 18 98 02/18/25 05:48 Room Air* 0 02/18/25 05:00 98.1 148/73 (98) 98.1 Total Intake and Output 02/17/25 02/17/25 02/18/25 15:00 23:00 07:00 Intake Total 920 ml 1440 ml 1200 ml Balance 920 ml 1440 ml 1200 ml medications Current Medications Medications Dose Ordered Sig/Latasha Route Start Time Stop Time Status Last Admin Dose Admin Patient Own Medication 1 cap DAILY PO 02/16/25 10:00 UNV Patient Own Medication 1 tab BID PO 02/16/25 10:00 UNV Patient Own Medication 1 tab QPM PO 02/16/25 18:00 UNV Sodium Chloride 10 ml Q8HR IV 02/16/25 14:00 02/18/25 05:26 10 ML Nitroglycerin 0.4 mg Q5MINP PRN SL 02/16/25 07:30 Morphine Sulfate 2 mg Q30M PRN IV 02/16/25 07:30 Cefepime HCl 50 ml @ 12.5 mls/hr DAILY IV 02/16/25 10:00 02/17/25 08:55 12.5 MLS/HR Acetaminophen/ Hydrocodone Bitart 1 tab Q4HP PRN PO 02/16/25 07:30 02/18/25 00:31 1 TAB Hydromorphone HCl 1 mg Q3HPRN PRN IV 02/16/25 07:30 Hold 02/16/25 16:32 1 MG Atorvastatin Calcium 20 mg HS PO 02/16/25 22:00 02/17/25 22:30 20 MG Oxycodone HCl 10 mg Q12HR PO 02/16/25 22:00 02/17/25 22:30 10 MG Diltiazem HCl 120 mg DAILY PO 02/17/25 10:00 02/17/25 08:56 120 MG Fluoxetine HCl 20 mg BID PO 02/16/25 22:00 02/17/25 22:31 20 MG Flecainide Acetate 100 mg BID PO 02/16/25 22:00 02/17/25 22:30 100 MG Albuterol 2.5 mg Q6HWA [facility] 02/16/25 18:00 02/18/25 05:48 2.5 MG Ipratropium [place] 0.5 mg Q6HWA [facility] 02/16/25 18:00 02/18/25 05:47 0.5 MG Diagnostic Test (Pha) 1 strip Q6HR 02/16/25 18:00 02/18/25 05:25 1 STRIP Insulin Human Regular Q6HR SC 02/16/25 18:00 02/18/25 06:06 2 UNITS Dextrose 50 ml UD PRN IV 02/16/25 14:45 Acetaminophen/ Hydrocodone Bitart 1 tab Q6HP PRN PO 02/16/25 18:15 02/17/25 04:55 1 TAB Examination: GENERAL:Normal, MSK:Abnormal laboratory and microbiology Laboratory Tests 02/17/25 06:12 Test 02/17/25 06:12 Range/Units Serum Glucose 115 H 74-106 mg/dL Problem List/Assessment/Plan Problem List/Assessment/Plan PAtient is a 74 year old female who is s/p Right RV TSA POD 2 1. pain control 2. NWB RUE 3. continue with immobilizer 4. RICE as needed 5. clear for discharge from orthopedicc standpoint and again recommending SNF for patient as she lives with her daughter however does not have any help during the day 6.follow up in [address] Fitch at [facility] ortho clinic 7. continue with pain management once at home for pain control Plan discussed with: Patient My Orders My Orders Orders - KYLER BARON NP Procedure Category Date Status Time Communication Order ORDERS 02/17/25 Transmitted 16:05 Date of Service: February 18, 2025 Billing Provider: BILLIE FITCH MD Common Visit Codes: NOT BILLABLE KYLER BARON NP February 18, 2025 07:38
--- NOTE | 2025-02-18 10:12 | DVHDS2 ---
Discharge Summary Date of Admission February 16, 2025 at 07:17 Date of Discharge: February 18, 2025 Labs/Diagnostic Data: Laboratory Results Test 02/18/25 05:24 02/17/25 06:12 02/12/25 10:38 POC Glucose 147 mg/dl (70-106) White Blood Count 9.5 10^3/uL (4.4-10.8) Red Blood Count 4.04 10^6/uL (4.0-5.20) Hemoglobin 11.3 g/dL (12.2-16.2) Hematocrit 33.8 % (36.0-46.0) Mean Corpuscular Volume 83.7 fL (80.0-100.0) Mean Corpuscular Hemoglobin 27.9 pg (28.0-32.0) Mean Corpuscular Hemoglobin Concent 33.4 g/dL (32.0-36.0) Red Cell Distribution Width 17.3 % (11.8-14.3) Platelet Count 205 10^3/uL (140-450) Mean Platelet Volume 8.3 fL (6.9-10.8) Neutrophils (%) (Auto) 77.4 % (37.0-80.0) Lymphocytes (%) (Auto) 9.8 % (10.0-50.0) Monocytes (%) (Auto) 11.4 % (0.0-12.0) Eosinophils (%) (Auto) 0.9 % (0.0-7.0) Basophils (%) (Auto) 0.5 % (0.0-2.0) Neutrophils # (Auto) 7.3 10 ^3/uL (1.6-8.6) Lymphocytes # (Auto) 0.9 10 ^3/uL (0.4-5.4) Monocytes # (Auto) 1.1 10 ^3/uL (0-1.3) Eosinophils # (Auto) 0.1 10 ^3/uL (0-0.8) Basophils # (Auto) 0 10 ^3/uL (0-0.2) Nucleated Red Blood Cells 0.2 % Sodium Level 134 mmol/L (136-145) Potassium Level 4.0 mmol/L (3.5-5.1) Chloride Level 99 mmol/L (98-107) Carbon Dioxide Level 25 mmol/L (20-31) Anion Gap 10 (5-15) Blood Urea Nitrogen 9 mg/dL (9-23) Creatinine 0.68 mg/dL (0.550-1.02) Glomerular Filtration Rate Calc 92 mL/min (>90) BUN/Creatinine Ratio 13.2 (10.0-20.0) Serum Glucose 115 mg/dL (74-106) Calcium Level 8.8 mg/dL (8.7-10.4) Total Bilirubin 0.7 mg/dL (0.2-1.0) Aspartate Amino Transferase (AST) 27 U/L (13-40) Alanine Aminotransferase (ALT) 13 U/L (7-40) Alkaline Phosphatase 87 U/L (46-116) Total Protein 5.4 g/dL (5.7-8.2) Albumin 3.7 g/dL (3.2-4.8) Prothrombin Time 10.3 sec (9.3-11.8) Prothrombin Time INR 0.97 (0.9-1.15) Activated Partial Thromboplast Time 28.8 SEC (24.5-34.5) Urine Color Colorless (Yellow) Urine Clarity Clear (Clear) Urine pH 6.5 (5.0-9.0) Urine Specific [place] 1.006 (1.001-1.035) Urine Protein Negative (Negative) Urine Ketones Negative (Negative) Urine Blood Negative /uL (Negative) Urine Nitrite Negative (Negative) Urine Bilirubin Negative (Negative) Urine Urobilinogen Normal mg/dL (Negative) Urine Leukocyte Esterase Negative /uL (Negative) Urine RBC <1 /hpf (0 - 4) Urine Microscopic WBC < 1 /HPF (0-5) Urine Squamous Epithelial Cells Few /hpf (<5) Urine Bacteria None seen /hpf (None Seen) Urine Glucose Normal mg/dL (Normal) Other Laboratory Tests 02/17/25 06:12 Brief Hx & Hospital Course: SEE DICTATED NOTE Condition at Discharge: Good Final Diagnosis/Problems List RIGHT SHOULDER SURGERY Discharge Disposition: Home Discharge Instruct/Medications Diet: Cardiac 2g Na,low cholest Activity: See Comment Activity comment: PER ORTHOPEDICS Follow Up/Referral: FU WITH ORTHO/PCP Medications: RESUME HOME MEDS Discharge Statement: "Patient was advised to return to the ER or call 911 if any headaches, dizziness, shortness of breath, chest pain, abdominal pain, bleeding, fevers, or worsening of medical condition. Patient was counseled about treatment plan, medications, possible side effects, patientverbalized understanding. All questions were answered to the best of my ability. This discharge took greater then 30 minutes in planning, reviewing documentation, counseling the patient, and discussing with other team members." ASSESSMENT ASSESSMENT Assessment RIGHT SHOULDER SURGERY Date of Service: February 18, 2025 Billing Provider: MILA DAVALOS MD Common Visit Codes: 63545-LTH/OBS DISCH DAY >30min MILA DAVALOS MD February 18, 2025 10:12
[2025-02-18] MEDS ORDERED: ZOFR4T PO (10:18)
--- NOTE | 2025-02-18 10:37 | DVHDS ---
DATE OF DISCHARGE: 02/18/2025 HISTORY OF PRESENT ILLNESS: The patient is a 74-year-old lady who was admitted after she underwent right shoulder surgery for rotator cuff injury. She has a history of atrial fibrillation, congestive heart failure, COPD, chronic respiratory failure, diabetes, hypertension, hyperlipidemia, and coronary artery disease. HOSPITAL COURSE: The patient did well postoperatively. The patient had a chest x-ray that was unremarkable. She was seen in Orthopedic consult. The patient has now been cleared for discharge and will be discharged to resume her home medications and follow up with Orthopedic in 2 weeks. FINAL DIAGNOSES: Therefore, * Hypertension. * COPD with chronic respiratory failure. * Atrial fibrillation. * Obesity. * Depression. * Chronic pain. * History of coronary artery disease. * Hyperlipidemia. * Status post right shoulder surgery for rotator cuff injury. Time spent in discharge planning and review of plan with the Clerical Office, the patient and family at bedside was 41 minutes. MD LUIS Neumann/SAM TID: [id number] RECEIPT: [id number]
[2025-02-18] MEDS: ONDANSETRON HCL 4 MG/2 ML VIAL IV PRN (13:25)
== END 2025-02-18 18:00 | disposition home or self-care (01) | DRG 483 ==
LOC: SUR 06:03 → OVERFLOW 07:17 → CENTRAL 15:23
PROVIDERS: ADMIT Internal Medicine; ATTEND Internal Medicine
PROC: 0RRJ00Z Replacement of Right Shoulder Joint with Reverse Ball and Socket Synthetic Substitute, Open Approach (ICD-10-PCS; principal; 2025-02-16 07:23)
DX: M75.101 Unspecified rotator cuff tear or rupture of right shoulder, not specified as traumatic (principal); J96.10 Chronic respiratory failure, unspecified whether with hypoxia or hypercapnia; I50.32 Chronic diastolic (congestive) heart failure; I13.0 Hypertensive heart and chronic kidney disease with heart failure and stage 1 through stage 4 chronic kidney disease, or unspecified chronic kidney disease; Z68.32 Body mass index [BMI] 32.0-32.9, adult; E11.22 Type 2 diabetes mellitus with diabetic chronic kidney disease; N18.9 Chronic kidney disease, unspecified; I48.91 Unspecified atrial fibrillation; E66.9 Obesity, unspecified; F32.A Depression, unspecified; G89.4 Chronic pain syndrome; E78.5 Hyperlipidemia, unspecified; J44.9 Chronic obstructive pulmonary disease, unspecified; I25.10 Atherosclerotic heart disease of native coronary artery without angina pectoris; Z82.5 Family history of asthma and other chronic lower respiratory diseases; Z83.3 Family history of diabetes mellitus
CPT/HCPCS: 36415; 71045; 73020; 80053; 81001; 82962; 85025; 85610; 85730; 86850; 86870; 86900; 86901; 94640; 97110; 97116; 97163; A4565; G0378; J0131; J0330; J1815; J1885; J2405; J2704; J3490

== ENCOUNTER 2025-03-28 10:49 | Emergency (ER) | payer OTHER ==
[~2025-03-28] VITALS: Ht 162.6 cm; Wt 77.3 kg
[~2025-03-28 10:49] MED LIST changes: +ZOFR4T PO
[2025-03-28 11:00] VITALS: BP 134/92; TEMP 98.3
--- NOTE | 2025-03-28 12:10 | DVH ---
XY R HIP COMPLETE XRAY, INDICATION: fall injury TECHNICAL DATA: Frontal and frog lateral views were obtained of the right hip. COMPARISON: XY R HIP COMPLETE XRAY on DOS: 03/20/24 FINDINGS: Bilateral hip arthroplasty appears intact and in good alignment. Old bilateral pubic rami fractures a re seen. The right sacroiliac joint appears normal. IMPRESSION: Bilateral hip arthroplasty appears intact and in good alignment. Old bilateral pubic rami fractures a re seen.
[2025-03-28] MEDS: OXYCODONE W/ ACETAMINOPHEN 5/325MG TABLET PO ONE (12:30)
[2025-03-28 12:31] VITALS: PULSE 89; RESP 19; O2SAT 95
[2025-03-28] MEDS: KETOROLAC TROMETH 60MG/2ML VIAL IM ONE (12:37)
--- NOTE | 2025-03-28 12:37 | ED.PDOC ---
History of Present Illness HPI Comments 72-year-old female with PMHx HTN, DM presents with a chief complaint of right hip pain s/p fall at home x 2 days ago. Patient states that she was going up her stairs and her left ankle boot got caught on the step and she fell. Patient mentions that she takes Weott 10/325 but denies any relief of those symptoms. Patient describes her pain as stabbing and is localized to her right hip. Patient has no deformities. Chief Complaint: Lower Extremity Time Seen by MD: 11:34 Primary Care Provider: SAMARIA Lemus Notes: Medications, Allergies Allergies: Coded Allergies: No Known Drug Allergy (Verified Allergy, Unknown, 10/04/19) Home Meds Active Scripts Ondansetron Odt 4MG Tab (ZOFRAN PO) 4 Mg Tb, 4 MG PO TIDP PRN for 7 Days, #21 TAB ODT TAB-DISSOLVE IN MOUTH, THEN SWALLOW Prov:MILA DAVALOS MD 02/18/25 Reported Medications Hydrocodone-Acetaminophen (Hydrocodone Bitartrate/AC 10-325 mg) 1 Tab Tab, 1 TAB PO PRN, TAB 02/12/25 Fluoxetine Hcl (Fluoxetine Hcl) 20 Mg Cap, 1 CAP PO BID for 30 Days, #60 06/17/24 Albuterol Sulfate (Albuterol Sulfate Hfa) 108 Mcg/Act Aer, 2 PUFF INH Q4-6HR PRN for 16 Days, #8.5 06/17/24 Diltiazem Hcl (Diltiazem Hcl Er) 120 Mg Cap, 1 CAP PO DAILY for 90 Days, #90 06/17/24 Hydrochlorothiazide (Hydrochlorothiazide) 25 Mg Tab, 1 TAB PO DAILY for 90 Days, #90 06/17/24 Flecainide Acetate (Flecainide Acetate) 100 Mg Tab, 1 TAB PO BID for 90 Days, #180 11/24/22 Losartan Potassium (Losartan Potassium) 50 Mg Tab, 1 TAB PO BID for 90 Days, #180 08/17/21 Simvastatin (Simvastatin) 40 Mg Tab, 1 TAB PO QPM for 100 Days, #100 01/31/19 Information Source: Patient Mode of Arrival: Ambulatory Severity: Moderate Timing: Hours Duration: Since onset Prehospital treatment: None Past Medical History PAST MEDICAL HISTORY: AFIB, Anxiety, Asthma, CAD, CHF, COPD, Depression, DM, High Lipids, HTN, PA Surgical History: Appendectomy, Cholecystectomy, , Hysterectomy, Tonsillectomy HOUSING COURT JUDGE History: No Pertinent HOUSING COURT JUDGE History Family History Family History: Reviewed,noncontributory to illness, No family hx of Cancer, No family hx of Heart christian, No family hx of HTN, No family hx ofKidney christian, No family hx of Liver christian, No family hx of Lung christian, No family hx of Stroke, Family hx of DM Social History Smoker: Non-Smoker Alcohol: Denies ETOH Use Drugs: Denies Drug Use Lives In: Home Constitutional: denies: chills, diaphoresis, fatigue, fever, malaise, sweats, weakness, others EENTM: denies: blurred vision, double vision, ear bleeding, ear discharge, ear drainage, ear pain, ear ringing, eye pain, eye redness, hearing loss, mouth pain, mouth swelling, nasal discharge, nose bleeding, nose congestion, nose pain, photophobia, tearing, throat pain, throat swelling, voice changes, others Respiratory: denies: cough, hemoptysis, orthopnea, SOB at rest, shortness of breath, SOB with excertion, stridor, wheezing, others Cardiovascular: denies: chest pain, dizzy spells, diaphoresis, Dyspnea on exertion, edema, irregular heart beat, left arm pain, lightheadedness, palpitations, PND, syncope, others Gastrointestinal: denies: abdomen distended, abdominal pain, blood streaked bowels, constipated, diarrhea, dysphagia, difficulty swallowing, hematemesis, melena, nausea, poor appetite, poor fluid intake, rectal bleeding, rectal pain, vomiting, others Genitourinary: denies: abnormal vagina bleeding, burning, dyspareunia, dysuria, flank pain, frequency, hematuria, incontinence, pain, , vagina discharge, urgency, others Neurological: denies: dizziness, fainting, headache, left sided numbness, left sided weakness, numbness, paresthesia, pre-existing deficit, right sided numbness, right sided weakness, seizure, speech problems, tingling, tremors, weakness, others Musculoskeletal: reports: joint pain, muscle pain; denies: back pain, gout, joint swelling, muscle stiffness, neck pain, others Integumetry: denies: bruises, change in color, change in hair/nails, dryness, laceration, lesions, lumps, rash, wounds, others Allergic/Immunocompromised: denies: Difficulty Healing, Frequent Infections, Hives, Itching, others Hematologic/Lymphatic: denies: anemia, blood clots, easy bleeding, easy bruising, swollen glands, others Endocrine: denies: excessive hunger, excessive sweating, excessive thirst, excessive urination, flushing, intolerance to cold, intolerance to heat, unexplained weight gain, unexplained weight loss, others Psychiatric: denies: anxiety, bipolar disorder, depression, hopeless, panic disorder, schizophrenia, sleepless, suicidal, others All Other Systems: Reviewed and Negative Physical Exam General Appearance: Moderate Distress, Normal HEENT: Normal ENT Inspection, Pharynx Normal, TMs Normal Neck: Full Range of Motion, Non-Tender, Normal, Normal Inspection Respiratory: Chest Non-Tender, Lungs Clear, No Accessory Muscle Use, No Respiratory Distress, Normal Breath Sounds Cardiovascular: No Edema, No JVD, No Murmur, No Gallop, Normal Peripheral Pulses, Regular Rate/Rhythm Breast Exam: Deferred Gastrointestinal: No Organomegaly, Non Tender, No Pulsatile Mass, Normal Bowel Sounds, Soft Genitalia: Deferred Pelvic: Deferred Rectal: Deferred Extremities: No calf tenderness, Normal capillary refill, Normal inspection, Normal range of motion, Non-tender, No pedal edema Musculoskeletal : Apperance: Normal Neurologic: Alert, hemming and tacking machine operator II-XII nml as Tested, No Motor Deficits, Normal Affect, Normal Mood, No Sensory Deficits Cerebellar Function: NOT DONE Reflexes: NOT DONE Skin: Dry, Normal Color, Warm Peripheral Pulses: 3+ Radial (R), 3+ Radial (L) Lymphatic: No Adenopathy Was a procedure done? Was a procedure done?: No Differential Dx Considerations may include: Musculoskeletal pain Degenerative disease X-Ray, Labs, Meds, VS Vital Signs Date Time Temp Pulse Resp B/P (MAP) Pulse Ox O2 Delivery O2 Flow Rate FiO2 03/28/25 12:31 89 19 95 Room Air* 0 21 03/28/25 11:00 98.3 82 18 134/92 (106) 99 98.3 Current Medications Medications (Trade) Dose Ordered Sig/Latasha Route Start Time Stop Time Status Last Admin Oxycodone/ Acetaminophen (Percocet 5/ 325MG Tablet) 1 tab ONCE ONCE PO 03/28/25 12:30 03/28/25 12:31 DC 03/28/25 12:30 Ketorolac Tromethamine (Toradol Injection) 60 mg ONCE ONCE IM 03/28/25 12:30 03/28/25 12:31 DC 03/28/25 12:37 Patient alert. Complaining of right hip pain. Vitals stable. Answering questions. No sign of distress. Was given oxycodone. Was given Toradol. She is on Weott. X-ray within normal limits. Explained to the patient. Was told to follow up with her primary care physician. Was told to come back if there is any problem. Time of 1ST Reevaluation: 12:04 Reevaluation 1ST: Improved Patient Education/Counseling: Diagnosis, Treatment, Need For Follow Up Family Education/Counseling: No Family Present SEPSIS Sepsis Screen Date sepsis recognized/suspect: Mar 28, 2025 Time Sepsis recognized/suspect: 1100 Recent Procedure: No On Antibiotic Therapy: No Respiratory Rate >20: No Heart Rate >90: No Temp<36 C (96.8 F) or >38.3 C: No SBP <90 or MAP <65 mmHG: No New Acute Mental Status Change: No Is the patient on CPAP, BIPAP,: No Physician Orders R Hip Complete Xray (03/28/25 11:05) * Pin Ball Machine Mechanic Consult (03/28/25 ) Vital Signs Date Time Temp Pulse Resp B/P (MAP) Pulse Ox O2 Delivery O2 Flow Rate FiO2 03/28/25 12:31 89 19 95 Room Air* 0 21 03/28/25 11:00 98.3 82 18 134/92 (106) 99 98.3 Medications Medications Dose Ordered Sig/Latasha Route Start Time Stop Time Status Last Admin Dose Admin Ketorolac Tromethamine 60 mg ONCE ONCE IM 03/28/25 12:30 03/28/25 12:31 DC 03/28/25 12:37 Oxycodone/ Acetaminophen 1 tab ONCE ONCE PO 03/28/25 12:30 03/28/25 12:31 DC 03/28/25 12:30 Departure 1 Departure Time of Disposition: 12:44 Impression: Primary Impression: Muscular pain Additional Impression: DJD (degenerative joint disease) Qualified Codes: M16.11 - Unilateral primary osteoarthritis, right hip Disposition: HOME / SELF CARE / HOMELESS Condition: Good Discharged With: Self Critical Care Note Critical Care Time?: No Stability Stability form required: No Heart Score Heart Score: Heart Score Response (Comments) Value History N/A 0 EKG N/A 0 Age N/A 0 Risk Factors N/A 0 Troponin N/A 0 Total 0 I personally scribed for DALILA NORTON MD ([email or web address]) on 03/28/25 at 12:37. Electronically submitted by Braxton Torres ([email or web address]). DALILA NORTON MD Mar 28, 2025 12:37
== END 2025-03-28 13:10 | disposition home or self-care (01) ==
LOC: ER 10:49
DX: M19.90 Unspecified osteoarthritis, unspecified site (principal); M79.10 Myalgia, unspecified site; I11.0 Hypertensive heart disease with heart failure; I50.9 Heart failure, unspecified; I25.10 Atherosclerotic heart disease of native coronary artery without angina pectoris; F41.9 Anxiety disorder, unspecified; E11.9 Type 2 diabetes mellitus without complications; F32.A Depression, unspecified; I48.91 Unspecified atrial fibrillation; Z79.899 Other long term (current) drug therapy; Z90.49 Acquired absence of other specified parts of digestive tract; Z90.710 Acquired absence of both cervix and uterus
CPT/HCPCS: 73502; 96372; 99283; J1885

== ENCOUNTER 2025-06-13 08:45 | Emergency (ER) | payer OTHER ==
[~2025-06-13] VITALS: Ht 162.6 cm; Wt 72.0 kg
--- NOTE | 2025-06-13 09:29 | ED.PDOC ---
SOB-HPI HPI Comments 74 y.o female with PMHx of COPD, CHF, HTN, HLD, and [place], presents to the ED for a chief complaint of SOB associated with a productive cough with phlegm, body aches, and heavy chest pain sensation that started 4 days ago. Patient is unable to sleep due to progressively worsening SOB, states she needs to catch her breath and has been coughing up a good amount of phlegm. She is not on home oxygen as she does not qualify per health insurance. She is on a water pill and is compliant with all medications. She denies fever, chills, nausea, vomiting, abdominal pain. Chief Complaint: Shortness of Breath Time Seen by MD: 09:16 Primary Care Provider: SAMARIA Lemus notes: Nurses Notes, Medications, Allergies Information Source: Patient Mode of Arrival: Wheelchair Severity: Moderate Timing: Days (4) Duration: Since onset Context: At Rest PE Risk Factors: None History of: COPD, CHF Modifying Factors: Nothing Associated Signs and Symptoms: Cough If cough with SOB: Productive, White Past Medical History PAST MEDICAL HISTORY: AFIB, Anxiety, Asthma, CAD, CHF, COPD, Depression, DM, High Lipids, HTN, [place] Surgical History: Appendectomy, Cholecystectomy, , Hysterectomy, Tonsillectomy 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 History Family History Family History: Reviewed,noncontributory to illness, No family hx of Cancer, No family hx of Heart christian, No family hx of HTN, No family hx ofKidney christian, No family hx of Liver christian, No family hx of Lung christian, No family hx of Stroke, Family hx of DM Social History Smoker: Non-Smoker Alcohol: Denies ETOH Use Drugs: Denies Drug Use Lives In: Home Constitutional: denies: chills, diaphoresis, fatigue, fever, malaise, sweats, weakness, others EENTM: denies: blurred vision, double vision, ear bleeding, ear discharge, ear drainage, ear pain, ear ringing, eye pain, eye redness, hearing loss, mouth pain, mouth swelling, nasal discharge, nose bleeding, nose congestion, nose pain, photophobia, tearing, throat pain, throat swelling, voice changes, others Respiratory: reports: SOB at rest, shortness of breath, SOB with excertion; denies: cough, hemoptysis, orthopnea, stridor, wheezing, others Cardiovascular: reports: chest pain; denies: dizzy spells, diaphoresis, Dyspnea on exertion, edema, irregular heart beat, left arm pain, lightheadedness, palpitations, PND, syncope, others Gastrointestinal: denies: abdomen distended, abdominal pain, blood streaked bowels, constipated, diarrhea, dysphagia, difficulty swallowing, hematemesis, melena, nausea, poor appetite, poor fluid intake, rectal bleeding, rectal pain, vomiting, others Genitourinary: denies: abnormal vagina bleeding, burning, dyspareunia, dysuria, flank pain, frequency, hematuria, incontinence, pain, , vagina discharge, urgency, others Neurological: denies: dizziness, fainting, headache, left sided numbness, left sided weakness, numbness, paresthesia, pre-existing deficit, right sided numbness, right sided weakness, seizure, speech problems, tingling, tremors, weakness, others Musculoskeletal: reports: muscle pain; denies: back pain, gout, joint pain, joint swelling, muscle stiffness, neck pain, others Integumetry: denies: bruises, change in color, change in hair/nails, dryness, laceration, lesions, lumps, rash, wounds, others Allergic/Immunocompromised: denies: Difficulty Healing, Frequent Infections, Hives, Itching, others Hematologic/Lymphatic: denies: anemia, blood clots, easy bleeding, easy bruis ing, swollen glands, others Endocrine: denies: excessive hunger, excessive sweating, excessive thirst, exc essive urination, flushing, intolerance to cold, intolerance to heat, unexplained weight gain, unexplained weight loss, others Psychiatric: denies: anxiety, bipolar disorder, depression, hopeless, panic disorder, schizophrenia, sleepless, suicidal, others All Other Systems: Reviewed and Negative Physical Exam General Appearance: Moderate Distress HEENT: Normal ENT Inspection, Pharynx Normal, TMs Normal Neck: Full Range of Motion, Non-Tender, Normal, Normal Inspection Respiratory: Chest Non-Tender, Lungs Clear, No Accessory Muscle Use, No Respiratory Distress, Normal Breath Sounds Cardiovascular: No Edema, No JVD, No Murmur, No Gallop, Normal Peripheral Pulses, Regular Rate/Rhythm Breast Exam: Deferred Gastrointestinal: No Organomegaly, Non Tender, No Pulsatile Mass, Normal Bowel Sounds, Soft Genitalia: Deferred Pelvic: Deferred Rectal: Deferred Extremities: No calf tenderness, No pedal edema Musculoskeletal : Apperance: Normal Neurologic: Alert, No Motor Deficits, No Sensory Deficits Cerebellar Function: NOT DONE Reflexes: NOT DONE Skin: Wounds (Left foot old) Peripheral Pulses: 3+ Radial (R), 3+ Radial (L) Lymphatic: No Adenopathy EKG EKG : Pulse Rate (adult): 65 Cardiac Rhythm: NSR Was a procedure done? Was a procedure done?: No Differential Dx Differential Diagnosis: Anxiety, Asthma, Bronchitis, CHF, COPD, Respiratory Distress, URI X-Ray, Labs, Meds, VS Vital Signs Date Time Temp Pulse Resp B/P (MAP) Pulse Ox O2 Delivery O2 Flow Rate FiO2 06/13/25 13:33 135/76 06/13/25 13:29 20 93 Room Air 0 06/13/25 13:26 98.2 85 19 139/79 (99) 97 98.2 06/13/25 12:20 16 95 Room Air* 0 21 06/13/25 09:35 18 100 Nasal Cannula* 3 32 06/13/25 09:29 65 06/13/25 09:02 65 06/13/25 08:48 98.2 67 20 140/92 98 98.2 Lab Test 06/13/25 10:52 06/13/25 09:28 Range/Units Urine Color Colorless Yellow Urine Clarity Clear Clear Urine pH 7.5 5.0-9.0 Urine Specific [place] 1.009 1.001-1.035 Urine Protein Negative Negative Urine Ketones Negative Negative Urine Blood Negative Negative /uL Urine Nitrite Negative Negative Urine Bilirubin Negative Negative Urine Urobilinogen Normal Negative mg/dL Urine Leukocyte Esterase Negative Negative /uL Urine RBC <1 0 - 4 /hpf Urine Microscopic WBC < 1 0-5 /HPF Urine Squamous Epithelial Cells Few <5 /hpf Urine Bacteria None seen None Seen /hpf Urine Glucose Normal Normal mg/dL White Blood Count 7.1 4.4-10.8 10^3/uL Red Blood Count 4.69 4.0-5.20 10^6/uL Hemoglobin 12.7 12.2-16.2 g/dL Hematocrit 36.9 36.0-46.0 % Mean Corpuscular Volume 78.8 L 80.0-100.0 fL Mean Corpuscular Hemoglobin 27.1 L 28.0-32.0 pg Mean Corpuscular Hemoglobin Concent 34.4 32.0-36.0 g/dL Red Cell Distribution Width 18.3 H 11.8-14.3 % Platelet Count 329 140-450 10^3/uL Mean Platelet Volume 7.7 6.9-10.8 fL Neutrophils (%) (Auto) 74.1 37.0-80.0 % Lymphocytes (%) (Auto) 16.0 10.0-50.0 % Monocytes (%) (Auto) 8.4 0.0-12.0 % Eosinophils (%) (Auto) 0.6 0.0-7.0 % Basophils (%) (Auto) 0.9 0.0-2.0 % Neutrophils # (Auto) 5.3 1.6-8.6 10 ^3/uL Lymphocytes # (Auto) 1.1 0.4-5.4 10 ^3/uL Monocytes # (Auto) 0.6 0-1.3 10 ^3/uL Eosinophils # (Auto) 0 0-0.8 10 ^3/uL Basophils # (Auto) 0.1 0-0.2 10 ^3/uL Nucleated Red Blood Cells 0.0 % Sodium Level 138 136-145 mmol/L Potassium Level 3.6 3.5-5.1 mmol/L Chloride Level 102 98-107 mmol/L Carbon Dioxide Level 25 20-31 mmol/L Anion Gap 11 5-15 Blood Urea Nitrogen 10 9-23 mg/dL Creatinine 0.81 0.550-1.02 mg/dL Glomerular Filtration Rate Calc 77 >90 mL/min BUN/Creatinine Ratio 12.3 10.0-20.0 Serum Glucose 111 H 74-106 mg/dL Calcium Level 10.1 8.7-10.4 mg/dL B-Type Natriuretic Peptide 292.92 0-100 pg/mL Current Medications Medications (Trade) Dose Ordered Sig/Latasha Route Start Time Stop Time Status Last Admin Methylprednisolone Sodium Succinate (Solu Medrol) 125 mg ONCE ONCE IV 06/13/25 09:30 06/13/25 09:31 DC 06/13/25 09:56 Albuterol (Ventolin Medneb) 5 mg ONCE ONCE NEB 06/13/25 09:30 06/13/25 09:31 DC 06/13/25 09:42 Ipratropium Shirley (Atrovent Medneb) 0.5 mg ONCE ONCE NEB 06/13/25 09:30 06/13/25 09:31 DC 06/13/25 09:42 Magnesium Sulfate/ Dextrose 100 ml @ 100 mls/hr ONCE ONCE IV 06/13/25 09:30 06/13/25 10:29 DC 06/13/25 09:56 Meclizine HCl (Antivert Tablet) 25 mg ONCE ONCE PO 06/13/25 11:45 06/13/25 11:46 DC 06/13/25 13:32 Albuterol (Ventolin Medneb) 20 mg ONCE ONCE NEB 06/13/25 12:00 06/13/25 12:01 DC 06/13/25 12:24 Furosemide (Lasix Tablet) 40 mg ONCE ONCE PO 06/13/25 13:30 06/13/25 13:31 DC 06/13/25 13:33 AP portable chest CLINICAL INDICATION: sob Comparison 01/10/2025 FINDINGS: Heart size is enlarged in the aorta is tortuous. No infiltrates or effusions. There are bilateral shoulder prostheses IMPRESSION: 1. No acute cardiopulmonary pathology Patient alert. Complaining of shortness a breath. Chronic condition. Vitals stable. Was given steroid. Was given breathing treatment. She is states that she is feeling much better after the treatment. BNP slightly elevated. Was given Lasix. WBC within normal limits. Hemoglobin within normal limits. Reviewed her previous visit. Chest x-ray reviewed does not show any acute changes. She does have an appointment a few days to see her primary care physician. No acute process. Satisfied with the treatment plan. Was told to follow up with her primary care physician. Was told to come back if there is any problem. Time of 1ST Reevaluation: : Reevaluation 1ST: Improved Patient Education/Counseling: Diagnosis, Treatment, Prognosis Family Education/Counseling: No Family Present SEPSIS Sepsis Screen Date sepsis recognized/suspect: Jun 13, 2025 Time Sepsis recognized/suspect: 847 Recent Procedure: No On Antibiotic Therapy: No Respiratory Rate >20: No Heart Rate >90: No Temp<36 C (96.8 F) or >38.3 C: No SBP <90 or MAP <65 mmHG: No New Acute Mental Status Change: No Is the patient on CPAP, BIPAP,: No Physician Orders Chest Portable (06/13/25 09:03) Electrocardigram (06/13/25 09:10) Vital Signs Date Time Temp Pulse Resp B/P (MAP) Pulse Ox O2 Delivery O2 Flow Rate FiO2 06/13/25 13:33 135/76 06/13/25 13:29 20 93 Room Air 0 06/13/25 13:26 98.2 85 19 139/79 (99) 97 98.2 06/13/25 12:20 16 95 Room Air* 0 21 06/13/25 09:35 18 100 Nasal Cannula* 3 32 06/13/25 09:29 65 06/13/25 09:02 65 06/13/25 08:48 98.2 67 20 140/92 98 98.2 Laboratory Tests Test 06/13/25 09:28 White Blood Count 7.1 10^3/uL (4.4-10.8) Medications Medications Dose Ordered Sig/Latasha Route Start Time Stop Time Status Last Admin Dose Admin Albuterol 5 mg ONCE ONCE NEB 06/13/25 09:30 06/13/25 09:31 DC 06/13/25 09:42 Albuterol 20 mg ONCE ONCE NEB 06/13/25 12:00 06/13/25 12:01 DC 06/13/25 12:24 Furosemide 40 mg ONCE ONCE PO 06/13/25 13:30 06/13/25 13:31 DC 06/13/25 13:33 Ipratropium Shirley 0.5 mg ONCE ONCE NEB 06/13/25 09:30 06/13/25 09:31 DC 06/13/25 09:42 Magnesium Sulfate/ Dextrose 100 ml @ 100 mls/hr ONCE ONCE IV 06/13/25 09:30 06/13/25 10:29 DC 06/13/25 09:56 Meclizine HCl 25 mg ONCE ONCE PO 06/13/25 11:45 06/13/25 11:46 DC 06/13/25 13:32 Methylprednisolone Sodium Succinate 125 mg ONCE ONCE IV 06/13/25 09:30 06/13/25 09:31 DC 06/13/25 09:56 Departure 1 Departure Time of Disposition: 11:52 Impression: Primary Impression: COPD exacerbation Disposition: 01 HOME / SELF CARE / HOMELESS Condition: Good Discharged With: Self Critical Care Note Critical Care Time?: No Stability Stability form required: No Heart Score Heart Score: Heart Score Response (Comments) Value History Moderate Suspicious 1 EKG Normal 0 Age >65 2 Risk Factors >3 or Hx ASHD 2 Troponin Normal limit 0 Total 5 I personally scribed for DALILA NORTON MD ([email or web address]) on 06/13/25 at 09:29. Electronically submitted by Carolyn Cuenca ([facility]). I personally scribed for DALILA NORTON MD ([email or web address]) on 06/13/25 at 10:01. Electronically submitted by Carolyn Cuenca ([facility]). I personally scribed for DALILA NORTON MD ([email or web address]) on 06/13/25 at 11:12. Electronically submitted by Prema Viveros ([facility]). DALILA NORTON MD Jun 13, 2025 09:29
--- NOTE | 2025-06-13 09:37 | DVH ---
AP portable chest CLINICAL INDICATION: sob Comparison 01/10/2025 FINDINGS: Heart size is enlarged in the aorta is tortuous. No infiltrates or effusions. There are mayito ateral shoulder prostheses IMPRESSION: 1. No acute cardiopulmonary pathology
[2025-06-13] MEDS: IPRATROPIUM BROM 0.5 MG/2.5ML INH SOL NEB ONE (09:42)
[2025-06-13] MEDS: ALBUTEROL SULF 2.5 MG/0.5ML(0.5%) NEB SOLN NEB ONE ×2 (09:42→12:24)
[2025-06-13 09:43] LABS: Hematocrit 36.9 % (36.0-46.0); Hemoglobin 12.7 g/dL (12.2-16.2); Mean Corpuscular Hemoglobin 27.1 pg (28.0-32.0); Mean Corpuscular Volume 78.8 fL (80.0-100.0); Nucleated Red Blood Cells % 0.0 %
[2025-06-13 09:50] LABS: Chloride 102 mmol/L (98-107); Potassium 3.6 mmol/L (3.5-5.1); Sodium 138 mmol/L (136-145)
[2025-06-13 09:51] LABS: Anion Gap 11 (5-15); Carbon Dioxide 25 mmol/L (20-31)
[2025-06-13 09:52] LABS: Calcium 10.1 mg/dL (8.7-10.4)
[2025-06-13] MEDS: MAGNESIUM SULFATE 1GM/100ML 100 ML IV ONE (09:56)
[2025-06-13] MEDS: methylPREDNISolone SOD SUCC 125 MG/2 ML VL IV ONE (09:56)
[2025-06-13 09:57] LABS: BUN/Creatinine Ratio 12.3 (10.0-20.0); Blood Urea Nitrogen 10 mg/dL (9-23)
[2025-06-13 10:01] LABS: Glucose 111 mg/dL (74-106)
[2025-06-13 11:08] LABS: Urine Protein, UAD Negative (Negative)
[2025-06-13] MEDS ORDERED: FUROSEMIDE 20 MG/2 ML VIAL IV ONE (12:00)
[2025-06-13 13:26] VITALS: BP 139/79; PULSE 85; TEMP 98.2
[2025-06-13 13:29] VITALS: RESP 20; O2SAT 93
[2025-06-13] MEDS: MECLIZINE HCL 25 MG TAB PO ONE (13:32)
[2025-06-13] MEDS: FUROSEMIDE 20 MG TAB PO ONE (13:33)
[2025-06-13] MEDS: FUROSEMIDE 40 MG TAB ONE (13:33)
--- NOTE | 2025-06-15 12:39 | ECG ---
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
== END 2025-06-13 11:58 | disposition home or self-care (01) ==
LOC: ER 08:45
DX: J44.1 Chronic obstructive pulmonary disease with (acute) exacerbation (principal); I11.0 Hypertensive heart disease with heart failure; I50.9 Heart failure, unspecified; E78.5 Hyperlipidemia, unspecified; E11.9 Type 2 diabetes mellitus without complications; I48.91 Unspecified atrial fibrillation; I25.2 Old myocardial infarction; I25.10 Atherosclerotic heart disease of native coronary artery without angina pectoris; J45.909 Unspecified asthma, uncomplicated; F41.9 Anxiety disorder, unspecified; Z90.710 Acquired absence of both cervix and uterus; Z90.49 Acquired absence of other specified parts of digestive tract
CPT/HCPCS: 36415; 71045; 80048; 81001; 83880; 85025; 93005; 94640; 96365; 96375; 99285; J2919; J3475; J8597

== ENCOUNTER 2025-08-17 10:44 | Inpatient (IN) | payer MEDICAID, MEDICARE, OTHER ==
[~2025-08-17] VITALS: Ht 162.6 cm; Wt 82.0 kg
--- NOTE | 2025-08-17 11:23 | ED.PDOC ---
HPI Comments 74 year old female with PMHx of a-fib, anxiety, asthma, CAD, COPD, CHF, Depression, DM, HLD, HTN, [place] presents to the ED with a chief complaint of chest pain onset last night around 20:00. Patient states she began experiencing chest pain last night around 20:00, radiating to RT arm as well as nausea. This morning she noticed symptoms worsened, came to ED. Follows up with [employer] [facility], Dr. Ott. Denies shortness of breath, dizziness, fever, chills, cough, cold, congestion, abdominal pain, headache, blurred vision. No other symptoms or modifying factors present at this time. Chief Complaint: Chest Pain Time Seen by MD: 11:00 Primary Care Provider: SAMARIA Reviewed Notes: Medications, Allergies Allergies: Coded Allergies: No Known Drug Allergy (Verified Allergy, Unknown, 10/04/19) Home Meds Active Scripts Ondansetron Odt 4MG Tab (ZOFRAN PO) 4 Mg Tb, 4 MG PO TIDP PRN for 7 Days, #21 TAB ODT TAB-DISSOLVE IN MOUTH, THEN SWALLOW Prov:MILA DAVALOS MD 02/18/25 Reported Medications Hydrocodone-Acetaminophen (Hydrocodone Bitartrate/AC 10-325 mg) 1 Tab Tab, 1 TAB PO PRN, TAB 02/12/25 Fluoxetine Hcl (Fluoxetine Hcl) 20 Mg Cap, 1 CAP PO BID for 30 Days, #60 06/17/24 Albuterol Sulfate (Albuterol Sulfate Hfa) 108 Mcg/Act Aer, 2 PUFF INH Q4-6HR PRN for 16 Days, #8.5 06/17/24 Diltiazem Hcl (Diltiazem Hcl Er) 120 Mg Cap, 1 CAP PO DAILY for 90 Days, #90 06/17/24 Hydrochlorothiazide (Hydrochlorothiazide) 25 Mg Tab, 1 TAB PO DAILY for 90 Days, #90 06/17/24 Flecainide Acetate (Flecainide Acetate) 100 Mg Tab, 1 TAB PO BID for 90 Days, #180 11/24/22 Losartan Potassium (Losartan Potassium) 50 Mg Tab, 1 TAB PO BID for 90 Days, #180 08/17/21 Simvastatin (Simvastatin) 40 Mg Tab, 1 TAB PO QPM for 100 Days, #100 01/31/19 Information Source: Patient Mode of Arrival: Ambulatory Severity: Moderate Timing: Hours Duration: Since onset Prehospital treatment: None Location: Chest (L) Radiation: Arm (R) Quality: Sharp Onset: At Rest Cardiac Risk Factors: Hyperlipidemia, HTN, Diabetes PE Risk Factors: None History of: Similar pain in past, [place] Modifying Factors: Nothing Past Medical History PAST MEDICAL HISTORY: AFIB, Anxiety, Asthma, CAD, CHF, COPD, Depression, DM, High Lipids, HTN, [place] Surgical History: Appendectomy, Cholecystectomy, , Hysterectomy, Tonsillectomy 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 OF 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 History Family History Family History: Reviewed,noncontributory to illness, No family hx of Cancer, No family hx of Heart christian, No family hx of HTN, No family hx ofKidney christian, No family hx of Liver christian, No family hx of Lung christian, No family hx of Stroke, Family hx of DM Social History Smoker: Non-Smoker Alcohol: Denies ETOH Use Drugs: Denies Drug Use Lives In: Home Constitutional: denies: chills, diaphoresis, fatigue, fever, malaise, sweats, weakness, others EENTM: denies: blurred vision, double vision, ear bleeding, ear discharge, ear drainage, ear pain, ear ringing, eye pain, eye redness, hearing loss, mouth sydnee n, mouth swelling, nasal discharge, nose bleeding, nose congestion, nose pain, photophobia, tearing, throat pain, throat swelling, voice changes, others Respiratory: denies: cough, hemoptysis, orthopnea, SOB at rest, shortness of breath, SOB with excertion, stridor, wheezing, others Cardiovascular: reports: chest pain; denies: dizzy spells, diaphoresis, Dyspnea on exertion, edema, irregular heart beat, left arm pain, lightheadedness, palpitations, PND, syncope, others Gastrointestinal: reports: nausea; denies: abdomen distended, abdominal pain, blood streaked bowels, constipated, diarrhea, dysphagia, difficulty swallowing, hematemesis, melena, poor appetite, poor fluid intake, rectal bleeding, rectal pain, vomiting, others Genitourinary: denies: abnormal vagina bleeding, burning, dyspareunia, dysuria, flank pain, frequency, hematuria, incontinence, pain, , vagina discharge, urgency, others Neurological: denies: dizziness, fainting, headache, left sided numbness, left sided weakness, numbness, paresthesia, pre-existing deficit, right sided numbness, right sided weakness, seizure, speech problems, tingling, tremors, weakness, others Musculoskeletal: reports: others (RT arm pain); denies: back pain, gout, joint pain, joint swelling, muscle pain, muscle stiffness, neck pain Integumetry: denies: bruises, change in color, change in hair/nails, dryness, laceration, lesions, lumps, rash, wounds, others Allergic/Immunocompromised: denies: Difficulty Healing, Frequent Infections, Hives, Itching, others Hematologic/Lymphatic: denies: anemia, blood clots, easy bleeding, easy bruising, swollen glands, others Endocrine: denies: excessive hunger, excessive sweating, excessive thirst, excessive urination, flushing, intolerance to cold, intolerance to heat, unexplained weight gain, unexplained weight loss, others Psychiatric: denies: anxiety, bipolar disorder, depression, hopeless, panic disorder, schizophrenia, sleepless, suicidal, others All Other Systems: Reviewed and Negative Physical Exam General Appearance: Normal HEENT: Normal ENT Inspection, Pharynx Normal, TMs Normal Neck: Full Range of Motion, Non-Tender, Normal, Normal Inspection Respiratory: Chest Non-Tender, Lungs Clear, No Accessory Muscle Use, No Respiratory Distress, Normal Breath Sounds Cardiovascular: No Edema, No JVD, No Murmur, No Gallop, Normal Peripheral Pulses, Regular Rate/Rhythm Breast Exam: Deferred Gastrointestinal: No Organomegaly, Non Tender, No Pulsatile Mass, Normal Bowel Sounds, Soft Genitalia: Deferred Pelvic: Deferred Rectal: Deferred Extremities: No calf tenderness, Normal capillary refill, Normal inspection, Normal range of motion, Non-tender, No pedal edema Musculoskeletal : Apperance: Normal 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 Was a procedure done?: No CP Differential Dx Differential Diagnosis: MAT, ME, PAC's, Pacemaker Malfunction, PSVT Differential Diagnosis: HTN Essential, HTN Accelerated Differential Diagnosis: Gastritis, Myocardial Infarction, Pericarditis X-Ray, Labs, Meds, VS Vital Signs Date Time Temp Pulse Resp B/P (MAP) Pulse Ox O2 Delivery O2 Flow Rate FiO2 08/17/25 12:29 57 08/17/25 11:12 97.8 66 16 144/85 98 97.8 08/17/25 10:44 64 Lab Test 08/17/25 13:38 08/17/25 11:40 Range/Units Troponin I High Sensitivity Pending 8 </=34 ng/L White Blood Count 6.6 4.4-10.8 10^3/uL Red Blood Count 4.51 4.0-5.20 10^6/uL Hemoglobin 12.1 L 12.2-16.2 g/dL Hematocrit 36.1 36.0-46.0 % Mean Corpuscular Volume 80.0 80.0-100.0 fL Mean Corpuscular Hemoglobin 26.7 L 28.0-32.0 pg Mean Corpuscular Hemoglobin Concent 33.4 32.0-36.0 g/dL Red Cell Distribution Width 18.2 H 11.8-14.3 % Platelet Count 317 140-450 10^3/uL Mean Platelet Volume 7.9 6.9-10.8 fL Neutrophils (%) (Auto) 75.7 37.0-80.0 % Lymphocytes (%) (Auto) 13.7 10.0-50.0 % Monocytes (%) (Auto) 8.2 0.0-12.0 % Eosinophils (%) (Auto) 1.8 0.0-7.0 % Basophils (%) (Auto) 0.6 0.0-2.0 % Neutrophils # (Auto) 5.0 1.6-8.6 10 ^3/uL Lymphocytes # (Auto) 0.9 0.4-5.4 10 ^3/uL Monocytes # (Auto) 0.5 0-1.3 10 ^3/uL Eosinophils # (Auto) 0.1 0-0.8 10 ^3/uL Basophils # (Auto) 0 0-0.2 10 ^3/uL Nucleated Red Blood Cells 0.0 % Sodium Level 141 136-145 mmol/L Potassium Level 4.0 3.5-5.1 mmol/L Chloride Level 103 98-107 mmol/L Carbon Dioxide Level 29 20-31 mmol/L Anion Gap 9 5-15 Blood Urea Nitrogen 15 9-23 mg/dL Creatinine 0.76 0.550-1.02 mg/dL Glomerular Filtration Rate Calc 83 >90 mL/min BUN/Creatinine Ratio 19.7 10.0-20.0 Serum Glucose 126 H 74-106 mg/dL Calcium Level 10.0 8.7-10.4 mg/dL Time of 1ST Reevaluation: 11:30 Reevaluation 1ST: Unchanged Patient Education/Counseling: Diagnosis, Treatment, Prognosis Family Education/Counseling: No Family Present SEPSIS Sepsis Screen Physician Orders Chest Portable (08/17/25 11:10) Troponin-I Hs (08/17/25 12:10) Troponin-I Hs (08/17/25 14:10) Electrocardigram (08/17/25 12:10) Electrocardigram (08/17/25 14:10) Vital Signs Date Time Temp Pulse Resp B/P (MAP) Pulse Ox O2 Delivery O2 Flow Rate FiO2 08/17/25 12:29 57 08/17/25 11:12 97.8 66 16 144/85 98 97.8 08/17/25 10:44 64 Laboratory Tests Test 08/17/25 11:40 White Blood Count 6.6 10^3/uL (4.4-10.8) Departure 1 Departure Time of Disposition: 14:35 (Patient presented with chest pain that was concerning for possible STEMI, ACS, PE, Pneumonia, Muscle Strain, COPD, Dissection. Data: 1. I ordered and reviewed the result of at least 3 labs including a CBC, BMP, and Troponin. 2. I independently interpreted the following tests: EKG which shows sinus arrhythmia and Chest X-ray which shows benign chest.Risk:This patient has a high risk of morbidity due to further diagnostic testing or treatment and may suffer from an acute cardiac or respiratory disorder. Workup reveals concern for ACS and patient should be admitted for further workup and possible expert consultation. ) Impression: Primary Impression: Acute chest pain Additional Impression: Generalized weakness Disposition: ADMITTED INPATIENT Admit to: Tele Condition: Guarded Critical Care Note Critical Care Time?: Yes Critical care comment: Acute chest pain Authorized and Performed by: Soledad Pathak MD Total critical care time: Approximately 38 minutes Due to a high probability of clinically significant, life threatening deterioration, the patient required my highest level of preparedness to interv alessandro emergently and I personally spent this critical care time directly and personally managing the patient. This critical care time included obtaining a history; examining the patient; pulse oximetry; ordering and review of studies; arranging urgent treatment with development of a management plan; evaluation of patient's response to treatment; frequent reassessment; and, discussions with other providers. This critical care time was performed to assess and manage the high probability of imminent, life-threatening deterioration that could result in multi-organ failure. It was exclusive of separately billable procedures and treating other patients and teaching time. Please see my other sections and the rest of the note for further information on patient assessment and treatment. Stability Stability form required: No Heart Score Heart Score: Heart Score Response (Comments) Value History N/A 0 EKG N/A 0 Age N/A 0 Risk Factors N/A 0 Troponin N/A 0 Total 0 I personally scribed for SOLEDAD PATHAK MD ([email or web address]) on 08/17/25 at 11:23. Emeli ctronically submitted by Siobhan Mendoza ([email or web address]). SOLEDAD PATHAK MD Aug 17, 2025 11:23
--- NOTE | 2025-08-17 12:01 | DVH ---
EXAM: XY CHEST PORTABLE Indication: cp Technique: Single frontal view of the chest was obtained Comparison: XY CHEST PORTABLE on DOS: 06/13/25, XY CHEST PORTABLE on DOS: 02/17/25, XY CHEST PORTABLE on DOS: 01/10/25, XY CHEST PORTABLE on DOS: 06/24/24, XY CHEST PORTABLE on DOS: 01/07/24 FINDINGS: Lines and Tubes: None Lungs: No focal consolidation. Pleura: No effusion. No pneumothorax. Cardiomediastinal contours: Unremarkable Bones: No acute osseous abnormality. IMPRESSION: No acute cardiopulmonary disease.
[2025-08-17 12:10] LABS: Hemoglobin 12.1 g/dL (12.2-16.2); Mean Corpuscular Hemoglobin 26.7 pg (28.0-32.0)
[2025-08-17 12:13] LABS: Hematocrit 36.1 % (36.0-46.0); Mean Corpuscular Volume 80.0 fL (80.0-100.0); Nucleated Red Blood Cells % 0.0 %
--- NOTE | 2025-08-17 12:30 | ECG ---
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
[2025-08-17 12:32] LABS: Chloride 103 mmol/L (98-107); Potassium 4.0 mmol/L (3.5-5.1); Sodium 141 mmol/L (136-145)
[2025-08-17 12:33] LABS: Anion Gap 9 (5-15); Calcium 10.0 mg/dL (8.7-10.4); Carbon Dioxide 29 mmol/L (20-31)
[2025-08-17 12:38] LABS: BUN/Creatinine Ratio 19.7 (10.0-20.0); Blood Urea Nitrogen 15 mg/dL (9-23); Glucose 126 mg/dL (74-106)
--- NOTE | 2025-08-17 15:04 | ECG ---
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
--- NOTE | 2025-08-17 15:04 | ECG ---
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
--- NOTE | 2025-08-17 15:10 | DVHHPRES ---
History of Present Illness Resident Creating Document: NICK PATINO History of Present Illness Lupe Dewey is a 74-year-old female patient who presents to ED with chief complaint of constant sharp chest pain which started at 8:00 p.m. on 08/16/2025 which worsens with deep breathing and coughing, posterior right arm soreness/throbbing pain which started at 10:00 p.m. the same day, dyspnea, lightheadedness, fluttering sensation/palpitation and chest and productive cough with clear phlegm. Symptoms were mildly relieved by sitting completely still. Since symptoms did not improve, patient decided to be evaluated in emergency department. Past medical history: Diabetes, hypertension, dyslipidemia, COPD with no home while he is in requirement (per patient she required oxygen previously), diastolic CHF, paroxysmal atrial fibrillation (chads Vasc 4), osteoporosis with multiple fractures, questionable rheumatoid arthritis/osteoarthritis, silent heart attack with coronary angiography that showed no obstructions no need for stent placement, last stress test completed in 2021, recent tibia fracture no surgery complete. Surgical history: 2019 coronary angiography (her patient Dr. Ray a complete), left knee surgery, bilateral hip surgery, bilateral shoulder surgery, , appendicitis, Family history: Abdominal cancer in father (unknown) Social history: Lives in [place] with family (next of kin is daughter Lamont). Ex tobacco abuse (two cigarettes a day for four years) quit in 1983. Denies current tobacco, alcohol and other drug abuse Allergies: Denies Home medication: Losartan, flecainide, hydrochlorothiazide, diltiazem, Prozac, was on Jardiance on Xarelto but was discontinued to use go since insurance seven cover cost PCP: Dr. Cortez Patient seen and examined at bedside. Currently has no new complaints. Patient was admitted for further evaluation Past Medical History Per HPI Past Surgical History Per HPI Family History Per HPI Past Social History Per HPI Review of Systems Review of Systems Per HPI Allergies: Coded Allergies: No Known Drug Allergy (Verified Allergy, Unknown, 10/04/19) Exam Vital Signs Vital Signs Date Time Temp Pulse Resp B/P (MAP) Pulse Ox O2 Delivery O2 Flow Rate FiO2 08/17/25 14:15 58 08/17/25 11:12 97.8 16 144/85 98 97.8 Exam Patient lying in bed, in no acute distress General: Lucid, afebrile, mucosae are moist Cardiovascular: Normal S1 and S2. No murmurs, gallops or rubs Respiratory: Normal ventilation mechanics. Clear lung sounds on auscultation Abdomen: Soft, nontender, no organomegaly, normal bowel sounds MSK/skin: Mobilizes 4 limbs. Skin is dry and warm. Left distal tibial deformity, ulceration in lateral malleolus with no drainage. Neurological: Oriented in 3 spheres. No motor no sensitive deficits. Pupils are isocoric and reactive Labs/Xrays Labs Test 08/17/25 13:38 08/17/25 11:40 Range/Units Troponin I High Sensitivity 10 </=34 ng/L White Blood Count 6.6 4.4-10.8 10^3/uL Red Blood Count 4.51 4.0-5.20 10^6/uL Hemoglobin 12.1 L 12.2-16.2 g/dL Hematocrit 36.1 36.0-46.0 % Mean Corpuscular Volume 80.0 80.0-100.0 fL Mean Corpuscular Hemoglobin 26.7 L 28.0-32.0 pg Mean Corpuscular Hemoglobin Concent 33.4 32.0-36.0 g/dL Red Cell Distribution Width 18.2 H 11.8-14.3 % Platelet Count 317 140-450 10^3/uL Mean Platelet Volume 7.9 6.9-10.8 fL Neutrophils (%) (Auto) 75.7 37.0-80.0 % Lymphocytes (%) (Auto) 13.7 10.0-50.0 % Monocytes (%) (Auto) 8.2 0.0-12.0 % Eosinophils (%) (Auto) 1.8 0.0-7.0 % Basophils (%) (Auto) 0.6 0.0-2.0 % Neutrophils # (Auto) 5.0 1.6-8.6 10 ^3/uL Lymphocytes # (Auto) 0.9 0.4-5.4 10 ^3/uL Monocytes # (Auto) 0.5 0-1.3 10 ^3/uL Eosinophils # (Auto) 0.1 0-0.8 10 ^3/uL Basophils # (Auto) 0 0-0.2 10 ^3/uL Nucleated Red Blood Cells 0.0 % Sodium Level 141 136-145 mmol/L Potassium Level 4.0 3.5-5.1 mmol/L Chloride Level 103 98-107 mmol/L Carbon Dioxide Level 29 20-31 mmol/L Anion Gap 9 5-15 Blood Urea Nitrogen 15 9-23 mg/dL Creatinine 0.76 0.550-1.02 mg/dL Glomerular Filtration Rate Calc 83 >90 mL/min BUN/Creatinine Ratio 19.7 10.0-20.0 Serum Glucose 126 H 74-106 mg/dL Calcium Level 10.0 8.7-10.4 mg/dL SEPSIS Sepsis Screen Date sepsis recognized/suspect: Aug 17, 2025 Time Sepsis recognized/suspect: 1119 Recent Procedure: No On Antibiotic Therapy: No Respiratory Rate >20: No Heart Rate >90: No Temp<36 C (96.8 F) or >38.3 C: No SBP <90 or MAP <65 mmHG: No New Acute Mental Status Change: No Is the patient on CPAP, BIPAP,: No Physician Orders Chest Portable (08/17/25 11:10) Troponin-I Hs (08/17/25 14:10) Aspirin Tablet (08/18/25 10:00) Aspirin Tablet (08/17/25 15:15) Atorvastatin (Lipitor) (08/17/25 15:15) Atorvastatin (Lipitor) (08/17/25 22:00) Enoxaparin Sodium (Lovenox) (08/17/25 22:00) Vitamin D, 25-Hydroxy (08/17/25 15:04) Vitamin B12 (08/17/25 15:04) Urinalysis (08/17/25 15:04) Thyroid Stimulating Hormone (08/17/25 15:04) PTPTT (08/17/25 15:04) Phosphorus (08/17/25 15:04) Magnesium (08/17/25 15:04) Lipid Panel (08/17/25 15:04) Lipase (08/17/25 15:04) Hemoglobin A1c (08/17/25 15:04) Drug Screen (08/17/25 15:04) Admit (08/17/25 15:04) Code Status (08/17/25 15:04) Acetaminophen Tablet (Tylenol Tablet) (08/17/25 15:15) Ondansetron Hcl (Zofran) (08/17/25 15:15) Complete Blood Count (08/18/25 04:00) Comprehensive Metabolic Panel (08/18/25 04:00) Cardiac Diet-2gna,Lofat,Lochol (08/17/25 Dinner) Echo 2d Mode Cardiac Dop (08/17/25 15:04) Morphine Sulfate Injection (08/17/25 15:15) Nitroglycerin Sublingual (Ntrostat Subli (08/17/25 15:15) Morphine Sulfate Injection (08/17/25 15:15) Oxygen By Nasal Cannula (08/17/25 15:04) Stat Ekg For Chest Pain (08/17/25 15:04) Notify Md Of Changes From Base (08/17/25 15:04) Drafter (Cad) Electronic For 24 Hours (08/17/25 15:04) Emergency Dysrhythmia Protocol (08/17/25 15:04) Rhythm Strips Once Every Shift (08/17/25 15:04) Vital Signs Date Time Temp Pulse Resp B/P (MAP) Pulse Ox O2 Delivery O2 Flow Rate FiO2 08/17/25 14:15 58 08/17/25 12:29 57 08/17/25 11:12 97.8 66 16 144/85 98 97.8 08/17/25 10:44 64 Laboratory Tests Test 08/17/25 11:40 White Blood Count 6.6 10^3/uL (4.4-10.8) Assessment/Plan Assessment/Plan ASSESSMENT Rule out acute coronary syndrome Ruled out pulmonary embolism Pulmonary nodule Atypical pneumonia Paroxysmal atrial fibrillation (chads Vasc 4) secondary hypercoagulability state Hypertension Dyslipidemia Diabetes-controlled (hemoglobin A1c 6.6%) Osteoporosis Questionable rheumatoid arthritis/osteoarthritis Left distal tibia fracture COPD with no exacerbation Diastolic congestive heart failure (HFpEF, LVEF 55%) PLAN Troponin negative. EKG shows sinus bradycardia with old septal infarct and no ST-elevation. Noncardiac chest pain (constant and sharp increases with deep breath and cough). We will await results of echocardiogram. Completed Angio CT of chest which ruled out pulmonary embolism, evidence pulmonary nodules up to 6 mm, tree-in-bud nodularity (could be atypical infection/bronchiolitis/aspiration), mediastinal/hilar lymphadenopathy, severe thoracic lumbar degenerative disc disease, enlarged ascending aorta measuring 4 cm Consulted pulmonology to evaluate atypical pneumonia and pulmonary nodule Indicated azithromycin and ceftriaxone Evaluate IV steroids Ordered ABG. Per patient she had previous history of oxygen requirement Patient is on therapeutic enoxaparin due to history of paroxysmal atrial fibrillation. Patient's weight says 171 kg, but patient should only weighs 60 kg. Currently on 60 mg subcutaneous AID Ordered echocardiogram, if abnormal recommend cardiological evaluation Patient was on flecainide and diltiazem, due to bradycardia continue diltiazem. If reduced ejection fraction should discontinued flecainide. Continued home medication Goals of care discussed with patient for over 18 minutes: Full code status Discussed plan with Dr. Snow, patient and nurses: Patient admitted to telemetry. Awaiting echocardiogram, evaluate need for cardiological evaluation. Consulted pulmonology due to atypical pneumonia and pulmonary nodule. Patient on therapeutic enoxaparin due to paroxysmal atrial fibrillation. Patient has poor prognosis Plan discussed with: Patient, Other (Nurses) My Orders Orders - NICK PATINO RESIDENT Procedure Category Date Status Time Aspirin Tablet PHA 08/18/25 Transmitted 10:00 Aspirin Tablet PHA 08/17/25 Transmitted 15:15 Atorvastatin (Lipitor) PHA 08/17/25 Transmitted 15:15 Atorvastatin (Lipitor) PHA 08/17/25 Verified 22:00 Enoxaparin Sodium PHA 08/17/25 Verified (Lovenox) 22:00 Vitamin D, 25-Hydroxy LAB 08/17/25 Verified 15:04 Vitamin B12 LAB 08/17/25 Verified 15:04 Urinalysis LAB 08/17/25 Verified 15:04 Thyroid Stimulating LAB 08/17/25 Verified Hormone 15:04 PTPTT LAB 08/17/25 Verified 15:04 Phosphorus LAB 08/17/25 Verified 15:04 Magnesium LAB 08/17/25 Verified 15:04 Lipid Panel LAB 08/17/25 Verified 15:04 Lipase LAB 08/17/25 Verified 15:04 Hemoglobin A1c LAB 08/17/25 Verified 15:04 Drug Screen LAB 08/17/25 Verified 15:04 Admit ADMIT 08/17/25 Verified 15:04 Code Status CODE 08/17/25 Verified 15:04 Acetaminophen Tablet PHA 08/17/25 Verified (Tylenol Tablet) 15:15 Ondansetron Hcl PHA 08/17/25 Verified (Zofran) 15:15 Complete Blood Count LAB 08/18/25 Verified 04:00 Comprehensive LAB 08/18/25 Verified Metabolic Panel 04:00 Cardiac DIET 08/17/25 Verified Diet-2gna,Lofat,Lochol Dinner Echo 2d Mode Cardiac US 08/17/25 Verified DOP 15:04 Morphine Sulfate [facility] 08/17/25 Verified Injection 15:15 Nitroglycerin [facility] 08/17/25 Verified Sublingual (Ntrostat 15:15 Morphine Sulfate [facility] 08/17/25 Verified Injection 15:15 Oxygen By Nasal RT 08/17/25 Verified Cannula 15:04 Stat Ekg For Chest [facility] 08/17/25 Verified Pain 15:04 Notify Md Of Changes [facility] 08/17/25 Verified From Base 15:04 Drafter (Cad) Electronic For [facility] 08/17/25 Verified 24 Hours 15:04 Emergency Dysrhythmia [facility] 08/17/25 Verified Protocol 15:04 Rhythm Strips Once [facility] 08/17/25 Verified Every Shift 15:04 Date of Service: Aug 17, 2025 Billing Provider: YEMI SNOW DO Common Visit Codes: [id number] INP/OBS CARE (HIGH) Secondary Visit Codes: [id number] CARE PLAN 30 MINUTES NICK PATINO RESIDENT Aug 17, 2025 15:10 YEMI SNOW DO Aug 20, 2025 13:24
[2025-08-17] MEDS ORDERED: ATORVASTATIN 20 MG TAB PO ONE (15:15)
[2025-08-17] MEDS ORDERED: ACETAMINOPHEN 325 MG TAB PO PRN (15:15)
[2025-08-17] MEDS ORDERED: MORPHINE SULFATE INJ 2 MG/ml SYRG IV PRN (15:15)
[2025-08-17] MEDS ORDERED: NITROGLYCERIN 0.4 MG SL TAB SL PRN (15:15)
[2025-08-17 15:46] LABS: INR 1.02 (0.9-1.15); Partial Thromboplastin Time 29.9 SEC (24.5-34.5); Prothrombin Time 10.8 sec (9.3-11.8)
[2025-08-17 15:50] LABS: Magnesium 1.9 mg/dL (1.6-2.6); Triglycerides 54.0 mg/dL (< 150)
[2025-08-17 15:52] LABS: Cholesterol 127.0 mg/dL (< 200)
[2025-08-17 15:57] LABS: HDL Cholesterol 69.0 mg/dL (40-59)
[2025-08-17 16:09] LABS: Lipase 23.0 U/L (12-53)
[2025-08-17] MEDS: IOHEXOL 350 MG/ML 100ML IJ ONE (16:20)
--- NOTE | 2025-08-17 17:30 | DVH ---
US BiLat Lower DVT Comparison: US BILAT LOWER DVT on DOS: 01/07/24 Technique: Realtime grayscale and Doppler ultrasound images of the deep venous structures with spectral waveform analysis were obtained.Doppler spectral waveform analysis of the bilateral lower extremity veins was performed. Findings: Right Lower Extremity: Right common femoral vein: Normal compressibility and flow. Right femoral vein: Normal compressibility and flow. Right popliteal vein: Normal compressibility and flow. Proximal calf veins are normally compressible. Left Lower Extremity: Left common femoral vein: Normal compressibility and flow. Left femoral vein: Normal compressibility and flow. Left popliteal vein: Normal compressibility and flow. Proximal calf veins are normally compressible. IMPRESSION: NO SONOGRAPHIC EVIDENCE FOR DEEP VENOUS THROMBOSIS IN THE BILATERAL LOWER EXTREMITY VEINS.
--- NOTE | 2025-08-17 17:49 | DVH ---
Indication: R/o PE Technique: CT axial images of the chest are obtained with intravenous contrast per CT angiogram protocol. Coronal and sagittal reformats were obtained. Radiation Dose Information: CTDI volume is 18.33 mGy. Dose-length product is 658.36 mGy*cm Comparison: CT CT ANGIO CHEST CONTRAST on DOS: 01/07/24, CT CT ANGIO CHEST CONTRAST on DOS: 07/31/23, CTACH on DOS: 09/13/22, CT ANGIO CHEST CONTRAST on DOS: 09/13/22, CTACH on DOS: 03/12/22 FINDINGS: No filling defect within the main left right pulmonary arteries. Trachea patent. No pneumothorax. 6 mm right lower lobe pulmonary nodule. 3 mm right middle lobe pulmonary nodule. Left lower lobe atelectasis. Mild left lower lobe tree-in-bud nodularity. Heart enlarged. Coronary artery calcification disease. Aortic atherosclerotic disease. Right hilar lymph node measuring 14 mm. Left paratracheal lymph node measuring 1.5 cm. No supraclavicular, axillary lymphadenopathy. Enlargement ascending aorta measuring 4 cm. Small hiatal hernia. Cholecystectomy. Bilateral shoulder arthroplasty hardware. There is severe thoracic and lumbar degenerative disc disease. Multilevel endplate irregularity/ erosive changes within the thoracic and lumbar spine especially pronounced at T12-L1. IMPRESSION: No evidence for large pulmonary embolism. Cardiomegaly, coronary artery calcification disease. Pulmonary nodules up to 6 mm. Recommend follow-up per Fleischner society criteria. Mild left lower lobe tree-in-bud nodularity which can be secondary to atypical infection, bronchiolitis, aspiration. Mediastinal/hilar lymphadenopathy. Severe thoracic and lumbar degenerative disc disease. Endplate irregularity changes at multiple levels most prominently at T12-L1 which could be secondary to degenerative disease however if there is concern for discitis/ osteomyelitis recommend obtaining MRI thoracic/lumbar spine with and without contrast to evaluate. Enlarged ascending aorta measuring 4 cm. Other findings as described
[2025-08-17 20:28] VITALS: BP 160/90; PULSE 54; RESP 18; TEMP 98; O2SAT 96
[2025-08-17 21:00] VITALS: BP 160/90; PULSE 54; RESP 18; TEMP 98; O2SAT 96
[2025-08-17] MEDS: ATORVASTATIN 20 MG TAB PO SCH (21:31)
[2025-08-17] MEDS: ONDANSETRON HCL 4 MG/2 ML VIAL IV PRN (21:31)
[2025-08-17] MEDS: ENOXAPARIN SOD 150 MG/1 ML SYRINGE SC SCH (21:31)
[2025-08-17] MEDS: MORPHINE SULFATE INJ 2 MG/ml SYRG IV PRN (21:32)
[2025-08-18] VITALS (21 sets, daily range): BP systolic 120–160; BP diastolic 65–99; PULSE 57–101; RESP 12–18; TEMP 98–98.7; O2SAT 91–100
[2025-08-18] MEDS ORDERED: DEXTROSE (50%) 50ML SYRG IV PRN (00:30)
[2025-08-18] MEDS ORDERED: HYDROcodone-ACET 10/325MG TAB PO SCH (00:30)
[2025-08-18 01:38] LABS: Urine Protein, UAD Negative (Negative)
[2025-08-18 01:41] LABS: Amphetamine Screen, Urine Neg (NEGATIVE); Barbiturate Scree,Urine Neg (NEGATIVE); Benzodiazephine Screen, Urine Neg (NEGATIVE); Cannabinoid Screen, Urine Neg (NEGATIVE); Cocaine Screen, Urine Neg (NEGATIVE); Opiate Scree,Urine Pos (NEGATIVE); Phencyclidine Screen, Urine Neg (NEGATIVE)
[2025-08-18] MEDS: AZITHROMYCIN 500MG/250ML 250 ML IV ONE (02:17)
[2025-08-18] MEDS: ACCU-CHEK COMFORT CURVE STRIP VI SCH (06:05)
[2025-08-18] MEDS: InsuLIN REG 1unit/0.01ml Soln (100units/ml) SC SCH (06:05)
[2025-08-18] MEDS: HYDROcodone-ACET 10/325MG TAB PO PRN (07:05)
[2025-08-18] MEDS: ALBUTEROL SULF 2.5 MG/0.5ML(0.5%) NEB SOLN NEB SCH (07:50)
[2025-08-18] MEDS: IPRATROPIUM BROM 0.5 MG/2.5ML INH SOL NEB SCH (07:50)
[2025-08-18] MEDS: hydroCHLOROthiazide 25 MG TAB PO SCH (09:35)
[2025-08-18] MEDS: LOSARTAN POTASSIUM 50 MG TAB PO SCH (09:35)
[2025-08-18] MEDS: ONDANSETRON ODT 4 MG TAB PO PRN (09:43)
[2025-08-18] MEDS: PATIENTS OWN MEDICATION (Flecainide Acetate 1 TAB) PO SCH (10:00)
--- NOTE | 2025-08-18 10:19 | DVHPNRES ---
Progress Note Date Seen: Aug 18, 2025 Resident Creating Document: JOSEPH RAMESH Medical Necessity Reason Pt with a Central, PICC or Fol: No Subjective Review of Systems Patient is a 74-year-old female with past medical history of Diabetes, hypertension, dyslipidemia, COPD, diastolic CHF, paroxysmal atrial fibrillation, osteoporosis with multiple fractures, arthritis and silent heart attack, presented to [facility] ED with complaint of chest pain. She reports constant, sharp chest pain that began at 8:00 p.m. on 08/16/2025, which worsens with deep breathing and coughing. Additional symptoms include posterior right arm soreness and throbbing pain that started at 10:00 p.m. the same day, dyspnea, lightheadedness, a fluttering sensation/palpitations, and a productive cough with clear sputum. Symptoms were mildly relieved by sitting completely still. Since the symptoms did not improve, the patient decided to seek evaluation in the emergency department. On evaluation in the bedside, patient is afebrile, blood pressure was 160/[address] angiogram shows mild left lower lobe tree-in-bud nodularity which can be secondary to atypical infection, bronchiolitis, aspiration. The patient was started on IV antibiotics and IV fluids. Patient is admitted for further evaluation and management. Past medical history: Diabetes, hypertension, dyslipidemia, COPD with no home while he is in requirement (per patient she required oxygen previously), diastolic CHF, paroxysmal atrial fibrillation (chads Vasc 4), osteoporosis with multiple fractures, questionable rheumatoid arthritis/osteoarthritis, silent heart attack with coronary angiography that showed no obstructions no need for stent placement, last stress test completed in 2021, recent tibia fracture no surgery complete. Past surgical history: 2019 coronary angiography (her patient Dr. Flor christianson complete), left knee surgery, bilateral hip surgery, bilateral shoulder surgery, , appendicitis, Family history: Abdominal cancer in father (unknown) Social history: Lives in [place] with family (next of kin is daughter Lamont). Ex tobacco abuse (two cigarettes a day for four years) quit in 1983. Denies current tobacco, alcohol and other drug abuse Allergies: Denies Home medication: Losartan, flecainide, hydrochlorothiazide, diltiazem, Prozac, was on Jardiance on Xarelto but was discontinued to use go since insurance seven cover cost PCP: Dr. Cortez Patient seen and examined at bedside. Patient is alert and oriented to time, place person and responding to all questions. Eyes: No Pain, No Vision change, No Conjunctivae inflammation, No Eyelid inflammation, No Other, No Redness ENT: No Ear pain, No Ear discharge, No Nose pain, No Nose discharge, No Nose congestion, No Mouth pain, No Mouth swelling, No Throat pain, No Throat swelling, No Other Cardiovascular: Chest Pain, Palpitations, No Orthopnea, No Paroxysmal No Dyspnea, No Edema, Lt Headedness, No Other Respiratory: Cough, No Dry, Shortness of breath, SOB with exertion, No Wheezing, No Hemoptysis, No Pleuritic Pain, Sputum, No Other Gastrointestinal: No Nausea, No Vomiting, No Abdominal Pain, No Diarrhea, No Constipation, No Melena, No Hematochezia, No Other Genitourinary: No Dysuria, No Frequency, No Incontinence, No Hematuria, No Retention, No Other Musculoskeletal: No other, No neck pain, No shoulder pain, No arm pain, No back pain, No hand pain, No leg pain, No foot pain Skin: No Rash, No Lesions, No Jaundice, No Bruising, No Other Objective vital signs Vital Sign Date Time Temp Pulse Resp B/P (MAP) Pulse Ox O2 Delivery O2 Flow Rate FiO2 08/18/25 09:35 156/77 08/18/25 09:00 98.2 73 16 91 98.2 08/18/25 07:50 Room Air 08/18/25 07:50 0 21 Total Intake and Output 08/17/25 08/17/25 08/18/25 15:00 23:00 07:00 Intake Total 550 ml Balance 550 ml medications Current Medications Medications Dose Ordered Sig/Latasha Route Start Time Stop Time Status Last Admin Dose Admin Aspirin 81 mg DAILY PO 08/18/25 10:00 Atorvastatin Calcium 40 mg HS PO 08/17/25 22:00 08/17/25 21:31 40 MG Acetaminophen 325 mg Q4HP PRN PO 08/17/25 15:15 Ondansetron HCl 4 mg Q4HP PRN IV 08/17/25 15:15 08/17/25 21:31 4 MG Morphine Sulfate 2 mg Q4HPRN PRN IV 08/17/25 15:15 08/17/25 21:32 2 MG Nitroglycerin 0.4 mg Q5MINP PRN SL 08/17/25 15:15 Morphine Sulfate 2 mg Q30M PRN IV 08/17/25 15:15 Enoxaparin Sodium 60 mg Q12HR SC 08/18/25 10:00 Diagnostic Test (Pha) 1 strip ACHS 08/18/25 07:00 08/18/25 06:05 1 STRIP Insulin Human Regular ACHS SC 08/18/25 07:00 Dextrose 50 ml UD PRN IV 08/18/25 00:30 Fluoxetine HCl 20 mg BID PO 08/18/25 10:00 08/18/25 09:35 20 MG Hydrochlorothiazide 25 mg DAILY PO 08/18/25 10:00 08/18/25 09:35 25 MG Losartan Potassium 50 mg BID PO 08/18/25 10:00 08/18/25 09:35 50 MG Ondansetron HCl 4 mg TIDP PRN PO 08/18/25 00:30 08/18/25 09:43 4 MG Patient Own Medication 1 tab BID PO 08/18/25 10:00 Patient Own Medication 1 tab QPM PO 08/18/25 18:00 Azithromycin 250 ml @ 125 mls/hr DAILY IV 08/18/25 10:00 Ceftriaxone Sodium 50 ml @ 100 mls/hr DAILY@09 IV 08/18/25 09:00 08/18/25 09:43 100 MLS/HR Albuterol 2.5 mg Q4HWA [facility] 08/18/25 06:00 08/18/25 07:50 2.5 MG Ipratropium [place] 0.5 mg Q4HWA [facility] 08/18/25 06:00 08/18/25 07:50 0.5 MG Acetaminophen/ Hydrocodone Bitart 1 tab Q6HPRN PRN PO 08/18/25 07:00 08/18/25 07:05 1 TAB Examination General Appearance: Cooperative. Well developed. Well nourished. NAD Head Exam: Normal inspection Neck Exam: Normal inspection. Non-tender. Normal alignment Pulmonary/Respiratory: Chest non-tender. Clear bilateral breath sounds, no crackles, no wheezing. Cardiovascular/Chest: Regular rate and rhythm. No murmurs. No JVD. Peripheral Pulses: 2+ Radial (R). 2+ Radial (L). 2+ Pedal (R). 2+ Pedal (L) Abdominal Exam: Normal bowel sounds. Soft. normal abdomen, no visible veins, Nontender. No hepatospenomegaly. No masses Ankle Exam: Negative ankle edema Lower extremities: Negative lower extremity edema Neuro/Mental Status: A&O x4. Coherent. Thoughts/Psych: Normal thought pattern. Appropriate mood and affect. Good judgement and insight Skin Exam: Normal inspection. Normal color. Warm. Dry laboratory and microbiology Laboratory Tests 08/17/25 11:40 Test 08/17/25 11:40 Range/Units Serum Glucose 126 H 74-106 mg/dL Labs and/or images reviewed: Labs reviewed by me, Image(s) reviewed by me Problem List/Assessment/Plan Problem List/Assessment/Plan # Rule out acute coronary syndrome # Ruled out pulmonary embolism # Pulmonary nodule # Atypical pneumonia # Intractable chest pain due to above Bilateral Lower DVT US: No sonographic evidence for deep vein thrombosis in the bilateral lower extremity veins CT Angiography: No evidence for large pulmonary embolism. Cardiomegaly, coronary artery calcification disease. Pulmonary nodules up to 6 mm. Recommend follow-up per Fleischner society criteria. Mild left lower lobe tree-in-bud nodularity which can be secondary to atypical infection, bronchiolitis, aspiration. Mediastinal/hilar lymphadenopathy. Chest X-ray: No acute cardiopulmonary disease. Pulmonary consult Indicated azithromycin and ceftriaxone Evaluate IV steroids pain management with Morphine Zofran 4 MG IV q4h Nitroglycerin 0.4 MG # Diastolic congestive heart failure (HFpEF, LVEF 55%) # Paroxysmal atrial fibrillation (chads Vasc 4) secondary hypercoagulability state Troponin negative. EKG shows sinus bradycardia with old septal infarct and no ST-elevation. Echocardiogram ordered on therapeutic enoxaparin 60 mg subcutaneous AID previous history of flecainide # COPD with no exacerbation Ordered ABG. previous history of oxygen requirement # Severe thoracic and lumbar degenerative disc disease CT Angiography: Severe thoracic and lumbar degenerative disc disease. Endplate irregularity changes at multiple levels most prominently at T12-L1 which could be secondary to degenerative disease however if there is concern for discitis/ osteomyelitis recommend obtaining MRI thoracic/lumbar spine with and without contrast to evaluate. Enlarged ascending aorta measuring 4 cm. # Hypertension Losartan 50 MG PO bid monitor BP # Dyslipidemia Simvastatin 1 TAB PO qpm # Diabetes-controlled (hemoglobin A1c 6.6%) Mild sliding scale Goals of care: Full code, discussed for >30 minutes on 08/18/25 Plan discussed with patient Plan discussed with Dr. Snow Plan discussed with: Patient Date of Service: Aug 18, 2025 Billing Provider: YEMI SNOW DO Common Visit Codes: [id number] INP/OBS CARE(HIGH) JOSEPH RAMESH RESIDENT Aug 18, 2025 10:19 YEMI SNOW DO Aug 19, 2025 00:05
[2025-08-18] MEDS: AZITHROMYCIN 500MG/250ML 250 ML IV SCH (11:28)
[2025-08-18] MEDS: ENOXAPARIN SOD 150 MG/1 ML SYRINGE SC SCH (11:29)
[2025-08-18] MEDS: PATIENTS OWN MEDICATION (Simvastatin 1 TAB) PO SCH (18:00)
[2025-08-18] MEDS: ENOXAPARIN SOD 60 MG/0.6 ML SYRINGE SC SCH (20:56)
[2025-08-19] VITALS (22 sets, daily range): BP systolic 113–188; BP diastolic 77–114; PULSE 56–81; RESP 16–20; TEMP 97.9–98.4; O2SAT 91–100
[2025-08-19 07:07] LABS: Hematocrit 37.0 % (36.0-46.0); Hemoglobin 12.4 g/dL (12.2-16.2); Mean Corpuscular Hemoglobin 26.9 pg (28.0-32.0); Mean Corpuscular Volume 80.4 fL (80.0-100.0); Nucleated Red Blood Cells % 0.0 %
[2025-08-19 07:23] LABS: Alanine Aminotransferase 16 U/L (7-40); Albumin 4.0 g/dL (3.2-4.8); Alkaline Phosphatase 113 U/L (46-116); Anion Gap 11 (5-15); BUN/Creatinine Ratio 20.0 (10.0-20.0); Blood Urea Nitrogen 16 mg/dL (9-23); Calcium 9.5 mg/dL (8.7-10.4); Carbon Dioxide 27 mmol/L (20-31); Chloride 98 mmol/L (98-107); Glucose 96 mg/dL (74-106); Potassium 4.3 mmol/L (3.5-5.1); Sodium 136 mmol/L (136-145); Total Protein 6.2 g/dL (5.7-8.2)
[2025-08-19 07:24] LABS: Bilirubin, Total 0.5 mg/dL (0.2-1.0)
--- NOTE | 2025-08-19 09:05 | DVHINCON2 ---
Date of service: Aug 17, [address] hernandez Reason for Consultation COPD History of Present Illness HPI Patient is a 74-year-old lady former smoker with a history of coronary artery disease congestive heart failure and COPD. She presented with recurrent chest pains and shortness of breath. Patient's past has been seen with the Ronald in the clinic. She takes albuterol inconsistently. CT angiogram shows no evidence of PE however demonstrates evidence of bronchiolitis left lower lobe and 6 mm pulmonary nodule which will require follow-up. Home Meds Active Scripts Ondansetron Odt 4MG Tab (ZOFRAN PO) 4 Mg Tb, 4 MG PO TIDP PRN for 7 Days, #21 TAB ODT TAB-DISSOLVE IN MOUTH, THEN SWALLOW Prov:MILA DAVALOS MD 02/18/25 Reported Medications Hydrocodone-Acetaminophen (Hydrocodone Bitartrate/AC 10-325 mg) 1 Tab Tab, 1 TAB PO PRN, TAB 02/12/25 Fluoxetine Hcl (Fluoxetine Hcl) 20 Mg Cap, 1 CAP PO BID for 30 Days, #60 06/17/24 Albuterol Sulfate (Albuterol Sulfate Hfa) 108 Mcg/Act Aer, 2 PUFF INH Q4-6HR PRN for 16 Days, #8.5 06/17/24 Diltiazem Hcl (Diltiazem Hcl Er) 120 Mg Cap, 1 CAP PO DAILY for 90 Days, #90 06/17/24 Hydrochlorothiazide (Hydrochlorothiazide) 25 Mg Tab, 1 TAB PO DAILY for 90 Days, #90 06/17/24 Flecainide Acetate (Flecainide Acetate) 100 Mg Tab, 1 TAB PO BID for 90 Days, #180 11/24/22 Losartan Potassium (Losartan Potassium) 50 Mg Tab, 1 TAB PO BID for 90 Days, #180 08/17/21 Simvastatin (Simvastatin) 40 Mg Tab, 1 TAB PO QPM for 100 Days, #100 01/31/19 Past Medical History Cardiac: CAD Pulmonary: COPD Central Nervous System: No pertinent Hx GI: No pertinent Hx Hemotology/Oncology: No pertinent Hx Hepatobiliary: No pertinent Hx Psychiatric: No pertinent Hx Musculoskeletal: No pertinent Hx Rheumotologic: No pertinent Hx Infectious Disease: No peritnent Hx ENT: No pertinent Hx Renal/: No pertinent Hx Endocrine: No pertinent Hx Dermatology: No pertinent Hx Past Surgical History: No pertinent Hx Family History: No pertinent Hx Patient Family History: Cancer G8 FATHER (ABDOMEN) FH: cirrhosis G8 MOTHER Family history: Asthma G8 MOTHER Family history: Diabetes mellitus G8 MOTHER Review of Systems Constitutional: No symptom reported Ears, Nose, & Throat: No symptom reported Eyes: No symptom reported Pulmonary/Respiratory: Dyspnea Cardiovascular: Chest Pain Gastrointestinal: No symptom reported Genitourinary: No symptom reported Musculoskeletal: No symptom reported Skin: No symptom reported Psychiatric: No symptom reported Endocrine: No symptom reported Hemotologic/Lymphatic: No symptom reported H&P Exam Vital Signs Vital Signs Date Time Temp Pulse Resp B/P (MAP) Pulse Ox O2 Delivery O2 Flow Rate FiO2 08/19/25 08:48 98.0 66 18 167/103 (124) 97 98.0 08/18/25 22:37 Room Air 0.0 08/18/25 22:37 21 General Appeara: Well developed, Well nourished, Normal Appearance Head Exam: Normal inspection Neck Exam: Normal inspection, Non-tender, Normal alignment Eye Exam: bilateral eye Normal inspection, bilateral eye PERRL Ear Exam: bilateral ear Auricle normal, bilateral ear Canal normal Nasal Exam: Normal inspection Mouth: Normal Inspection Pulmonary/Respiratory: Normal inspection Cardiovascular/Chest: Normal inspection Peripheral Pulses: 4+ carotid (R), 4+ carotid (L) Labs/Xrays Labs Test 08/19/25 06:14 08/19/25 06:01 08/18/25 00:48 08/17/25 15:19 Range/Units POC Glucose 107 H 70-106 mg/dl White Blood Count 6.3 4.4-10.8 10^3/uL Red Blood Count 4.60 4.0-5.20 10^6/uL Hemoglobin 12.4 12.2-16.2 g/dL Hematocrit 37.0 36.0-46.0 % Mean Corpuscular Volume 80.4 80.0-100.0 fL Mean Corpuscular Hemoglobin 26.9 L 28.0-32.0 pg Mean Corpuscular Hemoglobin Concent 33.5 32.0-36.0 g/dL Red Cell Distribution Width 18.1 H 11.8-14.3 % Platelet Count 294 140-450 10^3/uL Mean Platelet Volume 8.0 6.9-10.8 fL Neutrophils (%) (Auto) 75.7 37.0-80.0 % Lymphocytes (%) (Auto) 14.3 10.0-50.0 % Monocytes (%) (Auto) 7.7 0.0-12.0 % Eosinophils (%) (Auto) 1.6 0.0-7.0 % Basophils (%) (Auto) 0.7 0.0-2.0 % Neutrophils # (Auto) 4.8 1.6-8.6 10 ^3/uL Lymphocytes # (Auto) 0.9 0.4-5.4 10 ^3/uL Monocytes # (Auto) 0.5 0-1.3 10 ^3/uL Eosinophils # (Auto) 0.1 0-0.8 10 ^3/uL Basophils # (Auto) 0 0-0.2 10 ^3/uL Nucleated Red Blood Cells 0.0 % Sodium Level 136 # 136-145 mmol/L Potassium Level 4.3 3.5-5.1 mmol/L Chloride Level 98 98-107 mmol/L Carbon Dioxide Level 27 20-31 mmol/L Anion Gap 11 5-15 Blood Urea Nitrogen 16 9-23 mg/dL Creatinine 0.80 0.550-1.02 mg/dL Glomerular Filtration Rate Calc 78 >90 mL/min BUN/Creatinine Ratio 20.0 10.0-20.0 Serum Glucose 96 74-106 mg/dL Calcium Level 9.5 8.7-10.4 mg/dL Total Bilirubin 0.5 0.2-1.0 mg/dL Aspartate Amino Transferase (AST) 19 13-40 U/L Alanine Aminotransferase (ALT) 16 7-40 U/L Alkaline Phosphatase 113 46-116 U/L Total Protein 6.2 5.7-8.2 g/dL Albumin 4.0 3.2-4.8 g/dL Urine Color Light-yellow Yellow Urine Clarity Clear Clear Urine pH 7.0 5.0-9.0 Urine Specific [place] 1.028 1.001-1.035 Urine Protein Negative Negative Urine Ketones Negative Negative Urine Blood Negative Negative /uL Urine Nitrite Negative Negative Urine Bilirubin Negative Negative Urine Urobilinogen Normal Negative mg/dL Urine Leukocyte Esterase Negative Negative /uL Urine RBC 1 0 - 4 /hpf Urine Microscopic WBC < 1 0-5 /HPF Urine Squamous Epithelial Cells None seen <5 /hpf Urine Bacteria None seen None Seen /hpf Urine Glucose Normal Normal mg/dL Urine Opiates Screen Pos NEGATIVE Urine Fentanyl Screen Neg NEGATIVE Urine Barbiturates Screen Neg NEGATIVE Urine Phencyclidine Screen Neg NEGATIVE Urine Amphetamines Screen Neg NEGATIVE Urine Benzodiazepines Screen Neg NEGATIVE Urine Cocaine Screen Neg NEGATIVE Urine Cannabinoids Screen Neg NEGATIVE Prothrombin Time 10.8 9.3-11.8 sec Prothrombin Time INR 1.02 0.9-1.15 Activated Partial Thromboplast Time 29.9 24.5-34.5 SEC D-Dimer, Quantitative 4.15 H 0.0-0.49 mg/L FEU Hemoglobin A1c 6.4 H <5.7 % A1C Phosphorus Level 3.6 2.4-5.1 mg/dL Magnesium Level 1.9 1.6-2.6 mg/dL Troponin I High Sensitivity 10 </=34 ng/L Triglycerides Level 54 < 150 mg/dL Cholesterol Level 127 < 200 mg/dL LDL Cholesterol 44 < 100 mg/dL HDL Cholesterol 69 H 40-59 mg/dL Lipase 23 12-53 U/L Vitamin B12 Level 374 211-911 pg/mL Vitamin D 25-Hydroxy 48.4 30.0-100 ng/mL Thyroid Stimulating Hormone (TSH) 1.14 0.55-4.78 uIU/mL Assessment/Plan Plan COPD Bronchopneumonia Pulmonary nodules, most likely postinfectious Chest pain Management plan Supplemental O2 as needed IS Antibiotics azithromycin Albuterol and Atrovent nebs Chest pain - continue workup by Cardiology Follow-up in the clinic with repeat imaging for pulmonary nodules Plan discussed with: Patient JOSE HOOKS MD Aug 19, 2025 09:05
--- NOTE | 2025-08-19 09:07 | DVHPN2 ---
Progress Note - Dictate Date Seen: Aug 18, 2025 Has the PT tested + for MRSA If YES, has PT been informed?: No Medical Necessity Reason Pt with a Central, PICC or Fol: No vital signs Vital Sign Date Time Temp Pulse Resp B/P (MAP) Pulse Ox O2 Delivery O2 Flow Rate FiO2 08/19/25 08:48 98.0 66 18 167/103 (124) 97 98.0 08/18/25 22:37 Room Air 0.0 08/18/25 22:37 21 Total Intake and Output 08/18/25 08/18/25 08/19/25 15:00 23:00 07:00 Intake Total 900 ml 200 ml Output Total 600 ml Balance 900 ml -400 ml medications Current Medications Medications Dose Ordered Sig/Latasha Route Start Time Stop Time Status Last Admin Dose Admin Aspirin 81 mg DAILY PO 08/18/25 10:00 Atorvastatin Calcium 40 mg HS PO 08/17/25 22:00 08/17/25 21:31 40 MG Acetaminophen 325 mg Q4HP PRN PO 08/17/25 15:15 Ondansetron HCl 4 mg Q4HP PRN IV 08/17/25 15:15 08/17/25 21:31 4 MG Morphine Sulfate 2 mg Q4HPRN PRN IV 08/17/25 15:15 08/17/25 21:32 2 MG Nitroglycerin 0.4 mg Q5MINP PRN SL 08/17/25 15:15 Morphine Sulfate 2 mg Q30M PRN IV 08/17/25 15:15 Diagnostic Test (Pha) 1 strip ACHS 08/18/25 07:00 08/19/25 06:44 1 STRIP Insulin Human Regular ACHS SC 08/18/25 07:00 08/18/25 21:03 3 UNITS Dextrose 50 ml UD PRN IV 08/18/25 00:30 Fluoxetine HCl 20 mg BID PO 08/18/25 10:00 08/18/25 20:54 20 MG Hydrochlorothiazide 25 mg DAILY PO 08/18/25 10:00 08/18/25 09:35 25 MG Losartan Potassium 50 mg BID PO 08/18/25 10:00 08/18/25 20:55 50 MG Ondansetron HCl 4 mg TIDP PRN PO 08/18/25 00:30 08/18/25 09:43 4 MG Patient Own Medication 1 tab BID PO 08/18/25 10:00 Patient Own Medication 1 tab QPM PO 08/18/25 18:00 Ceftriaxone Sodium 50 ml @ 100 mls/hr DAILY@09 IV 08/18/25 09:00 08/18/25 09:43 100 MLS/HR Albuterol 2.5 mg Q4HWA NEB 08/18/25 06:00 08/19/25 06:46 2.5 MG Ipratropium [place] 0.5 mg Q4HWA NEB 08/18/25 06:00 08/19/25 06:46 0.5 MG Acetaminophen/ Hydrocodone Bitart 1 tab Q6HPRN PRN PO 08/18/25 07:00 08/19/25 04:08 1 TAB Azithromycin 500 mg DAILY PO 08/19/25 10:00 Enoxaparin Sodium 60 mg Q12HR SC 08/18/25 22:00 08/18/25 20:56 60 MG laboratory and microbiology Laboratory Tests 08/19/25 06:01 Test 08/19/25 06:01 Range/Units Serum Glucose 96 74-106 mg/dL Assessment/Plan COPD Bronchopneumonia Pulmonary nodules, most likely postinfectious Chest pain events noneon room air vs stable Management plan Supplemental O2 as needed IS Antibiotics azithromycin Albuterol and Atrovent nebs Follow-up with Dr Cardenas for pulmonary nodules and copd management plan Plan discussed with: Patient JOSE HOOKS MD Aug 19, 2025 09:07
[2025-08-19] MEDS: AZITHROMYCIN 250 MG TAB PO SCH (09:08)
[2025-08-19] MEDS: LOSARTAN POTASSIUM 50 MG TAB PO ONE (13:10)
[2025-08-19] MEDS ORDERED: hydrALAZINE HCL 20 MG/ML VL IV PRN (13:15)
[2025-08-19] MEDS ORDERED: RIVA20TA PO (14:35)
[2025-08-19] MEDS: METOCLOPRAMIDE HCL 10 MG TAB PO ONE (15:09)
--- NOTE | 2025-08-19 17:10 | DVHPNRES ---
Progress Note Date Seen: Aug 19, 2025 Resident Creating Document: JOSEPH RAMESH RESIDENT Has the PT tested + for MRSA If YES, has PT been informed?: No Medical Necessity Reason Pt with a Central, PICC or Fol: No Subjective Review of Systems Patient is a 74-year-old female with past medical history of Diabetes, hypertension, dyslipidemia, COPD, diastolic CHF, paroxysmal atrial fibrillation, osteoporosis with multiple fractures, arthritis and silent heart attack, presented to [facility] ED with complaint of chest pain. She reports constant, sharp chest pain that began at 8:00 p.m. on 08/16/2025, which worsens with deep breathing and coughing. Additional symptoms include posterior right arm soreness and throbbing pain that started at 10:00 p.m. the same day, dyspnea, lightheadedness, a fluttering sensation/palpitations, and a productive cough with clear sputum. Symptoms were mildly relieved by sitting completely still. Since the symptoms did not improve, the patient decided to seek evaluation in the emergency department. On evaluation in the bedside, patient is afebrile, blood pressure was 160/[address] angiogram shows mild left lower lobe tree-in-bud nodularity which can be secondary to atypical infection, bronchiolitis, aspiration. The patient was started on IV antibiotics and IV fluids. Patient is admitted for further evaluation and management. Past medical history: Diabetes, hypertension, dyslipidemia, COPD with no home while he is in requirement (per patient she required oxygen previously), diastolic CHF, paroxysmal atrial fibrillation (chads Vasc 4), osteoporosis with multiple fractures, questionable rheumatoid arthritis/osteoarthritis, silent heart attack with coronary angiography that showed no obstructions no need for stent placement, last stress test completed in 2021, recent tibia fracture no surgery complete. Past surgical history: 2019 coronary angiography (her patient Dr. Flor christianson complete), left knee surgery, bilateral hip surgery, bilateral shoulder surgery, , appendicitis, Family history: Abdominal cancer in father (unknown) Social history: Lives in [place] with family (next of kin is daughter Lamont). Ex tobacco abuse (two cigarettes a day for four years) quit in 1983. Denies current tobacco, alcohol and other drug abuse Allergies: Denies Home medication: Losartan, flecainide, hydrochlorothiazide, diltiazem, Prozac, was on Jardiance on Xarelto but was discontinued to use go since insurance seven cover cost PCP: Dr. Cortez On 08/19/25, Patient was seen and examined at bedside. Overnight events were reviewed. The patient reports improvement in her symptoms. The patient will receive supplemental oxygen as needed and will be encouraged to use incentive spirometry. Antibiotic therapy with azithromycin will be initiated. Albuterol and Atrovent nebulizer treatments will be continued. Chest pain will be further evaluated and managed by Cardiology as part of the ongoing workup. Patient seen and examined at bedside. Patient is alert and oriented to time, place person and responding to all questions. Eyes: No Pain, No Vision change, No Conjunctivae inflammation, No Eyelid inflammation, No Other, No Redness ENT: No Ear pain, No Ear discharge, No Nose pain, No Nose discharge, No Nose congestion, No Mouth pain, No Mouth swelling, No Throat pain, No Throat swelling, No Other Cardiovascular: Chest Pain, Palpitations, No Orthopnea, No Paroxysmal No Dyspnea, No Edema, Lt Headedness, No Other Respiratory: Cough, No Dry, Shortness of breath, SOB with exertion, No Wheezing, No Hemoptysis, No Pleuritic Pain, Sputum, No Other Gastrointestinal: No Nausea, No Vomiting, No Abdominal Pain, No Diarrhea, No Constipation, No Melena, No Hematochezia, No Other Genitourinary: No Dysuria, No Frequency, No Incontinence, No Hematuria, No Retention, No Other Musculoskeletal: No other, No neck pain, No shoulder pain, No arm pain, No back pain, No hand pain, No leg pain, No foot pain Skin: No Rash, No Lesions, No Jaundice, No Bruising, No Other Objective vital signs Vital Sign Date Time Temp Pulse Resp B/P (MAP) Pulse Ox O2 Delivery O2 Flow Rate FiO2 08/19/25 16:51 98.2 73 18 113/77 (89) 96 98.2 08/19/25 14:45 Room Air* 0 21 Total Intake and Output 08/18/25 08/18/25 08/19/25 15:00 23:00 07:00 Intake Total 900 ml 200 ml Output Total 600 ml Balance 900 ml -400 ml medications Current Medications Medications Dose Ordered Sig/Latasha Route Start Time Stop Time Status Last Admin Dose Admin Aspirin 81 mg DAILY PO 08/18/25 10:00 Atorvastatin Calcium 40 mg HS PO 08/17/25 22:00 08/17/25 21:31 40 MG Acetaminophen 325 mg Q4HP PRN PO 08/17/25 15:15 Ondansetron HCl 4 mg Q4HP PRN IV 08/17/25 15:15 08/17/25 21:31 4 MG Morphine Sulfate 2 mg Q4HPRN PRN IV 08/17/25 15:15 08/17/25 21:32 2 MG Nitroglycerin 0.4 mg Q5MINP PRN SL 08/17/25 15:15 Morphine Sulfate 2 mg Q30M PRN IV 08/17/25 15:15 Diagnostic Test (Pha) 1 strip ACHS 08/18/25 07:00 08/19/25 17:05 1 STRIP Insulin Human Regular ACHS SC 08/18/25 07:00 08/18/25 21:03 3 UNITS Dextrose 50 ml UD PRN IV 08/18/25 00:30 Fluoxetine HCl 20 mg BID PO 08/18/25 10:00 08/19/25 09:09 20 MG Hydrochlorothiazide 25 mg DAILY PO 08/18/25 10:00 08/19/25 09:09 25 MG Losartan Potassium 50 mg BID PO 08/18/25 10:00 08/19/25 09:09 50 MG Ondansetron HCl 4 mg TIDP PRN PO 08/18/25 00:30 08/19/25 11:42 4 MG Patient Own Medication 1 tab BID PO 08/18/25 10:00 Patient Own Medication 1 tab QPM PO 08/18/25 18:00 Ceftriaxone Sodium 50 ml @ 100 mls/hr DAILY@09 IV 08/18/25 09:00 08/19/25 09:10 100 MLS/HR Albuterol 2.5 mg Q4HWA NEB 08/18/25 06:00 08/19/25 14:45 2.5 MG Ipratropium [place] 0.5 mg Q4HWA NEB 08/18/25 06:00 08/19/25 14:45 0.5 MG Acetaminophen/ Hydrocodone Bitart 1 tab Q6HPRN PRN PO 08/18/25 07:00 08/19/25 11:43 1 TAB Azithromycin 500 mg DAILY PO 08/19/25 10:00 08/19/25 09:08 500 MG Enoxaparin Sodium 60 mg Q12HR SC 08/18/25 22:00 08/19/25 09:10 60 MG Hydralazine HCl 10 mg Q6HP PRN IV 08/19/25 13:15 Examination General Appearance: Cooperative. Well developed. Well nourished. NAD Head Exam: Normal inspection Neck Exam: Normal inspection. Non-tender. Normal alignment Pulmonary/Respiratory: Chest non-tender. Clear bilateral breath sounds, no crackles, bilateral wheezing. Cardiovascular/Chest: Regular rate and rhythm. No murmurs. No JVD. Peripheral Pulses: 2+ Radial (R). 2+ Radial (L). 2+ Pedal (R). 2+ Pedal (L) Abdominal Exam: Normal bowel sounds. Soft. normal abdomen, no visible veins, Nontender. No hepatospenomegaly. No masses Ankle Exam: Negative ankle edema Lower extremities: Negative lower extremity edema Neuro/Mental Status: A&O x4. Coherent. Thoughts/Psych: Normal thought pattern. Appropriate mood and affect. Good judgement and insight Skin Exam: Normal inspection. Normal color. Warm. Dry laboratory and microbiology Laboratory Tests 08/19/25 06:01 Test 08/19/25 06:01 Range/Units Serum Glucose 96 74-106 mg/dL Labs and/or images reviewed: Labs reviewed by me, Image(s) reviewed by me Problem List/Assessment/Plan Problem List/Assessment/Plan # Rule out acute coronary syndrome # Ruled out pulmonary embolism # Pulmonary nodule # Atypical pneumonia # Intractable chest pain due to above Bilateral Lower DVT US: No sonographic evidence for deep vein thrombosis in the bilateral lower extremity veins CT Angiography: No evidence for large pulmonary embolism. Cardiomegaly, coronary artery calcification disease. Pulmonary nodules up to 6 mm. Recommend follow-up per Fleischner society criteria. Mild left lower lobe tree-in-bud nodularity which can be secondary to atypical infection, bronchiolitis, aspiration. Mediastinal/hilar lymphadenopathy. Chest X-ray: No acute cardiopulmonary disease. Pulmonary consult Indicated azithromycin and ceftriaxone Evaluate IV steroids pain management with Morphine Zofran 4 MG IV q4h Nitroglycerin 0.4 MG # Diastolic congestive heart failure (HFpEF, LVEF 55%) # Paroxysmal atrial fibrillation (chads Vasc 4) secondary hypercoagulability state Echocardiogram pending Troponin negative. EKG shows sinus bradycardia with old septal infarct and no ST-elevation. on therapeutic enoxaparin 60 mg subcutaneous AID previous history of flecainide Aspirin # COPD with no exacerbation Ordered ABG. previous history of oxygen requirement # Severe thoracic and lumbar degenerative disc disease CT Angiography: Severe thoracic and lumbar degenerative disc disease. Endplate irregularity changes at multiple levels most prominently at T12-L1 which could be secondary to degenerative disease however if there is concern for discitis/ osteomyelitis recommend obtaining MRI thoracic/lumbar spine with and without contrast to evaluate. Enlarged ascending aorta measuring 4 cm. # Hypertension Losartan 50 MG PO bid monitor BP # Dyslipidemia Simvastatin 1 TAB PO qpm # Diabetes-controlled (hemoglobin A1c 6.6%) Mild sliding scale Diet: Cardiac Goals of care: Full code, discussed for >30 minutes on 08/19/25 Plan discussed with patient Plan discussed with Dr. Hopkins Plan discussed with: Patient My Orders My Orders Orders - JOSEPH RAMESH Procedure Category Date Status Time Communication Order ORDERS 08/19/25 Transmitted 06:56 Cardiac DIET 08/19/25 Transmitted Diet-2gna,Lofat,Lochol Breakfast Date of Service: Aug 19, 2025 Billing Provider: CRUZ HOPKINS MD Common Visit Codes: [id number] INP/OBS CARE(HIGH) JOSEPH RAMESH Aug 19, 2025 17:10 CRUZ HOPKINS MD Aug 31, 2025 16:35
--- NOTE | 2025-08-19 18:07 | DVHSR ---
APPROVED REPORT EXAM: Two-dimensional and M-mode echocardiogram with Doppler and color Doppler. Blood Pressure: 170/96 mmHg INDICATION ACS RISK FACTORS Height: 5'4", Weight: 180 DIMENSIONS LVDd 5.4 (3.8-5.7cm) LA (2D) 4.0 (1.9-4.0cm) Aortic Root 4.3 (2.0-3.7cm) LVDs 3.7 (2.5-4.0cm) LA (MM) (1.9-4.0cm) Aortic Cusp Exc 2.2 (1.5-2.0cm) EF (%) 59.0 (55-70%) Rt. Atrium 4.8 (1.9-4.0cm) Asc. Aorta 4.0 cm IVSd 1.1 (0.7-1.1cm) RV (D) 3.6 (1.8-2.4cm) PWd 1.2 (0.7-1.1cm) Mitral Valve Mitral Mitral Stenosis E wave 0.44m/s MV Mean GR. mmHg A wave 0.92m/s MV Peak GR. mmHg E/A ratio 0.5 2D MVA cm2 DECEL Time 416ms PRESS 1/2 Time ms Aortic Valve Aortic Valve Aortic Stenosis V1 0.74m/s AO Mean GR. 5mmHg V2 1.47m/s AO Peak GR. 9mmHg LVOT Diameter 2.5 (1.8-2.4cm) Doppler MEKA 2.47cm2 AI P 1/2 Time 420.63ms Other Information Quality : Technically Limited Rhythm : Technically limited study due to body habitus. Conclusion Technically good study sinus rhythm. Aortic root enlargement. Concentric LVH. The aortic valve is dilated sinuses of Valsalva. The mitral valve is normal. Left ventricular systolic performance is preserved at 60% with normal RV function. Mild aortic insufficiency. No pericardial effusion masses or vegetations.
[2025-08-19] MEDS ORDERED: ATORVASTATIN 20 MG TAB ONE (21:42)
[2025-08-20] VITALS (9 sets, daily range): BP systolic 138–161; BP diastolic 75–104; PULSE 64–84; RESP 16–18; TEMP 37.1; O2SAT 94–100
[2025-08-20] MEDS ORDERED: ONDANSETRON HCL 4 MG/2 ML VIAL ONE (02:49)
[2025-08-20] MEDS ORDERED: METH4PAK PO (08:26)
[2025-08-20] MEDS ORDERED: AUG875T PO (08:26)
--- NOTE | 2025-08-20 16:20 | DVHDSRES ---
Discharge Summary Date of Admission Resident Creating Document: JOSEPH RAMESH RESIDENT Aug 17, 2025 at 15:04 Date of Discharge: Aug 20, 2025 Admitting Diagnosis Chest pain Labs/Diagnostic Data: Laboratory Results Test 08/20/25 05:57 08/19/25 06:01 08/18/25 00:48 08/17/25 15:19 POC Glucose 130 mg/dl (70-106) White Blood Count 6.3 10^3/uL (4.4-10.8) Red Blood Count 4.60 10^6/uL (4.0-5.20) Hemoglobin 12.4 g/dL (12.2-16.2) Hematocrit 37.0 % (36.0-46.0) Mean Corpuscular Volume 80.4 fL (80.0-100.0) Mean Corpuscular Hemoglobin 26.9 pg (28.0-32.0) Mean Corpuscular Hemoglobin Concent 33.5 g/dL (32.0-36.0) Red Cell Distribution Width 18.1 % (11.8-14.3) Platelet Count 294 10^3/uL (140-450) Mean Platelet Volume 8.0 fL (6.9-10.8) Neutrophils (%) (Auto) 75.7 % (37.0-80.0) Lymphocytes (%) (Auto) 14.3 % (10.0-50.0) Monocytes (%) (Auto) 7.7 % (0.0-12.0) Eosinophils (%) (Auto) 1.6 % (0.0-7.0) Basophils (%) (Auto) 0.7 % (0.0-2.0) Neutrophils # (Auto) 4.8 10 ^3/uL (1.6-8.6) Lymphocytes # (Auto) 0.9 10 ^3/uL (0.4-5.4) Monocytes # (Auto) 0.5 10 ^3/uL (0-1.3) Eosinophils # (Auto) 0.1 10 ^3/uL (0-0.8) Basophils # (Auto) 0 10 ^3/uL (0-0.2) Nucleated Red Blood Cells 0.0 % Sodium Level 136 mmol/L (136-145) Potassium Level 4.3 mmol/L (3.5-5.1) Chloride Level 98 mmol/L (98-107) Carbon Dioxide Level 27 mmol/L (20-31) Anion Gap 11 (5-15) Blood Urea Nitrogen 16 mg/dL (9-23) Creatinine 0.80 mg/dL (0.550-1.02) Glomerular Filtration Rate Calc 78 mL/min (>90) BUN/Creatinine Ratio 20.0 (10.0-20.0) Serum Glucose 96 mg/dL (74-106) Calcium Level 9.5 mg/dL (8.7-10.4) Total Bilirubin 0.5 mg/dL (0.2-1.0) Aspartate Amino Transferase (AST) 19 U/L (13-40) Alanine Aminotransferase (ALT) 16 U/L (7-40) Alkaline Phosphatase 113 U/L (46-116) Total Protein 6.2 g/dL (5.7-8.2) Albumin 4.0 g/dL (3.2-4.8) Urine Color Light-yellow (Yellow) Urine Clarity Clear (Clear) Urine pH 7.0 (5.0-9.0) Urine Specific [place] 1.028 (1.001-1.035) Urine Protein Negative (Negative) Urine Ketones Negative (Negative) Urine Blood Negative /uL (Negative) Urine Nitrite Negative (Negative) Urine Bilirubin Negative (Negative) Urine Urobilinogen Normal mg/dL (Negative) Urine Leukocyte Esterase Negative /uL (Negative) Urine RBC 1 /hpf (0 - 4) Urine Microscopic WBC < 1 /HPF (0-5) Urine Squamous Epithelial Cells None seen /hpf (<5) Urine Bacteria None seen /hpf (None Seen) Urine Glucose Normal mg/dL (Normal) Urine Opiates Screen Pos (NEGATIVE) Urine Fentanyl Screen Neg (NEGATIVE) Urine Barbiturates Screen Neg (NEGATIVE) Urine Phencyclidine Screen Neg (NEGATIVE) Urine Amphetamines Screen Neg (NEGATIVE) Urine Benzodiazepines Screen Neg (NEGATIVE) Urine Cocaine Screen Neg (NEGATIVE) Urine Cannabinoids Screen Neg (NEGATIVE) Prothrombin Time 10.8 sec (9.3-11.8) Prothrombin Time INR 1.02 (0.9-1.15) Activated Partial Thromboplast Time 29.9 SEC (24.5-34.5) D-Dimer, Quantitative 4.15 mg/L FEU (0.0-0.49) Hemoglobin A1c 6.4 % A1C (<5.7) Phosphorus Level 3.6 mg/dL (2.4-5.1) Magnesium Level 1.9 mg/dL (1.6-2.6) Troponin I High Sensitivity 10 ng/L (</=34) Triglycerides Level 54 mg/dL (< 150) Cholesterol Level 127 mg/dL (< 200) LDL Cholesterol 44 mg/dL (< 100) HDL Cholesterol 69 mg/dL (40-59) Lipase 23 U/L (12-53) Vitamin B12 Level 374 pg/mL (211-911) Vitamin D 25-Hydroxy 48.4 ng/mL (30.0-100) Thyroid Stimulating Hormone (TSH) 1.14 uIU/mL (0.55-4.78) Other Laboratory Tests 08/19/25 06:01 Brief Hx & Hospital Course: The patient is a 74-year-old female with a significant past medical history of diabetes mellitus, hypertension, dyslipidemia, COPD (previous oxygen requirement), diastolic congestive heart failure (HFpEF, LVEF 55%), paroxysmal atrial fibrillation (ADELA?DS?-VASc score 4), osteoporosis with multiple fractures, arthritis, and prior silent myocardial infarction (coronary angiography in 2019 showed no obstructive disease). She also has a history of multiple orthopedic surgeries and recent tibial fracture managed non- operatively. She presented to [facility] ED on 08/16/2025 with constant, sharp chest pain that began at 8:00 PM, worsened by deep breathing and coughing. Associated symptoms included dyspnea, lightheadedness, palpitations, posterior right arm soreness, and productive cough with clear sputum. Symptoms were partially relieved by remaining still. Due to persistence, she sought emergency care. Initial evaluation revealed the patient was afebrile, BP 160/[address] angiogram ruled out pulmonary embolism but showed mild left lower lobe tree-in-bud nodularity suggestive of atypical infection, bronchiolitis, or aspiration, along with cardiomegaly, coronary calcifications, and small pulmonary nodules (6 mm). Chest X-ray showed no acute cardiopulmonary disease. Bilateral lower extremity Doppler was negative for DVT. On evaluation today, she states she is well, pain is manageable. Her vitals have remained stable for discharge home, follow up visit in discharge clinic. ACS and PE was ruled out, non cardiac chest pain that resolved, patient was found to have pneumonia with possible COPD exacerbation. All medications and recommendations were thoroughly explained and the patient states he understands and agrees. Detailed discussion held with patient at bedside were all questions were answered and concerns were addressed. Examination General Appearance: Cooperative. Well developed. Well nourished. NAD Head Exam: Normal inspection Neck Exam: Normal inspection. Non-tender. Normal alignment Pulmonary/Respiratory: Chest non-tender. Clear bilateral breath sounds, no crackles, bilateral wheezing. Cardiovascular/Chest: Regular rate and rhythm. No murmurs. No JVD. Peripheral Pulses: 2+ Radial (R). 2+ Radial (L). 2+ Pedal (R). 2+ Pedal (L) Abdominal Exam: Normal bowel sounds. Soft. normal abdomen, no visible veins, Nontender. No hepatospenomegaly. No masses Ankle Exam: Negative ankle edema Lower extremities: Negative lower extremity edema Neuro/Mental Status: A&O x4. Coherent. Thoughts/Psych: Normal thought pattern. Appropriate mood and affect. Good judgement and insight Skin Exam: Normal inspection. Normal color. Warm. Dry Case discussed with Dr Hopkins Operations or Procedures PATIENT: PASTOR LAND ACCT: [id number] UNIT: [id number] : 1950 LOC: OVERFLOW ROOM / BED: [address] [place] [address] AGE / SEX: 74 / F ADM STATUS: ADM IN SERVICE 1607 ORDERING PHYSICIAN: NICK PATINO RESIDENT PROCEDURE(s): BLDVT - BiLat Lower DVT REASON: Lower limb swelling ORDER NUMBER(s): [id number], ACCESSION NUMBER(s): [id number] US BiLat Lower DVT Comparison: US BILAT LOWER DVT on DOS: 01/07/24 Technique: Realtime grayscale and Doppler ultrasound images of the deep venous structures with spectral waveform analysis were obtained.Doppler spectral waveform analysis of the bilateral lower extremity veins was performed. Findings: Right Lower Extremity: Right common femoral vein: Normal compressibility and flow. Right femoral vein: Normal compressibility and flow. Right popliteal vein: Normal compressibility and flow. Proximal calf veins are normally compressible. Left Lower Extremity: Left common femoral vein: Normal compressibility and flow. Left femoral vein: Normal compressibility and flow. Left popliteal vein: Normal compressibility and flow. Proximal calf veins are normally compressible. IMPRESSION: NO SONOGRAPHIC EVIDENCE FOR DEEP VENOUS THROMBOSIS IN THE BILATERAL LOWER EXTREMITY VEINS. PATIENT: PASTOR LAND ACCT: [id number] UNIT: [id number] : 1950 LOC: OVERFLOW ROOM / BED: [address] [place] [address] AGE / SEX: 74 / F ADM STATUS: ADM IN SERVICE 1607 ORDERING PHYSICIAN: NICK PATINO RESIDENT PROCEDURE(s): CTACH - CT ANGIO CHEST CONTRAST REASON: R/o PE ORDER NUMBER(s): [id number], ACCESSION NUMBER(s): [id number] Indication: R/o PE Technique: CT axial images of the chest are obtained with intravenous contrast per CT angiogram protocol. Coronal and sagittal reformats were obtained. Radiation Dose Information: CTDI volume is 18.33 mGy. Dose-length product is 658.36 mGy*cm Comparison: CT CT ANGIO CHEST CONTRAST on DOS: 01/07/24, CT CT ANGIO CHEST CONTRAST on DOS: 07/31/23, CTACH on DOS: 09/13/22, CT ANGIO CHEST CONTRAST on DOS: 09/13/22, CTACH on DOS: 03/12/22 FINDINGS: No filling defect within the main left right pulmonary arteries. Trachea patent. No pneumothorax. 6 mm right lower lobe pulmonary nodule. 3 mm right middle lobe pulmonary nodule. Left lower lobe atelectasis. Mild left lower lobe tree-in-bud nodularity. Heart enlarged. Coronary artery calcification disease. Aortic atherosclerotic disease. Right hilar lymph node measuring 14 mm. Left paratracheal lymph node measuring 1.5 cm. No supraclavicular, axillary lymphadenopathy. Enlargement ascending aorta measuring 4 cm. Small hiatal hernia. Cholecystectomy. Bilateral shoulder arthroplasty hardware. There is severe thoracic and lumbar degenerative disc disease. Multilevel endplate irregularity/ erosive changes within the thoracic and lumbar spine especially pronounced at T12-L1. IMPRESSION: No evidence for large pulmonary embolism. Cardiomegaly, coronary artery calcification disease. Pulmonary nodules up to 6 mm. Recommend follow-up per Fleischner society criteria. Mild left lower lobe tree-in-bud nodularity which can be secondary to atypical infection, bronchiolitis, aspiration. Mediastinal/hilar lymphadenopathy. Severe thoracic and lumbar degenerative disc disease. Endplate irregularity changes at multiple levels most prominently at T12-L1 which could be secondary to degenerative disease however if there is concern for discitis/ osteomyelitis recommend obtaining MRI thoracic/lumbar spine with and without contrast to evaluate. Enlarged ascending aorta measuring 4 cm. Other findings as described PATIENT: PASTOR LAND ACCT: [id number] UNIT: [id number] : 1950 LOC: ER ROOM / BED: / AGE / SEX: 74 / F ADM STATUS: REG ER SERVICE 1110 ORDERING PHYSICIAN: SOLEDAD PATHAK MD PROCEDURE(s): CXRP - CHEST PORTABLE REASON: cp ORDER NUMBER(s): [id number], ACCESSION NUMBER(s): [id number] EXAM: XY CHEST PORTABLE Indication: cp Technique: Single frontal view of the chest was obtained Comparison: XY CHEST PORTABLE on DOS: 06/13/25, XY CHEST PORTABLE on DOS: 02/17/25, XY CHEST PORTABLE on DOS: 01/10/25, XY CHEST PORTABLE on DOS: 06/24/24, XY CHEST PORTABLE on DOS: 01/07/24 FINDINGS: Lines and Tubes: None Lungs: No focal consolidation. Pleura: No effusion. No pneumothorax. Cardiomediastinal contours: Unremarkable Bones: No acute osseous abnormality. IMPRESSION: No acute cardiopulmonary disease. PATIENT: PASTOR LAND ACCT: [id number] UNIT: [id number] : 1950 LOC: [facility]GE / SEX: 74 / F ADM STATUS: ADM IN SERVICE 5204 ORDERING PHYSICIAN: NICK PATINO PROCEDURE(s): ECIDC - ECHO 2D MODE CARDIAC DOP REASON: ACS ORDER NUMBER(s): [id number], ACCESSION NUMBER(s): [id number] APPROVED REPORT EXAM: Two-dimensional and M-mode echocardiogram with Doppler and color Doppler. Blood Pressure: 170/96 mmHg INDICATION ACS RISK FACTORS Height: 5'4", Weight: 180 DIMENSIONS LVDd 5.4 (3.8-5.7cm) LA (2D) 4.0 (1.9-4.0cm) Aortic Root 4.3 (2.0- 3.7cm) LVDs 3.7 (2.5-4.0cm) LA (MM) (1.9-4.0cm) Aortic Cusp Exc 2.2 (1.5- 2.0cm) EF (%) 59.0 (55-70%) Rt. Atrium 4.8 (1.9-4.0cm) Asc. Aorta 4.0 cm IVSd 1.1 (0.7-1.1cm) RV (D) 3.6 (1.8-2.4cm) PWd 1.2 (0.7-1.1cm) Mitral Valve Mitral Mitral Stenosis E wave 0.44m/s MV Mean GR. mmHg A wave 0.92m/s MV Peak GR. mmHg E/A ratio 0.5 2D MVA cm2 DECEL Time 416ms PRESS 1/2 Time ms Aortic Valve Aortic Valve Aortic Stenosis V1 0.74m/s AO Mean GR. 5mmHg V2 1.47m/s AO Peak GR. 9mmHg LVOT Diameter 2.5 (1.8-2.4cm) Doppler MEKA 2.47cm2 AI P 1/2 Time 420.63ms Other Information Quality : Technically Limited Rhythm : Technically limited study due to body habitus. Conclusion Technically good study sinus rhythm. Aortic root enlargement. Concentric LVH. The aortic valve is dilated sinuses of Valsalva. The mitral valve is normal. Left ventricular systolic performance is preserved at 60% with normal RV function. Mild aortic insufficiency. No pericardial effusion masses or vegetations. 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 PATIENT: PASTOR LAND ACCT: [id number] : 1950 LOC: OVERFLOW ROOM / BED: [address] [place] [address] AGE / SEX: 74 / F ADM STATUS: ADM IN SERVICE UNIT: [id number] ORDERING PHYSICIAN: SOLEDAD PATHAK MD PROCEDURE(s): EKG - ELECTROCARDIGRAM ORDER NUMBER(s): [id number], ACCESSION NUMBER(s): [id number] [facility] Test Date: 2025-08-17 Test Time: 10:43:51 Pat Name: PASTOR LAND Department: ED Room: [address] [place] [address] Gender: F Tenon Machine Operator: SEFERINO : 1950 Requested By: SOLEDAD PATHAK Order Number: [id number] Reading MD: Mt Stark Measurements Intervals [place] Rate: 64 P: 67 MS: 192 QRS: -62 QRSD: 141 T: 77 QT: 472 QTc: 487 Interpretive Statements Sinus rhythm Nonspecific IVCD with LAD Left ventricular hypertrophy Anterior Q waves, possibly due to LVH Electronically Signed On 08-18-2025 17:58:02 PST by Mt Stark Please click the below link to view image of tracing. DICTATED BY:MT STARK Sr., MD DICTATED DATE/TIME:08/17/25 1043 ELECTRONICALLY SIGNED BY:MT STARK Sr., MD 08/18/25 5998 ELECTRONICALLY CO-SIGNED BY: PATIENT: PASTOR LAND ACCT: [id number] : 1950 LOC: OVERFLOW ROOM / BED: [address] [place] [address] AGE / SEX: 74 / F ADM STATUS: ADM IN SERVICE UNIT: [id number] ORDERING PHYSICIAN: SOLEDAD PATHAK MD PROCEDURE(s): EKG - ELECTROCARDIGRAM ORDER NUMBER(s): [id number], ACCESSION NUMBER(s): [id number] [facility] Test Date: 2025-08-17 Test Time: 12:29:04 Pat Name: PASTOR LAND Department: ED Room: [address] [place] [address] Gender: F Tenon 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 DICTATED BY:MT STARK Sr., MD DICTATED DATE/TIME:08/17/25 1229 ELECTRONICALLY SIGNED BY:MT STARK Sr., MD 08/18/25 4547 ELECTRONICALLY CO-SIGNED BY: Condition at Discharge: Stable Final Diagnosis/Problems List # Ruled out acute coronary syndrome # Ruled out pulmonary embolism # Pulmonary nodule, etiology indetermined # Atypical pneumonia: pneumonia gram +/ gram neg # Chest pain due to acute on chronic diastolic congestive heart failure and pneumonia # Acute on chronic diastolic congestive heart failure (HFpEF, LVEF 55%) # Paroxysmal atrial fibrillation (chads Vasc 4) #secondary hypercoagulability state # COPD exacerbation # Severe thoracic and lumbar degenerative disc disease # Hypertesive urgency, resolved # Dyslipidemia # Diabetes-controlled (hemoglobin A1c 6.6%) Discharge Disposition: Home Discharge Instruct/Medications Diet: Cardiac 2g Na,low cholest Activity: No Restrictions, As Tolerated Follow Up/Referral: fu with Dr Cortez in 7 days Medications: See prescription, please picker box operator meds before going home Scheduled Albuterol Sulfate (Albuterol Sulfate Hfa), 2 PUFF INH Q4-6HR PRN, (Reported) Amoxicillin & Pot Clavulanate (Augmentin Tablet), 875 MG PO BID Diltiazem Hcl (Diltiazem Hcl Er), 1 CAP PO DAILY, (Reported) Flecainide Acetate (Flecainide Acetate), 1 TAB PO BID, (Reported) Fluoxetine Hcl (Fluoxetine Hcl), 1 CAP PO BID, (Reported) Hydrochlorothiazide (Hydrochlorothiazide), 1 TAB PO DAILY, (Reported) Hydrocodone-Acetaminophen (Hydrocodone Bitartrate/AC 10-325 mg), 1 TAB PO PRN, (Reported) Losartan Potassium (Losartan Potassium), 1 TAB PO BID, (Reported) Methylprednisolone (Medrol Dosepak), 4 MG PO UD Rivaroxaban (Xarelto), 1 TAB PO DAILY Simvastatin (Simvastatin), 1 TAB PO QPM, (Reported) Discharge Statement: "Patient was advised to return to the ER or call 911 if any headaches, dizziness, shortness of breath, chest pain, abdominal pain, bleeding, fevers, or worsening of medical condition. Patient was counseled about treatment plan, medications, possible side effects, patientverbalized understanding. All questions were answered to the best of my ability. This discharge took greater then 30 minutes in planning, reviewing documentation, counseling the patient, and discussing with other team members." ASSESSMENT ASSESSMENT Assessment COPD exacerbation Date of Service: Aug 20, 2025 Billing Provider: CRUZ HOPKINS MD Common Visit Codes: 99305-AJO/OBS DISCH DAY >30min JOSEPH RAMESH RESIDENT Aug 20, 2025 16:20 DION GILLIS RESIDENT Aug 21, 2025 14:46 CRUZ HOPKINS MD Sep 01, 2025 20:41
== END 2025-08-20 10:50 | disposition home or self-care (01) | DRG 177 ==
LOC: ER 10:44 → OVERFLOW 15:04 → TELE-WESTW 15:09 → UNDODISIN 23:05 → TELE-WESTW 08-18 23:46
PROVIDERS: ADMIT Internal Medicine Geriatric Medicine; ATTEND Internal Medicine Geriatric Medicine
DX: J15.69 Pneumonia due to other Gram-negative bacteria (principal); I50.33 Acute on chronic diastolic (congestive) heart failure; I11.0 Hypertensive heart disease with heart failure; J44.0 Chronic obstructive pulmonary disease with (acute) lower respiratory infection; D68.69 Other thrombophilia; E78.5 Hyperlipidemia, unspecified; E11.9 Type 2 diabetes mellitus without complications; J15.9 Unspecified bacterial pneumonia; J18.0 Bronchopneumonia, unspecified organism; J44.1 Chronic obstructive pulmonary disease with (acute) exacerbation; J21.9 Acute bronchiolitis, unspecified; I48.0 Paroxysmal atrial fibrillation; F41.9 Anxiety disorder, unspecified; M81.0 Age-related osteoporosis without current pathological fracture; M51.369 Other intervertebral disc degeneration, lumbar region without mention of lumbar back pain or lower extremity pain; M51.34 Other intervertebral disc degeneration, thoracic region; I25.10 Atherosclerotic heart disease of native coronary artery without angina pectoris; Z79.899 Other long term (current) drug therapy; Z90.710 Acquired absence of both cervix and uterus; Z90.49 Acquired absence of other specified parts of digestive tract; Z87.891 Personal history of nicotine dependence; Z83.3 Family history of diabetes mellitus; Z82.5 Family history of asthma and other chronic lower respiratory diseases
CPT/HCPCS: 36415; 36600; 71045; 71275; 80048; 80053; 80061; 80307; 81001; 82306; 82607; 82805; 82962; 83036; 83690; 83735; 84100; 84443; 84484; 85025; 85379; 85610; 85730; 93005; 93306; 93970; 94640; 99291; G0378; J1815; J2405; Q0162

== ENCOUNTER 2025-09-16 08:45 | Emergency (ER) | payer OTHER ==
[~2025-09-16] VITALS: Ht 162.6 cm; Wt 77.0 kg
[~2025-09-16 08:45] MED LIST changes: +AUG875T PO; +METH4PAK PO; +RIVA20TA PO; -ZOFR4T PO
[2025-09-16 08:47] VITALS: TEMP 98.6
--- NOTE | 2025-09-16 09:26 | ECG ---
[facility] Test Date: 2025-09-16 Test Time: 08:46:44 Pat Name: PASTOR LAND Department: ER Room: Gender: F Collar Separator: ONDINA : 1950 Requested By: SOLEDAD PATHAK Order Number: [id number] Reading MD: Cain Ott Measurements Intervals [place] Rate: 57 P: -4 NC: 192 QRS: -29 QRSD: 140 T: 47 QT: 468 QTc: 456 Interpretive Statements Sinus rhythm IVCD, consider atypical RBBB Left ventricular hypertrophy Anterior Q waves, possibly due to LVH Baseline wander in lead(s) I,II,aVR Electronically Signed On 09-17-2025 17:25:13 PST by Cain Ott Please click the below link to view image of tracing.
--- NOTE | 2025-09-16 10:48 | ED.PDOC ---
SOB-HPI HPI Comments 74y F who presents to the ED for chief complaint of shortness of breath. Pt states she has been having shortness of breath, chest pain, generalized weakness and malaise since being discharged from 3x weeks prior. Pt states her symptoms have been exacerbated for the past few days and came today for evaluation. Pt in the ED, has noted BP of 178/81 and heart rate of 57 with noted02 sat of 98% on room air. Pt otherwise has noted history of COPD, CHF and AFIB. Pt denies any other symptoms at this time. 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 History Family History Family History: Reviewed,noncontributory to illness, No family hx of Cancer, No family hx of Heart christian, No family hx of HTN, No family hx ofKidney christian, No family hx of Liver christian, No family hx of Lung christian, No family hx of Stroke, Family hx of DM Social History Smoker: Non-Smoker Alcohol: Denies ETOH Use Drugs: Denies Drug Use Lives In: Home Constitutional: reports: malaise, weakness; denies: chills, diaphoresis, fatigue, fever, sweats, others EENTM: denies: blurred vision, double vision, ear bleeding, ear discharge, ear drainage, ear pain, ear ringing, eye pain, eye redness, hearing loss, mouth pain, mouth swelling, nasal discharge, nose bleeding, nose congestion, nose pain, photophobia, tearing, throat pain, throat swelling, voice changes, others Respiratory: reports: shortness of breath; denies: cough, hemoptysis, orthopnea, SOB at rest, SOB with excertion, stridor, wheezing, others Cardiovascular: reports: chest pain; denies: dizzy spells, diaphoresis, Dyspnea on exertion, edema, irregular heart beat, left arm pain, lightheadedness, palpitations, PND, syncope, others Gastrointestinal: denies: abdomen distended, abdominal pain, blood streaked bowels, constipated, diarrhea, dysphagia, difficulty swallowing, hematemesis, melena, nausea, poor appetite, poor fluid intake, rectal bleeding, rectal pain, vomiting, others Genitourinary: denies: abnormal vagina bleeding, burning, dyspareunia, dysuria, flank pain, frequency, hematuria, incontinence, pain, , vagina discharge, urgency, others Neurological: denies: dizziness, fainting, headache, left sided numbness, left sided weakness, numbness, paresthesia, pre-existing deficit, right sided numbness, right sided weakness, seizure, speech problems, tingling, tremors, weakness, others Musculoskeletal: denies: back pain, gout, joint pain, joint swelling, muscle pain, muscle stiffness, neck pain, others Integumetry: denies: bruises, change in color, change in hair/nails, dryness, laceration, lesions, lumps, rash, wounds, others Allergic/Immunocompromised: denies: Difficulty Healing, Frequent Infections, Hives, Itching, others Hematologic/Lymphatic: denies: anemia, blood clots, easy bleeding, easy bruising, swollen glands, others Endocrine: denies: excessive hunger, excessive sweating, excessive thirst, excessive urination, flushing, intolerance to cold, intolerance to heat, unexplained weight gain, unexplained weight loss, others Psychiatric: denies: anxiety, bipolar disorder, depression, hopeless, panic disorder, schizophrenia, sleepless, suicidal, others All Other Systems: Reviewed and Negative Physical Exam General Appearance: No Apparent Distress, Normal HEENT: Normal ENT Inspection, Pharynx Normal, TMs Normal Neck: Full Range of Motion, Non-Tender, Normal, Normal Inspection Respiratory: Chest Non-Tender, Lungs Clear, No Accessory Muscle Use, No Respiratory Distress, Normal Breath Sounds Cardiovascular: Tachycardia, Other (tachypneic) Breast Exam: Deferred Gastrointestinal: No Organomegaly, Non Tender, No Pulsatile Mass, Normal Bowel Sounds, Soft Genitalia: Deferred Pelvic: Deferred Rectal: Deferred Extremities: No calf tenderness, Normal capillary refill, Normal inspection, Normal range of motion, Non-tender, No pedal edema Musculoskeletal : Apperance: Normal Neurologic: Alert, physical scientist II-XII nml as Tested, No Motor Deficits, Normal Affect, Normal Mood, No Sensory Deficits Cerebellar Function: Normal Reflexes: Normal Skin: Dry, Normal Color, Warm Lymphatic: No Adenopathy Was a procedure done? Was a procedure done?: No Differential Dx Differential Diagnosis: CHF, COPD, Hypertension, Pneumonia, Pulmonary Embolism, Respiratory Distress, Pharyngitis, URI X-Ray, Labs, Meds, VS Vital Signs Date Time Temp Pulse Resp B/P (MAP) Pulse Ox O2 Delivery O2 Flow Rate FiO2 09/16/25 09:46 57 09/16/25 08:47 98.6 56 24 178/81 98 98.6 09/16/25 08:46 57 Lab Test 09/16/25 11:50 09/16/25 11:06 09/16/25 08:57 Range/Units Urine Color Pending Urine Clarity Pending Urine pH Pending Urine Specific [place] Pending Urine Protein Pending Urine Ketones Pending Urine Blood Pending Urine Nitrite Pending Urine Bilirubin Pending Urine Urobilinogen Pending Urine Leukocyte Esterase Pending Urine RBC Pending Urine Microscopic WBC Pending Urine Squamous Epithelial Cells Pending Urine Bacteria Pending Urine Glucose Pending Lactic Acid Level 0.7 0.4-2.0 mmol/L Troponin I High Sensitivity Pending 18 </=34 ng/L White Blood Count 6.4 4.4-10.8 10^3/uL Red Blood Count 4.22 4.0-5.20 10^6/uL Hemoglobin 11.7 L 12.2-16.2 g/dL Hematocrit 34.5 L 36.0-46.0 % Mean Corpuscular Volume 81.6 80.0-100.0 fL Mean Corpuscular Hemoglobin 27.6 L 28.0-32.0 pg Mean Corpuscular Hemoglobin Concent 33.8 32.0-36.0 g/dL Red Cell Distribution Width 17.6 H 11.8-14.3 % Platelet Count 271 140-450 10^3/uL Mean Platelet Volume 8.3 6.9-10.8 fL Neutrophils (%) (Auto) 66.1 37.0-80.0 % Lymphocytes (%) (Auto) 19.0 10.0-50.0 % Monocytes (%) (Auto) 10.3 0.0-12.0 % Eosinophils (%) (Auto) 4.0 0.0-7.0 % Basophils (%) (Auto) 0.6 0.0-2.0 % Neutrophils # (Auto) 4.2 1.6-8.6 10 ^3/uL Lymphocytes # (Auto) 1.2 0.4-5.4 10 ^3/uL Monocytes # (Auto) 0.7 0-1.3 10 ^3/uL Eosinophils # (Auto) 0.3 0-0.8 10 ^3/uL Basophils # (Auto) 0 0-0.2 10 ^3/uL Nucleated Red Blood Cells 0.0 % Sodium Level 133 L 136-145 mmol/L Potassium Level 4.6 3.5-5.1 mmol/L Chloride Level 97 L 98-107 mmol/L Carbon Dioxide Level 27 20-31 mmol/L Anion Gap 9 5-15 Blood Urea Nitrogen 15 9-23 mg/dL Creatinine 0.81 0.550-1.02 mg/dL Glomerular Filtration Rate Calc 77 >90 mL/min BUN/Creatinine Ratio 18.5 10.0-20.0 Serum Glucose 98 74-106 mg/dL Calcium Level 7.7 L 8.7-10.4 mg/dL B-Type Natriuretic Peptide 302.95 0-100 pg/mL Time of 1ST Reevaluation: 11:15 Reevaluation 1ST: Unchanged Patient Education/Counseling: Diagnosis, Treatment Family Education/Counseling: No Family Present SEPSIS Sepsis Screen Date sepsis recognized/suspect: Sep 16, 2025 Time Sepsis recognized/suspect: 847 Recent Procedure: No On Antibiotic Therapy: No Respiratory Rate >20: Yes Heart Rate >90: No Temp<36 C (96.8 F) or >38.3 C: No SBP <90 or MAP <65 mmHG: No New Acute Mental Status Change: No Is the patient on CPAP, BIPAP,: No Physician Orders Electrocardigram (09/16/25 12:24) Urinalysis (09/16/25 10:56) Chest Portable (09/16/25 10:56) Blood Culture (09/16/25 10:56) Troponin-I Hs (09/16/25 11:56) Troponin-I Hs (09/16/25 13:56) Vital Signs Date Time Temp Pulse Resp B/P (MAP) Pulse Ox O2 Delivery O2 Flow Rate FiO2 09/16/25 09:46 57 09/16/25 08:47 98.6 56 24 178/81 98 98.6 09/16/25 08:46 57 Laboratory Tests Test 09/16/25 08:57 09/16/25 11:06 White Blood Count 6.4 10^3/uL (4.4-10.8) Lactic Acid Level 0.7 mmol/L (0.4-2.0) Departure 1 Departure Time of Disposition: 12:17 (Patient presented with acute shortness of breath concerning for acute on chronic COPD Exacerbation, Pneumonia, ACS, CHF, Pneumothorax. Less likely PE, Dissection. Data: 1. I ordered and reviewed the result of at least 3 labs including a CBC, BMP, and Troponin. 2. I independently interpreted the following tests: Chest X-ray shows .Risk:This patient has a high risk of morbidity due to further diagnostic testing or treatment and may suffer from respiratory or cardiac etiology . Workup reveals a likely COPD Exacerbation and patient should be admitted for further workup. and possible expert consultation.) Impression: Primary Impression: Acute and chronic respiratory failure Additional Impression: Shortness of breath Disposition: ADMITTED INPATIENT Admit to: Tele Condition: Guarded Critical Care Note Critical Care Time?: No Stability Stability form required: No Heart Score Heart Score: Heart Score Response (Comments) Value History Moderate Suspicious 1 EKG Normal 0 Age >65 2 Risk Factors >3 or Hx ASHD 2 Troponin 1-2 x's Normal limit 1 Total 6 I personally scribed for SOLEDAD PATHAK MD (ANNIAO) on 09/16/25 at 10:48. Electronically submitted by Will Witt ([email or web address]). I personally scribed for SOLEDAD PATHAK MD (ANNIAO) on 09/16/25 at 11:03. Electronically submitted by Will Witt ([email or web address]). I personally scribed for SOLEDAD PATHAK MD (ANNIAO) on 09/16/25 at 11:04. Electronically submitted by Will Witt ([email or web address]). SOLEDAD PATHAK MD Sep 16, 2025 10:48
--- NOTE | 2025-09-16 11:02 | ECG ---
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
[2025-09-16 11:17] LABS: Hematocrit 34.5 % (36.0-46.0); Hemoglobin 11.7 g/dL (12.2-16.2); Mean Corpuscular Hemoglobin 27.6 pg (28.0-32.0); Mean Corpuscular Volume 81.6 fL (80.0-100.0); Nucleated Red Blood Cells % 0.0 %
[2025-09-16 11:23] LABS: Potassium 4.6 mmol/L (3.5-5.1)
[2025-09-16 11:24] LABS: Anion Gap 9 (5-15); Carbon Dioxide 27 mmol/L (20-31)
[2025-09-16 11:27] LABS: Calcium 7.7 mg/dL (8.7-10.4); Chloride 97 mmol/L (98-107); Sodium 133 mmol/L (136-145)
[2025-09-16 11:29] LABS: BUN/Creatinine Ratio 18.5 (10.0-20.0); Blood Urea Nitrogen 15 mg/dL (9-23); Glucose 98 mg/dL (74-106)
--- NOTE | 2025-09-16 11:52 | DVH ---
INDICATION: sob TECHNIQUE: Frontal view of the chest. COMPARISON: XY CHEST PORTABLE on DOS: 08/17/25, XY CHEST PORTABLE on DOS: 06/13/25, XY CHEST PORTABLE on DOS: 02/17/25, XY CHEST PORTABLE on DOS: 01/10/25, XY CHEST PORTABLE on DOS: 06/24/24 FINDINGS/IMPRESSION: Mild prominence of the interstitial markings. Unchanged cardiomediastinal silhouette. No pleural effusion or pneumothorax. Unchanged osseous structures. Incompletely assessed bilateral shoulder arthroplasties.
[2025-09-16 12:25] LABS: Urine Protein, UAD Negative (Negative)
[2025-09-16] MEDS: ALBUTEROL SULF 2.5 MG/0.5ML(0.5%) NEB SOLN NEB ONE (12:40)
[2025-09-16] MEDS: IPRATROPIUM BROM 0.5 MG/2.5ML INH SOL NEB ONE (12:40)
--- NOTE | 2025-09-16 12:51 | ECG ---
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
[2025-09-16 13:33] VITALS: BP 155/86
[2025-09-16] MEDS: ONDANSETRON HCL 4 MG/2 ML VIAL IV ONE (13:33)
[2025-09-16] MEDS: MORPHINE SULFATE 4 MG/ML SYR/VIAL IV ONE (13:33)
[2025-09-16] MEDS: methylPREDNISolone SOD SUCC 125 MG/2 ML VL IV ONE (13:34)
[2025-09-16 13:39] VITALS: PULSE 60; RESP 16; O2SAT 95
[2025-09-16] MEDS ORDERED: DOXY-346 PO (13:59)
--- NOTE | 2025-09-16 13:59 | ED.PDOC ---
Departure 1 Departure Time of Disposition: 13:57 (Patient is feeling significantly better. Discussed with patient's primary care doctors. We will discharge patient home with outpatient follow up) Impression: Primary Impression: Shortness of breath Additional Impression: COPD exacerbation Disposition: HOME / SELF CARE / HOMELESS Condition: Stable Additional Instructions: You likely had a COPD exacerbation. You should use your inhaler as directed. Your prescribed steroids and doxycycline Please take as directed. It is important to follow up with the regular doctor within 1 week. If your symptoms worsen or you have any other concerns please return to the emergency room. e-Prescriptions Doxycycline (Monohydrate) (Doxycycline) 100 Mg Tab 100 MG PO BID for 5 Days, #10 TAB Prov: SOLEDAD PATHAK MD 09/16/25 SOLEDAD PATHAK MD Sep 16, 2025 13:59
== END 2025-09-16 14:44 | disposition home or self-care (01) ==
LOC: ER 08:45
DX: J44.1 Chronic obstructive pulmonary disease with (acute) exacerbation (principal); I11.0 Hypertensive heart disease with heart failure; I50.9 Heart failure, unspecified; E11.9 Type 2 diabetes mellitus without complications; E78.5 Hyperlipidemia, unspecified; I48.91 Unspecified atrial fibrillation; I25.2 Old myocardial infarction; F41.9 Anxiety disorder, unspecified; F32.A Depression, unspecified; Z90.49 Acquired absence of other specified parts of digestive tract; Z90.710 Acquired absence of both cervix and uterus; Z96.611 Presence of right artificial shoulder joint; Z96.612 Presence of left artificial shoulder joint
CPT/HCPCS: 36415; 71045; 80048; 81001; 83605; 83880; 84484; 85025; 87040; 93005; 94640; 96374; 96375; 99285; J2270; J2405; J2919